=== PATIENT | male | born 1955 | race Caucasian/White ===

== ENCOUNTER 2020-09-15 19:41 | Emergency (ER) | payer MEDICARE, MEDICAID, SELFPAY ==
[2020-09-15 19:45] VITALS: BP 141/125; PULSE 114; RESP 26; TEMP 36.6; O2SAT 87; BMI 29.9
[2020-09-15 19:58] VITALS: O2SAT 96
--- NOTE | 2020-09-15 20:00 | EKG12_ITS ---
Test Reason : DYSRHYTHMIA Blood Pressure : / mmHG Vent. Rate : 092 BPM Atrial Rate : 092 BPM P-R Int : 154 ms QRS Dur : 084 ms QT Int : 390 ms P-R-T Axes : 085 -21 067 degrees QTc Int : 482 ms Normal sinus rhythm Prolonged QT Septal OH, age undetermined, cannot be excluded Abnormal ECG Confirmed by STEPHAN HAYES, PARISH ([id number]), index editor JOEL FUENTES ([id number]) on 09/17/2020 9:26:43 AM Referred By: AIYANA Confirmed By:PARISH ROTHMAN MD
--- NOTE | 2020-09-15 20:01 | EX.ED.DYSGE1 ---
HPI History of Present Illness Chief Complaint: Shortness of Breath Informant: patient Onset/Context/Timing Onset: Today Current Severity: Mild Maximum Severity: Moderate Narrative Narrative: Patient presents via EMS secondary to shortness of breath. Patient is a history of COPD and states when the weather gets very humid he has difficulty breathing. His O2 sat was reported 80% on room air with squad. He was given albuterol treatment in route. Patient does wear 2 to 3 L of oxygen at bedtime only. He denies chest pain. PFSH PFSH Medical History Congestive heart failure (CHF) COPD (chronic obstructive pulmonary disease) Diabetes Hypertension On home oxygen therapy Smoker Home Medications albuterol sulfate [Ventolin HFA] 2 puff INHALATION Q4H PRN PRN 09/15/20 [History Last Taken Unknown] budesonide-formoterol 2 puff INHALATION BID 09/15/20 [History Last Taken Unknown] doxycycline monohydrate 100 mg PO BID #20 cap 09/15/20 [Rx Last Taken Unknown] furosemide 20 mg PO DAILY 09/15/20 [History Last Taken Unknown] glimepiride 0.5 mg PO DAILY 09/15/20 [History Last Taken Unknown] ipratropium bromide 3 ml INHALATION TID PRN 09/15/20 [History Last Taken Unknown] losartan 25 mg PO DAILY 09/15/20 [History Last Taken Unknown] metoprolol succinate 150 mg PO DAILY 09/15/20 [History Last Taken Unknown] prednisone 40 mg PO DAILY #16 tab 09/15/20 [Rx Last Taken Unknown] Allergy/AdvReac Type Severity Reaction Status Date / Time No Known Allergies Allergy Verified 09/15/20 19:52 Social History Smoking Status: Former smoker ROS ROS ED Constitutional Constitutional ED: Denies chills or fever(s) Eyes Eyes: Denies change in vision ENT ENT ED: Denies sore throat Cardiovascular Cardiovascular: Denies chest pain Respiratory/Chest Respiratory/Chest: Reports dyspnea; Denies cough Gastrointestinal Gastrointestinal: Denies abdominal pain, diarrhea, nausea or vomiting Genitourinary Genitourinary ED: Denies dysuria Musculoskeletal Musculoskeletal: Denies back pain Integumentary Denies rash Neurologic Neurologic: Denies headache(s) or weakness Psychiatric Psychiatric: Denies anxiety or depression Endocrine Endocrinology: Denies polydipsia or polyuria Allergic/Immunologic Allergic/Immunologic ED: Denies urticaria EXAM Physical Exam Const Vital Signs: 09/15/20 19:45 09/15/20 19:58 09/15/20 20:49 Temperature 97.9 F Temperature Source Temporal Pulse Rate 114 H 108 H Respiratory Rate 26 H 20 H Respiratory Effort Short of Breath Respiratory Pattern Tachypnea Normal Blood Pressure 141/125 H Blood Pressure Mean 130 Pulse Ox 87 Oxygen Delivery Method Room Air Nasal Cannula Oxygen Flow Rate (L/min) 2 09/15/20 21:29 09/15/20 22:58 09/15/20 22:59 Temperature 97.9 F 97.9 F Temperature Source Temporal Temporal Pulse Rate 95 93 93 Respiratory Rate 24 H 23 H 23 H Respiratory Effort Respiratory Pattern Blood Pressure 158/75 H 137/74 H 137/74 H Blood Pressure Mean 102 95 Pulse Ox 96 92 92 Oxygen Delivery Method Nasal Cannula Nasal Cannula Oxygen Flow Rate (L/min) 2 2 Positive well nourished and well developed General Appearance ED: well developed HEENT Reports normocephalic and head/scalp atraumatic Eyes PERRL and EOMs intact bilaterally Neck supple Chest Wall inspection of chest normal and palpation of chest normal Resp normal respiratory effort Auscultation: diminished lung sounds Cardio regular rate and regular rhythm GI normal to inspection, nondistended, normoactive bowel sounds Palpation: soft Extremity normal to inspection Neuro oriented x3 and no sensory deficits noted Sensorium / Orientation: alert Motor Exam: strength 5/5 throughout Psych mental status grossly normal Skin no rashes or lesions noted MDM MDM MDM Narrative Medical decision making narrative: EKG, chest x-ray, labs were obtained. Patient is given a DuoNeb treatment. Lab Data Attestation: I reviewed the patient's lab results. Labs: Laboratory Results - last 24 hr 09/15/20 09/15/20 20:00 20:00 WBC 9.4 RBC 4.58 L Hgb 14.0 Hct 44.7 MCV 97.6 H MCH 30.6 MCHC 31.3 L RDW Std Deviation 50.8 H RDW Coeff of Patricia 14.2 Plt Count 308 MPV 10.1 Immature Gran % (Auto) 0.500 Neut % (Auto) 60.9 Lymph % (Auto) 27.9 [place] % (Auto) 8.5 Eos % (Auto) 1.7 Baso % (Auto) 0.5 Absolute Neuts (auto) 5.7 Absolute Lymphs (auto) 2.61 Nucleated RBC % 0 Sodium 144 Potassium 3.9 Chloride 105 Carbon Dioxide 33.0 H Anion Gap 6 BUN 16 Creatinine 1.24 Estim Creat Clear Calc 61.32 Est GFR (MDRD) Af Amer 75 Est GFR (MDRD) Non-Af 62 BUN/Creatinine Ratio 12.9 Glucose 163 H Calcium 9.1 Radiography Chest X-Ray - ED: 1 View, Read by ED Physician and - (Scarring bilateral bases) Diagnostic Testing: Radiology Impression Chest X-Ray 09/15/20 20:40 IMPRESSION: Streaky opacities in the bilateral lower lobes concerning for infection. Electronically Signed: Burton Kelly MD at 21:05 EDT Tel , Service support , EKG Initial EKG: Attestation: I personally reviewed and interpreted this EKG as follows: Interpretation: Sinus Rhythm (Sinus at 92 with no acute ischemia.) Treatment and Re-Evaluation Comments:: Patient had received 1 albuterol aerosol with squad. He was given a DuoNeb treatment here and IV Solu-Medrol. Chest x-ray per my interpretation reveals what appears to be scarring at the bases. Radiology feels that this may represent infection. Lab work is unremarkable. On repeat evaluation patient is sleeping soundly. His nasal cannula is not in correct location and his O2 sats are in the mid 90s. This taken completely off. He does have home oxygen that he wears at night and will have available. He will be treated with a course of doxycycline. Discharge Plan Triage Chief Complaint: Shortness of Breath ED Provider: Ainta Holguin Dx/Rx/DC Orders Clinical Impression: COPD exacerbation Instructions: ED COPD Flare Prescriptions: New doxycycline monohydrate 100 MG capsule 100 mg PO BID Qty: 20 RF: 0 prednisone 10 mg tablet 40 mg PO DAILY Qty: 16 RF: 0 No Action metoprolol succinate 50 mg tablet extended release 24 hr 150 mg PO DAILY RF: 0 glimepiride 1 mg tablet 0.5 mg PO DAILY RF: 0 losartan 25 mg tablet 25 mg PO DAILY RF: 0 furosemide 20 mg tablet 20 mg PO DAILY RF: 0 albuterol sulfate [Ventolin HFA] 90 mcg/actuation HFA aerosol inhaler 2 puff INHALATION Q4H PRN PRN (Reason: Shortness Of Breath) RF: 0 ipratropium bromide 0.02 % solution 3 ml inhalation TID PRN (Reason: Shortness Of Breath) RF: 0 budesonide-formoterol 160-4.5 mcg/actuation HFA aerosol inhaler 2 puff INHALATION BID RF: 0 Primary Care Provider: Care Physician,No Primary Referrals: Deon Manley MD [STAFF PHYSICIAN] - As Needed Care Physician,No Primary [Primary Care Provider] - Disposition Disposition: Home, self care Discharge Date/Time: 09/15/20 23:05
[2020-09-15 20:09] LABS: Absolute Lymphocyte Count 2.61 X10^3/uL (0.83-4.51); Absolute Neutrophil Count 5.7 X10^3/uL (2.0-7.7); Basophil# 0.05 X10^3/uL; Basophil% 0.5 % (0-1); Eosinophil# 0.16 X10^3/uL; Eosinophils% 1.7 % (0-5); Hematocrit 44.7 % (40-54); Lymphocyte # 2.61 X10^3/ul (0.83-4.51); Lymphocyte % 27.9 % (19-41); Mean Corp Hgb Conc 31.3 g/dL (32-36); Mean Corpuscular Hgb 30.6 pg (27.0-32.0); Mean Corpuscular Volume 97.6 fL (80-94); Mean Platelet Vol. 10.1 fl (6.2-12.0); Monocyte% 8.5 % (0-10); NRBC Flagged by Analyzer 0 % (0-5); Neutrophil % 60.9 % (47-70); Platelet Count 308 K/mm3 (150-450); RBC Distribution Width CV 14.2 % (11.6-14.6); RBC Distribution Width SD 50.8 fl (35.1-43.9); Red Blood Count 4.58 M/mm3 (4.6-6.2); White Blood Count 9.4 K/mm3 (4.4-11.0)
[2020-09-15 20:23] LABS: Anion Gap 6 (5-15); BUN 16 mg/dL (7-18); BUN/Creat Ratio 12.9 RATIO (10-20); Calcium,Total 9.1 mg/dL (8.5-10.1); Chloride 105 mmol/L (98-107); Creatinine, Serum 1.24 mg/dL (0.70-1.30); EST Glomerular Filtration Rate 62 mL/min (>60); Est Glom Filt Rate - Afr Amer 75 mL/min (>60); Estimated Creatinine Clearance 61.32 ml/min; Glucose 163 mg/dL (74-106); Potassium 3.9 mmol/L (3.5-5.1); Sodium Level 144 mmol/L (136-145)
[2020-09-15] MEDS: MethylPREDNISolone 125 MG/2 ML Vial IV (20:25)
--- NOTE | 2020-09-15 20:40 | RAD_ITS ---
INDICATION: sob EXAMINATION/TECHNIQUE: X-RAY - XR Chest 1 View COMPARISON: None. FINDINGS: Streaky opacities in the bilateral lower lobes, mostly on the right. Tortuous and calcified thoracic aorta. The heart is not enlarged. No pleural effusion or pneumothorax. No acute osseous abnormalities. RAD/Chest 1 View (Portable) IMPRESSION: Streaky opacities in the bilateral lower lobes concerning for infection. Electronically Signed: Burton Kelly MD at 21:05 EDT Tel , Service support ,
[2020-09-15 20:49] VITALS: PULSE 108; RESP 20
[2020-09-15] MEDS: Ipratropium/Albuterol Sulfate 3 ML AMPUL.NEB INHALATION (20:49)
[2020-09-15 21:29] VITALS: BP 158/75; PULSE 95; RESP 24; TEMP 36.6; O2SAT 96
[2020-09-15 22:58] VITALS: BP 137/74; PULSE 93; RESP 23; O2SAT 92
[2020-09-15 22:59] VITALS: BP 137/74; PULSE 93; RESP 23; TEMP 36.6; O2SAT 92
[2020-09-15] MEDS: Doxycycline 100 MG CAPSULE PO (23:05)
== END 2020-09-15 23:05 | disposition home or self-care (01) ==
PROVIDERS: Emergency Provider Emergency Medicine
DX: J44.1 Chronic obstructive pulmonary disease with (acute) exacerbation (principal); I11.0 Hypertensive heart disease with heart failure; I50.9 Heart failure, unspecified; Z79.52 Long term (current) use of systemic steroids; Z79.899 Other long term (current) drug therapy; Z87.891 Personal history of nicotine dependence
CPT/HCPCS: 71045; 80048; 85025; 93005; 94640; 96374; 99285; A4216

== ENCOUNTER 2020-09-30 20:56 | Inpatient (IN) | payer MEDICARE, MEDICAID, SELFPAY ==
[2020-09-30 20:58] VITALS: BP 141/100; PULSE 116; RESP 40; TEMP 35.8; O2SAT 85; BMI 32.6
[2020-09-30 21:01] VITALS: BP 141/100; PULSE 42; RESP 40; TEMP 36.1; O2SAT 93
--- NOTE | 2020-09-30 21:12 | EKG12_ITS ---
Test Reason : DYSRHYTHMIA Blood Pressure : / mmHG Vent. Rate : 110 BPM Atrial Rate : 110 BPM P-R Int : 146 ms QRS Dur : 082 ms QT Int : 354 ms P-R-T Axes : 069 -18 067 degrees QTc Int : 479 ms Sinus tachycardia Otherwise normal ECG Confirmed by PREMA HAYES, LAWRENCE ([id number]), deputy editor in chief ANNALISA BURT ([id number]) on 10/01/2020 2:25:16 PM Referred By: ROMA Confirmed By:LAWRENCE LLOYD MD
--- NOTE | 2020-09-30 21:13 | ED.VIS.DYS ---
HPI History of Present Illness Chief Complaint: Shortness of Breath Detail of Chief Complaint: Shortness of breath progressively worsening over the last several days Informant: patient Narrative Narrative: Patient presents to ER via EMS with complaint of increasing shortness of breath. Patient has history of COPD and normally uses 3 L of O2 mostly at night. Patient states that due to the humidity in the heat he feels like his COPD is flared up. He denies weight gain. He denies fever. He does have slight cough. Patient denies any chest pain. Patient denies recent travel or surgery. No history of PE or DVT. Prior similar symptoms: Yes PFSH PFSH Medical History Congestive heart failure (CHF) COPD (chronic obstructive pulmonary disease) Diabetes Hypertension On home oxygen therapy Smoker Home Medications albuterol sulfate [Ventolin HFA] 2 puff INHALATION Q4H PRN PRN 09/15/20 [History Last Taken Unknown] budesonide-formoterol 2 puff INHALATION BID 09/15/20 [History Last Taken Unknown] doxycycline monohydrate 100 mg PO BID #20 cap 09/15/20 [Rx Last Taken Unknown] furosemide 20 mg PO DAILY 09/15/20 [History Last Taken Unknown] glimepiride 0.5 mg PO DAILY 09/15/20 [History Last Taken Unknown] ipratropium bromide 3 ml INHALATION TID PRN 09/15/20 [History Last Taken Unknown] losartan 25 mg PO DAILY 09/15/20 [History Last Taken Unknown] metoprolol succinate 150 mg PO DAILY 09/15/20 [History Last Taken Unknown] prednisone 40 mg PO DAILY #16 tab 09/15/20 [Rx Last Taken Unknown] Allergy/AdvReac Type Severity Reaction Status Date / Time No Known Allergies Allergy Verified 09/15/20 19:52 Social History Smoking Status: Former smoker ROS ROS ED Constitutional Constitutional ED: Reports systems reviewed and no addt'l complaints, except as documented; Denies body ache(s), change in weight or chills Eyes Eyes: Denies acute decrease in peripheral vision, change in vision, double vision or loss of vision ENT ENT ED: Reports none; Denies ear pain, lip swelling, loss taste/smell, neck pain, otalgia or sore throat Cardiovascular Cardiovascular: Reports none; Denies abdominal pain, chest pain with activity, leg edema, lightheadedness, palpitations, rapid heart rate or syncope Respiratory/Chest Respiratory/Chest: Reports none, cough and dyspnea; Denies change in mental status, dry cough, hemoptysis, shortness of breath at rest or shortness of breath with exertion Gastrointestinal Gastrointestinal: Reports none; Denies abdominal pain, change in stool character, diarrhea, hematemesis, hematochezia, melena, rectal bleeding or vomiting Genitourinary Genitourinary ED: Reports none; Denies abdominal discomfort, anuria, dysuria, genital pain or polyuria Musculoskeletal Musculoskeletal: Reports none; Denies arthralgias, back pain, difficulty walking, extremity pain, muscle weakness or myalgias Integumentary Reports none; Denies abscess or rash Neurologic Neurologic: Reports none; Denies abnormal gait, confusion, focal weakness, frequent falls, headache(s), loss of vision, numbness, paresthesias, radicular pain, vertigo or weakness Psychiatric Psychiatric: Reports systems reviewed and no addt'l complaints, except as documented and none; Denies behavioral changes, confusion, difficulty concentrating, hallucinations, suicidal ideation, tactile hallucinations or visual hallucinations Endocrine Endocrinology: Denies none, cold intolerance, excessive sweating, fatigue or heat intolerance Hematologic/Lymphatic Hematologic/Lymphatic: Reports none; Denies anemia, easy bleeding or easy bruising Allergic/Immunologic Allergic/Immunologic ED: Denies as per HPI, none, lip swelling, mouth swelling, throat swelling, tongue swelling or hives EXAM Physical Exam Const Vital Signs: 09/30/20 20:58 09/30/20 21:01 09/30/20 21:16 Temperature 96.5 F L 96.9 F L Temperature Source Temporal Temporal Pulse Rate 116 H 42 L 117 H Respiratory Rate 40 H 40 H 34 H Respiratory Effort Short of Breath Labored Accessory Muscle Use Respiratory Depth Shallow Respiratory Pattern Tachypnea Blood Pressure 141/100 H 141/100 H Blood Pressure Mean 113 113 Pulse Ox 85 93 95 Oxygen Delivery Method Room Air Nasal Cannula Nasal Cannula Oxygen Flow Rate (L/min) 2 2 09/30/20 22:08 Temperature 98.4 F Temperature Source Temporal Pulse Rate 109 H Respiratory Rate 26 H Respiratory Effort Respiratory Depth Respiratory Pattern Blood Pressure 126/90 H Blood Pressure Mean 102 Pulse Ox 98 Oxygen Delivery Method Room Air Oxygen Flow Rate (L/min) Positive well nourished and well developed General Appearance ED: well developed and NAD HEENT Reports TM's clear and moist mucous membranes normocephalic and atraumatic; Negative for trauma or tenderness Tympanic Membrane ED: Yes TM's clear Eyes PERRL and EOMs intact bilaterally General Eye ED: Negative for pale conjunctiva or scleral icterus Neck no lymphadenopathy, supple and no JVD General: Negative for tenderness Chest Wall inspection of chest normal and palpation of chest normal Chest: Negative for tenderness Resp Resp Narrative: Patient tachypneic with some mild accessory muscle use noted. Patient has diminished breath sounds bilaterally with end expiratory wheezes noted bilaterally. Effort and Inspection: Negative for respiratory distress or pain with movement Auscultation: rhonchi and wheezes; Negative for diminished lung sounds Cardio regular rate, regular rhythm, S1 normal heart sound, S2 normal heart sound and no murmurs Peripheral Pulses: pulses 2+ throughout GI normal to inspection, nondistended, normoactive bowel sounds, soft to palpation, non-tender, non-distended and no masses Back/Spine no CVA tenderness and no thoracic nor lumbar tenderness Extremity normal to inspection General Extremety ED: Negative for edema General Extremity: Negative for edema Neuro oriented x3, CN's II-XII intact bilaterally, no sensory deficits noted and gait normal Sensorium / Orientation: awake, alert, oriented to person, oriented to place and oriented to time Motor Exam: strength 5/5 throughout and strength abnormal Psych mental status grossly normal Skin no rashes or lesions noted and no wounds MDM MDM MDM Narrative Medical decision making narrative: Patient received DuoNeb aerosol and albuterol aerosols as well as prednisone IV. CTA of the chest was negative for PE or dissection. No infiltrates noted. Patient was noted to have some nodules 1 in the right lower lobe measuring 1.1 x 0.9 cm and one in left upper lobe measuring [address] follow-up in 6 months. Case will be discussed with hospitalist evaluate patient for admission. Patient has COPD exacerbation. Lab Data Attestation: I reviewed the patient's lab results. Labs: Laboratory Results - last 24 hr 09/30/20 09/30/20 09/30/20 21:05 21:05 21:05 WBC 12.3 H RBC 4.93 Hgb 15.0 Hct 48.4 MCV 98.2 H MCH 30.4 MCHC 31.0 L RDW Std Deviation 49.4 H RDW Coeff of Patricia 13.7 Plt Count 295 MPV 10.5 Immature Gran % (Auto) 0.500 Neut % (Auto) 63.5 Lymph % (Auto) 23.9 [place] % (Auto) 9.7 Eos % (Auto) 1.9 Baso % (Auto) 0.5 Absolute Neuts (auto) 7.8 H Absolute Lymphs (auto) 2.94 Nucleated RBC % 0 D-Dimer Quant (PE/DVT) Sodium 140 Potassium 4.8 Chloride 102 Carbon Dioxide 36.0 H Anion Gap 2 L BUN 25 H Creatinine 1.75 H Estim Creat Clear Calc 43.45 Est GFR (MDRD) Af Amer 50 L Est GFR (MDRD) Non-Af 42 L BUN/Creatinine Ratio 14.3 Glucose 201 H Calcium 8.9 Troponin I High Sens 18.4 B-Natriuretic Peptide 760.5 H Ethyl Alcohol 09/30/20 09/30/20 21:26 21:26 WBC RBC Hgb Hct MCV MCH MCHC RDW Std Deviation RDW Coeff of Patricia Plt Count MPV Immature Gran % (Auto) Neut % (Auto) Lymph % (Auto) [place] % (Auto) Eos % (Auto) Baso % (Auto) Absolute Neuts (auto) Absolute Lymphs (auto) Nucleated RBC % D-Dimer Quant (PE/DVT) 0.97 H* Sodium Potassium Chloride Carbon Dioxide Anion Gap BUN Creatinine Estim Creat Clear Calc Est GFR (MDRD) Af Amer Est GFR (MDRD) Non-Af BUN/Creatinine Ratio Glucose Calcium Troponin I High Sens B-Natriuretic Peptide Ethyl Alcohol < 3.0 ABG Data ABG results: ABG 09/30/20 22:33 Specimen Type ART Sample Site R Radial pH 7.33 L Bicarbonate Actual 35.1 H Total CO2 37 Base Excess 9 H O2 Saturation 82 L ABG pCO2 67.1 H* ABG pO2 52 L Toney Test Positive O2 Delivery Device Cannula Liter Flow 2.0 Crit Call To/Read Back Yes Blood Gas Notified Whom [facility] Radiography Chest X-Ray - ED: 1 View Diagnostic Testing: Radiology Impression Chest X-Ray 09/30/20 21:50 IMPRESSION: No acute findings Electronically Signed: Marcello Aguilar DO at 22:20 EDT Tel , Service support , 1 chest x-ray obtained interpreted by myself as hyperinflation and COPD without evidence of infiltrate. Radiology in agreement. EKG Initial EKG: Attestation: I personally reviewed and interpreted this EKG as follows: Comments: Sinus rhythm with a ventricular rate of 110 bpm with no acute ST segment changes. Discharge Plan Triage Chief Complaint: Shortness of Breath ED Provider: Patel Gonzales Dx/Rx/DC Orders Clinical Impression: COPD exacerbation Prescriptions: No Action metoprolol succinate 50 mg tablet extended release 24 hr 150 mg PO DAILY RF: 0 glimepiride 1 mg tablet 0.5 mg PO DAILY RF: 0 losartan 25 mg tablet 25 mg PO DAILY RF: 0 furosemide 20 mg tablet 20 mg PO DAILY RF: 0 albuterol sulfate [Ventolin HFA] 90 mcg/actuation HFA aerosol inhaler 2 puff INHALATION Q4H PRN PRN (Reason: Shortness Of Breath) RF: 0 ipratropium bromide 0.02 % solution 3 ml inhalation TID PRN (Reason: Shortness Of Breath) RF: 0 budesonide-formoterol 160-4.5 mcg/actuation HFA aerosol inhaler 2 puff INHALATION BID RF: 0 doxycycline monohydrate 100 MG capsule 100 mg PO BID Qty: 20 RF: 0 prednisone 10 mg tablet 40 mg PO DAILY Qty: 16 RF: 0 Primary Care Provider: Care Physician,No Primary Referrals: Care Physician,No Primary [Primary Care Provider] - Disposition Disposition: [facility]
[2020-09-30 21:16] VITALS: PULSE 117; RESP 24; RESP 34; O2SAT 95
[2020-09-30] MEDS: Ipratropium/Albuterol Sulfate 3 ML AMPUL.NEB INHALATION (21:16)
[2020-09-30 21:20] LABS: Absolute Lymphocyte Count 2.94 X10^3/uL (0.83-4.51); Absolute Neutrophil Count 7.8 X10^3/uL (2.0-7.7); Basophil# 0.06 X10^3/uL; Basophil% 0.5 % (0-1); Eosinophil# 0.23 X10^3/uL; Eosinophils% 1.9 % (0-5); Hematocrit 48.4 % (40-54); Lymphocyte # 2.94 X10^3/ul (0.83-4.51); Lymphocyte % 23.9 % (19-41); Mean Corpuscular Hgb 30.4 pg (27.0-32.0); Mean Corpuscular Volume 98.2 fL (80-94); Mean Platelet Vol. 10.5 fl (6.2-12.0); Monocyte% 9.7 % (0-10); NRBC Flagged by Analyzer 0 % (0-5); Neutrophil # 7.82 X10^3/uL (2.7-7.7); Neutrophil % 63.5 % (47-70); Platelet Count 295 K/mm3 (150-450); RBC Distribution Width CV 13.7 % (11.6-14.6); RBC Distribution Width SD 49.4 fl (35.1-43.9); Red Blood Count 4.93 M/mm3 (4.6-6.2); White Blood Count 12.3 K/mm3 (4.4-11.0)
[2020-09-30] MEDS: Albuterol 2.5 MG/3 ML VIAL.NEB. INHALATION ×3 (21:23→21:34)
[2020-09-30 21:35] LABS: Anion Gap 2 (5-15); BUN 25 mg/dL (7-18); BUN/Creat Ratio 14.3 RATIO (10-20); Calcium,Total 8.9 mg/dL (8.5-10.1); Chloride 102 mmol/L (98-107); Creatinine, Serum 1.75 mg/dL (0.70-1.30); EST Glomerular Filtration Rate 42 mL/min (>60); Est Glom Filt Rate - Afr Amer 50 mL/min (>60); Estimated Creatinine Clearance 43.45 ml/min; Glucose 201 mg/dL (74-106); Potassium 4.8 mmol/L (3.5-5.1); Sodium Level 140 mmol/L (136-145); Troponin-I HS 18.4 pg/mL (3.0-78.5)
[2020-09-30 21:39] LABS: BNP,B-Type NATRIURETIC PEPTIDE 760.5 pg/mL (0-100)
--- NOTE | 2020-09-30 21:50 | RAD_ITS ---
STUDY: X-RAY CHEST REASON FOR EXAM: Male, 64 years old. dyspnea TECHNIQUE: Single AP portable view of the chest. COMPARISON: 09/15/2020 FINDINGS: There is hyperinflation of the lungs consistent with chronic obstructive lung disease (COPD). Moderate emphysema with large bullous formation in the right upper lobe. No evidence of pneumothorax or acute airspace disease. Normal size heart. Normal mediastinum and phyllis. Normal visualized pulmonary arteries. Normal visualized aortic arch and descending thoracic aorta. Normal visualized thoracic spine. Normal visualized ribs, clavicles, and shoulders. There is no demonstrated abnormality of the visualized soft tissue structures of the upper abdomen. RAD/Chest 1 View (Portable) IMPRESSION: No acute findings Electronically Signed: Marcello Aguilar DO at 22:20 EDT Tel , Service support ,
--- NOTE | 2020-09-30 21:54 | CPS ---
x3 Albuterol given to pt. in ED as well
[2020-09-30 22:03] LABS: Alcohol, Blood (Medical)-Serum < 3.0 mg/dL
[2020-09-30 22:07] LABS: D-Dimer Quantitative (DVT/PE) 0.97 FEU/ug/m (0.27-0.49)
[2020-09-30 22:08] VITALS: BP 126/90; PULSE 109; RESP 26; TEMP 36.9; O2SAT 98
[2020-09-30] MEDS: MethylPREDNISolone 125 MG/2 ML Vial IV (22:11)
--- NOTE | 2020-09-30 22:30 | CT_ITS ---
STUDY: CTA CHEST REASON FOR EXAM: Male, 64 years old. elevated d-dimer, sob RADIATION DOSAGE (If Supplied By Facility): CTDIvol = ( 10.16 ) mGy, DLP = ( 656.59 ) mGycm TECHNIQUE: The examination was performed with the intravenous administration of IV 100mL [id number]-370. Post-processing of the angiographic images was performed, with multiplanar reformation and 3D reconstruction. Individualized dose optimization techniques were used for this CT. COMPARISON: None. FINDINGS: Normal enhancement of the main pulmonary artery and right and left pulmonary arteries. Normal enhancement of the bilateral peripheral pulmonary arteries. There is no demonstrated pulmonary embolism. Normal thoracic aorta and visualized great vessels. There is no demonstrated aortic dissection. Normal heart and pericardium. Normal mediastinum. Normal hilar regions. Normal visualized trachea and bronchi. Severe COPD and emphysema No acute cardiopulmonary disease. Nodule in the right lower lobe measuring 1.1 x 0.9 cm a nodule in the left upper lobe measuring 8 mm. Normal pleura. Normal chest wall structures. Normal osseous structures. Normal visualized upper abdomen. CT/CTA Chest W/WO Contrast IMPRESSION: Negative for pulmonary embolism. Severe COPD and emphysema. Pulmonary nodules as above. Follow-up CT recommended in 6 months Electronically Signed: Marcello Aguilar DO at 23:24 EDT Tel , Service support ,
[2020-09-30 22:41] LABS: Allen Test Positive; Base Excess 9 mmol/L (-2 to +2); Bicarbonate 35.1 mmol/L (22-26); Blood Gas Specimen Type ART; O2 Delivery Device Cannula; PO2 52 mmHG (75-100); SITE R Radial; SO2 82 % (95-99); Total Carbon Dioxide 37 mmol/L; pCO2 67.1 mmHg (35-45); pH 7.33 (7.35-7.45)
[2020-09-30 23:42] VITALS: BP 123/71; PULSE 110; RESP 23; TEMP 37.1; O2SAT 96
--- NOTE | 2020-09-30 23:53 | HP.PCM_ITS ---
Documented by User: Kira Matos NP-Lauren 10/01/20 00:12 HPI - General HPI Narrative JORGE APONTE, is a 64 M who presents with complaints of shortness of breath. Patient states that he was in his car at a restaurant when he became increasingly short of breath. Patient states that this is only been ongoing today. Patient states that this happens frequently this time of year due to high heat and humidity. Patient reports that he uses oxygen only at night at 3 L via nasal cannula. Patient denies fever, cough, chest pain. PFSH Medical History Congestive heart failure (CHF) COPD (chronic obstructive pulmonary disease) Diabetes Hypertension On home oxygen therapy Smoker Home Medications albuterol sulfate [Ventolin HFA] 2 puff INHALATION Q4H PRN PRN 09/15/20 [History Last Taken Unknown] budesonide-formoterol 2 puff INHALATION BID 09/15/20 [History Last Taken Unknown] doxycycline monohydrate 100 mg PO BID #20 cap 09/15/20 [Rx Last Taken Unknown] furosemide 20 mg PO DAILY 09/15/20 [History Last Taken Unknown] glimepiride 0.5 mg PO DAILY 09/15/20 [History Last Taken Unknown] ipratropium bromide 3 ml INHALATION TID PRN 09/15/20 [History Last Taken Unknown] losartan 25 mg PO DAILY 09/15/20 [History Last Taken Unknown] metoprolol succinate 150 mg PO DAILY 09/15/20 [History Last Taken Unknown] prednisone 40 mg PO DAILY #16 tab 09/15/20 [Rx Last Taken Unknown] Allergy/AdvReac Type Severity Reaction Status Date / Time No Known Allergies Allergy Verified 09/15/20 19:52 Social History (Updated 09/30/20 @ 23:55 by Kira Matos NP-C) Smoking Status: Former smoker substance use type: marijuana ROS Constitutional Constitutional: Denies anorexia, chills, fatigue, fever(s), malaise, weakness or weight gain Cardiovascular Cardiovascular: Denies chest pain, edema or palpitations Respiratory/Chest Respiratory/Chest: Reports shortness of breath at rest, shortness of breath with exertion, tachypnea and wheezing; Denies cough Gastrointestinal Gastrointestinal: Denies abdominal pain, constipation, diarrhea, nausea or vomiting Genitourinary Genitourinary: Denies dysuria Musculoskeletal Musculoskeletal: Denies back pain, extremity pain, joint pain or joint stiffness Integumentary Integumentary: Denies dry skin Neurologic Neurologic: Denies abnormal gait, abnormal speech, confusion or dizziness Psychiatric Psychiatric: Denies anxiety or depression Endocrine Endocrinology: Denies change in body appearance Hematologic/Lymphatic Hematologic/Lymphatic: Denies easy bleeding or easy bruising Vital Signs Vital Signs Vital Signs: 09/30/20 20:58 09/30/20 21:01 09/30/20 21:16 Temperature 96.5 F L 96.9 F L Temperature Source Temporal Temporal Pulse Rate 116 H 42 L 117 H Respiratory Rate 40 H 40 H 34 H Respiratory Effort Short of Breath Labored Accessory Muscle Use Respiratory Depth Shallow Respiratory Pattern Tachypnea Blood Pressure 141/100 H 141/100 H Blood Pressure Mean 113 113 Pulse Ox 85 93 95 Oxygen Delivery Method Room Air Nasal Cannula Nasal Cannula Oxygen Flow Rate (L/min) 2 2 09/30/20 22:08 09/30/20 23:42 Temperature 98.4 F 98.7 F Temperature Source Temporal Oral Pulse Rate 109 H 110 H Respiratory Rate 26 H 23 H Respiratory Effort Respiratory Depth Respiratory Pattern Blood Pressure 126/90 H 123/71 H Blood Pressure Mean 102 88 Pulse Ox 98 96 Oxygen Delivery Method Room Air Nasal Cannula Oxygen Flow Rate (L/min) 3 Weight Weight: 227 lb 8.273 oz Body Mass Index (BMI) 32.6 Physical Exam Const alert, oriented x3 and no apparent distress General Appearance: cooperative HEENT normocephalic and head/scalp atraumatic Eyes conjunctivae normal and no scleral icterus Neck supple and no JVD General: trachea midline Resp Effort and Inspection: able to speak in complete sentences, symmetric chest movement and tachypneic Auscultation: wheezes expiratory wheezes and scattered wheezes Cardio regular rate, regular rhythm, S1 normal heart sound and S2 normal heart sound Rate: tachycardic GI normal to inspection, nondistended, normoactive bowel sounds, soft to palpation and non-tender Extremity normal capillary refill and no clubbing, cyanosis or edema General Extremity: no tenderness to palpation of joints or extremities Skin General Skin Exam: no breakdown and turgor normal Lesions: no lesions Rashes: no rashes Neuro no focal motor deficits and no sensory deficits noted Speech: speech normal Motor Exam: strength 5/5 throughout Psych thought process normal, cooperative and affect normal Appearance: appropriate Results Lab / Micro Data Result Diagrams: 09/30/20 21:05 09/30/20 21:05 Labs: Laboratory Results - last 24 hr 09/30/20 09/30/20 09/30/20 21:05 21:05 21:05 WBC 12.3 H RBC 4.93 Hgb 15.0 Hct 48.4 MCV 98.2 H MCH 30.4 MCHC 31.0 L RDW Std Deviation 49.4 H RDW Coeff of Patricia 13.7 Plt Count 295 MPV 10.5 Immature Gran % (Auto) 0.500 Neut % (Auto) 63.5 Lymph % (Auto) 23.9 [place] % (Auto) 9.7 Eos % (Auto) 1.9 Baso % (Auto) 0.5 Absolute Neuts (auto) 7.8 H Absolute Lymphs (auto) 2.94 Nucleated RBC % 0 D-Dimer Quant (PE/DVT) Sodium 140 Potassium 4.8 Chloride 102 Carbon Dioxide 36.0 H Anion Gap 2 L BUN 25 H Creatinine 1.75 H Estim Creat Clear Calc 43.45 Est GFR (MDRD) Af Amer 50 L Est GFR (MDRD) Non-Af 42 L BUN/Creatinine Ratio 14.3 Glucose 201 H Calcium 8.9 Troponin I High Sens 18.4 B-Natriuretic Peptide 760.5 H Ethyl Alcohol 09/30/20 09/30/20 21:26 21:26 WBC RBC Hgb Hct MCV MCH MCHC RDW Std Deviation RDW Coeff of Patricia Plt Count MPV Immature Gran % (Auto) Neut % (Auto) Lymph % (Auto) [place] % (Auto) Eos % (Auto) Baso % (Auto) Absolute Neuts (auto) Absolute Lymphs (auto) Nucleated RBC % D-Dimer Quant (PE/DVT) 0.97 H* Sodium Potassium Chloride Carbon Dioxide Anion Gap BUN Creatinine Estim Creat Clear Calc Est GFR (MDRD) Af Amer Est GFR (MDRD) Non-Af BUN/Creatinine Ratio Glucose Calcium Troponin I High Sens B-Natriuretic Peptide Ethyl Alcohol < 3.0 Micro: Microbiology 09/30/20 22:10 SARS-CoV-2 Antigen (Rapid) - Final Mucosa - Nose ABG Data ABG results: ABG 09/30/20 22:33 Specimen Type ART Sample Site R Radial pH 7.33 L Bicarbonate Actual 35.1 H Total CO2 37 Base Excess 9 H O2 Saturation 82 L ABG pCO2 67.1 H* ABG pO2 52 L Toney Test Positive O2 Delivery Device Cannula Liter Flow 2.0 Crit Call To/Read Back Yes Blood Gas Notified Whom [facility] Impression Chest X-Ray 09/30/20 21:50 IMPRESSION: No acute findings Electronically Signed: Marcello Aguilar DO at 22:20 EDT Tel , Service support , Assessment & Plan Assessment/Plan (1) COPD exacerbation: PLAN: 1. COPD exacerbation -Admit to medical surgical for observation -DuoNeb scheduled nebulizer treatments ordered along with as needed albuterol -IV Solu-Medrol ordered every 8 hour -Encourage incentive spirometry -Oxygen per protocol, patient currently on 3 L nasal cannula with no complaints of shortness of breath. -Azithromycin 500 mg p.o. every 24 hour due to tachycardia, tachypnea, and elevated white blood cell count 2. Diabetes mellitus type 2 -Continue glimepiride -AC at bedtime blood sugars with sliding scale insulin ordered 3. Hypertension -Vital signs per protocol, trend BP and heart rate -Continue home medication therapy including losartan and metoprolol 4. Congestive heart failure -Continue furosemide, BNP elevated 760.5 -Monitor intake and output DVT prophylaxis-SCDs This patient was seen by MORENITA Greene under the supervision of Dr. Robledo Documented by User: Dr. Dayday Robledo MD 10/01/20 00:36 HPI - General General Date of Admission: 10/01/20 PFSH Medical History Congestive heart failure (CHF) COPD (chronic obstructive pulmonary disease) Diabetes Hypertension On home oxygen therapy Smoker Home Medications albuterol sulfate [Ventolin HFA] 2 puff INHALATION Q4H PRN PRN 09/15/20 [History Last Taken Unknown] budesonide-formoterol 2 puff INHALATION BID 09/15/20 [History Last Taken Unknown] doxycycline monohydrate 100 mg PO BID #20 cap 09/15/20 [Rx Last Taken Unknown] furosemide 20 mg PO DAILY 09/15/20 [History Last Taken Unknown] glimepiride 0.5 mg PO DAILY 09/15/20 [History Last Taken Unknown] ipratropium bromide 3 ml INHALATION TID PRN 09/15/20 [History Last Taken Unknown] losartan 25 mg PO DAILY 09/15/20 [History Last Taken Unknown] metoprolol succinate 150 mg PO DAILY 09/15/20 [History Last Taken Unknown] prednisone 40 mg PO DAILY #16 tab 09/15/20 [Rx Last Taken Unknown] Allergy/AdvReac Type Severity Reaction Status Date / Time No Known Allergies Allergy Verified 09/15/20 19:52 Social History (Updated 09/30/20 @ 23:55 by Kira Matos NP-C) Smoking Status: Former smoker substance use type: marijuana Results Lab / Micro Data Result Diagrams: 09/30/20 21:05 09/30/20 21:05 Charges/Coding Addendum Addendum: Patient was seen and examined independently. I agree with assessment and plan by Kira Matos NP-C In summary patient reports intermittent shortness of breath going on for about a month. He reports home oxygen use when there is high humidity. He reported he has oxygen equipment in his car and is waiting for some to be delivered to his home. Physical exam: General: Well-nourished, well-developed, no acute distress Head: Normocephalic, atraumatic, no tenderness Eyes: PERRLA, EOMI ENT, no trauma, moist mucous membranes, no rhinorrhea Neck: Nontender, full range of motion, no spinal tenderness, deformities, step- off CVS: Tachycardia; S1-S2 present. Respiratory : Tachypnea; rhonchi. Abdomen: Soft, nontender, nondistended, normal bowel sounds, no masses : Deferred Back: Nontender, no CVA tenderness, no midline spinal tenderness, deformities, step-offs Extremities: Nontender full range of motion, no trauma Skin: Normal color, no trauma, abrasions Neuro: Alert, oriented, cranial nerves II through XII grossly intact. Psychiatry: Anxious; talkative. Assessment and plan Impression of chest CT by radiology: Negative for pulmonary medicine. Severe COPD and emphysema. Pulmonary nodules. Actual CT image was independently interpreted and I agree with radiologist interpretation. With the latest impression of chest x-ray: No acute findings. Actual chest x- ray image was independently interpreted and I agree radiologist interpretation. Chronic findings of emphysema and large bullous formation in the right upper lobe pointed out by radiologist and noted by my interpretation. Placed on [id number] breathing treatment; Solu-Medrol and p.o. azithromycin Supplemental oxygen ordered per protocol. Monitor BMP and CBC EDI Creatinine on presentation was 1.75. Review of old records shows that his creatinine 09/15/2020 was 1.24. Gentle IV hydration ordered. Avoid nephrotoxins. Hold JOYCELYN inhibitor/JOYCELYN receptor blockers. Trend BMP. Elevated BNP Likely secondary to right-sided heart failure. Treatment of COPD as above. Diabetes mellitus with hyperglycemia Hold home p.o. oral hypoglycemic. Accu-Chek with correction scale insulin ordered. DVT prophylaxis: Subcutaneous heparin products ordered. Visit Charges OBSV E&M: 65336 Initial observation care L3
[2020-10-01] VITALS (14 sets, daily range): BP systolic 114–152; BP diastolic 66–106; PULSE 74–112; RESP 16–24; TEMP 36.4–36.9; O2SAT 89–98; BMI 30.1
[2020-10-01] MEDS: 0.9% Saline Lock 10 ML Syringe IV ×3 (01:43→21:58)
[2020-10-01] MEDS: 0.9% Normal Saline 1,000 ML 100 ML IV (01:43)
[2020-10-01] MEDS: Ipratropium/Albuterol Sulfate 3 ML AMPUL.NEB INHALATION ×5 (04:15→22:13)
[2020-10-01 05:21] LABS: Absolute Lymphocyte Count 0.72 X10^3/uL (0.83-4.51); Absolute Neutrophil Count 7.4 X10^3/uL (2.0-7.7); Basophil# 0.01 X10^3/uL; Basophil% 0.1 % (0-1); Hematocrit 44.5 % (40-54); Hemoglobin 13.8 g/dL (13.0-16.5); Lymphocyte # 0.72 X10^3/ul (0.83-4.51); Lymphocyte % 8.8 % (19-41); Mean Corpuscular Hgb 30.7 pg (27.0-32.0); Mean Corpuscular Volume 98.9 fL (80-94); Mean Platelet Vol. 10.5 fl (6.2-12.0); Monocyte# 0.06 X10^3/uL; Monocyte% 0.7 % (0-10); NRBC Flagged by Analyzer 0 % (0-5); Neutrophil # 7.37 X10^3/uL (2.7-7.7); Platelet Count 224 K/mm3 (150-450); RBC Distribution Width CV 13.5 % (11.6-14.6); RBC Distribution Width SD 49.6 fl (35.1-43.9); White Blood Count 8.2 K/mm3 (4.4-11.0)
[2020-10-01 05:43] LABS: Anion Gap 6 (5-15); BUN 26 mg/dL (7-18); Calcium,Total 8.3 mg/dL (8.5-10.1); Chloride 101 mmol/L (98-107); Creatinine, Serum 1.24 mg/dL (0.70-1.30); EST Glomerular Filtration Rate 62 mL/min (>60); Est Glom Filt Rate - Afr Amer 75 mL/min (>60); Estimated Creatinine Clearance 63.26 ml/min; Glucose 260 mg/dL (74-106); Potassium 5.1 mmol/L (3.5-5.1); Sodium Level 136 mmol/L (136-145)
[2020-10-01] MEDS: Insulin Lispro 100 UNIT/ML INSULN.PEN SC ×4 (06:36→21:57)
[2020-10-01 06:55] LABS: Bedside Glucose 265 mg/dL (70-110)
[2020-10-01] MEDS: Azithromycin 250 MG Tablet 500 MG PO (08:39)
[2020-10-01] MEDS: Enoxaparin 40 MG/0.4 ML Syringe SC (08:40)
--- NOTE | 2020-10-01 09:46 | PCM.PN.HOSP ---
Subjective Subjective Doing well, no issues overnight. Maintaining his oxygen saturations on 3 L nasal cannula. Objective Data Objective Data Vital Signs: Vital Signs Temp Pulse Resp BP Pulse Ox 97.6 F L 91 24 H 114/71 94 10/01/20 03:09 10/01/20 07:19 10/01/20 07:19 10/01/20 03:09 10/01/20 04:10 Oxygen Flow Rate (L/min) 3 Oxygen Delivery Method Nasal Cannula Weight: 215 lb 13.321 oz Body Mass Index (BMI) 30.1 Intake & Output: Intake and Output for Last 24 Hours 09/30/20 10/01/20 10/02/20 03:59 03:59 03:59 Output Total 550 / 550 Balance -550 / -550 Lab / Micro Data Result Diagrams: 10/01/20 05:00 10/01/20 05:00 Labs: Laboratory Results - last 24 hr 09/30/20 09/30/20 09/30/20 21:05 21:05 21:05 WBC 12.3 H RBC 4.93 Hgb 15.0 Hct 48.4 MCV 98.2 H MCH 30.4 MCHC 31.0 L RDW Std Deviation 49.4 H RDW Coeff of Patricia 13.7 Plt Count 295 MPV 10.5 Immature Gran % (Auto) 0.500 Neut % (Auto) 63.5 Lymph % (Auto) 23.9 [place] % (Auto) 9.7 Eos % (Auto) 1.9 Baso % (Auto) 0.5 Absolute Neuts (auto) 7.8 H Absolute Lymphs (auto) 2.94 Nucleated RBC % 0 D-Dimer Quant (PE/DVT) Sodium 140 Potassium 4.8 Chloride 102 Carbon Dioxide 36.0 H Anion Gap 2 L BUN 25 H Creatinine 1.75 H Estim Creat Clear Calc 43.45 Est GFR (MDRD) Af Amer 50 L Est GFR (MDRD) Non-Af 42 L BUN/Creatinine Ratio 14.3 Glucose 201 H Calcium 8.9 Troponin I High Sens 18.4 B-Natriuretic Peptide 760.5 H Ethyl Alcohol POC Glucose 09/30/20 09/30/20 10/01/20 21:26 21:26 05:00 WBC 8.2 RBC 4.50 L Hgb 13.8 Hct 44.5 MCV 98.9 H MCH 30.7 MCHC 31.0 L RDW Std Deviation 49.6 H RDW Coeff of Patricia 13.5 Plt Count 224 MPV 10.5 Immature Gran % (Auto) 0.400 Neut % (Auto) 90.0 H Lymph % (Auto) 8.8 L [place] % (Auto) 0.7 Eos % (Auto) 0.0 Baso % (Auto) 0.1 Absolute Neuts (auto) 7.4 Absolute Lymphs (auto) 0.72 L Nucleated RBC % 0 D-Dimer Quant (PE/DVT) 0.97 H* Sodium Potassium Chloride Carbon Dioxide Anion Gap BUN Creatinine Estim Creat Clear Calc Est GFR (MDRD) Af Amer Est GFR (MDRD) Non-Af BUN/Creatinine Ratio Glucose Calcium Troponin I High Sens B-Natriuretic Peptide Ethyl Alcohol < 3.0 POC Glucose 10/01/20 10/01/20 05:00 06:36 WBC RBC Hgb Hct MCV MCH MCHC RDW Std Deviation RDW Coeff of Patricia Plt Count MPV Immature Gran % (Auto) Neut % (Auto) Lymph % (Auto) [place] % (Auto) Eos % (Auto) Baso % (Auto) Absolute Neuts (auto) Absolute Lymphs (auto) Nucleated RBC % D-Dimer Quant (PE/DVT) Sodium 136 Potassium 5.1 Chloride 101 Carbon Dioxide 29.0 Anion Gap 6 BUN 26 H Creatinine 1.24 Estim Creat Clear Calc 63.26 Est GFR (MDRD) Af Amer 75 Est GFR (MDRD) Non-Af 62 BUN/Creatinine Ratio 21.0 H Glucose 260 H Calcium 8.3 L Troponin I High Sens B-Natriuretic Peptide Ethyl Alcohol POC Glucose 265 H Micro: Microbiology 09/30/20 22:10 Mucosa - Nose SARS-CoV-2 Antigen (Rapid) - Final ABG Data ABG results: ABG 09/30/20 22:33 Specimen Type ART Sample Site R Radial pH 7.33 L Bicarbonate Actual 35.1 H Total CO2 37 Base Excess 9 H O2 Saturation 82 L ABG pCO2 67.1 H* ABG pO2 52 L Toney Test Positive O2 Delivery Device Cannula Liter Flow 2.0 Crit Call To/Read Back Yes Blood Gas Notified Whom [facility] Diagnostic Testing: Radiology Impression Chest X-Ray 09/30/20 21:50 IMPRESSION: No acute findings Electronically Signed: Marcello Aguilar DO at 22:20 EDT Tel , Service support , Chest CTA 09/30/20 22:30 IMPRESSION: Negative for pulmonary embolism. Severe COPD and emphysema. Pulmonary nodules as above. Follow-up CT recommended in 6 months Electronically Signed: Marcello Aguilar DO at 23:24 EDT Tel , Service support , Physical Exam Const alert, oriented x3 and no apparent distress HEENT moist oral mucous membranes Head and Scalp: normocephalic Eyes PERRL, EOMs intact bilaterally and conjunctivae normal Resp normal respiratory effort, no retractions and no use of accessory muscles Resp Narrative: Poor air movement Auscultation: diminished lung sounds; Negative for crackles, rales, rhonchi or wheezes Cardio regular rate, regular rhythm, S1 normal heart sound, S2 normal heart sound and no murmurs GI soft to palpation, non-tender and non-distended; Negative for hepatosplenomegaly Extremity no clubbing, cyanosis or edema Skin no rashes or lesions noted Neuro no focal motor deficits and no sensory deficits noted Psych affect normal Assessment & Plan Assessment/Plan (1) COPD exacerbation: PLAN: 1. COPD exacerbation with an EDI -Admit to medical surgical for observation -DuoNeb scheduled nebulizer treatments ordered along with as needed albuterol -IV Solu-Medrol ordered every 8 hour -Encourage incentive spirometry -Oxygen per protocol, patient currently on 3 L nasal cannula with no complaints of shortness of breath. -Azithromycin 500 mg p.o. every 24 hour due to tachycardia, tachypnea, and elevated white blood cell count -Continue to monitor creatinine 2. Diabetes mellitus type 2 -Hold his oral diabetes medications -AC at bedtime blood sugars with sliding scale insulin ordered as well as long-acting insulin, will make adjustments as necessary 3. Hypertension -Vital signs per protocol, trend BP and heart rate -Continue home medication therapy including losartan and metoprolol 4. Congestive heart failure -Hold Lasix secondary to EDI, BNP elevated 760.5 -If creatinine is stable in the morning can restart his home Lasix -Monitor intake and output DVT: SCDs Charges/Coding Visit Charges Inpatient E&M: 61502 Subs Hosp L2
[2020-10-01] MEDS: Metoprolol(XL)Succ 50 MG Tablet 150 MG PO (11:43)
[2020-10-01] MEDS: Losartan Potassium 25 MG Tablet PO (11:43)
[2020-10-01 11:50] LABS: Bedside Glucose 301 mg/dL (70-110)
[2020-10-01 17:40] LABS: Bedside Glucose 240 mg/dL (70-110)
[2020-10-01 22:05] LABS: Bedside Glucose 305 mg/dL (70-110)
[2020-10-02] VITALS (7 sets, daily range): BP systolic 127–132; BP diastolic 74–85; PULSE 82–96; RESP 16–22; TEMP 36.5–36.6; O2SAT 86–98
[2020-10-02] MEDS: 0.9% Saline Lock 10 ML Syringe IV (06:16)
[2020-10-02] MEDS: Insulin Lispro 100 UNIT/ML INSULN.PEN SC (06:19)
[2020-10-02 06:26] LABS: Bedside Glucose 247 mg/dL (70-110)
[2020-10-02 07:17] LABS: Anion Gap 4 (5-15); BUN 26 mg/dL (7-18); BUN/Creat Ratio 28.3 RATIO (10-20); Calcium,Total 8.7 mg/dL (8.5-10.1); Chloride 98 mmol/L (98-107); Creatinine, Serum 0.92 mg/dL (0.70-1.30); EST Glomerular Filtration Rate 88 mL/min (>60); Est Glom Filt Rate - Afr Amer 106 mL/min (>60); Estimated Creatinine Clearance 85.26 ml/min; Glucose 253 mg/dL (74-106); Potassium 5.3 mmol/L (3.5-5.1); Sodium Level 134 mmol/L (136-145)
[2020-10-02] MEDS: Ipratropium/Albuterol Sulfate 3 ML AMPUL.NEB INHALATION ×2 (07:27→11:11)
[2020-10-02] MEDS: Metoprolol(XL)Succ 50 MG Tablet 150 MG PO (07:52)
[2020-10-02] MEDS: Azithromycin 250 MG Tablet 500 MG PO (07:52)
[2020-10-02] MEDS: Losartan Potassium 25 MG Tablet PO (07:53)
[2020-10-02] MEDS: Enoxaparin 40 MG/0.4 ML Syringe SC (07:53)
--- NOTE | 2020-10-02 10:07 | PCM.DC ---
Discharge Instructions Diet Discharge Diet: Carb Control Diet Activity Discharge Activity: Return to Normal Activity Dressing / Incision Call your doctor if you observe: Fever of 101 or Higher, Shortness of breath, Dizziness, Swelling in the ankles, Chest pain and Increased palpitations (irregular heartbeat) Follow Up Care Test Results: Test results from this visit will be discussed in further detail at your follow-up appointment, if applicable. Discharge Plan Admission Admit Date/Time: 10/01/20 11:00 Attending Provider: Tk Roe Primary Care Provider: Care Physician,No Primary Instructions Patient Instructions: COPD Diabetes, COPD: Using Inhalers, COPD Meds, If Oxygen Is Prescribed Discharge Orders/Prescriptions Prescriptions: New prednisone 10 mg tablet 10 mg PO DAILY Qty: 40 RF: 0 Continued metoprolol succinate 50 mg tablet extended release 24 hr 150 mg PO DAILY RF: 0 glimepiride 1 mg tablet 0.5 mg PO DAILY RF: 0 losartan 25 mg tablet 25 mg PO DAILY RF: 0 furosemide 20 mg tablet 20 mg PO DAILY RF: 0 albuterol sulfate [Ventolin HFA] 90 mcg/actuation HFA aerosol inhaler 2 puff INHALATION Q4H PRN PRN (Reason: Shortness Of Breath) RF: 0 ipratropium bromide 0.02 % solution 3 ml inhalation TID PRN (Reason: Shortness Of Breath) RF: 0 budesonide-formoterol 160-4.5 mcg/actuation HFA aerosol inhaler 2 puff INHALATION BID RF: 0 doxycycline monohydrate 100 MG capsule 100 mg PO BID RF: 0 Referrals / Follow Up: Care Physician,No Primary [Primary Care Provider] - Disposition Disposition (needs filled in before D/C Order can be placed): Home, Self Care
--- NOTE | 2020-10-02 10:21 | DS.PCM_ITS ---
Providers Date of Admission: 10/01/20 Primary Care Physician: No Primary Care Phys Reason For Visit: COPD EXACERBATION Diagnosis Discharge Diagnosis (1) COPD exacerbation: Status: Chronic Code(s): J44.1 - Chronic obstructive pulmonary disease with (acute) exacerbation Medications at Discharge Home Medications albuterol sulfate [Ventolin HFA] 2 puff INHALATION Q4H PRN PRN 09/15/20 budesonide-formoterol 2 puff INHALATION BID 09/15/20 furosemide 20 mg PO DAILY 09/15/20 glimepiride 0.5 mg PO DAILY 09/15/20 ipratropium bromide 3 ml INHALATION TID PRN 09/15/20 losartan 25 mg PO DAILY 09/15/20 metoprolol succinate 150 mg PO DAILY 09/15/20 doxycycline monohydrate 100 mg PO BID 10/01/20 prednisone 10 mg PO DAILY #40 tablet 10/02/20 Hospital Course Operations None Procedures None Summary of Care Provided Minutes Spent on Discharge: 35 Hospital Course: Per HPI:JORGE APONTE, is a 64 M who presents with complaints of shortness of breath. Patient states that he was in his car at a restaurant when he became increasingly short of breath. Patient states that this is only been ongoing today. Patient states that this happens frequently this time of year due to high heat and humidity. Patient reports that he uses oxygen only at night at 3 L via nasal cannula. Patient denies fever, cough, chest pain. Hospital Course: 1. COPD exacerbation with an EDI?64-year-old male presented from home with shor tness of breath. He states that he was driving around town and ran out of oxygen and actually stopped at a PCPs office and was given some oxygen and told to come in to the hospital. He had a CTA of his chest which was negative for PE but did demonstrate some lung nodules that would need a repeat CT scan in about 6 months. It did show significant emphysematous changes as well. He states that he wears 3 L at night for sleeping and here at rest he was maintaining his oxygen saturations around 93-94% on room air however with ambulation he needed around 4 L. He is difficult to communicate with to get him to understand the process of using his oxygen. I did discuss with him that he still has some poor airflow though I do hear more breath sounds today however he states that he feels ready to go home and he would like to go home today. I discussed with him the risk and benefits of discharge and he expressed understanding of those risks. We will plan for a slow steroid taper as well as to continue his home breathing treatments and to wear oxygen with ambulation and sleep. I do recomm end that he follow-up with his PCP in 3 to 5 days. 2. Type 2 diabetes, hypertension, congestive heart failure of unknown type are all chronic medical conditions which complicate his care. His home medications were continued where appropriate. Physical Exam Const alert, oriented x3 and no apparent distress General Appearance: cooperative HEENT normocephalic and moist oral mucous membranes Eyes PERRL, EOMs intact bilaterally, conjunctivae normal and no scleral icterus Neck supple and no JVD General: trachea midline Resp normal respiratory effort, no retractions and no use of accessory muscles Resp Narrative: Poor air movement Effort and Inspection: able to speak in complete sentences Auscultation: wheezes scattered wheezes and diminished lung sounds; Negative for crackles, rales or rhonchi Cardio regular rate, regular rhythm, S1 normal heart sound, S2 normal heart sound and no murmurs GI soft to palpation, non-tender and non-distended; Negative for hepatosplenomegaly Extremity no clubbing, cyanosis or edema Skin no rashes or lesions noted Neuro no focal motor deficits and no sensory deficits noted Psych affect normal Appearance: appropriate Weight / BMI Weight Weight: 215 lb 13.321 oz Body Mass Index (BMI) 30.1 ABG / Lab / Microbiology Data Result Diagrams: 10/01/20 05:00 10/02/20 06:10 Laboratory: Laboratory Results - last 24 hr 10/01/20 10/01/20 10/01/20 11:41 16:48 21:55 Sodium Potassium Chloride Carbon Dioxide Anion Gap BUN Creatinine Estim Creat Clear Calc Est GFR (MDRD) Af Amer Est GFR (MDRD) Non-Af BUN/Creatinine Ratio Glucose Calcium POC Glucose 301 H 240 H 305 H 10/02/20 10/02/20 06:10 06:19 Sodium 134 L Potassium 5.3 H Chloride 98 Carbon Dioxide 32.0 Anion Gap 4 L BUN 26 H Creatinine 0.92 Estim Creat Clear Calc 85.26 Est GFR (MDRD) Af Amer 106 Est GFR (MDRD) Non-Af 88 BUN/Creatinine Ratio 28.3 H Glucose 253 H Calcium 8.7 POC Glucose 247 H Microbiology: Microbiology 09/30/20 22:10 Mucosa - Nose SARS-CoV-2 Antigen (Rapid) - Final D/C Instructions Discharge Diet: Carb Control Diet Call your doctor if you observe: Fever of 101 or Higher, Shortness of breath, Dizziness, Swelling in the ankles, Chest pain and Increased palpitations (irregular heartbeat) Meaningful Use Info Meaningful Use Diagnoses (Choose all that apply): None applicable Discharge Plan Admission Admit Date/Time: 10/01/20 11:00 Attending Provider: Tk Roe Primary Care Provider: Care Physician,No Primary Instructions Patient Instructions: COPD Diabetes, COPD: Using Inhalers, COPD Meds, If Oxygen Is Prescribed Discharge Orders/Prescriptions Prescriptions: New prednisone 10 mg tablet 10 mg PO DAILY Qty: 40 RF: 0 Continued metoprolol succinate 50 mg tablet extended release 24 hr 150 mg PO DAILY RF: 0 glimepiride 1 mg tablet 0.5 mg PO DAILY RF: 0 losartan 25 mg tablet 25 mg PO DAILY RF: 0 furosemide 20 mg tablet 20 mg PO DAILY RF: 0 albuterol sulfate [Ventolin HFA] 90 mcg/actuation HFA aerosol inhaler 2 puff INHALATION Q4H PRN PRN (Reason: Shortness Of Breath) RF: 0 ipratropium bromide 0.02 % solution 3 ml inhalation TID PRN (Reason: Shortness Of Breath) RF: 0 budesonide-formoterol 160-4.5 mcg/actuation HFA aerosol inhaler 2 puff INHALATION BID RF: 0 doxycycline monohydrate 100 MG capsule 100 mg PO BID RF: 0 Referrals / Follow Up: Care Physician,No Primary [Primary Care Provider] - Disposition Disposition (needs filled in before D/C Order can be placed): Home, Self Care Charges/Coding Visit Charges Inpatient E&M: 24299 Disch Hosp
--- NOTE | 2020-10-02 10:30 | CASEMGMT ---
MONICA SCHNEIDER Assessment: Face to Face with pt for initial transition planning/care coordination assessment. RN WYATT introduced self and role at [facility], pt voices understanding and consents to assessment. Pt is A/O x4 and answers all questions appropriately at this time. Pt lying in bed the opposite way listening to music on his phone with O2 on in no distress. Care providers, pharmacy, and demographics verified/updated. Admitting Dx: COPD exac PCP:Antionette Specialists:huey Lennon; pt could not think of his cardiologists name Preferred Pharmacy: [facility] Insurance: [employer] [employer] Prescription Benefit: yes LW/HPOA: Pt states he has a LW/DPOA. States his ex Tomer Lu is his DPOA. LNOK: Forest Lu, brother; Tho Lu, son Living Arrangements: Pt lives with his son in a two story house with 2 steps to enter with a rail. Pt states he does not use the upstairs. Pt reports being I in ADL's and denies concerns at home. Transportation: Pt drives self and denies concerns with transportation. DME/HHC/SNF: Pt has a walker that he doesn't use and O2 concentrator. Pt states he gets his O2 through [facility]. Pt has had [facility] in the past and no SNF stays. Pt states no concerns with going home at time of dc. Pt states no further concerns/needs. CM to follow. Advised pt to ask CM if any further question/concerns/needs arise, voices understanding. Pt Goal: Home Plan: Home
[2020-10-02] MEDS: Furosemide 20 MG Tablet PO (10:46)
--- NOTE | 2020-10-02 11:12 | CASEMGMT ---
Pt screened with Palliative Care Screening Tool due to strata 3, pt met criteria. Received ok from Dr. Roe and request to discuss with patient first. Pt is agreeable to consult. Pt is being dc'd. TC to [facility] and spoke with Fozia. They will follow up when pt is home and no order needed.
--- NOTE | 2020-10-03 16:15 | CASEMGMT ---
MONICA SCHNEIDER Discharge Follow Up Phone Call: ANIKET: Kavitha Strata:3 Call Date: 10/03/20 Discharge Date: 10/02/20 Time of Call:1615 Duration:<1 min Admitting Dx:COPD exac MONICA SCHNEIDER attempted to complete follow up phone call after recent hospitalization, no answer on pt phone. No message left.
== END 2020-10-02 12:05 | disposition home or self-care (01) | DRG 190 ==
LOC: ED 23:31 → MS3 10-01 00:56
PROVIDERS: Nurse Practitioner Family; Admitting Provider Hospitalist; Emergency Provider Emergency Medicine; Visit Provider Family Medicine
DX: J44.1 Chronic obstructive pulmonary disease with (acute) exacerbation (principal); J96.01 Acute respiratory failure with hypoxia; N17.9 Acute kidney failure, unspecified; I11.0 Hypertensive heart disease with heart failure; E11.65 Type 2 diabetes mellitus with hyperglycemia; Z99.81 Dependence on supplemental oxygen; Z79.899 Other long term (current) drug therapy; Z79.84 Long term (current) use of oral hypoglycemic drugs; Z79.51 Long term (current) use of inhaled steroids; Z87.891 Personal history of nicotine dependence; I50.812 Chronic right heart failure
CPT/HCPCS: 36415; 36600; 71045; 71275; 80048; 82077; 82803; 82962; 83880; 84484; 85025; 85379; 87040; 87426; 93005; 94640; 94667; 94668; 99251; 99284; 99406; J7030; Q9967; A4216; G0463

== ENCOUNTER 2020-10-21 13:49 | Emergency (ER) | payer MEDICARE, MEDICAID, SELFPAY ==
[2020-10-01 01:06] VITALS: BMI 30.1
[2020-10-21] VITALS (9 sets, daily range): BP systolic 103–155; BP diastolic 78–103; PULSE 109–147; RESP 17–39; TEMP 35.9; O2SAT 87–99; BMI 30.5
--- NOTE | 2020-10-21 14:14 | EKG12_ITS ---
Test Reason : SOB Blood Pressure : / mmHG Vent. Rate : 116 BPM Atrial Rate : 116 BPM P-R Int : 150 ms QRS Dur : 086 ms QT Int : 336 ms P-R-T Axes : 077 -16 056 degrees QTc Int : 467 ms Sinus tachycardia Septal [place], age undetermined, cannot be excluded Confirmed by STEPHAN HAYES, PARISH ([id number]), website/blog editor JOEL FUENTES ([id number]) on 10/23/2020 9:46:32 AM Referred By: MEGHANN Confirmed By:PARISH ROTHMAN MD
[2020-10-21] MEDS: Ipratropium/Albuterol Sulfate 3 ML AMPUL.NEB INHALATION (14:28)
[2020-10-21] MEDS: Albuterol 2.5 MG/3 ML VIAL.NEB. INHALATION ×2 (14:28)
[2020-10-21 14:29] LABS: Absolute Lymphocyte Count 1.86 X10^3/uL (0.83-4.51); Absolute Neutrophil Count 6.7 X10^3/uL (2.0-7.7); Basophil# 0.03 X10^3/uL; Basophil% 0.3 % (0-1); Eosinophils% 1.1 % (0-5); Hematocrit 45.4 % (40-54); Lymphocyte # 1.86 X10^3/ul (0.83-4.51); Lymphocyte % 19.7 % (19-41); Mean Corp Hgb Conc 30.8 g/dL (32-36); Mean Corpuscular Hgb 30.5 pg (27.0-32.0); Mean Corpuscular Volume 98.9 fL (80-94); Mean Platelet Vol. 10.3 fl (6.2-12.0); Monocyte# 0.73 X10^3/uL; Monocyte% 7.7 % (0-10); NRBC Flagged by Analyzer 0 % (0-5); Neutrophil # 6.71 X10^3/uL (2.7-7.7); Neutrophil % 70.9 % (47-70); Platelet Count 255 K/mm3 (150-450); RBC Distribution Width CV 13.6 % (11.6-14.6); RBC Distribution Width SD 49.1 fl (35.1-43.9); Red Blood Count 4.59 M/mm3 (4.6-6.2); White Blood Count 9.5 K/mm3 (4.4-11.0)
[2020-10-21 14:43] LABS: D-Dimer Quantitative (DVT/PE) 0.57 FEU/ug/m (0.27-0.49)
[2020-10-21 14:45] LABS: Anion Gap 3 (5-15); BUN 17 mg/dL (7-18); BUN/Creat Ratio 14.4 RATIO (10-20); Calcium,Total 8.8 mg/dL (8.5-10.1); Chloride 103 mmol/L (98-107); Creatinine, Serum 1.18 mg/dL (0.70-1.30); EST Glomerular Filtration Rate 66 mL/min (>60); Est Glom Filt Rate - Afr Amer 79 mL/min (>60); Estimated Creatinine Clearance 66.47 ml/min; Glucose 159 mg/dL (74-106); Potassium 3.9 mmol/L (3.5-5.1); Sodium Level 141 mmol/L (136-145); Troponin-I HS 25.5 pg/mL (3.0-78.5)
[2020-10-21 14:49] LABS: BNP,B-Type NATRIURETIC PEPTIDE 920.9 pg/mL (0-100)
--- NOTE | 2020-10-21 14:56 | EDS_ITS ---
HPI History of Present Illness Chief Complaint: Shortness of Breath Informant: patient Narrative Narrative: Patient is a 64-year-old male with history of COPD and respiratory failure requiring intubation due to double pneumonia 2 years ago as well as chronic hypoxic respiratory failure on up to 3 L of oxygen at home presenting with worsening shortness of breath. Patient states that heat and humidity have really been affecting his breathing. He states that he had a COPD exacerbation about 2 weeks ago that was treated with steroids. Today he went to traffic court and when he was walking into the court house he started to get very short of breath. EMS was called and there is found to be significantly tachycardic with a heart rate up to 160. Patient was hypoxic and placed on supplementary oxygen. Because of his elevated heart rate he decided come to the emergency room. He did not receive any breathing treatments in route. States he is otherwise feeling well today. He denies associated chest pain. He states he is on Symbicort, Spiriva, albuterol inhaler as well as nebulizer. His doctors are all through [place]. Patient denies any fever or chills. Denies any other complaints at this time. Denies any history of DVT or PE. He denies any swelling of his legs. Patient initially tells me he only wears oxygen at night and does have a home concentrator at home. He states he has been told he needs oxygen during the day and normally has oxygen canisters but is currently out. He states more so to be delivered tomorrow through [facility]. Chart review shows the patient was discharged home and began this month with 3 to 4 L of oxygen with ambulation as well as at night. PFSH PFSH Medical History Congestive heart failure (CHF) Congestive heart failure (CHF) COPD (chronic obstructive pulmonary disease) COPD (chronic obstructive pulmonary disease) Diabetes Diabetes Former smoker Hypertension On home oxygen therapy Smoker Smoker Home Medications albuterol sulfate [Ventolin HFA] 2 puff INHALATION Q4H PRN PRN 09/15/20 [History Last Taken 09/30/20] budesonide-formoterol 2 puff INHALATION BID 09/15/20 [History Last Taken 09/30/20] furosemide 20 mg PO DAILY 09/15/20 [History Last Taken 09/30/20] glimepiride 0.5 mg PO DAILY 09/15/20 [History Last Taken 09/30/20] ipratropium bromide 3 ml INHALATION TID PRN 09/15/20 [History Last Taken 10/01/20] losartan 25 mg PO DAILY 09/15/20 [History Last Taken 09/30/20] metoprolol succinate 150 mg PO DAILY 09/15/20 [History Last Taken 09/30/20] doxycycline monohydrate 100 mg PO BID 10/01/20 [History Last Taken 09/30/20] prednisone 10 mg PO DAILY #40 tablet 10/02/20 [Rx Last Taken Unknown] glimepiride 0.5 mg PO DAILY #10 tab 10/21/20 [Rx Last Taken Unknown] losartan 25 mg PO DAILY #10 tab 10/21/20 [Rx Last Taken Unknown] metoprolol succinate 150 mg PO DAILY #20 tab 10/21/20 [Rx Last Taken Unknown] prednisone 40 mg PO DAILY #8 tab 10/21/20 [Rx Last Taken Unknown] Allergy/AdvReac Type Severity Reaction Status Date / Time No Known Allergies Allergy Verified 10/21/20 13:50 Social History Smoking Status: Former smoker substance use type: marijuana ROS ROS ED Constitutional Constitutional ED: Denies chills or fever(s) Eyes Eyes: Denies change in vision ENT ENT ED: Denies rhinorrhea or sore throat Cardiovascular Cardiovascular: Denies chest pain or palpitations Respiratory/Chest Respiratory/Chest: Reports dyspnea and dyspnea on exertion; Denies cough or sputum Gastrointestinal Gastrointestinal: Denies abdominal pain, nausea or vomiting Genitourinary Genitourinary ED: Denies dysuria Musculoskeletal Musculoskeletal: Denies arthralgias or myalgias Integumentary Denies rash Neurologic Neurologic: Denies headache(s) or weakness Psychiatric Psychiatric: Denies anxiety or depression EXAM Physical Exam Const Vital Signs: 10/21/20 13:50 10/21/20 13:53 10/21/20 14:09 Temperature 96.7 F L 96.7 F L Temperature Source Axillary Oral Pulse Rate 122 H 122 H 123 H Respiratory Rate 27 H 28 H 28 H Respiratory Pattern Blood Pressure 142/98 H 142/98 H 121/96 H Blood Pressure Mean 112 112 104 Pulse Ox 87 97 98 Oxygen Delivery Method Room Air Nasal Cannula Nasal Cannula Oxygen Flow Rate (L/min) 4 4 10/21/20 14:48 10/21/20 15:07 10/21/20 17:56 Temperature Temperature Source Pulse Rate 128 H 123 H 117 H Respiratory Rate 28 H 39 H 20 H Respiratory Pattern Tachypnea Blood Pressure 155/103 H 128/89 H Blood Pressure Mean 120 102 Pulse Ox 92 95 Oxygen Delivery Method Nasal Cannula Nasal Cannula Oxygen Flow Rate (L/min) 4 4 10/21/20 18:21 10/21/20 18:57 10/21/20 19:34 Temperature Temperature Source Pulse Rate 147 H 109 H Respiratory Rate 39 H 25 H 17 Respiratory Pattern Blood Pressure 103/78 105/81 H Blood Pressure Mean 86 Pulse Ox 98 99 Oxygen Delivery Method Nasal Cannula Room Air Oxygen Flow Rate (L/min) 4 Positive well nourished and well developed General Appearance ED: well developed HEENT atraumatic Eyes PERRL and EOMs intact bilaterally Neck no lymphadenopathy, supple and no JVD Resp Resp Narrative: Exceedingly diminished lung sounds with poor air movement. No wheezing appreciated. Patient has pursed lip breathing. He is tachypneic. Cardio regular rhythm Rate: tachycardic GI non-tender and non-distended Palpation: soft Back/Spine normal to inspection Extremity normal to inspection General Extremety ED: Negative for edema or tenderness General Extremity: Negative for edema Neuro oriented x3 and CN's II-XII intact bilaterally Sensorium / Orientation: alert Motor Exam: Negative for general weakness Psych mental status grossly normal Thought Process: normal thought process Skin Lesions: no lesions Rashes: no rashes MDM MDM MDM Narrative Medical decision making narrative: Patient is evaluated for sudden onset shortness of breath. Patient states he was walking to the court house in the heat and humidity bothered his lungs. He states this feels like his prior exacerbations. He states he has oxygen to wear at home but did not have any with him today as he is getting a refill for his oxygen tanks delivered either today or tomorrow. Patient only came into the emergency room because EMS that his heart rate was in the 160s. Patient denies any history of arrhythmia but notes his heart rate normally does run fast. While in the ER patient's heart rate fluctuates tween 110-120s however sometimes will jump up to the 150s to 160s. Patient is given stacked breathing treatments with significant improvement of his symptoms. He states he feels better would like to go home. His D-dimer is 0.57 which is normal for his age. He is not have any findings consistent with pneumothorax or pneumonia on his chest x-ray. In addition patient had CTA earlier this month which was negative for PE as well as other acute intrathoracic process. After further discussion patient admits that he actually lost all of his medications 3 days ago and has been off of his pills. He notes he has his breathing treatments at home. Patient is given shorts course of his metoprolol, losartan and glimepiride. He is also giving an albuterol inhaler as he states he ran out of his as well. He is given an oral dose of metoprolol and counseled the importance of taking his metoprolol as prescribed. I believe he is having rebound tachycardia. He is not started any new medications since has not been compliant with his initial ones. Patient is given strict return precautions. As he clinically has improved and is on his home O2, 3 L, I think he stable for follow-up. Patient is counseled to wear his oxygen especially when he is moving or sleeping at home. He is instructed to keep an eye on his home pulse oximeter and return if he develops worsening symptoms or hypoxia. He started on a burst of prednisone. Lab Data Attestation: I reviewed the patient's lab results. Labs: Laboratory Results - last 24 hr 10/21/20 10/21/20 10/21/20 14:03 14:03 14:03 WBC 9.5 RBC 4.59 L Hgb 14.0 Hct 45.4 MCV 98.9 H MCH 30.5 MCHC 30.8 L RDW Std Deviation 49.1 H RDW Coeff of Patricia 13.6 Plt Count 255 MPV 10.3 Immature Gran % (Auto) 0.300 Neut % (Auto) 70.9 H Lymph % (Auto) 19.7 Phillips % (Auto) 7.7 Eos % (Auto) 1.1 Baso % (Auto) 0.3 Absolute Neuts (auto) 6.7 Absolute Lymphs (auto) 1.86 Nucleated RBC % 0 D-Dimer Quant (PE/DVT) Sodium 141 Potassium 3.9 Chloride 103 Carbon Dioxide 35.0 H Anion Gap 3 L BUN 17 Creatinine 1.18 Estim Creat Clear Calc 66.47 Est GFR (MDRD) Af Amer 79 Est GFR (MDRD) Non-Af 66 BUN/Creatinine Ratio 14.4 Glucose 159 H Calcium 8.8 Troponin I High Sens 25.5 B-Natriuretic Peptide 920.9 H 10/21/20 14:20 WBC RBC Hgb Hct MCV MCH MCHC RDW Std Deviation RDW Coeff of Patricia Plt Count MPV Immature Gran % (Auto) Neut % (Auto) Lymph % (Auto) Phillips % (Auto) Eos % (Auto) Baso % (Auto) Absolute Neuts (auto) Absolute Lymphs (auto) Nucleated RBC % D-Dimer Quant (PE/DVT) 0.57 H* Sodium Potassium Chloride Carbon Dioxide Anion Gap BUN Creatinine Estim Creat Clear Calc Est GFR (MDRD) Af Amer Est GFR (MDRD) Non-Af BUN/Creatinine Ratio Glucose Calcium Troponin I High Sens B-Natriuretic Peptide Radiography Chest X-Ray - ED: 1 View, Read by ED Physician, Read by Radiologist, No Acute Disease and - (Hyperinflated) Diagnostic Testing: Radiology Impression Chest X-Ray 10/21/20 15:15 IMPRESSION: Hyperinflation. Findings suggestive of large bullous formation in the right upper lobe. Electronically Signed: Dayne Garcia MD at 15:47 EDT , Service support , Rhythm Strip Rhythm Strip: Sinus Tach Rate: 118 Ectopy: None EKG Initial EKG: Attestation: I personally reviewed and interpreted this EKG as follows: Interpretation: Sinus Tachycardia Comments: Sinus tachycardia at a rate of 116 Left axis deviation SD interval 150 QRS [address] segments Compared to prior EKG on 09/30/20 no acute changes Follow-up EKG: Interpretation: Sinus Tachycardia Comments: Sinus tachycardia with fusion complexes a rate of 157 Normal axis Normal intervals Normal ST segments Increased rate compared to prior EKG Discharge Plan Triage Chief Complaint: Shortness of Breath ED Provider: Carlita Lamb Dx/Rx/DC Orders Clinical Impression: COPD exacerbation, Atrial tachycardia, Nonadherence to medication Instructions: ED COPD Flare Prescriptions: New prednisone 20 mg tablet 40 mg PO DAILY Qty: 8 RF: 0 metoprolol succinate 50 mg tablet extended release 24 hr 150 mg PO DAILY Qty: 20 RF: 0 glimepiride 1 mg tablet 0.5 mg PO DAILY Qty: 10 RF: 0 losartan 25 mg tablet 25 mg PO DAILY Qty: 10 RF: 0 No Action metoprolol succinate 50 mg tablet extended release 24 hr 150 mg PO DAILY RF: 0 glimepiride 1 mg tablet 0.5 mg PO DAILY RF: 0 losartan 25 mg tablet 25 mg PO DAILY RF: 0 furosemide 20 mg tablet 20 mg PO DAILY RF: 0 albuterol sulfate [Ventolin HFA] 90 mcg/actuation HFA aerosol inhaler 2 puff INHALATION Q4H PRN PRN (Reason: Shortness Of Breath) RF: 0 ipratropium bromide 0.02 % solution 3 ml inhalation TID PRN (Reason: Shortness Of Breath) RF: 0 budesonide-formoterol 160-4.5 mcg/actuation HFA aerosol inhaler 2 puff INHALATION BID RF: 0 doxycycline monohydrate 100 MG capsule 100 mg PO BID RF: 0 prednisone 10 mg tablet 10 mg PO DAILY Qty: 40 RF: 0 Primary Care Provider: Regan Adan Referrals: Regan Adan DO [Primary Care Provider] - Activity Restrictions/Additional Instructions: Please return the emergency room if you have any worsening breathing. Use your albuterol nebulizer or inhaler every 4-6 hours as needed for shortness of breath. Is important that you take all of your daily medications. Wear home oxygen while sleeping and while active. Monitor your home O2 levels with your pulse oximeter. Disposition Disposition: Home, Self Care Discharge Date/Time: 10/21/20 19:37
--- NOTE | 2020-10-21 15:08 | ED.RN ---
pt sitting on the side of the bed leaning forward. States he breathes better this way. Pt made aware of potential safety issues. Monitor was replaced. Pt continues with rapid resps and offering reasons why he's ok.
--- NOTE | 2020-10-21 15:15 | RAD_ITS ---
STUDY: X-RAY CHEST REASON FOR EXAM: Male, 64 years old. Sob TECHNIQUE: Single AP portable view of the chest. COMPARISON: Comparison is made with prior study dated 09/30/2020. FINDINGS: There is hyperinflation of the lungs consistent with chronic obstructive lung disease (COPD). Stable decreased bronchovascular markings in the right upper lobe suggestive of large bullous formation. There is a 1.1 cm nodular density in the right lower lobe laterally. On recent CT scan, this corresponds to a nodule. Follow-up is recommended. There is no demonstrated pleural abnormality. Normal size heart. Normal mediastinum and phyllis. There is prominence of the pulmonary hilar arteries without peripheral pulmonary vascular congestion, suggesting pulmonary hypertension. There is atherosclerotic calcification of the aortic arch with tortuosity. There are diffuse degenerative changes of the visualized thoracic spine. Normal visualized ribs, clavicles, and shoulders. There is no demonstrated abnormality of the visualized soft tissue structures of the upper abdomen. RAD/Chest 1 View (Portable) IMPRESSION: Hyperinflation. Findings suggestive of large bullous formation in the right upper lobe. Electronically Signed: Dayne Garcia MD at 15:47 EDT , Service support ,
--- NOTE | 2020-10-21 16:17 | EKG12_ITS ---
Test Reason : TACHYCARDIA Blood Pressure : / mmHG Vent. Rate : 157 BPM Atrial Rate : 157 BPM P-R Int : 144 ms QRS Dur : 076 ms QT Int : 288 ms P-R-T Axes : 095 -16 052 degrees QTc Int : 465 ms Sinus tachycardia with Premature ventricular complexes or Fusion complexes Septal infarct , age undetermined , cannot be excluded Abnormal ECG Confirmed by STEPHAN HAYES, PARISH ([id number]), acquisition editor JOEL FUENTES ([id number]) on 10/23/2020 9:48:37 AM Referred By: MEGHANN Confirmed By:PARISH ROTHMAN MD
--- NOTE | 2020-10-21 18:03 | ED.RN ---
Pt has runs of increased heart rate possibly SVT at rate of 160s - 170s. Physician aware.
[2020-10-21] MEDS: predniSONE 20 MG Tablet 60 MG PO (18:46)
[2020-10-21] MEDS: Metoprolol Tartrate 25 MG Tablet 50 MG PO (18:47)
== END 2020-10-21 19:37 | disposition home or self-care (01) ==
PROVIDERS: Emergency Provider Emergency Medicine; PCP Family Medicine
DX: J44.1 Chronic obstructive pulmonary disease with (acute) exacerbation (principal); I47.1 Supraventricular tachycardia; Z91.14 Patient's other noncompliance with medication regimen; I11.0 Hypertensive heart disease with heart failure; I50.9 Heart failure, unspecified; E11.9 Type 2 diabetes mellitus without complications; Z87.891 Personal history of nicotine dependence; Z79.899 Other long term (current) drug therapy; Z79.52 Long term (current) use of systemic steroids; Z79.84 Long term (current) use of oral hypoglycemic drugs
CPT/HCPCS: 71045; 80048; 83880; 84484; 85025; 85379; 93005; 94640; 99284; J7040; A4216

== ENCOUNTER 2020-10-28 03:26 | Inpatient (IN) | payer MEDICARE, MEDICAID, SELFPAY ==
[2020-10-21 13:50] VITALS: BMI 30.5
[2020-10-28] VITALS (24 sets, daily range): BP systolic 123–142; BP diastolic 65–98; PULSE 94–116; RESP 12–32; TEMP 35.7–36.9; O2SAT 94–100; BMI 31.7; BMI 31.4
--- NOTE | 2020-10-28 03:31 | RAD_ITS ---
HISTORY: Shortness of breath EXAMINATION/TECHNIQUE: XR Chest 1 View AP view COMPARISON: AP chest x-ray from 10/21/20 FINDINGS: LINES/DEVICES: monitoring coordinator leads. LUNGS: Stable severe pulmonary emphysema with chronic, coarsened basilar lung markings. No pulmonary edema. No focal airspace consolidation. No sizable pleural effusion. No pneumothorax detected. MEDIASTINUM AND CARDIOVASCULAR STRUCTURES: Stable upper limits normal heart size. Atherosclerotic calcifications along the aorta. BONES AND SOFT TISSUES: Skeletal degenerative changes. RAD/Chest 1 View (Portable) IMPRESSION: Pulmonary emphysema and atherosclerotic disease. at 0431 Reported and signed by: Rich Aquino MD Electronically Signed: Rich Aquino MD at 4:29 EDT Tel , Service support ,
--- NOTE | 2020-10-28 03:31 | EKG12_ITS ---
Test Reason : SOB Blood Pressure : / mmHG Vent. Rate : 106 BPM Atrial Rate : 106 BPM P-R Int : 156 ms QRS Dur : 088 ms QT Int : 348 ms P-R-T Axes : 073 -15 049 degrees QTc Int : 462 ms Sinus tachycardia Otherwise normal ECG Confirmed by STEPHAN HAYES, PARISH ([id number]), scientific editor JOEL FUENTES ([id number]) on 11/03/2020 9:19:12 AM Referred By: NATHAN Confirmed By:PARISH ROTHMAN MD
[2020-10-28] MEDS: Ipratropium/Albuterol Sulfate 3 ML AMPUL.NEB INHALATION ×2 (03:50→19:24)
[2020-10-28 03:51] LABS: Absolute Lymphocyte Count 1.45 X10^3/uL (0.83-4.51); Absolute Neutrophil Count 7.1 X10^3/uL (2.0-7.7); Basophil# 0.02 X10^3/uL; Basophil% 0.2 % (0-1); Eosinophil# 0.03 X10^3/uL; Eosinophils% 0.3 % (0-5); Hematocrit 47.1 % (40-54); Hemoglobin 14.4 g/dL (13.0-16.5); Lymphocyte # 1.45 X10^3/ul (0.83-4.51); Lymphocyte % 15.6 % (19-41); Mean Corp Hgb Conc 30.6 g/dL (32-36); Mean Corpuscular Hgb 30.9 pg (27.0-32.0); Mean Corpuscular Volume 101.1 fL (80-94); Mean Platelet Vol. 10.4 fl (6.2-12.0); Monocyte# 0.71 X10^3/uL; Monocyte% 7.6 % (0-10); NRBC Flagged by Analyzer 0 % (0-5); Neutrophil # 7.06 X10^3/uL (2.7-7.7); Neutrophil % 75.8 % (47-70); Platelet Count 246 K/mm3 (150-450); RBC Distribution Width CV 13.8 % (11.6-14.6); RBC Distribution Width SD 50.8 fl (35.1-43.9); Red Blood Count 4.66 M/mm3 (4.6-6.2); White Blood Count 9.3 K/mm3 (4.4-11.0)
[2020-10-28 04:05] LABS: Anion Gap 1 (5-15); BUN 18 mg/dL (7-18); BUN/Creat Ratio 20.5 RATIO (10-20); Chloride 96 mmol/L (98-107); Creatinine, Serum 0.88 mg/dL (0.70-1.30); EST Glomerular Filtration Rate 92 mL/min (>60); Est Glom Filt Rate - Afr Amer 112 mL/min (>60); Estimated Creatinine Clearance 89.13 ml/min; Glucose 249 mg/dL (74-106); Potassium 4.6 mmol/L (3.5-5.1); Sodium Level 138 mmol/L (136-145); Troponin-I HS 35.9 pg/mL (3.0-78.5)
--- NOTE | 2020-10-28 04:43 | ED.VIS.DYS ---
HPI History of Present Illness Chief Complaint: Shortness of Breath Informant: patient Narrative Narrative: Patient is a 64-year-old male with a past medical history of COPD on supplemental oxygen at times who presents to the emergency department for shortness of breath. Apparently patient was driving whenever he ran out of oxygen and was severely short of breath. He flagged down a bystander who called EMS. Patient started on high flow nasal cannula and given a DuoNeb breathing treatment. On arrival patient feels better but still has significant increased work of breathing. He states he has had a mild cough with some sputum production lately. He denies any fevers or chills. Denies any chest pain. No leg swelling or calf pain. Patient states he has a former smoking history. He has a history of CHF as well. PFSH PFSH Medical History Congestive heart failure (CHF) Congestive heart failure (CHF) COPD (chronic obstructive pulmonary disease) COPD (chronic obstructive pulmonary disease) Diabetes Diabetes Former smoker Hypertension On home oxygen therapy Smoker Smoker Home Medications albuterol sulfate [Ventolin HFA] 2 puff INHALATION Q4H PRN PRN 09/15/20 [History Last Taken 09/30/20] budesonide-formoterol 2 puff INHALATION BID 09/15/20 [History Last Taken 09/30/20] furosemide 20 mg PO DAILY 09/15/20 [History Last Taken 09/30/20] glimepiride 0.5 mg PO DAILY 09/15/20 [History Last Taken 09/30/20] ipratropium bromide 3 ml INHALATION TID PRN 09/15/20 [History Last Taken 10/01/20] losartan 25 mg PO DAILY 09/15/20 [History Last Taken 09/30/20] metoprolol succinate 150 mg PO DAILY 09/15/20 [History Last Taken 09/30/20] doxycycline monohydrate 100 mg PO BID 10/01/20 [History Last Taken 09/30/20] prednisone 40 mg PO DAILY #8 tab 10/21/20 [Rx Last Taken Unknown] tiotropium bromide [Spiriva Respimat] 2 puff INHALATION DAILY 10/28/20 [History Last Taken Unknown] Allergy/AdvReac Type Severity Reaction Status Date / Time No Known Allergies Allergy Verified 10/28/20 03:31 Social History (Reviewed 10/28/20 @ 04:[address] SABRINA Li Smoking Status: Former smoker substance use type: marijuana ROS ROS ED Constitutional Constitutional ED: Denies chills or fever(s) Eyes Eyes: Denies change in vision ENT ENT ED: Denies epistaxis or rhinorrhea Cardiovascular Cardiovascular: Denies chest pain or palpitations Respiratory/Chest Respiratory/Chest: Reports cough, dyspnea and sputum Gastrointestinal Gastrointestinal: Denies abdominal pain, nausea or vomiting Musculoskeletal Musculoskeletal: Denies back pain or neck pain Integumentary Denies rash Neurologic Neurologic: Denies dizziness, headache(s) or weakness EXAM Physical Exam Const Vital Signs: 10/28/20 03:26 10/28/20 03:31 10/28/20 03:50 Temperature 96.2 F L Temperature Source Temporal Pulse Rate 112 H 108 H Respiratory Rate 24 H 32 H Respiratory Effort Short of Breath Labored Accessory Muscle Use Respiratory Pattern Tachypnea Tachypnea Blood Pressure 137/98 H Blood Pressure Mean 111 Pulse Ox 99 100 Oxygen Delivery Method Non-Rebreather Bi-pap Oxygen Flow Rate (L/min) 15 Fraction of Inspired Oxygen (FIO2) 50 50 10/28/20 03:53 10/28/20 03:59 10/28/20 04:11 Temperature Temperature Source Pulse Rate 107 H Respiratory Rate 19 H Respiratory Effort Respiratory Pattern Blood Pressure 142/97 H Blood Pressure Mean 112 Pulse Ox 97 Oxygen Delivery Method Bi-pap Oxygen Flow Rate (L/min) 40 Fraction of Inspired Oxygen (FIO2) 45 40 10/28/20 05:03 10/28/20 05:38 10/28/20 05:40 Temperature 97.6 F L 97.6 F L Temperature Source Temporal Temporal Pulse Rate 106 H 101 H 101 H Respiratory Rate 24 H 22 H 22 H Respiratory Effort Respiratory Pattern Blood Pressure 141/95 H 123/82 H 123/82 H Blood Pressure Mean 110 95 95 Pulse Ox 95 95 Oxygen Delivery Method Nasal Cannula Nasal Cannula Nasal Cannula Oxygen Flow Rate (L/min) 4 4 Fraction of Inspired Oxygen (FIO2) 40 Positive well nourished and well developed Constitutional Narrative: Moderate distress with increased work of breathing. General Appearance ED: well developed HEENT Reports normocephalic and head/scalp atraumatic Eyes PERRL and EOMs intact bilaterally Neck supple Resp Resp Narrative: Tachypneic with accessory muscle use. Poor air movement in lungs bilaterally. Auscultation: Negative for rales, rhonchi or wheezes Cardio regular rhythm and no murmurs Rate: tachycardic GI normal to inspection, nondistended, normoactive bowel sounds and non-tender Palpation: soft; Negative for guarding or rebound tenderness present Back/Spine no CVA tenderness Extremity normal to inspection General Extremety ED: Negative for edema or tenderness General Extremity: Negative for edema Neuro Sensorium / Orientation: alert Motor Exam: strength 5/5 throughout Psych mental status grossly normal Skin no rashes or lesions noted MDM MDM MDM Narrative Medical decision making narrative: Patient presents to the emergency department in respiratory distress. He is tachypneic, tachycardic and hypoxic. Apparently patient ran out of his home oxygen. States he has had a mild cough with some sputum production lately. Patient is moving very little air on arrival. He is given a breathing treatment and started on BiPAP. After a while patient is appearing a lot more calm and comfortable. EKG, chest x-ray and basic lab work obtained. His lab work did not reveal him to have a high white blood cell count. He is not anemic. His troponin is within normal limits. His BNP is elevated. His chest x-ray did not reveal any evidence of pneumonia or edema. Patient given a dose of Solu-Medrol. Patient was able to be weaned off of the BiPAP and not a supplemental oxygen by nasal cannula. Whenever he takes his off he does desat quickly to the high 80s. Will bring into the hospital for further evaluation and management this time. He otherwise has improved significantly since arrival. Patient is agreeable with this plan. Lab Data Labs: Laboratory Results - last 24 hr 10/28/20 10/28/20 10/28/20 03:40 03:40 03:40 WBC 9.3 RBC 4.66 Hgb 14.4 Hct 47.1 MCV 101.1 H MCH 30.9 MCHC 30.6 L RDW Std Deviation 50.8 H RDW Coeff of Patricia 13.8 Plt Count 246 MPV 10.4 Immature Gran % (Auto) 0.500 Neut % (Auto) 75.8 H Lymph % (Auto) 15.6 L [place] % (Auto) 7.6 Eos % (Auto) 0.3 Baso % (Auto) 0.2 Absolute Neuts (auto) 7.1 Absolute Lymphs (auto) 1.45 Nucleated RBC % 0 Sodium 138 Potassium 4.6 Chloride 96 L Carbon Dioxide 41.0 H Anion Gap 1 L BUN 18 Creatinine 0.88 Estim Creat Clear Calc 89.13 Est GFR (MDRD) Af Amer 112 Est GFR (MDRD) Non-Af 92 BUN/Creatinine Ratio 20.5 H Glucose 249 H Calcium 9.0 Troponin I High Sens 35.9 B-Natriuretic Peptide 1924.8 H Radiography Diagnostic Testing: Radiology Impression Chest X-Ray 10/28/20 03:31 IMPRESSION: Pulmonary emphysema and atherosclerotic disease. at 0431 Reported and signed by: Rich Aquino MD Electronically Signed: Rich Aquino MD at 4:29 EDT Tel , Service support , EKG Initial EKG: Attestation: I personally reviewed and interpreted this EKG as follows: (Rate of 106 bpm in sinus tachycardia. Normal intervals. Normal axis. No significant ST elevations or depressions. No T wave abnormalities.) Discharge Plan Dx/Rx/DC Orders Clinical Impression: COPD exacerbation, Hypoxia Disposition Disposition: Acute Care [facility]
[2020-10-28] MEDS: MethylPREDNISolone 125 MG/2 ML Vial IV (04:52)
--- NOTE | 2020-10-28 06:27 | HP.PCM_ITS ---
HPI - General HPI Narrative JORGE APONTE, is a 64 M who presents to the emergency room with shortness of breath. The patient was driving overnight when he ran out of his oxygen supply, which he routinely uses at night, and became hypoxic with a pulse ox of 82%. He had initially planned to drive longer but found he was unable to do so and came to the emergency room. He denies chest pain, fever or chills at present time. His Covid test was negative. He required BiPAP treatment in the emergency room to which he responded however he continues to have a pulse ox of 89% therefore he will be admitted for continued treatment of hypoxia and COPD. PFSH Medical History Congestive heart failure (CHF) Congestive heart failure (CHF) COPD (chronic obstructive pulmonary disease) COPD (chronic obstructive pulmonary disease) Diabetes Diabetes Former smoker Hypertension On home oxygen therapy Smoker Smoker Home Medications albuterol sulfate [Ventolin HFA] 2 puff INHALATION Q4H PRN PRN 09/15/20 [History Last Taken 09/30/20] budesonide-formoterol 2 puff INHALATION BID 09/15/20 [History Last Taken 09/30/20] furosemide 20 mg PO DAILY 09/15/20 [History Last Taken 09/30/20] glimepiride 0.5 mg PO DAILY 09/15/20 [History Last Taken 09/30/20] ipratropium bromide 3 ml INHALATION TID PRN 09/15/20 [History Last Taken 10/01/20] losartan 25 mg PO DAILY 09/15/20 [History Last Taken 09/30/20] metoprolol succinate 150 mg PO DAILY 09/15/20 [History Last Taken 09/30/20] doxycycline monohydrate 100 mg PO BID 10/01/20 [History Last Taken 09/30/20] prednisone 40 mg PO DAILY #8 tab 10/21/20 [Rx Last Taken Unknown] tiotropium bromide [Spiriva Respimat] 2 puff INHALATION DAILY 10/28/20 [History Last Taken Unknown] Allergy/AdvReac Type Severity Reaction Status Date / Time No Known Allergies Allergy Verified 10/28/20 03:31 Social History Smoking Status: Former smoker substance use type: marijuana ROS Constitutional Constitutional: Denies chills or fever(s) ENT HEENT: Denies dysphagia Cardiovascular Cardiovascular: Denies chest pain Respiratory/Chest Respiratory/Chest: Reports cough and shortness of breath at rest Gastrointestinal Gastrointestinal: Denies abdominal pain Genitourinary Genitourinary: Denies dysuria Musculoskeletal Musculoskeletal: Denies back pain Integumentary Integumentary: Denies dry skin Neurologic Neurologic: Denies abnormal speech Psychiatric Psychiatric: Denies anxiety Vital Signs Vital Signs Vital Signs: 10/28/20 03:26 10/28/20 03:31 10/28/20 03:50 Temperature 96.2 F L Temperature Source Temporal Pulse Rate 112 H 108 H Respiratory Rate 24 H 32 H Respiratory Effort Short of Breath Labored Accessory Muscle Use Respiratory Pattern Tachypnea Tachypnea Blood Pressure 137/98 H Blood Pressure Mean 111 Pulse Ox 99 100 Oxygen Delivery Method Non-Rebreather Bi-pap Oxygen Flow Rate (L/min) 15 Fraction of Inspired Oxygen (FIO2) 50 50 10/28/20 03:53 10/28/20 03:59 10/28/20 04:11 Temperature Temperature Source Pulse Rate 107 H Respiratory Rate 19 H Respiratory Effort Respiratory Pattern Blood Pressure 142/97 H Blood Pressure Mean 112 Pulse Ox 97 Oxygen Delivery Method Bi-pap Oxygen Flow Rate (L/min) 40 Fraction of Inspired Oxygen (FIO2) 45 40 10/28/20 05:03 10/28/20 05:38 10/28/20 05:40 Temperature 97.6 F L 97.6 F L Temperature Source Temporal Temporal Pulse Rate 106 H 101 H 101 H Respiratory Rate 24 H 22 H 22 H Respiratory Effort Respiratory Pattern Blood Pressure 141/95 H 123/82 H 123/82 H Blood Pressure Mean 110 95 95 Pulse Ox 95 95 Oxygen Delivery Method Nasal Cannula Nasal Cannula Nasal Cannula Oxygen Flow Rate (L/min) 4 4 Fraction of Inspired Oxygen (FIO2) 40 Weight Weight: 227 lb 11.8 oz Body Mass Index (BMI) 31.7 Physical Exam Const oriented x3 HEENT normocephalic and head/scalp atraumatic Eyes PERRL Neck supple Lymph Lymphatic: no lymphadenopathy noted Resp Auscultation: diminished lung sounds bilateral Cardio regular rate, regular rhythm, S1 normal heart sound and S2 normal heart sound GI normal to inspection, nondistended, normoactive bowel sounds Extremity normal capillary refill Skin General Skin Exam: turgor normal Neuro CN's II-XII intact bilaterally Psych affect normal Results Lab / Micro Data Result Diagrams: 10/28/20 03:40 10/28/20 03:40 Labs: Laboratory Results - last 24 hr 10/28/20 03:40: WBC 9.3, RBC 4.66, Hgb 14.4, Hct 47.1, MCV 101.1 H, MCH 30.9, MCHC 30.6 L, RDW Std Deviation 50.8 H, RDW Coeff of Patricia 13.8, Plt Count 246, MPV 10.4, Immature Gran % (Auto) 0.500, Neut % (Auto) 75.8 H, Lymph % (Auto) 15.6 L, [place] % (Auto) 7.6, Eos % (Auto) 0.3, Baso % (Auto) 0.2, Absolute Neuts (auto) 7.1, Absolute Lymphs (auto) 1.45, Nucleated RBC % 0 10/28/20 03:40: Sodium 138, Potassium 4.6, Chloride 96 L, Carbon Dioxide 41.0 H, Anion Gap 1 L, BUN 18, Creatinine 0.88, Estim Creat Clear Calc 89.13, Est GFR (MDRD) Af Amer 112, Est GFR (MDRD) Non-Af 92, BUN/Creatinine Ratio 20.5 H, Glucose 249 H, Calcium 9.0, Troponin I High Sens 35.9 10/28/20 03:40: B-Natriuretic Peptide 1924.8 H Micro: Microbiology 10/28/20 03:45 Mucosa - Nose SARS-CoV-2 Antigen (Rapid) - Final Radiology Impression Chest X-Ray 10/28/20 03:31 IMPRESSION: Pulmonary emphysema and atherosclerotic disease. at 0431 Reported and signed by: Rich Aquino MD Electronically Signed: Rich Aquino MD at 4:29 EDT Tel , Service support , Assessment & Plan Assessment/Plan (1) COPD exacerbation: (2) Atrial tachycardia: (3) Nonadherence to medication: (4) Hypoxia: PLAN: 1. COPD exacerbation?admit patient to progressive care unit due to complication with cardiac findings. We will continue albuterol inhalers every 4 hours, Solu-Medrol every 8 hours and oxygen per protocol 2. Elevated basal natriuretic peptide?order echocardiogram to measure ejection fraction?consider diuresis if increased dyspnea 3. DVT prophylaxis?low molecular weight heparin Charges/Coding Visit Charges Inpatient E&M: 94195 Init Hosp L2
--- NOTE | 2020-10-28 06:40 | ECHOD_ITS ---
Reason For Study: DYSPNEA/SOB Procedure This was a 2D Doppler, Color Flow transthoracic echocardiogram. The study was technically difficult. Poor parasternal windows. Exam performed portable in patient room. Left Ventricle Normal LV size. Left ventricular systolic function is normal. The estimated ejection fraction is 65 %. Unable to assess diastolic dysfunction. No regional wall motion abnormalities noted. Right Ventricle Normal RV size. Normal systolic function. Atria Normal left atrium. The right atrium is mildly enlarged. No doppler evidence for ASD. Mitral Valve There is no mitral annular calcification. Normal mitral valve. Trivial mitral valve insufficiency. Tricuspid Valve Normal tricuspid valve. Mild tricuspid valve insufficiency. Unable to estimate RV systolic pressure/pulmonary artery pressure due to technically difficult study. Aortic Valve The aortic valve is not well visualized. Mild focal aortic valve thickening. Pulmonic Valve The pulmonic valve is not well visualized. Great Vessels Normal sized aortic root. Pericardium/Pleural No pericardial effusion. MMode/2D Measurements & Calculations LVIDd: 5.2 cm IVSd: 1.2 cm Ao root diam: 3.7 cm LVIDs: 4.0 cm LVPWd: 1.2 cm RVDd: 4.0 cm FS: 23.4 % LAV(MOD-sp4): 59.1 ml LVAd ap4: 30.9 cm2 LVAd ap2: 33.2 cm2 LVLd ap4: 8.8 cm LVLd ap2: 9.2 cm EDV(MOD-sp4): 94.4 ml EDV(MOD-sp2): 103.3 ml EDV(sp4-el): 91.7 ml EDV(sp2-el): 101.4 ml LVAs ap4: 16.3 cm2 LVAs ap2: 18.9 cm2 LVLs ap4: 7.4 cm LVLs ap2: 7.7 cm ESV(MOD-sp4): 31.4 ml ESV(MOD-sp2): 39.4 ml ESV(sp4-el): 30.6 ml ESV(sp2-el): 39.4 ml EF(MOD-sp4): 66.7 % EF(MOD-sp2): 61.9 % EF(sp4-el): 66.7 % SV(MOD-sp4): 62.9 ml SV(MOD-sp2): 63.9 ml SV(sp4-el): 61.1 ml LA dimension(2D): 3.5 cm LA A4 area: 20.7 cm2 RA A4 area: 23.9 cm2 Doppler Measurements & Calculations Ao V2 max: 156.0 cm/sec LV V1 max: 116.2 cm/sec PA V2 max: 99.1 cm/sec Ao max P.7 mmHg LV V1 max P.4 mmHg ECHO/Echo Complete Interpretation Summary The study was technically difficult. Left ventricular systolic function is normal. The estimated ejection fraction is 65 %. The right atrium is mildly enlarged. Trivial mitral valve insufficiency. Mild tricuspid valve insufficiency. Mild focal aortic valve thickening. Unable to estimate RV systolic pressure/pulmonary artery pressure due to techni jose difficult study. Unable to assess diastolic dysfunction. Ordering Physician: Giacomo Jenkins Referring Physician: Regan Adan Performed By: Dominga Bernard, JACKI, RVT
--- NOTE | 2020-10-28 06:46 | NURSING ---
106 SULMA COPD,HYPOXIA
[2020-10-28] MEDS: Albuterol 2.5 MG/3 ML VIAL.NEB. INHALATION ×5 (08:05→15:16)
[2020-10-28] MEDS: Metoprolol(XL)Succ 50 MG Tablet 150 MG PO (08:12)
[2020-10-28] MEDS: Enoxaparin 40 MG/0.4 ML Syringe SC (08:13)
[2020-10-28] MEDS: Furosemide 20 MG Tablet PO (08:13)
[2020-10-28] MEDS: Losartan Potassium 25 MG Tablet PO (08:13)
[2020-10-28] MEDS: 0.9% Saline Lock 10 ML Syringe IV ×3 (08:16→21:42)
[2020-10-28 08:30] LABS: Bedside Glucose 194 mg/dL (70-110)
[2020-10-28] MEDS: Glimepiride 1 MG Tablet PO (09:58)
--- NOTE | 2020-10-28 11:05 | PCM.PN.HOSP ---
Documented by User: Rosalva Conte REPAIR ORDER CLERK, REPAIR ORDER CLERK-C 10/28/20 11:26 Subjective Subjective Patient seen and examined. Continues to report shortness of breath however improved. Denies cough, fever, chills. States he wears oxygen at home at nighttime and when he goes out. Objective Data Objective Data Vital Signs: Vital Signs Temp Pulse Resp BP Pulse Ox 98.5 F 96 20 H 140/85 H 97 10/28/20 10:00 10/28/20 10:00 10/28/20 10:00 10/28/20 10:00 10/28/20 10:00 Oxygen Flow Rate (L/min) 4 Oxygen Delivery Method Nasal Cannula Weight: 225 lb 4.999 oz Body Mass Index (BMI) 31.4 Lab / Micro Data Result Diagrams: 10/28/20 03:40 10/28/20 03:40 Labs: Laboratory Results - last 24 hr 10/28/20 03:40: WBC 9.3, RBC 4.66, Hgb 14.4, Hct 47.1, MCV 101.1 H, MCH 30.9, MCHC 30.6 L, RDW Std Deviation 50.8 H, RDW Coeff of Patricia 13.8, Plt Count 246, MPV 10.4, Immature Gran % (Auto) 0.500, Neut % (Auto) 75.8 H, Lymph % (Auto) 15.6 L, [place] % (Auto) 7.6, Eos % (Auto) 0.3, Baso % (Auto) 0.2, Absolute Neuts (auto) 7.1, Absolute Lymphs (auto) 1.45, Nucleated RBC % 0 10/28/20 03:40: Sodium 138, Potassium 4.6, Chloride 96 L, Carbon Dioxide 41.0 H, Anion Gap 1 L, BUN 18, Creatinine 0.88, Estim Creat Clear Calc 89.13, Est GFR (MDRD) Af Amer 112, Est GFR (MDRD) Non-Af 92, BUN/Creatinine Ratio 20.5 H, Glucose 249 H, Calcium 9.0, Troponin I High Sens 35.9 10/28/20 03:40: B-Natriuretic Peptide 1924.8 H 10/28/20 08:27: POC Glucose 194 H Micro: Microbiology 10/28/20 03:45 Mucosa - Nose SARS-CoV-2 Antigen (Rapid) - Final Radiography Diagnostic Testing: Radiology Impression Chest X-Ray 10/28/20 03:31 IMPRESSION: Pulmonary emphysema and atherosclerotic disease. at 0431 Reported and signed by: Rich Aquino MD Electronically Signed: Rich Aquino MD at 4:29 EDT Tel , Service support , Physical Exam Const alert, oriented x3 and no apparent distress Orientation / Consciousness: awake, oriented to person, oriented to place and oriented to time HEENT normocephalic and moist oral mucous membranes Eyes PERRL, EOMs intact bilaterally and conjunctivae normal Neck no lymphadenopathy Resp clear to auscultation bilaterally Auscultation: wheezes Cardio regular rate, regular rhythm and no murmurs Peripheral Pulses: pulses 2+ throughout GI normal to inspection, nondistended, normoactive bowel sounds, non-tender and non-distended Extremity normal to inspection Skin no rashes or lesions noted Lesions: no lesions Rashes: no rashes Trauma: no lacerations or abrasions Neuro CN's II-XII intact bilaterally, no focal motor deficits, no sensory deficits noted and deep tendon reflexes 2+ bilaterally Psych mental status grossly normal and affect normal Assessment & Plan Assessment/Plan (1) COPD exacerbation: (2) Hypoxia: (3) Congestive heart failure (CHF): PLAN: 1. Acute on chronic hypoxic respiratory failure secondary to secondary to COPD exacerbation and heart failure, unknown subtype-initially on BiPAP on admission. States he wears oxygen at bedtime and when he goes out. He is not typically on continuous supplemental oxygen. Continue supplement oxygen to maintain O2 above 90%. Will need home oxygen testing prior to discharge. 2. COPD with exacerbation-IV Solu-Medrol. Albuterol and DuoNeb aerosols. Covid negative. Obtain respiratory panel. 3. Acute heart failure, unknown subtype-BNP 1900. Chest x-ray without congestion however clinically appears consistent with mild CHF. No prior echo. Obtain echocardiogram. IV Lasix. Strict I&O. Daily weight. 4. Type 2 diabetes [id number] with sliding scale insulin. Scheduled Lantus and lispro. 5. Hypertension-stable, continue losartan, metoprolol. 6. Former tobacco use-encouraged continued cessation. DVT prophylaxis- Lovenox sc This patient was seen by CARYN DesaiC under the supervision of Dr. Dunaway. Documented by User: Dr. Mac Dunaway MD 10/28/20 14:30 Subjective Subjective Patient has conversational dyspnea. Quit smoking about a year ago. Increased shortness of breath, cough for several days. Hypoxic 81% on room air by EMS. On home oxygen uses only at night. BNP elevated, glucose 249. The patient was discharged on 10/02 for COPD exacerbation Objective Data Lab / Micro Data Result Diagrams: 10/28/20 03:40 10/28/20 03:40 Physical Exam Narrative General: Alert, Oriented x3, Cooperative HEENT: Atraumatic, PERRLA, EOMI, Normocephalic Oral: No Gingival or Mucosal Lesions/ Ulcerations Neck: Supple, No JVD, Negative Carotid Bruits Lungs: Air entry severely diminished. Expiratory phase prolonged. Bilateral wheezing and rhonchi. Dyspnea at rest. Cardiovascular: Regular rate, Regular Rhythm, Normal S1, Normal S2, holosystolic murmur, cardiac apex Abdomen: Bowel Sounds Present, Soft, Non Tender, Non-Distended : No renal angle tenderness. No suprapubic tenderness. Extremities: 2+ leg edema, Capillary Refill Less than 3 Seconds Skin: No rashes, No breakdown Musculoskeletal: No Tenderness to Palpation of Joints or Extremities Neurological: Cranial nerves II-XII grossly intact, DTR 2+/4 and Symmetrical, Neuro grossly intact Psych/Mental Status: Normal Affect, Appropriate. Assessment & Plan Assessment/Plan (1) COPD exacerbation: PLAN: This patient was seen in conjunction with REPAIR ORDER CLERKRosalva. I have independently interviewed and examined the patient and reviewed pertinent history, examination findings, laboratory and plan of management. I have reviewed the note and agree with the documented findings with the few additional points. In brief, patient is admitted for acute on chronic hypoxic respiratory failure secondary to COPD exacerbation and possible heart failure Exacerbation. Admitted in ICU. On bronchodilator steroid, IV Lasix. Heart failure core measures including intake and output, fluid restriction less than 1500 mL, daily weight monitoring, kidney and electrolytes monitoring. Other comorbidities administer I have discussed my assessment with REPAIR ORDER CLERK, Rosalva and orders have been reviewed. Charges/Coding Visit Charges Inpatient E&M: 32432 Subs Hosp L2
[2020-10-28] MEDS: Insulin Lispro 100 UNIT/ML INSULN.PEN SC ×3 (11:27→21:40)
[2020-10-28 11:45] LABS: Bedside Glucose 452 mg/dL (70-110)
[2020-10-28 11:45] LABS: Bedside Glucose 386 mg/dL (70-110)
[2020-10-28] MEDS: Insulin Lispro 100 UNIT/ML INSULN.PEN 15 UNIT SC ×2 (12:47→16:39)
[2020-10-28] MEDS: Furosemide 40 MG/4 ML Vial IV (12:53)
[2020-10-28 12:56] LABS: Bedside Glucose 430 mg/dL (70-110)
[2020-10-28] MEDS: Ipratropium 0.5 MG/2.5 ML SOLUTION INHALATION (13:14)
--- NOTE | 2020-10-28 13:29 | CASEMGMT ---
Per [facility], pt's order is for 2L continuous home oxygen. SStannamarie ANDERSON CM
--- NOTE | 2020-10-28 15:05 | CASEMGMT ---
Readmission chart review: Pt initially admitted 10/01-10/02/20 for COPD exacerbation. See note by Rhys ANDERSON CM from 10/02/20. Pt discharged home with his home oxygen. Per note, pt states only wears O2 at bedtime and when out. Per [facility], pt's order is for 2L nc continuous home oxygen. Pt was referred for palliative referral during last visit but per palliative, pt never answered phone and chart was closed. Pt returned to [facility] ED on 10/28/20 for SOB, hypoxia as he ran out of oxygen while driving to [employer]. Pt admitted for COPD exacerbation to PCU. Pt is currently on 4L nc. CM to follow for increased home oxygen need and any further discharge planning/needs. Brown ANDERSON CM
[2020-10-28 16:51] LABS: Bedside Glucose 396 mg/dL (70-110)
[2020-10-28 21:50] LABS: Bedside Glucose 310 mg/dL (70-110)
[2020-10-29] VITALS (9 sets, daily range): BP systolic 126–140; BP diastolic 74–82; PULSE 88–104; RESP 18–22; TEMP 36.5–36.7; O2SAT 90–98
[2020-10-29 05:21] LABS: Bedside Glucose 248 mg/dL (70-110)
[2020-10-29] MEDS: 0.9% Saline Lock 10 ML Syringe IV ×2 (05:24→09:39)
[2020-10-29 05:38] LABS: Absolute Lymphocyte Count 0.95 X10^3/uL (0.83-4.51); Absolute Neutrophil Count 9.9 X10^3/uL (2.0-7.7); Basophil# 0.01 X10^3/uL; Basophil% 0.1 % (0-1); Hematocrit 44.7 % (40-54); Hemoglobin 14.1 g/dL (13.0-16.5); Lymphocyte # 0.95 X10^3/ul (0.83-4.51); Lymphocyte % 8.5 % (19-41); Mean Corp Hgb Conc 31.5 g/dL (32-36); Mean Corpuscular Hgb 30.6 pg (27.0-32.0); Mean Platelet Vol. 10.5 fl (6.2-12.0); Monocyte% 2.7 % (0-10); NRBC Flagged by Analyzer 0 % (0-5); Neutrophil # 9.86 X10^3/uL (2.7-7.7); Neutrophil % 88.2 % (47-70); Platelet Count 235 K/mm3 (150-450); RBC Distribution Width CV 13.5 % (11.6-14.6); RBC Distribution Width SD 47.8 fl (35.1-43.9); Red Blood Count 4.61 M/mm3 (4.6-6.2); White Blood Count 11.2 K/mm3 (4.4-11.0)
[2020-10-29 06:00] LABS: Anion Gap 4 (5-15); BUN 23 mg/dL (7-18); BUN/Creat Ratio 22.1 RATIO (10-20); Calcium,Total 8.3 mg/dL (8.5-10.1); Chloride 92 mmol/L (98-107); Creatinine, Serum 1.04 mg/dL (0.70-1.30); EST Glomerular Filtration Rate 76 mL/min (>60); Est Glom Filt Rate - Afr Amer 92 mL/min (>60); Estimated Creatinine Clearance 75.42 ml/min; Glucose 234 mg/dL (74-106); Potassium 4.5 mmol/L (3.5-5.1); Sodium Level 135 mmol/L (136-145)
[2020-10-29] MEDS: Insulin Lispro 100 UNIT/ML INSULN.PEN 25 UNIT SC ×2 (08:19→12:47)
[2020-10-29] MEDS: Glimepiride 1 MG Tablet PO (08:21)
[2020-10-29 08:46] LABS: Bedside Glucose 492 mg/dL (70-110)
[2020-10-29] MEDS: Losartan Potassium 25 MG Tablet PO (09:34)
[2020-10-29] MEDS: Metoprolol(XL)Succ 50 MG Tablet 150 MG PO (09:34)
[2020-10-29] MEDS: Enoxaparin 40 MG/0.4 ML Syringe SC (09:35)
[2020-10-29] MEDS: Furosemide 40 MG/4 ML Vial IV (09:39)
--- NOTE | 2020-10-29 09:43 | PCM.DC ---
Discharge Instructions Diet Discharge Diet: Carb Control Diet Activity Discharge Activity: Return to Normal Activity Dressing / Incision Call your doctor if you observe: Shortness of breath, Dizziness and Chest pain Follow Up Care Test Results: Test results from this visit will be discussed in further detail at your follow-up appointment, if applicable. Discharge Plan Admission Admit Date/Time: 10/28/20 06:40 Primary Reason for Your Visit: COPD Attending Provider: Mac Dunaway Primary Care Provider: Regan Adan Discharge Orders/Prescriptions Prescriptions: New glimepiride 1 mg Tablet 1 mg PO BREAKFAST Qty: 30 RF: 0 prednisone 10 mg tablet See Taper mg PO DAILY Qty: 30 RF: 0 Continued metoprolol succinate 50 mg tablet extended release 24 hr 50 mg PO TID RF: 0 losartan 25 mg tablet 25 mg PO DAILY RF: 0 furosemide 20 mg tablet 20 mg PO DAILY RF: 0 albuterol sulfate [Ventolin HFA] 90 mcg/actuation HFA aerosol inhaler 2 puff INHALATION Q4H PRN PRN (Reason: Shortness Of Breath) RF: 0 ipratropium bromide 0.02 % solution 3 ml inhalation TID PRN (Reason: Shortness Of Breath) RF: 0 Spiriva Respimat 2.5 mcg/actuation Mist 2 puff INHALATION DAILY RF: 0 Discontinued glimepiride 1 mg tablet 0.5 mg PO DAILY RF: 0 Referrals / Follow Up: Pulmonary, Primary [Other] - In 1 Week Regan Adan DO [Primary Care Provider] - 11/03/20 9:00 am (Please arrive 10 minutes early. Bring your hospital discharge papers and any medications you are currently taking. ) Disposition Disposition (needs filled in before D/C Order can be placed): Home, Self Care
[2020-10-29 09:55] LABS: Bedside Glucose 459 mg/dL (70-110)
[2020-10-29] MEDS: Insulin Lispro 100 UNIT/ML INSULN.PEN 10 UNIT SC (10:03)
[2020-10-29 10:20] LABS: Hemoglobin A1c 7.6 % (3.8-5.6)
--- NOTE | 2020-10-29 10:33 | PHA.DC.MR ---
Pharmacy Service has performed discharge medication reconciliation for this patient. The patient's discharge medication list was reviewed for discrepancies and discrepancies were resolved. Home Medications albuterol sulfate [Ventolin HFA] 2 puff INHALATION Q4H PRN PRN 09/15/20 furosemide 20 mg PO DAILY 09/15/20 ipratropium bromide 3 ml INHALATION TID PRN 09/15/20 losartan 25 mg PO DAILY 09/15/20 metoprolol succinate 50 mg PO TID 09/15/20 Spiriva Respimat 2 puff INHALATION DAILY 10/28/20 glimepiride 1 mg PO BREAKFAST #30 tab 10/29/20
[2020-10-29 11:31] LABS: Bedside Glucose 298 mg/dL (70-110)
--- NOTE | 2020-10-29 11:33 | PCM.DC.SUM ---
Documented by User: Rosalva Conte NP, .NET PROGRAMMER-C 10/29/20 11:40 Providers Date of Admission: 10/28/20 Date of Discharge: 10/29/20 Primary Care Physician: Dr. Regan Adan DO Reason For Visit: COPD EXACERBATION Diagnosis Discharge Diagnosis (1) COPD exacerbation: Status: Chronic Code(s): J44.1 - Chronic obstructive pulmonary disease with (acute) exacerbation Medications at Discharge Home Medications albuterol sulfate [Ventolin HFA] 2 puff INHALATION Q4H PRN PRN 09/15/20 furosemide 20 mg PO DAILY 09/15/20 ipratropium bromide 3 ml INHALATION TID PRN 09/15/20 losartan 25 mg PO DAILY 09/15/20 metoprolol succinate 50 mg PO TID 09/15/20 Spiriva Respimat 2 puff INHALATION DAILY 10/28/20 glimepiride 1 mg PO BREAKFAST #30 tab 10/29/20 prednisone See Taper PO DAILY #30 tab 10/29/20 Hospital Course Operations None Procedures 2-D Echocardiogram Summary of Care Provided Minutes Spent on Discharge: 35 Hospital Course: Patient is a 64-year-old male admitted 10/28/2020 due to shortness of breath. 1. Acute on chronic hypoxic respiratory failure secondary to secondary to COPD exacerbation and heart failure with preserved ejection fraction-initially on BiPAP on admission. Patient wears chronic supplemental oxygen with order for 2 L nasal cannula continuously. Oxygen testing prior to discharge. Continue supplement oxygen to maintain O2 at above 90%. 2. COPD with exacerbation-Covid negative. Respiratory panel negative. IV Solu-Medrol during admission. Prednisone taper at discharge. Continue home inhaler/albuterol regimen. 3. Acute heart failure with preserved ejection fraction-BNP 1900. Chest x-ray without congestion however clinically appears consistent with mild CHF. Echocardiogram demonstrates an EF of 65%. IV Lasix during admission. Continue home Lasix regimen at discharge. 4. Type 2 diabetes mellitus-glucose elevated during admission due to steroid regimen. Hemoglobin A1c 7.6%. Home glimepiride increased to 1 mg daily. 5. Hypertension-stable, continue losartan, metoprolol. 6. Former tobacco use-encouraged continued cessation. Physical Exam Const alert, oriented x3 and no apparent distress Orientation / Consciousness: awake, oriented to person, oriented to place and oriented to time HEENT normocephalic and moist oral mucous membranes Eyes PERRL, EOMs intact bilaterally and conjunctivae normal Neck no lymphadenopathy Resp clear to auscultation bilaterally Auscultation: wheezes Cardio regular rate, regular rhythm and no murmurs Peripheral Pulses: pulses 2+ throughout GI normal to inspection, nondistended, normoactive bowel sounds, non-tender and non-distended Extremity normal to inspection Skin no rashes or lesions noted Lesions: no lesions Rashes: no rashes Trauma: no lacerations or abrasions Neuro CN's II-XII intact bilaterally, no focal motor deficits, no sensory deficits noted and deep tendon reflexes 2+ bilaterally Psych mental status grossly normal and affect normal Patient seen and examined prior to discharge. Physical assessment as noted above. Patient is stable for discharge with follow up recommendations as noted above. This patient was seen by MORENITA Desai under the supervision of Dr. Dunaway. Medical Records Data Medical Nutrition Assessment Dietitian: Nutrition Therapy Diagnosis Start: 10/28/20 13:21 Freq: Status: Active Protocol: Document 10/28/20 13:21 (Rec: 10/28/20 13:21 AG [id number]) Nutrition Malnutrition Evidence of Malnutrition Exists No Recommendation Dietitian Recommendations/Changes Change diet to cardiac consistent carbohydrate diet. Fluid restriction as indicated . Weight / BMI Weight Weight: 221 lb 9.033 oz Body Mass Index (BMI) 31.4 ABG / Lab / Microbiology Data Result Diagrams: 10/29/20 05:14 10/29/20 05:14 Laboratory: Laboratory Results - last 24 hr 10/28/20 11:23: POC Glucose 452 H* 10/28/20 11:27: POC Glucose 386 H 10/28/20 12:45: POC Glucose 430 H 10/28/20 16:39: POC Glucose 396 H 10/28/20 21:39: POC Glucose 310 H 10/29/20 05:14: WBC 11.2 H, RBC 4.61, Hgb 14.1, Hct 44.7, MCV 97.0 H, MCH 30.6, MCHC 31.5 L, RDW Std Deviation 47.8 H, RDW Coeff of Patricia 13.5, Plt Count 235, MPV 10.5, Immature Gran % (Auto) 0.500, Neut % (Auto) 88.2 H, Lymph % (Auto) 8.5 L, [place] % (Auto) 2.7, Eos % (Auto) 0.0, Baso % (Auto) 0.1, Absolute Neuts (auto) 9.9 H, Absolute Lymphs (auto) 0.95, Nucleated RBC % 0 10/29/20 05:14: Sodium 135 L, Potassium 4.5, Chloride 92 L, Carbon Dioxide 39.0 H, Anion Gap 4 L, BUN 23 H, Creatinine 1.04, Estim Creat Clear Calc 75.42, Est GFR (MDRD) Af Amer 92, Est GFR (MDRD) Non-Af 76, BUN/Creatinine Ratio 22.1 H, Glucose 234 H, Calcium 8.3 L 10/29/20 05:14: Hemoglobin A1c 7.6 H 10/29/20 05:15: POC Glucose 248 H 10/29/20 08:08: POC Glucose 492 H* 10/29/20 09:51: POC Glucose 459 H* 10/29/20 11:24: POC Glucose 298 H Microbiology: Microbiology 10/28/20 12:20 Mucosa - Nasopharyngeal Respiratory Panel (PCR) - Final 10/28/20 03:45 Mucosa - Nose SARS-CoV-2 Antigen (Rapid) - Final Radiography Diagnostic Testing: Radiology Impression Echocardiogram 10/28/20 06:40 Interpretation Summary The study was technically difficult. Left ventricular systolic function is normal. The estimated ejection fraction is 65 %. The right atrium is mildly enlarged. Trivial mitral valve insufficiency. Mild tricuspid valve insufficiency. Mild focal aortic valve thickening. Unable to estimate RV systolic pressure/pulmonary artery pressure due to technically difficult study. Unable to assess diastolic dysfunction. Ordering Physician: Giacomo Jenkins Referring Physician: Regan Adan Performed By: Dominga Bernard, JACKI, RVT D/C Instructions Discharge Diet: Carb Control Diet Call your doctor if you observe: Shortness of breath, Dizziness and Chest pain Meaningful Use Info Meaningful Use Diagnoses (Choose all that apply): CHF CHF JOYCELYN/ARB ordered at discharge?: Yes Documented LVEF (%): 65 Discharge Plan Admission Admit Date/Time: 10/28/20 06:40 Primary Reason for Your Visit: COPD Attending Provider: Mac Dunaway Primary Care Provider: Regan Adan Discharge Orders/Prescriptions Prescriptions: New glimepiride 1 mg Tablet 1 mg PO BREAKFAST Qty: 30 RF: 0 prednisone 10 mg tablet See Taper mg PO DAILY Qty: 30 RF: 0 Continued metoprolol succinate 50 mg tablet extended release 24 hr 50 mg PO TID RF: 0 losartan 25 mg tablet 25 mg PO DAILY RF: 0 furosemide 20 mg tablet 20 mg PO DAILY RF: 0 albuterol sulfate [Ventolin HFA] 90 mcg/actuation HFA aerosol inhaler 2 puff INHALATION Q4H PRN PRN (Reason: Shortness Of Breath) RF: 0 ipratropium bromide 0.02 % solution 3 ml inhalation TID PRN (Reason: Shortness Of Breath) RF: 0 Spiriva Respimat 2.5 mcg/actuation Mist 2 puff INHALATION DAILY RF: 0 Discontinued glimepiride 1 mg tablet 0.5 mg PO DAILY RF: 0 Referrals / Follow Up: Pulmonary, Primary [Other] - In 1 Week Regan Adan DO [Primary Care Provider] - 11/03/20 9:00 am (Please arrive 10 minutes early. Bring your hospital discharge papers and any medications you are currently taking. ) Disposition Disposition (needs filled in before D/C Order can be placed): Home, Self Care Documented by User: Dr. Mac Dunaway MD 10/29/20 12:15 Providers Date of Admission: 10/28/20 Reason For Visit: COPD EXACERBATION Medications at Discharge Home Medications albuterol sulfate [Ventolin HFA] 2 puff INHALATION Q4H PRN PRN 09/15/20 furosemide 20 mg PO DAILY 09/15/20 ipratropium bromide 3 ml INHALATION TID PRN 09/15/20 losartan 25 mg PO DAILY 09/15/20 metoprolol succinate 50 mg PO TID 09/15/20 Spiriva Respimat 2 puff INHALATION DAILY 10/28/20 glimepiride 1 mg PO BREAKFAST #30 tab 10/29/20 prednisone See Taper PO DAILY #30 tab 10/29/20 Hospital Course Summary of Care Provided Hospital Course: This patient was seen in conjunction with Rosalva JOHNSON. I have independently interviewed and examined the patient and reviewed pertinent history, examination findings, laboratory and plan of management. I have reviewed the note and agree with the documented findings with the few additional points. In brief, patient is admitted for acute on chronic hypoxic respiratory failure secondary to COPD exacerbation and possible heart failure exacerbation. Admitted in ICU. On bronchodilator steroid, IV Lasix. Heart failure core measures including intake and output, fluid restriction less than 1500 mL, daily weight monitoring, kidney and electrolytes monitoring. COPD exacerbation improved with bronchodilator and Solu-Medrol. 2D echo shows EF 65% with mild right atrial enlargement probably due to COPD. Advised to follow-up in pulmonary clinic in 2 weeks Other comorbidities as mentioned above including diabetes mellitus type 2 on scheduled short and long-acting insulin. Discharge medication reconciliation done. Discharge follow-up instructions completed. Discharge process discussed with the patient and all questions were answered to patient's satisfaction. Total time spent, exact 35 minutes on discharge meds reconciliation, examination, coordination of care with nurses and ancillary staff, review of imaging and blood test and discussion with the patient on follow-up instructions I have discussed my assessment with Rosalva JOHNSON and orders have been reviewed. Physical Exam Narrative Seen and examined. Patient blood sugar is high secondary to Solu-Medrol with history of baseline diabetes mellitus. Shortness of breath has improved. General: Alert, Oriented x3, Cooperative HEENT: Atraumatic, PERRLA, EOMI, Normocephalic Oral: No Gingival or Mucosal Lesions/ Ulcerations Neck: Supple, No JVD, Negative Carotid Bruits Lungs: Air entry severely diminished. Expiratory phase prolonged. Mild expiratory rhonchi. Cardiovascular: Regular rate, Regular Rhythm, Normal S1, Normal S2, holosystolic murmur, cardiac apex Abdomen: Bowel Sounds Present, Soft, Non Tender, Non-Distended : No renal angle tenderness. No suprapubic tenderness. Extremities: 2+ leg edema, Capillary Refill Less than 3 Seconds Skin: No rashes, No breakdown Musculoskeletal: No Tenderness to Palpation of Joints or Extremities Neurological: Cranial nerves II-XII grossly intact, DTR 2+/4 and Symmetrical, Neuro grossly intact Psych/Mental Status: Normal Affect, Appropriate. ABG / Lab / Microbiology Data Result Diagrams: 10/29/20 05:14 10/29/20 05:14 Discharge Plan Admission Admit Date/Time: 10/28/20 06:40 Primary Reason for Your Visit: COPD Attending Provider: Mac Dunaway Primary Care Provider: Regan Adan Discharge Orders/Prescriptions Prescriptions: New glimepiride 1 mg Tablet 1 mg PO BREAKFAST Qty: 30 RF: 0 prednisone 10 mg tablet See Taper mg PO DAILY Qty: 30 RF: 0 Continued metoprolol succinate 50 mg tablet extended release 24 hr 50 mg PO TID RF: 0 losartan 25 mg tablet 25 mg PO DAILY RF: 0 furosemide 20 mg tablet 20 mg PO DAILY RF: 0 albuterol sulfate [Ventolin HFA] 90 mcg/actuation HFA aerosol inhaler 2 puff INHALATION Q4H PRN PRN (Reason: Shortness Of Breath) RF: 0 ipratropium bromide 0.02 % solution 3 ml inhalation TID PRN (Reason: Shortness Of Breath) RF: 0 Spiriva Respimat 2.5 mcg/actuation Mist 2 puff INHALATION DAILY RF: 0 Discontinued glimepiride 1 mg tablet 0.5 mg PO DAILY RF: 0 Referrals / Follow Up: Pulmonary, Primary [Other] - In 1 Week Regan Adan DO [Primary Care Provider] - 11/03/20 9:00 am (Please arrive 10 minutes early. Bring your hospital discharge papers and any medications you are currently taking. ) Disposition Disposition (needs filled in before D/C Order can be placed): Home, Self Care Charges/Coding Visit Charges Inpatient E&M: 17057 Disch Hosp
--- NOTE | 2020-10-29 11:35 | CASEMGMT ---
Per [facility] palliative screening, pt qualifies for palliative referral and Dr. Dunaway is agreeable. Palliative notified and referral faxed. Brown ANDERSON CM
--- NOTE | 2020-10-29 12:45 | CASEMGMT ---
Per Karly RN, pt does not qualify for increased home oxygen need. Pt ready for discharge. SStannamarie RN CM
[2020-10-29] MEDS: Insulin Lispro 100 UNIT/ML INSULN.PEN SC (12:48)
--- NOTE | 2020-10-30 14:10 | CASEMGMT ---
MONICA SCHNEIDER Discharge Follow-up Phone Call: ANIKET: 12 Strata: 3 Call Date: 10/30/20 Discharge Date: 10/29/20 Time of Call: 1410 Duration: 1 min Admitting Diagnosis: COPD Exacerbation MONICA SCHNEIDER attempted to complete follow-up phone call after recent hospitalization. No answer, voice message left with return contact information.
== END 2020-10-29 13:09 | disposition home or self-care (01) | DRG 189 ==
LOC: ED 06:30 → PCU 06:44
PROVIDERS: Nurse Practitioner Family; Admitting Provider Family Medicine; Emergency Provider Emergency Medicine; PCP Family Medicine; Visit Provider Internal Medicine
DX: J96.21 Acute and chronic respiratory failure with hypoxia (principal); I50.31 Acute diastolic (congestive) heart failure; I11.0 Hypertensive heart disease with heart failure; J43.9 Emphysema, unspecified; Z20.822 Contact with and (suspected) exposure to COVID-19; E11.65 Type 2 diabetes mellitus with hyperglycemia; T38.0X5A Adverse effect of glucocorticoids and synthetic analogues, initial encounter; Y92.9 Unspecified place or not applicable; Z91.14 Patient's other noncompliance with medication regimen; Z79.84 Long term (current) use of oral hypoglycemic drugs; Z99.81 Dependence on supplemental oxygen; Z79.899 Other long term (current) drug therapy; Z87.891 Personal history of nicotine dependence
CPT/HCPCS: 36415; 71045; 80048; 82962; 83036; 83880; 84484; 85025; 87426; 87633; 93005; 93306; 94002; 94640; 97802; 99285; 99406; Q9957; A4216; J1940; J3490

== ENCOUNTER 2020-11-04 14:00 | Inpatient (IN) | payer MEDICARE, MEDICAID, SELFPAY ==
[2020-10-28 07:42] VITALS: BMI 31.4
[2020-11-04] VITALS (13 sets, daily range): BP systolic 122–146; BP diastolic 63–111; PULSE 102–125; RESP 20–34; TEMP 36.2–37.2; O2SAT 79–100; BMI 32.9; BMI 32.1
--- NOTE | 2020-11-04 14:17 | EKG12_ITS ---
Test Reason : SOB Blood Pressure : / mmHG Vent. Rate : 104 BPM Atrial Rate : 104 BPM P-R Int : 150 ms QRS Dur : 094 ms QT Int : 344 ms P-R-T Axes : 081 008 089 degrees QTc Int : 452 ms Sinus tachycardia Nonspecific T wave abnormality Abnormal ECG Confirmed by ZEKE HAYES, ARPAN ([id number]), film editor supervisor JOEL FUENTES ([id number]) on 11/07/2020 9:22:07 AM Referred By: DEMOND Confirmed By:ZE ALANIS MD
--- NOTE | 2020-11-04 14:18 | EDS_ITS ---
HPI History of Present Illness Chief Complaint: Shortness of Breath Informant: patient Onset/Context/Timing Onset: Days Context: gradual Timing: Continuous Quality: Positive for Dyspnea on exertion and Wheezing Current Severity: Moderate Maximum Severity: Moderate Associated Symptoms cough and green sputum Chest Pain: Positive for None Narrative Narrative: 64-year-old male history of COPD for which he uses oxygen at night and history of CHF and diabetes. He has had multiple admissions this year for COPD. Thinks he is more short of breath with cough of yellow phlegm. Currently is on prednisone. He has not had a Covid vaccine. His most recent Covid test was within the last 2 weeks and was negative. PE Risk Factors: Positive for Recent immobilization; Negative for Cancer, OCP + Smoking + > 35, Prior DVT or PE, Recent surgery and Recent travel Prior similar symptoms: Yes Recent Illness/Hospitalization: Yes PFSH PFSH Medical History Congestive heart failure (CHF) Congestive heart failure (CHF) COPD (chronic obstructive pulmonary disease) COPD (chronic obstructive pulmonary disease) Diabetes Former smoker Hypertension On home oxygen therapy Smoker Home Medications albuterol sulfate [Ventolin HFA] 2 puff INHALATION Q4H PRN PRN 09/15/20 [History Last Taken 09/30/20] furosemide 20 mg PO DAILY 09/15/20 [History Last Taken 09/30/20] ipratropium bromide 3 ml INHALATION TID PRN 09/15/20 [History Last Taken 10/01/20] losartan 25 mg PO DAILY 09/15/20 [History Last Taken 09/30/20] metoprolol succinate 50 mg PO TID 09/15/20 [History Last Taken 09/30/20] Spiriva Respimat 2 puff INHALATION DAILY 10/28/20 [History Last Taken Unknown] glimepiride 1 mg PO BREAKFAST #30 tab 10/29/20 [Rx Last Taken Unknown] prednisone See Taper PO DAILY #30 tab 10/29/20 [Rx Last Taken Unknown] Allergy/AdvReac Type Severity Reaction Status Date / Time No Known Allergies Allergy Verified 10/28/20 03:31 Social History Smoking Status: Current some day smoker tobacco type: cigarettes substance use type: marijuana ROS ROS ED ROS Narrative Cough and shortness of breath. Review of Systems ROS Unobtainable: Denies due to encephalopathy Constitutional Constitutional ED: Denies chills or fever(s) Eyes Eyes: Denies change in vision ENT ENT ED: Denies ear pain or sore throat Cardiovascular Cardiovascular: Reports racing heartbeat; Denies chest pain or palpitations Respiratory/Chest Respiratory/Chest: Reports cough, dyspnea, dyspnea on exertion and sputum Gastrointestinal Gastrointestinal: Denies abdominal pain, diarrhea, nausea or vomiting Genitourinary Genitourinary ED: Denies dysuria Musculoskeletal Musculoskeletal: Denies myalgias Integumentary Denies rash Neurologic Neurologic: Denies headache(s) Psychiatric Psychiatric: Denies depression Endocrine Endocrinology: Denies polyuria Hematologic/Lymphatic Hematologic/Lymphatic: Denies easy bruising Allergic/Immunologic Allergic/Immunologic ED: Denies urticaria EXAM Physical Exam Narrative Exam Narrative: 64-year-old male sitting upright in bed. Labored breathing. Vital signs tachycardia 125 his pulse ox is 79% on room air. He does not look septic or toxic. Is diaphoretic. HEENT exam eyes mucous membranes. Neck nontender no lymphadenopathy. No JVD. Heart tachycardic 125 no murmur. Abdomen soft nontender normal bowel sounds no peritoneal signs. Moving all 4 extremities. Normal motor strength. 1+ edema both lower extremities equal symmetrical. Calves are nontender. Neurologically is awake alert. He is answering questions following commands. Moving all his extremities. Const Vital Signs: 11/04/20 14:01 11/04/20 14:07 11/04/20 14:31 Temperature 97.5 F L 97.5 F L Temperature Source Oral Oral Pulse Rate 125 H 125 H 125 H Respiratory Rate 32 H 32 H 34 H Respiratory Effort Short of Breath Labored Pursed Lip Respiratory Depth Shallow Respiratory Pattern Irregular Blood Pressure 138/111 H 138/111 H Blood Pressure Mean 120 120 Pulse Ox 79 79 97 Oxygen Delivery Method Room Air Room Air Nasal Cannula Oxygen Flow Rate (L/min) 2 3 11/04/20 15:03 11/04/20 16:16 Temperature 97.6 F L Temperature Source Axillary Pulse Rate 121 H 102 H Respiratory Rate 23 H 24 H Respiratory Effort Respiratory Depth Respiratory Pattern Blood Pressure 131/90 H Blood Pressure Mean 103 Pulse Ox 96 96 Oxygen Delivery Method Nasal Cannula Nasal Cannula Oxygen Flow Rate (L/min) 3 6 HEENT Reports moist mucous membranes atraumatic; Negative for trauma or tenderness Eyes PERRL and EOMs intact bilaterally Neck no lymphadenopathy, supple, no meningeal signs and no JVD General: Negative for tenderness Resp No normal respiratory effort Auscultation: wheezes Cardio regular rhythm, S1 normal heart sound, S2 normal heart sound and no murmurs; Negative for regular rate Rate: tachycardic GI non-tender, non-distended and no masses Auscultation: normoactive bowel sounds Palpation: soft; Negative for tender, guarding or rebound tenderness present Back/Spine normal to inspection; Negative for no CVA tenderness Extremity Negative for normal to inspection General Extremety ED: Yes edema; Negative for tenderness General Extremity: edema Neuro oriented x3 Sensorium / Orientation: alert, oriented to person, oriented to place and o riented to time; Negative for orientation impaired, confused, lethargic or stuporous Motor Exam: Negative for strength 5/5 throughout Psych mental status grossly normal Skin Lesions: no lesions Rashes: no rashes MDM MDM MDM Narrative Medical decision making narrative: 64-year-old male short of breath and hypoxic most likely a COPD flare and a similar episode within the last several weeks and was admitted. Most likely COPD flare rule out pneumonia, CHF and Covid. Repeat exam at 4:30 patient is resting more comfortably on oxygen. He is going to receive 40 mg IV Lasix I think is a combination of his COPD and CHF flare. I have the hospitalist on page for admission. Lab Data Attestation: I reviewed the patient's lab results. Lab results narrative: CBC shows white count 8.5 hemoglobin 13. History is unremarkable gap of 3. Creatinine 1.3. Glucose elevated 354. High-sensitivity troponin 24 and BNP 1495. Labs: Laboratory Results - last 24 hr 11/04/20 11/04/20 11/04/20 14:48 14:48 14:48 WBC 8.5 RBC 4.35 L Hgb 13.4 Hct 44.6 MCV 102.5 H MCH 30.8 MCHC 30.0 L RDW Std Deviation 53.1 H RDW Coeff of Patricia 14.1 Plt Count 199 MPV 10.7 Immature Gran % (Auto) 2.000 H Neut % (Auto) 82.5 H Lymph % (Auto) 10.7 L [place] % (Auto) 4.3 Eos % (Auto) 0.1 Baso % (Auto) 0.4 Absolute Neuts (auto) 7.0 Absolute Lymphs (auto) 0.91 Nucleated RBC % 0 Sodium 136 Potassium 5.1 Chloride 97 L Carbon Dioxide 36.0 H Anion Gap 3 L BUN 28 H Creatinine 1.32 H Estim Creat Clear Calc 59.42 Est GFR (MDRD) Af Amer 70 Est GFR (MDRD) Non-Af 58 L BUN/Creatinine Ratio 21.2 H Glucose 354 H Calcium 8.3 L Troponin I High Sens 24.2 B-Natriuretic Peptide 1495.0 H Radiography Chest X-Ray - ED: 1 View, Read by ED Physician, Heart, Lungs, Mediastinum, Bony Structures and Chronic Changes Diagnostic Testing: Radiology Impression Chest X-Ray 11/04/20 15:00 IMPRESSION: Hyperinflation. Decreased bronchovascular markings in the upper lobes more prominent on the right side suggestive of emphysematous change. Electronically Signed: Dayne Garcia MD at 15:20 EDT , Service support , Rhythm Strip Rhythm Strip: Sinus Tach Rate: 104 Ectopy: None EKG Initial EKG: Attestation: I personally reviewed and interpreted this EKG as follows: Interpretation: No Acute Injury Pattern and Sinus Tachycardia Comments: Sinus tachycardia rate of 104 no acute signs of AL or ischemia. Prior EKG tracings: not available for review Discharge Plan Triage Chief Complaint: Shortness of Breath ED Provider: Campbell Hicks Dx/Rx/DC Orders Clinical Impression: COPD exacerbation, Congestive heart failure (CHF), Hypoxia Prescriptions: No Action metoprolol succinate 50 mg tablet extended release 24 hr 50 mg PO TID RF: 0 losartan 25 mg tablet 25 mg PO DAILY RF: 0 furosemide 20 mg tablet 20 mg PO DAILY RF: 0 albuterol sulfate [Ventolin HFA] 90 mcg/actuation HFA aerosol inhaler 2 puff INHALATION Q4H PRN PRN (Reason: Shortness Of Breath) RF: 0 ipratropium bromide 0.02 % solution 3 ml inhalation TID PRN (Reason: Shortness Of Breath) RF: 0 Spiriva Respimat 2.5 mcg/actuation Mist 2 puff INHALATION DAILY RF: 0 glimepiride 1 mg Tablet 1 mg PO BREAKFAST Qty: 30 RF: 0 prednisone 10 mg tablet See Taper mg PO DAILY Qty: 30 RF: 0 Primary Care Provider: Regan Adan Referrals: Regan Adan DO [Primary Care Provider] - Disposition Disposition: Acute Care Hospital [facility]
[2020-11-04] MEDS: Ipratropium/Albuterol Sulfate 3 ML AMPUL.NEB INHALATION ×2 (14:29→19:34)
[2020-11-04] MEDS: Albuterol 2.5 MG/3 ML VIAL.NEB. INHALATION ×3 (14:55→16:36)
[2020-11-04 14:56] LABS: Absolute Lymphocyte Count 0.91 X10^3/uL (0.83-4.51); Basophil# 0.03 X10^3/uL; Basophil% 0.4 % (0-1); Eosinophil# 0.01 X10^3/uL; Eosinophils% 0.1 % (0-5); Hematocrit 44.6 % (40-54); Hemoglobin 13.4 g/dL (13.0-16.5); Lymphocyte # 0.91 X10^3/ul (0.83-4.51); Lymphocyte % 10.7 % (19-41); Mean Corpuscular Hgb 30.8 pg (27.0-32.0); Mean Corpuscular Volume 102.5 fL (80-94); Mean Platelet Vol. 10.7 fl (6.2-12.0); Monocyte# 0.37 X10^3/uL; Monocyte% 4.3 % (0-10); NRBC Flagged by Analyzer 0 % (0-5); Neutrophil # 7.02 X10^3/uL (2.7-7.7); Neutrophil % 82.5 % (47-70); Platelet Count 199 K/mm3 (150-450); RBC Distribution Width CV 14.1 % (11.6-14.6); RBC Distribution Width SD 53.1 fl (35.1-43.9); Red Blood Count 4.35 M/mm3 (4.6-6.2); White Blood Count 8.5 K/mm3 (4.4-11.0)
--- NOTE | 2020-11-04 15:00 | RAD_ITS ---
STUDY: X-RAY CHEST REASON FOR EXAM: Male, 64 years old. Dyspnea TECHNIQUE: Single AP portable view of the chest. COMPARISON: Comparison is made with prior study dated 10/28/2020. FINDINGS: There is hyperinflation of the lungs consistent with chronic obstructive lung disease (COPD). Decreased bronchovascular markings in the right upper lobe suggestive of possible large right apical bulla versus emphysematous changes.. There is no demonstrated pleural abnormality. There is mild cardiac enlargement. Normal mediastinum and phyllis. Normal visualized pulmonary arteries. There is atherosclerotic calcification of the aortic arch with tortuosity. Normal visualized thoracic spine. Normal visualized ribs, clavicles, and shoulders. There is no demonstrated abnormality of the visualized soft tissue structures of the upper abdomen. RAD/Chest 1 View (Portable) IMPRESSION: Hyperinflation. Decreased bronchovascular markings in the upper lobes more prominent on the right side suggestive of emphysematous change. Electronically Signed: Dayne Garcia MD at 15:20 EDT , Service support ,
[2020-11-04] MEDS: MethylPREDNISolone 125 MG/2 ML Vial IV (15:09)
[2020-11-04 15:25] LABS: Anion Gap 3 (5-15); BUN 28 mg/dL (7-18); BUN/Creat Ratio 21.2 RATIO (10-20); Calcium,Total 8.3 mg/dL (8.5-10.1); Chloride 97 mmol/L (98-107); Creatinine, Serum 1.32 mg/dL (0.70-1.30); EST Glomerular Filtration Rate 58 mL/min (>60); Est Glom Filt Rate - Afr Amer 70 mL/min (>60); Estimated Creatinine Clearance 59.42 ml/min; Glucose 354 mg/dL (74-106); Potassium 5.1 mmol/L (3.5-5.1); Sodium Level 136 mmol/L (136-145); Troponin-I HS 24.2 pg/mL (3.0-78.5)
--- NOTE | 2020-11-04 16:08 | ED.RN ---
pt found unhooked from all monitoring devices and oxygen sitting in chair. pt stated I showered in the sink. pt was escorted back to bed and placed on potline monitor. he is instructed to no exit the bed and to leave required oxygen on. both bed rails where up and call fowler was in reach. pt informed of wait for admitting dr. imelda sinclair, rn [id number]
[2020-11-04] MEDS: Furosemide 40 MG/4 ML Vial IV ×2 (16:35→20:10)
--- NOTE | 2020-11-04 17:33 | HP.PCM.HOS_ITS ---
Documented by User: Juan Carlos HOLBROOK 11/04/20 18:19 HPI - General General Date of Admission: 11/04/20 Date of Service: 11/04/20 Chief Complaint: Shortness of breath w/ cough. HPI Narrative JORGE APONTE is a 64-year-old male who presents to the ED at [facility] on 11/04/2020 with a chief complaint of shortness of breath and cough secondary to what patient believes is a COPD exacerbation. Patient reports that this current exacerbation is due to the high humidity, which he claims always it brings about his COPD exacerbations. Patient reports that usually his COPD is controlled on his current medication regimen and by using supportive oxygen at night, however not during the day. Patient reports that due to the current high heat and humidity he is requiring constant oxygen throughout the day and night, which is bringing no relief to his shortness of breath or cough. Patient reports that his home oxygen prescription is 3 L via nasal cannula. Patient also endorses yellow sputum production with his cough. Patient denies chest pain, palpitations, hemoptysis, orthopnea, paroxysmal nocturnal dyspnea, fever, chills, N/V/D. Of note, patient was discharged on 10/29 after being admitted for a different COPD exacerbation, patient was discharged on prednisone taper, as well as continued use of his inhalers. 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 Patient denies any current tobacco use and reports his last cigarette was 2 months ago. Vital signs in the ED are significant for ta chycardia at a rate of 102 bpm, tachypnea at a rate of 20 to 25 breaths/min as well as satting at 96% on 6 L via nasal cannula. Patient is afebrile. CBC does not demonstrate a leukocytosis. BMP is significant for elevated creatinine at 1.3. High-sensitivity troponin is within normal limits. BNP is elevated at 1495. Chest x-ray significant for hyperinflation of the lungs, decreased bronchovascular markings in the upper lobes more prominent on the right and cardiomegaly. EKG in the ED demonstrated sinus tachycardia with no evidence of ST or T wave changes. Rapid Covid is negative. Patient was given breathing treatments, Solu-Medrol and Lasix while in the ED. [facility] Medical History Atrial tachycardia Congestive heart failure (CHF) COPD (chronic obstructive pulmonary disease) Diabetes Former smoker Hypertension Nonadherence to medication On home oxygen therapy Smoker Home Medications albuterol sulfate [Ventolin HFA] 2 puff INHALATION Q4H PRN PRN 09/15/20 [History Last Taken 11/04/20] furosemide 20 mg PO DAILY 09/15/20 [History Last Taken 11/04/20] ipratropium bromide 3 ml INHALATION TID PRN 09/15/20 [History Last Taken 10/01/20] losartan 25 mg PO DAILY 09/15/20 [History Last Taken 11/03/20] metoprolol succinate 50 mg PO TID 09/15/20 [History Last Taken 11/03/20] Spiriva Respimat 2 puff INHALATION DAILY 10/28/20 [History Last Taken 1 Week Ago ~10/28/20] glimepiride 1 mg PO BREAKFAST #30 tab 10/29/20 [Rx Last Taken 11/04/20] prednisone See Taper PO DAILY #30 tab 10/29/20 [Rx Last Taken 11/04/20] Allergy/AdvReac Type Severity Reaction Status Date / Time No Known Allergies Allergy Verified 10/28/20 03:31 Family History (Updated 11/04/20 @ 17:51 by Juan Carlos HOLBROOK) Mother Rheumatoid arthritis Chronic back pain Father Unknown family medical history Patient is unaware of any paternal family medical history to include diabetes, hypertension, CAD, ACS or CVA due to patient not knowing his father. Surgical History (Updated 11/04/20 @ 17:49 by Juan Carlos HOLBROOK) Hx of inguinal hernia surgery Social History (Updated 11/04/20 @ 17:53 by Juan Carlos HOLBROOK) household members: family and children Smoking Status: Former smoker quit date: 09/04/20 pack-years: 30 how long ago did patient quit smokin months ago alcohol intake: former substance use type: marijuana ROS Constitutional Constitutional: Denies anorexia, change in weight, chills, fatigue, fever(s), malaise, night sweats, weakness or other Eyes Eyes: Denies blurry vision, change in eye color, change in vision, discharge from eye(s), double vision, erythema, eye pain, loss of vision or other ENT HEENT: Denies abnormal hearing, dysphagia, ear pain, epistaxis, headache(s), hearing loss, nasal congestion, nasal discharge, post nasal drip, sinus pressure, sore throat or other Cardiovascular Cardiovascular: Reports dyspnea on exertion; Denies chest pain, claudication, edema, lightheadedness, orthopnea, palpitations, paroxysmal nocturnal dyspnea, rapid heart rate, syncope or other Respiratory/Chest Respiratory/Chest: Reports cough, dyspnea, excessive phlegm production, hemoptysis, productive cough, shortness of breath at rest and shortness of breath with exertion; Denies wheezing or other Gastrointestinal Gastrointestinal: Denies abdominal pain, coffee ground emesis, constipation, diarrhea, dyspepsia, hematemesis, hematochezia, loose stools, melena, nausea, vomiting or other Genitourinary Genitourinary: Denies burning urination, difficulty urinating, dysuria, hematuria, nocturia, urinary frequency, urinary hesitancy, urinary incontinence, urinary urgency or other Musculoskeletal Musculoskeletal: Denies arthralgias, back pain, joint pain, joint stiffness, joint swelling, myalgias, neck pain or other Neurologic Neurologic: Denies abnormal gait, abnormal speech, confusion, disequilibrium, dizziness, focal weakness, headache(s), numbness, paresthesias, seizure-like activity, seizures, syncope, tingling, tremor(s) or other Psychiatric Psychiatric: Denies anxiety, depression, homicidal ideation, suicidal ideation or other Endocrine Endocrinology: Denies change in body appearance, cold intolerance, excessive sweating, heat intolerance, polydipsia, polyuria or other Hematologic/Lymphatic Hematologic/Lymphatic: Denies anemia, easy bleeding, easy bruising, lymphadenopathy or other Allergic/Immunologic Allergic/Immunologic: Denies rhinitis, hives, eczemia, asthma or other Vital Signs Vital Signs Vital Signs: 11/04/20 14:01 11/04/20 14:07 11/04/20 14:31 Temperature 97.5 F L 97.5 F L Temperature Source Oral Oral Pulse Rate 125 H 125 H 125 H Respiratory Rate 32 H 32 H 34 H Respiratory Effort Short of Breath Labored Pursed Lip Respiratory Depth Shallow Respiratory Pattern Irregular Blood Pressure 138/111 H 138/111 H Blood Pressure Mean 120 120 Pulse Ox 79 79 97 Oxygen Delivery Method Room Air Room Air Nasal Cannula Oxygen Flow Rate (L/min) 2 3 11/04/20 15:03 11/04/20 16:16 11/04/20 16:50 Temperature 97.6 F L Temperature Source Axillary Pulse Rate 121 H 102 H 102 H Respiratory Rate 23 H 24 H 21 H Respiratory Effort Respiratory Depth Respiratory Pattern Tachypnea Blood Pressure 131/90 H Blood Pressure Mean 103 Pulse Ox 96 96 Oxygen Delivery Method Nasal Cannula Nasal Cannula Oxygen Flow Rate (L/min) 3 6 Weight Weight: 236 lb 5.369 oz Body Mass Index (BMI) 32.9 Physical Exam Const alert and oriented x3 General Appearance: cooperative HEENT normocephalic, head/scalp atraumatic and hearing grossly normal bilaterally Eyes EOMs intact bilaterally and conjunctivae normal Neck no lymphadenopathy, supple and no JVD Resp Effort and Inspection: abnormal respiratory pattern, tachypneic, respiratory distress and labored Auscultation: rhonchi and diminished lung sounds Cardio regular rhythm, no murmurs and no JVD Rate: tachycardic GI normal to inspection, nondistended, normoactive bowel sounds, soft to palpation and non-tender Extremity Extremity Narrative: See skin. Skin Skin Narrative: Multiple dried scabs throughout upper extremities bilaterally, none appear to be acutely infected and did not have any warmth, tenderness, erythema or drainage. Neuro CN's II-XII intact bilaterally Psych Mood & Affect: anxious Results Lab / Micro Data Result Diagrams: 11/04/20 14:48 11/04/20 14:48 Labs: Laboratory Results - last 24 hr 11/04/20 14:48: WBC 8.5, RBC 4.35 L, Hgb 13.4, Hct 44.6, MCV 102.5 H, MCH 30.8, MCHC 30.0 L, RDW Std Deviation 53.1 H, RDW Coeff of Patricia 14.1, Plt Count 199, MPV 10.7, Immature Gran % (Auto) 2.000 H, Neut % (Auto) 82.5 H, Lymph % (Auto) 10.7 L, [place] % (Auto) 4.3, Eos % (Auto) 0.1, Baso % (Auto) 0.4, Absolute Neuts (auto) 7.0, Absolute Lymphs (auto) 0.91, Nucleated RBC % 0 11/04/20 14:48: Sodium 136, Potassium 5.1, Chloride 97 L, Carbon Dioxide 36.0 H, Anion Gap 3 L, BUN 28 H, Creatinine 1.32 H, Estim Creat Clear Calc 59.42, Est GFR (MDRD) Af Amer 70, Est GFR (MDRD) Non-Af 58 L, BUN/Creatinine Ratio 21.2 H, Glucose 354 H, Calcium 8.3 L, Troponin I High Sens 24.2 11/04/20 14:48: B-Natriuretic Peptide 1495.0 H Micro: Microbiology 11/04/20 14:48 Mucosa - Nose SARS-CoV-2 Antigen (Rapid) - Final Rhythm Strip Rhythm Strip: Sinus Tach Rate: 104 Ectopy: None Radiology Impression Chest X-Ray 11/04/20 15:00 IMPRESSION: Hyperinflation. Decreased bronchovascular markings in the upper lobes more prominent on the right side suggestive of emphysematous change. Electronically Signed: Dayne Garcia MD at 15:20 EDT , Service support , Assessment & Plan Assessment/Plan (1) Acute on chronic respiratory failure with hypoxemia: (2) COPD exacerbation: (3) Hypoxia: (4) Congestive heart failure (CHF): PLAN: Patient is a 64-year-old male who presents to the ED at [facility] on 11/04/2020 with a chief complaint of shortness of breath with cough. Patient will be admitted for acute on chronic hypoxic respiratory failure secondary to COPD exacerbation and possible CHF exacerbation. 1) acute on chronic hypoxic respiratory failure secondary to COPD exacerbation and possible diastolic CHF exacerbation Patient reports a 2-day history of shortness of breath with cough as well as his oxygen saturations being in the low 80s while at home. Patient reports increased oxygen use while at home throughout the day. Home oxygen prescription is usually 3 L via nasal cannula, only at night. Patient is currently satting 96% on 6 L via nasal cannula and is tachypneic and tachycardic. Chest x-ray demonstrates emphysematous changes to include decreased bronchovascular markings and hyperinflation of the lungs bilaterally, as well as cardiomegaly. Patient is afebrile and does not have a leukocytosis. BNP is elevated at 1495. Rapid Covid is negative. Plan: Patient will be admitted to PCU for cardiac telemetry monitoring, initiate Solu-Medrol 40 mg IV every 8, scheduled duo nebs every 4 hours, albuterol as needed, viral respiratory panel ordered, procalcitonin ordered, CBC and CMP in a.m., ABG ordered, O2 per protocol, incentive spirometry encouraged, guaifenesin as needed, azithromycin not ordered due to patient being afebrile and without leukocytosis. 2) Diastolic CHF w/ preserved ejection fraction Possibly contributing to #1. On my examination patient denies orthopnea or paroxysmal nocturnal dyspnea. Patient is urinating well and does not demonstrate any swelling in the lower extremities. Recent echocardiogram from 10/28/2020 demo nstrated normal LV systolic function, an estimated EF of 65% and an indeterminate diastolic dysfunction. Chest x-ray demonstrates cardiomegaly. BNP elevated at 1495. Plan; as above, continue metoprolol succinate, hold home Lasix and initiate IV Lasix 40 mg twice daily, continue losartan, nitroglycerin as needed. 3) HTN Stable, continue losartan, IV Lasix as above, hydralazine as needed. 4) diabetes mellitus type 2 Hold home glimepiride. Accu-Cheks with sliding scale insulin ordered. DVT prophylaxis - Lovenox CODE STATUS: Full code Advance care planning: Patient denies having a living will or healthcare power of prosecuting attorney, however would defer to Tomer rosales (patient's ex-) to make all medical decisions for himself in the event that he cannot himself. Vaccination status: Patient has not been vaccinated for COVID-19, although is open to vaccination despite hesitation over risk/benefits. Patient encouraged to get vaccinated for COVID-19, as the benefits outweigh the risk. Patient seen by Juan Carlos Ferrell PA-C, under the supervision of Dr. Marvin. Documented by User: Dr. Kaylyn Marvin MD 11/04/20 19:33 HPI - General General Date of Admission: 11/04/20 PFSH Medical History Atrial tachycardia Congestive heart failure (CHF) COPD (chronic obstructive pulmonary disease) Diabetes Former smoker Hypertension Nonadherence to medication On home oxygen therapy Smoker Home Medications albuterol sulfate [Ventolin HFA] 2 puff INHALATION Q4H PRN PRN 09/15/20 [History Last Taken 11/04/20] furosemide 20 mg PO DAILY 09/15/20 [History Last Taken 11/04/20] ipratropium bromide 3 ml INHALATION TID PRN 09/15/20 [History Last Taken 10/01/20] losartan 25 mg PO DAILY 09/15/20 [History Last Taken 11/03/20] metoprolol succinate 50 mg PO TID 09/15/20 [History Last Taken 11/03/20] Spiriva Respimat 2 puff INHALATION DAILY 10/28/20 [History Last Taken 1 Week Ago ~10/28/20] glimepiride 1 mg PO BREAKFAST #30 tab 10/29/20 [Rx Last Taken 11/04/20] prednisone See Taper PO DAILY #30 tab 10/29/20 [Rx Last Taken 11/04/20] Allergy/AdvReac Type Severity Reaction Status Date / Time No Known Allergies Allergy Verified 10/28/20 03:31 Family History (Updated 11/04/20 @ 17:51 by Juan Carlos HOLBROOK) Mother Rheumatoid arthritis Chronic back pain Father Unknown family medical history Patient is unaware of any paternal family medical history to include diabetes, hypertension, CAD, ACS or CVA due to patient not knowing his father. Surgical History (Updated 11/04/20 @ 17:49 by Juan Carlos HOLBROOK) Hx of inguinal hernia surgery Social History (Updated 11/04/20 @ 17:53 by Juan Carlos HOLBROOK) household members: family and children Smoking Status: Former smoker quit date: 09/04/20 pack-years: 30 how long ago did patient quit smokin months ago alcohol intake: former substance use type: marijuana Results Lab / Micro Data Result Diagrams: 11/04/20 14:48 11/04/20 14:48
[2020-11-04 18:06] LABS: Magnesium 2.2 mg/dL (1.6-2.6)
[2020-11-04 19:03] LABS: Procalcitonin 0.08 ng/mL (0.00-0.09)
[2020-11-04 20:38] LABS: Troponin-I HS 39.9 pg/mL (3.0-78.5)
--- NOTE | 2020-11-04 20:41 | ED.RN ---
unable to complete admission documentation related to [place] monitor malfunction. imelda sinclair rn [id number]
[2020-11-04] MEDS: 0.9% Saline Lock 10 ML Syringe IV (21:00)
[2020-11-04] MEDS: Metoprolol(XL)Succ 50 MG Tablet PO (22:02)
[2020-11-04] MEDS: Insulin Lispro 100 UNIT/ML INSULN.PEN SC (22:03)
--- NOTE | 2020-11-04 22:09 | NURSING ---
rn to given pt hs medication and had gotten up oob and had urinated on the floor and threw his gown on the floor as well. pt had removed his O2 and telemonitor. rn had made several attempt to asked pt nicely to cooperate and put the telemonitor and O2 back on and pt demanded a drink of water. staff encouraged pt to put his O2 back on and his telemonitor and pt kept repeating given a glass of water. when staff asked again pt yelled give me a glass of water! pt then proceeded to yell i dont have to stay here and got oob took the telemonitor and threw it across the room went the sink and drank from the faucet. pt returned to bed naked and ignored staff again, security called and came to the room as well as special police. pt then cooperated with staff and complied with putting on a gown, his telemonitor, taking medication for the rn as well as reapplying his O2. staff assured pt that we were here to help him feel better and pt acknowledged
[2020-11-04 22:10] LABS: Bedside Glucose > 500 mg/dL (70-110)
[2020-11-04] MEDS: Insulin Lispro 100 UNIT/ML INSULN.PEN 10 UNIT SC (22:20)
--- NOTE | 2020-11-04 22:22 | NURSING ---
pt was non compliant and being verbally abusive to staff and calling staff names. he ripped his tele off, removed O2 and refused to put them back on and threatening staff to leave AMA. called security. security and police inspector came. pt cooperative when he saw officers in his room. pt just went back to sleep after taking meds.
--- NOTE | 2020-11-04 22:50 | CPS ---
Pt. refuses to wear BiPAP tonight. Nasal cannula increased to 4L during night-time to help improve oxygenation status.
[2020-11-04 23:54] LABS: Troponin-I HS 39.1 pg/mL (3.0-78.5)
[2020-11-05] VITALS (22 sets, daily range): BP systolic 130–143; BP diastolic 74–97; PULSE 62–109; RESP 12–24; TEMP 36.4–36.9; O2SAT 91–98
[2020-11-05] MEDS: Insulin Lispro 100 UNIT/ML INSULN.PEN SC ×3 (01:09→21:31)
[2020-11-05 01:16] LABS: Bedside Glucose 326 mg/dL (70-110)
[2020-11-05 02:15] LABS: Absolute Neutrophil Count 6.5 X10^3/uL (2.0-7.7); Basophil# 0.01 X10^3/uL; Basophil% 0.1 % (0-1); Hematocrit 43.9 % (40-54); Hemoglobin 13.5 g/dL (13.0-16.5); Lymphocyte % 8.1 % (19-41); Mean Corp Hgb Conc 30.8 g/dL (32-36); Mean Corpuscular Hgb 30.5 pg (27.0-32.0); Mean Corpuscular Volume 99.1 fL (80-94); Mean Platelet Vol. 10.4 fl (6.2-12.0); Monocyte# 0.19 X10^3/uL; Monocyte% 2.6 % (0-10); NRBC Flagged by Analyzer 0 % (0-5); Neutrophil # 6.45 X10^3/uL (2.7-7.7); Neutrophil % 87.3 % (47-70); POSITIVE DIFFERENTIAL YES; Platelet Count 185 K/mm3 (150-450); RBC Distribution Width CV 13.7 % (11.6-14.6); RBC Distribution Width SD 50.4 fl (35.1-43.9); Red Blood Count 4.43 M/mm3 (4.6-6.2); White Blood Count 7.4 K/mm3 (4.4-11.0)
[2020-11-05 02:32] LABS: Troponin-I HS 33.9 pg/mL (3.0-78.5)
[2020-11-05 02:33] LABS: Differential Indicated SCAN CRITERIA MET
[2020-11-05 02:59] LABS: AST(SGOT) 50 U/L (15-37); Alanine Aminotransfer ALT/SGPT 130 U/L (16-61); Albumin, Serum 3.1 g/dL (3.2-5.0); Alkaline Phosphatase 146 U/L (45-117); Anion Gap 5 (5-15); BUN 31 mg/dL (7-18); BUN/Creat Ratio 22.1 RATIO (10-20); Calcium,Total 8.5 mg/dL (8.5-10.1); Chloride 93 mmol/L (98-107); Cholesterol 212 mg/dL (200); EST Glomerular Filtration Rate 54 mL/min (>60); Est Glom Filt Rate - Afr Amer 65 mL/min (>60); Estimated Creatinine Clearance 56.03 ml/min; Globulin 3.2 g/dL (2.2-4.2); Glucose 277 mg/dL (74-106); High Density Lipoprotein 64 mg/dL; Potassium 4.2 mmol/L (3.5-5.1); Protein, Total 6.3 g/dL (6.4-8.2); Sodium Level 138 mmol/L (136-145); Thyroid Stim Hormone (TSH) 0.43 uIU/mL (0.358-3.74); Triglycerides 125 mg/dL; Very Low Density Lipoprotein 25 mg/dL (5-40)
[2020-11-05] MEDS: Metoprolol(XL)Succ 50 MG Tablet PO ×3 (03:06→10:23)
[2020-11-05] MEDS: Ipratropium/Albuterol Sulfate 3 ML AMPUL.NEB INHALATION ×3 (03:07→10:55)
[2020-11-05 03:41] LABS: Allen Test Positive; Base Excess 15 mmol/L (-2 to +2); Bicarbonate 40.2 mmol/L (22-26); Blood Gas Specimen Type ART; O2 Delivery Device Cannula; PO2 67 mmHG (75-100); SITE R Radial; SO2 91 % (95-99); Total Carbon Dioxide 42 mmol/L; pCO2 70.4 mmHg (35-45); pH 7.36 (7.35-7.45)
--- NOTE | 2020-11-05 05:41 | CPS ---
FiO2 increased to 35%; per pt.'s comfort
[2020-11-05] MEDS: 0.9% Saline Lock 10 ML Syringe IV ×3 (06:37→14:37)
[2020-11-05 06:46] LABS: Bedside Glucose 132 mg/dL (70-110)
--- NOTE | 2020-11-05 08:25 | NURSING ---
RN in room around 0820 this AM d/t patient BiPap beeping. Pt pleasant, sitting up in bed eating breakfast without oxygen. Checked pulse ox and patient was 86% on RA and placed his 3L NC on. RN then told patient she would let him eat breakfast and would come back to do a full set of vitals and his AM medications. As soon as medications were mentioned, patient's demeanor changed. This RN explained patient's medication's that were ordered here and how they were ordered, explain the difference between oral and IV and verified what patient's home med list stated as well. Patient very argumentative, talking over RN and would not let RN speak. Patient demeaning and asking RN if she was educated and calling names. RN asked the patient if she could speak and patient still talking over RN and yelling about his medications. RN tried explaining that we needed to discuss with patient's doctor because RN can not change medications without MD permission. Patient continued to argue and call names so RN left patient's room, notified weigh and charge worker, feeder worker power unit operator and community affairs director of incident.
--- NOTE | 2020-11-05 10:05 | EX.PCM.CONCC ---
Assessment & Plan Assessment/Plan (1) COPD exacerbation: PLAN: RECOMMENDATIONS: 1. Wean supplemental oxygen as tolerated. 2. Continue scheduled bronchodilator therapy and steroids. 3. At discharge, transition to prednisone 40 mg daily x5 days. 4. Please discharge patient with a prescription for Symbicort 2 puffs twice daily to be used in conjunction with his Spiriva. 5. Antibiotics can be discontinued from my perspective. 6. Perform walking oximetry study prior to consideration for discharge home. 7. Please schedule a follow-up office visit with the patient's primary service writer within 2 weeks of discharge. 8. The patient would likely benefit from outpatient Pap therapy, given his chronic CO2 retention and frequent exacerbations. 9. Will sign off. Please call with any additional questions. IMPRESSIONS: 1. Acute on chronic combined respiratory failure The patient reported to me that he was diagnosed with COPD previously and is being managed by Dr. Lennon of pulmonary medicine in [place]. He conveyed to me that he was told that he his lungs were 45%, which I assume to be his FEV1, which would indicate that he has severe disease. The patient has experienced multiple recent exacerbations requiring hospitalization. I do suspect that this is likely multifactorial in nature and due to the fact that his COPD is likely being undertreated and I also have to question the patient's compliance with his outpatient regimen. Additionally, I do suspect that he likely has some baseline hypoxemia, but is only utilizing oxygen when he feels that he needs it. At the current time, I do not see any evidence to suggest that there is an infectious etiology at play. Therefore, antimicrobials can be discontinued from my perspective. I would plan to continue the patient on scheduled bronchodilator therapy and steroids. At discharge, I would send him home with a prednisone burst of 40 mg daily x5 days. I would also recommend that the patient be on a triple therapy inhaler regimen at discharge. Therefore, it would be reasonable to send him home with a prescription for Symbicort to be utilized in conjunction with his Spiriva. A walking oximetry study should be considered prior to discharge to ensure adequacy of oxygenation with exertion. The patient was instructed to contact his primary pulmonary provider to schedule a follow-up office visit within 2 weeks of discharge. The patient is also a chronic CO2 retainer and would also benefit from outpatient Pap therapy. 2. Pulmonary nodule The patient did have a pulmonary nodule noted on CTA chest from September 2020. Recommend outpatient follow-up with his primary service writer and serial chest imaging per Fleischner Society recommendations. 3. Prior tobacco dependency/heart failure with preserved ejection fraction/obesity/diabetes mellitus/hypertension/hyperlipidemia Complicates care, management, recovery and prognosis. Continue home medications as indicated. This note was generated with [employer] dictation software. It may contain incorrect words, spelling, and punctuation that were not noted in checking the note before signing. HPI Consult Data Date of Consult: 11/05/20 HPI Narrative Reason for Consultation: COPD exacerbation HPI Narrative: The patient is a 64-year-old male, with a history as outlined below, who presented to the emergency department on November 04 with complaints of shortness of breath. The patient has a known history of severe obstructive lung disease and is apparently followed by Dr. Lennon of pulmonary medicine at [place]. The patient has been admitted to the hospital multiple times over the last several months for COPD exacerbations. I do suspect that the patient is likely hypoxemic at his baseline, despite the fact that he states that he is only prescribed nocturnal supplemental oxygen. Despite this, the patient reported that he carries around portable oxygen tanks with him in case he needs the oxygen. The patient is insistent that he knows how to treat his COPD. He also reported that he utilizes Spiriva and as needed albuterol at his baseline. On presentation to the emergency department, the patient was noted to be afebrile and hemodynamically stable. He was, however, noted to be tachycardic and tachypneic. Initial laboratory evaluation revealed no evidence of a leukocytosis. Arterial blood gas obtained on 6 L/min revealed a pH of 7.36 with a corresponding PCO2 of 70 and PO2 of 67. Chemistry profile was notable for a bicarbonate of 40. Creatinine was elevated at 1.32. Chest x-ray demonstrated findings concerning for upper lobe predominant emphysema. It should be noted that a prior CTA chest from September 2020 demonstrated the presence of a 1 x 0.9 cm nodule in the right lower lobe. The patient was subsequently placed on scheduled diuretic therapy, scheduled bronchodilators and IV steroids. He was admitted to the progressive care unit for further management. Surface echocardiogram from October 2020 demonstrated normal LV size and function with an ejection fraction of 65%. [facility] Medical History Atrial tachycardia Congestive heart failure (CHF) COPD (chronic obstructive pulmonary disease) Diabetes Former smoker Hypertension Nonadherence to medication On home oxygen therapy Smoker Home Medications albuterol sulfate [Ventolin HFA] 2 puff INHALATION Q4H PRN PRN 09/15/20 [History Last Taken 11/04/20] furosemide 20 mg PO DAILY 09/15/20 [History Last Taken 11/04/20] ipratropium bromide 3 ml INHALATION TID PRN 09/15/20 [History Last Taken 10/01/20] losartan 25 mg PO DAILY 09/15/20 [History Last Taken 11/03/20] metoprolol succinate 50 mg PO TID 09/15/20 [History Last Taken 11/03/20] Spiriva Respimat 2 puff INHALATION DAILY 10/28/20 [History Last Taken 1 Week Ago ~10/28/20] glimepiride 1 mg PO BREAKFAST #30 tab 10/29/20 [Rx Last Taken 11/04/20] prednisone See Taper PO DAILY #30 tab 10/29/20 [Rx Last Taken 11/04/20] Allergy/AdvReac Type Severity Reaction Status Date / Time No Known Allergies Allergy Verified 10/28/20 03:31 Family History (Updated 11/04/20 @ 17:51 by Juan Carlos HOLBROOK) Mother Rheumatoid arthritis Chronic back pain Father Unknown family medical history Patient is unaware of any paternal family medical history to include diabetes, hypertension, CAD, ACS or CVA due to patient not knowing his father. Surgical History (Updated 11/04/20 @ 17:49 by Juan Carlos HOLBROOK) Hx of inguinal hernia surgery Social History (Updated 11/04/20 @ 17:53 by Juan Carlos HOLBROOK) household members: family and children Smoking Status: Former smoker quit date: 09/04/20 pack-years: 30 how long ago did patient quit smokin months ago alcohol intake: former substance use type: marijuana ROS Constitutional Constitutional: Denies chills, fatigue or fever(s) Eyes Eyes: Denies blurry vision or change in vision ENT HEENT: Denies hoarseness, loss taste/smell or nasal congestion Cardiovascular Cardiovascular: Reports dyspnea; Denies chest pain Respiratory/Chest Respiratory/Chest: Reports cough and dyspnea Gastrointestinal Gastrointestinal: Denies abdominal pain, diarrhea, nausea or vomiting Genitourinary Genitourinary: Denies difficulty urinating Musculoskeletal Musculoskeletal: Denies arthralgias Integumentary Integumentary: Denies lesions, rash or skin ulcer Neurologic Neurologic: Denies abnormal gait or abnormal speech Psychiatric Psychiatric: Denies anxiety or depression Endocrine Endocrinology: Denies fatigue or polydipsia Hematologic/Lymphatic Hematologic/Lymphatic: Denies easy bleeding or easy bruising Physical Exam Const alert and oriented x3 Constitutional Narrative: Appears somewhat anxious at baseline with pressured speech. General Appearance: cooperative HEENT normocephalic and head/scalp atraumatic Eyes PERRL, EOMs intact bilaterally and conjunctivae normal Neck supple General: trachea midline Resp Resp Narrative: Globally diminished air movement throughout all lung rosas. Cardio regular rate and regular rhythm GI normal to inspection, nondistended, normoactive bowel sounds Extremity no clubbing, cyanosis or edema Skin no rashes or lesions noted Neuro no focal motor deficits Psych Mood & Affect: anxious Lab / Micro Data Result Diagrams: 11/05/20 02:00 11/05/20 02:00 Labs: Laboratory Results - last 24 hr 11/04/20 14:48: WBC 8.5, RBC 4.35 L, Hgb 13.4, Hct 44.6, MCV 102.5 H, MCH 30.8, MCHC 30.0 L, RDW Std Deviation 53.1 H, RDW Coeff of Patricia 14.1, Plt Count 199, MPV 10.7, Immature Gran % (Auto) 2.000 H, Neut % (Auto) 82.5 H, Lymph % (Auto) 10.7 L, Mccracken % (Auto) 4.3, Eos % (Auto) 0.1, Baso % (Auto) 0.4, Absolute Neuts (auto) 7.0, Absolute Lymphs (auto) 0.91, Nucleated RBC % 0 11/04/20 14:48: Sodium 136, Potassium 5.1, Chloride 97 L, Carbon Dioxide 36.0 H, Anion Gap 3 L, BUN 28 H, Creatinine 1.32 H, Estim Creat Clear Calc 59.42, Est GFR (MDRD) Af Amer 70, Est GFR (MDRD) Non-Af 58 L, BUN/Creatinine Ratio 21.2 H, Glucose 354 H, Calcium 8.3 L, Troponin I High Sens 24.2 11/04/20 14:48: B-Natriuretic Peptide 1495.0 H 11/04/20 14:48: Magnesium 2.2 11/04/20 17:45: Procalcitonin 0.08 11/04/20 19:47: Troponin I High Sens 39.9 11/04/20 21:59: POC Glucose > 500 H* 11/04/20 23:00: Troponin I High Sens 39.1 11/05/20 00:53: POC Glucose 326 H 11/05/20 02:00: WBC 7.4, RBC 4.43 L, Hgb 13.5, Hct 43.9, MCV 99.1 H, MCH 30.5, MCHC 30.8 L, RDW Std Deviation 50.4 H, RDW Coeff of Patricia 13.7, Plt Count 185, MPV 10.4, Immature Gran % (Auto) 1.900 H, Neut % (Auto) 87.3 H, Lymph % (Auto) 8.1 L, Mccracken % (Auto) 2.6, Eos % (Auto) 0.0, Baso % (Auto) 0.1, Absolute Neuts (auto) 6.5, Absolute Lymphs (auto) 0.60 L, Nucleated RBC % 0 11/05/20 02:00: Sodium 138, Potassium 4.2, Chloride 93 L, Carbon Dioxide 40.0 H, Anion Gap 5, BUN 31 H, Creatinine 1.40 H, Estim Creat Clear Calc 56.03, Est GFR (MDRD) Af Amer 65, Est GFR (MDRD) Non-Af 54 L, BUN/Creatinine Ratio 22.1 H, Glucose 277 H, Calcium 8.5, Total Bilirubin 0.40, AST 50 H, ALT 130 H, Alkaline Phosphatase 146 H, Total Protein 6.3 L, Albumin 3.1 L, Globulin 3.2, Albumin/Globulin Ratio 1.0, Triglycerides 125, Cholesterol 212 H, LDL Cholesterol 123, VLDL Cholesterol 25, HDL Cholesterol 64, TSH 0.43 11/05/20 02:00: Troponin I High Sens 33.9 11/05/20 06:35: POC Glucose 132 H Micro: Microbiology 11/04/20 19:30 Mucosa - Nasopharyngeal Respiratory Panel (PCR) - Final 11/04/20 14:48 Mucosa - Nose SARS-CoV-2 Antigen (Rapid) - Final ABG Data ABG results: ABG 11/05/20 03:35 Specimen Type ART Sample Site R Radial pH 7.36 Bicarbonate Actual 40.2 H Total CO2 42 Base Excess 15 H O2 Saturation 91 L ABG pCO2 70.4 H* ABG pO2 67 L Toney Test Positive O2 Delivery Device Cannula Liter Flow 6.0 Crit Call To/Read Back Yes Blood Gas Notified Whom Gume Rhythm Strip Rhythm Strip: Sinus Tach Rate: 104 Ectopy: None Radiology Impression Chest X-Ray 11/04/20 15:00 IMPRESSION: Hyperinflation. Decreased bronchovascular markings in the upper lobes more prominent on the right side suggestive of emphysematous change. Electronically Signed: Dayne Garcia MD at 15:20 EDT , Service support , Charges/Coding Visit Charges Inpatient E&M: 79015 Init Hosp L3
[2020-11-05] MEDS: Enoxaparin 40 MG/0.4 ML Syringe SC (10:16)
[2020-11-05] MEDS: Furosemide 40 MG/4 ML Vial IV ×2 (10:16→17:10)
[2020-11-05] MEDS: Losartan Potassium 25 MG Tablet PO (10:16)
[2020-11-05] MEDS: Azithromycin 250 MG Tablet 500 MG PO (10:16)
[2020-11-05] MEDS: Aspirin E.C. 81 MG Tablet PO (10:16)
[2020-11-05 11:25] LABS: Bedside Glucose 281 mg/dL (70-110)
--- NOTE | 2020-11-05 12:43 | CASEMGMT ---
Pt was referred for palliative c/s last 2 visits. He didn't answer the first times they tried to get ahold of him and he came back again before they could get ahold of him after last visit. Palliative aware that pt is readmitted and they will try to see him while inpatient. Brown ANDERSON CM
--- NOTE | 2020-11-05 13:04 | CASEMGMT ---
Readmission chart review: Pt was seen in ED 09/15/20 for SOB and discharged home. Pt then came back to [facility] and was admitted 10/01-10/02/20 for COPD exac on MS3. See CM assessment by Rhys on 10/02/20. Pt then to [facility] ED on 10/21/20 for SOB and discharged. Pt states on multiple occasions that he wears home oxygen, when he thinks he needs it, although order is for 2L continuous at home thru [facility]. Pt then admitted to [facility] PCU on 10/28-10/29/20 for COPD exacerbation. Pt discharged home with same home oxygen order. Pt returned to [facility] ED on 11/04/20 for SOB and admitted for Resp failure, COPD/CHF exacerbation. Pt currently on 3L nc but has taken off several times while here and become hypoxic. Pt does have Dr. Lennon, bale opener in [place], and per Dr. Romo, appt to be made with Dr. Lennon for discharge. Pt has been belligerent with staff at times during this visit. CM to follow for any further discharge planning/needs. Brown ANDERSON CM
--- NOTE | 2020-11-05 13:56 | PCM.PN.HOSP ---
Documented by User: Juan Carlos HOLBROOK 11/05/20 14:11 Subjective Subjective Patient is a 64-year-old male comfortably resting in bed, alert and oriented x3. Patient reports significant improvement in his shortness of breath from admission. Denies chest pain, shortness of breath, palpitations, hemoptysis, sputum production, fever, chills, N/V/D. Objective Data Objective Data Vital Signs: Vital Signs Temp Pulse Resp BP Pulse Ox 98.5 F 108 H 16 141/90 H 94 11/05/20 10:10 11/05/20 10:55 11/05/20 10:55 11/05/20 10:23 11/05/20 10:10 Oxygen Flow Rate (L/min) 3 Oxygen Delivery Method Nasal Cannula Weight: 225 lb 3 oz Body Mass Index (BMI) 32.1 Intake & Output: Intake and Output for Last 24 Hours 11/03/20 11/04/20 11/05/20 23:59 23:59 23:59 Intake Total 240 / 240 580 / 580 Output Total 2450 / 2450 Balance 240 / -2210 -1870 / -1870 Lab / Micro Data Result Diagrams: 11/05/20 02:00 11/05/20 02:00 Labs: Laboratory Results - last 24 hr 11/04/20 14:48: WBC 8.5, RBC 4.35 L, Hgb 13.4, Hct 44.6, MCV 102.5 H, MCH 30.8, MCHC 30.0 L, RDW Std Deviation 53.1 H, RDW Coeff of Patricia 14.1, Plt Count 199, MPV 10.7, Immature Gran % (Auto) 2.000 H, Neut % (Auto) 82.5 H, Lymph % (Auto) 10.7 L, Amelia % (Auto) 4.3, Eos % (Auto) 0.1, Baso % (Auto) 0.4, Absolute Neuts (auto) 7.0, Absolute Lymphs (auto) 0.91, Nucleated RBC % 0 11/04/20 14:48: Sodium 136, Potassium 5.1, Chloride 97 L, Carbon Dioxide 36.0 H, Anion Gap 3 L, BUN 28 H, Creatinine 1.32 H, Estim Creat Clear Calc 59.42, Est GFR (MDRD) Af Amer 70, Est GFR (MDRD) Non-Af 58 L, BUN/Creatinine Ratio 21.2 H, Glucose 354 H, Calcium 8.3 L, Troponin I High Sens 24.2 11/04/20 14:48: B-Natriuretic Peptide 1495.0 H 11/04/20 14:48: Magnesium 2.2 11/04/20 17:45: Procalcitonin 0.08 11/04/20 19:47: Troponin I High Sens 39.9 11/04/20 21:59: POC Glucose > 500 H* 11/04/20 23:00: Troponin I High Sens 39.1 11/05/20 00:53: POC Glucose 326 H 11/05/20 02:00: WBC 7.4, RBC 4.43 L, Hgb 13.5, Hct 43.9, MCV 99.1 H, MCH 30.5, MCHC 30.8 L, RDW Std Deviation 50.4 H, RDW Coeff of Patricia 13.7, Plt Count 185, MPV 10.4, Immature Gran % (Auto) 1.900 H, Neut % (Auto) 87.3 H, Lymph % (Auto) 8.1 L, Amelia % (Auto) 2.6, Eos % (Auto) 0.0, Baso % (Auto) 0.1, Absolute Neuts (auto) 6.5, Absolute Lymphs (auto) 0.60 L, Nucleated RBC % 0 11/05/20 02:00: Sodium 138, Potassium 4.2, Chloride 93 L, Carbon Dioxide 40.0 H, Anion Gap 5, BUN 31 H, Creatinine 1.40 H, Estim Creat Clear Calc 56.03, Est GFR (MDRD) Af Amer 65, Est GFR (MDRD) Non-Af 54 L, BUN/Creatinine Ratio 22.1 H, Glucose 277 H, Calcium 8.5, Total Bilirubin 0.40, AST 50 H, ALT 130 H, Alkaline Phosphatase 146 H, Total Protein 6.3 L, Albumin 3.1 L, Globulin 3.2, Albumin/Globulin Ratio 1.0, Triglycerides 125, Cholesterol 212 H, LDL Cholesterol 123, VLDL Cholesterol 25, HDL Cholesterol 64, TSH 0.43 11/05/20 02:00: Troponin I High Sens 33.9 11/05/20 06:35: POC Glucose 132 H 11/05/20 11:10: POC Glucose 281 H Micro: Microbiology 11/04/20 19:30 Mucosa - Nasopharyngeal Respiratory Panel (PCR) - Final 11/04/20 14:48 Mucosa - Nose SARS-CoV-2 Antigen (Rapid) - Final ABG Data ABG results: ABG 11/05/20 03:35 Specimen Type ART Sample Site R Radial pH 7.36 Bicarbonate Actual 40.2 H Total CO2 42 Base Excess 15 H O2 Saturation 91 L ABG pCO2 70.4 H* ABG pO2 67 L Toney Test Positive O2 Delivery Device Cannula Liter Flow 6.0 Crit Call To/Read Back Yes Blood Gas Notified Whom Gume Radiography Diagnostic Testing: Radiology Impression Chest X-Ray 11/04/20 15:00 IMPRESSION: Hyperinflation. Decreased bronchovascular markings in the upper lobes more prominent on the right side suggestive of emphysematous change. Electronically Signed: Dayne Garcia MD at 15:20 EDT , Service support , Rhythm Strip Rhythm Strip: Sinus Tach Rate: 104 Ectopy: None Physical Exam Const alert, oriented x3 and no apparent distress HEENT head/scalp atraumatic and moist oral mucous membranes Head and Scalp: normocephalic Eyes EOMs intact bilaterally and conjunctivae normal Neck no lymphadenopathy, supple and no JVD Resp Effort and Inspection: labored Auscultation: rhonchi and diminished lung sounds Cardio no murmurs and no JVD Rate: tachycardic GI normal to inspection, nondistended, normoactive bowel sounds, soft to palpation and non-tender Extremity normal to inspection, full ROM and no clubbing, cyanosis or edema Skin no rashes or lesions noted, no wounds, skin turgor normal and no jaundice Neuro CN's II-XII intact bilaterally Psych affect normal Assessment & Plan Assessment/Plan (1) Acute on chronic respiratory failure with hypoxemia: (2) COPD exacerbation: (3) Hypoxia: (4) Congestive heart failure (CHF): PLAN: Day 2: See subjective. Discharge planning: Patient to be discharged home when medically ready, no home health care needs or additional therapies identified. 1) acute on chronic hypoxic respiratory failure secondary to COPD exacerbation and possible diastolic CHF exacerbation Patient reports improvement in her shortness of breath and cough relative to admission. Currently satting 94% on 3 L via nasal cannula. Patient is also on BiPAP with an FiO2 of 35. Procalcitonin within normal limits. Pulmonology following recommendations as follows: Continue steroids and bronchodilators, initiate prednisone 40 mg x 5 days at discharge, discharge patient with prescription for Symbicort twice daily in conjunction with Spiriva, discontinue ABX, follow-up with configuration management advisor within 2 weeks. Plan: Remain admitted to PCU, continue Solu-Medrol, continue DuoNebs and albuterol, continue BiPAP, incentive spirometry encouraged, guaifenesin as needed, azithromycin not indicated. 2) Diastolic CHF w/ preserved ejection fraction Possibly contributing to #1. On my examination patient denies orthopnea or paroxysmal nocturnal dyspnea. Patient is urinating well and does not demonstrate any swelling in the lower extremities. Recent echocardiogram from 10/28/2020 demonstrated normal LV systolic function, an estimated EF of 65% and an indeterminate diastolic dysfunction. Chest x-ray demonstrates cardiomegaly. BNP elevated at 1495. Plan; as above, continue metoprolol succinate, hold home Lasix and initiate IV Lasix 40 mg twice daily, continue losartan, nitroglycerin as needed. 3) HTN Stable, continue losartan, IV Lasix as above, hydralazine as needed. 4) diabetes mellitus type 2 Hold home glimepiride. Accu-Cheks with sliding scale insulin ordered DVT prophylaxis - Lovenox Patient seen by Juan Carlos Ferrell PA-C, under the supervision of Dr. Galeano. Documented by User: Dr. eLw Galeano MD 11/05/20 15:15 Objective Data Lab / Micro Data Result Diagrams: 11/05/20 02:00 11/05/20 02:00 Assessment & Plan Addt'l Comments This patient was seen in conjunction with Juan Carlos Ferrell PA-C. I have independently interviewed and examined the patient and reviewed pertinent historical, laboratory, and other data. Please refer to Juan Carlos Ferrell PA-C's note for details of this patient's presentation, findings, and recommendations. I have reviewed Juan Carlos Ferrell PA-C's note and concur with documented findings. In brief, patient is a 64-year-old gentleman with history of advanced COPD admitted with progressive shortness of breath Physical Examination: GENERAL: cooperative HEENT: Atraumatic; EYES; Anicteric, Normal Conjunctiva NECK; supple, normal thyroid, RESPIRATORY: Diminished to auscultation CARDIOVASCULAR: Regular S1 S2, GI: soft, normoactive bowel sounds, : No Renal angle tenderness; EXTREMITIES: No edema, no clubbing, MUSCULOSKELETAL: no muscle waisting NEURO: Awake; no lateralizing signs. SKIN: No Rash PSYCH; Flat affect Assessment: Acute on chronic hypoxic and hypercapnic respiratory failure 2. COPD with acute exacerbation 3. Obesity with BMI of 31.4 4. Essential hypertension 5. Mitral atrial tachycardia 6. Diabetes mellitus type 2 7. CHF with preserved ejection fraction Recommendations: 1. I have discussed the results of my overview and impressions with the patient 2. Options for management were reviewed Charges/Coding Visit Charges Inpatient E&M: 46178 Subs Hosp L3
--- NOTE | 2020-11-05 16:33 | PCM.CONS.P ---
Assessment & Plan Assessment/Plan (1) Shortness of breath: (2) Acute on chronic respiratory failure with hypoxemia: (3) COPD exacerbation: (4) Hypoxia: (5) Congestive heart failure (CHF): QUALIFIERS: Heart failure type: unspecified Heart failure chronicity: acute on chronic Qualified Code(s): I50.9 - Heart failure, unspecified (6) Behavior disturbance: PLAN: 64-year-old male admitted with COPD and CHF exacerbations, seen today for initial palliative care consultation for symptom management of shortness of breath and multiple hospitalizations. 1. Shortness of breath: Multifactorial, patient has been so far noncompliant with nursing requests, including oxygen supplementation. Insists he only wears at night. Will not allow for education regarding his disease processes. He is constantly interrupting. He would not be a candidate for oxycodone or Roxanol. I suspect he is noncompliant at home, which likely contributes to his rehospitalizations. Patient advised to follow-up with his cartography technician. 2. Behavior disturbance: Patient was not aggressive or belligerent with this provider, however noted to be often exhibiting those behaviors with staff. Again, it is hard to get a word in [place] with Mr. Aponte. I suspect he has an underlying psychiatric disorder, would advise evaluation but highly unlikely patient will follow through. 3. COPD/CHF exacerbations: He seems to be compensated at this point as far as CHF goes, continue with current plan of care with bronchodilators and steroids, defer management to hospitalist. 4. Acute on chronic hypoxemic respiratory failure: Advised patient if he does not comply with recommendations from his cartography technician and from hospital staff, he will likely soon return to the hospital with ongoing issues with his breathing. He was argumentative at that point in states that the weather as his main antagonist. Thank you for the opportunity to participate in this patient's care, please do not hesitate to contact [facility] with any further questions or concerns. Palliative direct line is [phone]. We will follow up after discharge and will discuss palliative services further at that time. It is not clear at this point if we would accept him as a patient into the palliative program as he has demonstrated aggressive behavior and significant noncompliance. We made multiple attempts as an outpatient contact him with no return call. We will have a liaison talk with him and go from there. Greater than 50% of F visit dedicated to education and counseling of palliative care services, medications, comorbid conditions and potential assistance with management, and plan of care moving forward. Start time: 1630 End time: 4 HPI Consult Data Date of Consult: 11/05/20 HPI Narrative HPI Narrative: JORGE APONTE, is a 64 M who presents to [facility] 11/04/2020 with increased shortness of breath and cough. Patient has had multiple admissions for COPD exacerbations. He does use home O2 at night. Indicated the current weather with high humidity has caused him to have a COPD exacerbation. He was also admitted to [facility] 09/15, 09/30, (ED visit) 10/21, 10/28, and now current admission. These were all for shortness of breath related to his COPD and hypoxemia, as well as atrial tachycardia. He does have a significant history of smoking and occupational exposure as he worked in [employer] for over 20 years. He apparently quit smoking about 2 months ago. Chest x-ray showed hyperinflation and cardiomegaly. BNP elevated. He was admitted for further evaluation and management. He is now on supplemental O2, bronchodilators, and IV steroids. Prior echo 10/28/2020 showed normal LV systolic function, estimated EF of 65%, and indeterminate diastolic dysfunction. He is receiving IV Lasix. According to nursing, patient is not compliant with wearing supplemental O2. He is supposed to wear 2 L continuous at home, however takes it off and only uses when he thinks he needs it. He is on 3 L here in the hospital but has been taking it off multiple times, becoming hypoxic. He follows with Dr. Lennon, pulmonology in [place]. Patient apparently is becoming belligerent with staff at times. Yesterday, he ripped off his awake overnight monitor, removed his oxygen refusing to put it back on, and threatened staff to leave AMA. Security was called and police chief deputy came up. He was then cooperative at that time. Patient was referred to palliative the last 2 hospital stays, however he was discharged prior to being seen. Palliative attempted on multiple occasions to contact patient with no return phone calls. Patient very talkative upon evaluation. Tried on multiple attempts to explain palliative services, patient often interrupted and would not allow for explanation. He mainly wanted to talk about the movie It's a wonderful life. He is not wearing his oxygen, is actually laying on the floor. He does have some observed conversational dyspnea. No nausea, vomiting or diarrhea. ROS was limited secondary to uncooperative. Denied any lower extremity edema. Said that is cured. He does have a cough. Not sure if there is sputum production or not, patient did not answer the question. Lung sounds are quite diminished with some rhonchi. There was a faint expiratory wheeze. Denies any pain but is obviously very restless. PFSH Medical History Atrial tachycardia Congestive heart failure (CHF) COPD (chronic obstructive pulmonary disease) Diabetes Former smoker Hypertension Nonadherence to medication On home oxygen therapy Smoker Home Medications albuterol sulfate [Ventolin HFA] 2 puff INHALATION Q4H PRN PRN 09/15/20 [History Last Taken 11/04/20] furosemide 20 mg PO DAILY 09/15/20 [History Last Taken 11/04/20] ipratropium bromide 3 ml INHALATION TID PRN 09/15/20 [History Last Taken 10/01/20] losartan 25 mg PO DAILY 09/15/20 [History Last Taken 11/03/20] metoprolol succinate 50 mg PO TID 09/15/20 [History Last Taken 11/03/20] Spiriva Respimat 2 puff INHALATION DAILY 10/28/20 [History Last Taken 1 Week Ago ~10/28/20] glimepiride 1 mg PO BREAKFAST #30 tab 10/29/20 [Rx Last Taken 11/04/20] prednisone See Taper PO DAILY #30 tab 10/29/20 [Rx Last Taken 11/04/20] Allergy/AdvReac Type Severity Reaction Status Date / Time No Known Allergies Allergy Verified 10/28/20 03:31 Family History Mother Rheumatoid arthritis Chronic back pain Father Unknown family medical history Patient is unaware of any paternal family medical history to include diabetes, hypertension, CAD, ACS or CVA due to patient not knowing his father. Surgical History Hx of inguinal hernia surgery Social History household members: family and children Smoking Status: Former smoker quit date: 09/04/20 pack-years: 30 how long ago did patient quit smokin months ago alcohol intake: former substance use type: marijuana Physical Exam Const alert, oriented x3 and no apparent distress General Appearance: uncooperative Exam Limitations: behavioral limitations Nutritional Appearance: obese HEENT normocephalic and head/scalp atraumatic Neck supple Neck Narrative: large neck circumference General: trachea midline Resp Effort and Inspection: symmetric chest movement and tachypneic; Negative for audible wheezes Auscultation: rhonchi, wheezes expiratory wheezes (faint end exp wheeze) and diminished lung sounds; Negative for rales Cardio regular rhythm, S1 normal heart sound and S2 normal heart sound Rate: tachycardic GI normal to inspection, nondistended, normoactive bowel sounds Extremity General Extremity: edema bilateral (trace bilat LE); Negative for cyanosis Skin no rashes or lesions noted Neuro CN's II-XII intact bilaterally and no focal motor deficits Neuro Narrative: limited exam 2/2 uncooperative Psych Appearance: disheveled Attitude: bizarre Activity / Motor Behavior: appropriate eye contact and hyperactive Speech: excessive Thought Process: disorganized Thought Content: No hallucination(s) Attention / Concentration: attention grossly impaired Insight: other unable to fully assess, but suspect is fair.
[2020-11-05] MEDS: Hydrocortisone 2.5% Crm 1 APPLIC TOPICAL (17:09)
[2020-11-05 17:21] LABS: Bedside Glucose 142 mg/dL (70-110)
[2020-11-05] MEDS: Albuterol 2.5 MG/3 ML VIAL.NEB. INHALATION (17:33)
[2020-11-05 22:41] LABS: Bedside Glucose 331 mg/dL (70-110)
[2020-11-06] VITALS (16 sets, daily range): BP systolic 113–150; BP diastolic 70–94; PULSE 89–136; RESP 12–21; TEMP 36.3–37; O2SAT 93–97
[2020-11-06] MEDS: Ipratropium/Albuterol Sulfate 3 ML AMPUL.NEB INHALATION ×5 (03:25→19:04)
[2020-11-06] MEDS: 0.9% Saline Lock 10 ML Syringe IV ×3 (05:20→14:23)
[2020-11-06 05:34] LABS: Absolute Lymphocyte Count 0.86 X10^3/uL (0.83-4.51); Absolute Neutrophil Count 10.8 X10^3/uL (2.0-7.7); Basophil# 0.02 X10^3/uL; Basophil% 0.2 % (0-1); Hematocrit 41.9 % (40-54); Hemoglobin 13.2 g/dL (13.0-16.5); Lymphocyte # 0.86 X10^3/ul (0.83-4.51); Lymphocyte % 6.9 % (19-41); Mean Corp Hgb Conc 31.5 g/dL (32-36); Mean Corpuscular Hgb 31.1 pg (27.0-32.0); Mean Corpuscular Volume 98.8 fL (80-94); Mean Platelet Vol. 10.4 fl (6.2-12.0); Monocyte# 0.61 X10^3/uL; Monocyte% 4.9 % (0-10); NRBC Flagged by Analyzer 0 % (0-5); Neutrophil # 10.78 X10^3/uL (2.7-7.7); Neutrophil % 87.1 % (47-70); Platelet Count 203 K/mm3 (150-450); RBC Distribution Width CV 13.8 % (11.6-14.6); RBC Distribution Width SD 50.2 fl (35.1-43.9); Red Blood Count 4.24 M/mm3 (4.6-6.2); White Blood Count 12.4 K/mm3 (4.4-11.0)
[2020-11-06] MEDS: Insulin Lispro 100 UNIT/ML INSULN.PEN SC ×4 (06:00→20:59)
[2020-11-06 06:11] LABS: Bedside Glucose 280 mg/dL (70-110)
[2020-11-06 06:12] LABS: Anion Gap 4 (5-15); BUN 43 mg/dL (7-18); BUN/Creat Ratio 34.1 RATIO (10-20); Calcium,Total 8.5 mg/dL (8.5-10.1); Chloride 90 mmol/L (98-107); Creatinine, Serum 1.26 mg/dL (0.70-1.30); EST Glomerular Filtration Rate 61 mL/min (>60); Est Glom Filt Rate - Afr Amer 74 mL/min (>60); Estimated Creatinine Clearance 62.25 ml/min; Glucose 280 mg/dL (74-106); Potassium 4.4 mmol/L (3.5-5.1); Sodium Level 133 mmol/L (136-145)
[2020-11-06] MEDS: Aspirin E.C. 81 MG Tablet PO (09:08)
[2020-11-06] MEDS: Azithromycin 250 MG Tablet 500 MG PO (09:08)
[2020-11-06] MEDS: Losartan Potassium 25 MG Tablet PO (09:08)
[2020-11-06] MEDS: Enoxaparin 40 MG/0.4 ML Syringe SC (09:08)
[2020-11-06] MEDS: Furosemide 40 MG/4 ML Vial IV (09:08)
[2020-11-06] MEDS: Metoprolol(XL)Succ 50 MG Tablet 150 MG PO (09:08)
--- NOTE | 2020-11-06 10:26 | PN.HOSP_ITS ---
Documented by User: Rosalva Conte [employer], [employer]-C 11/06/20 10:53 Subjective Subjective Patient seen and examined. Very irritable and talkative. Reports improvement in breathing. Patient reports chronic nonproductive cough. Denies fever, chills. Objective Data Objective Data Vital Signs: Vital Signs Temp Pulse Resp BP Pulse Ox 97.4 F L 89 20 H 115/71 95 11/06/20 09:07 11/06/20 09:08 11/06/20 09:07 11/06/20 09:07 11/06/20 09:07 Oxygen Flow Rate (L/min) 6 Oxygen Delivery Method Nasal Cannula Weight: 224 lb 6.889 oz Body Mass Index (BMI) 32.1 Intake & Output: Intake and Output for Last 24 Hours 11/04/20 11/05/20 11/06/20 23:59 23:59 23:59 Intake Total 240 / 240 940 / 1340 640 / 640 Output Total 2450 / 2925 475 / 475 Balance 240 / -2210 -1510 / -1585 165 / 165 Medical Nutrition Assessment Dietitian: Nutrition Therapy Diagnosis Start: 11/05/20 10:26 Freq: Status: Active Protocol: Document 11/05/20 15:40 RMA (Rec: 11/05/20 15:40 RMA [id number]) Nutrition Malnutrition Evidence of Malnutrition Exists No Intake Problem Decreased Nutrient Needs (specify) Etiology for sodium and carbohydrates related to CHF/edema and endocrine dysfunction/DM Signs/Symptoms as evidenced by BLLE edema; HgbA1C 7.6%; fluctuating blood glucose 277, 281, 132, 326 Status Active Problem Recommendation Dietitian Recommendations/Changes Will change diet to 2000 calorie/consistent- carbohydrate; Cardiac/sodium- restricted w/ 1500ml FR. ONS if PO fails at meals--- will defer for now. Diet education as patient willing. Lab / Micro Data Result Diagrams: 11/06/20 05:22 11/06/20 05:22 Labs: Laboratory Results - last 24 hr 11/05/20 11:10: POC Glucose 281 H 11/05/20 17:08: POC Glucose 142 H 11/05/20 21:28: POC Glucose 331 H 11/06/20 05:22: WBC 12.4 H, RBC 4.24 L, Hgb 13.2, Hct 41.9, MCV 98.8 H, MCH 31.1, MCHC 31.5 L, RDW Std Deviation 50.2 H, RDW Coeff of Patricia 13.8, Plt Count 203, MPV 10.4, Immature Gran % (Auto) 0.900, Neut % (Auto) 87.1 H, Lymph % (Auto) 6.9 L, [place] % (Auto) 4.9, Eos % (Auto) 0.0, Baso % (Auto) 0.2, Absolute Neuts (auto) 10.8 H, Absolute Lymphs (auto) 0.86, Nucleated RBC % 0 11/06/20 05:22: Sodium 133 L, Potassium 4.4, Chloride 90 L, Carbon Dioxide 39.0 H, Anion Gap 4 L, BUN 43 H, Creatinine 1.26, Estim Creat Clear Calc 62.25, Est GFR (MDRD) Af Amer 74, Est GFR (MDRD) Non-Af 61, BUN/Creatinine Ratio 34.1 H, Glucose 280 H, Calcium 8.5 11/06/20 05:58: POC Glucose 280 H Micro: Microbiology 11/04/20 19:30 Mucosa - Nasopharyngeal Respiratory Panel (PCR) - Final 11/04/20 14:48 Mucosa - Nose SARS-CoV-2 Antigen (Rapid) - Final Rhythm Strip Rhythm Strip: Sinus Tach Rate: 104 Ectopy: None Physical Exam Const alert, oriented x3 and no apparent distress Orientation / Consciousness: awake, oriented to person, oriented to place and oriented to time HEENT normocephalic and moist oral mucous membranes Eyes PERRL, EOMs intact bilaterally and conjunctivae normal Neck no lymphadenopathy Resp clear to auscultation bilaterally Auscultation: diminished lung sounds Cardio regular rate, regular rhythm and no murmurs Peripheral Pulses: pulses 2+ throughout GI normal to inspection, nondistended, normoactive bowel sounds, non-tender and non-distended Extremity normal to inspection Skin no rashes or lesions noted Lesions: no lesions Rashes: no rashes Trauma: no lacerations or abrasions Neuro CN's II-XII intact bilaterally, no focal motor deficits, no sensory deficits noted and deep tendon reflexes 2+ bilaterally Psych mental status grossly normal and affect normal Assessment & Plan Assessment/Plan (1) Acute on chronic respiratory failure with hypoxemia: PLAN: 1. Acute on chronic hypoxic respiratory failure secondary to secondary to COPD exacerbation and heart failure with preserved ejection fraction-initially on BiPAP on admission. Patient wears chronic supplemental oxygen with order for 2 L nasal cannula continuously. Patient is noncompliant with home oxygen use. Will need repeat testing prior to discharge. Continue supplemental oxygen to maintain O2 at above 90%. 2. COPD with exacerbation-Covid negative. Respiratory panel negative. IV Solu-Medrol. Albuterol and DuoNeb aerosols. Azithromycin empirically. 3. Acute on chronic heart failure with preserved ejection fraction-BNP 1495. Chest x-ray without failure. Echocardiogram 10/28/2020 demonstrated an EF of 65%. Discontinue further IV Lasix given mild failure, increase home Lasix regimen to 40 mg daily. 4. Type 2 diabetes mellitus-Recent Hemoglobin A1c 7.6%. Accu-Cheks with sliding scale insulin. Continue Lantus. Home glimepiride recently increased. 5. Hypertension-stable, continue losartan, metoprolol. 6. Former tobacco use-encouraged continued cessation. DVT prophylaxis- Lovenox sc This patient was seen by MORENITA Desai under the supervision of Dr. Galeano. Documented by User: Dr. Lew Galeano MD 11/06/20 11:59 Objective Data Lab / Micro Data Result Diagrams: 11/06/20 05:22 11/06/20 05:22 Assessment & Plan Addt'l Comments This patient was seen in conjunction with MORENITA Desai . I have independently interviewed and examined the patient and reviewed pertinent historical, laboratory, and other data. Please refer to MORENITA Desai note for details of this patient's presentation, findings, and recommendations. I have reviewed MORENITA Desai note and concur with documented findings. In brief, patient is a 64-year-old gentleman with history of advanced COPD admitted with progressive shortness of breath 11/06/2020; patient seen breathing still remains labored. Patient was seen in consultation by Dr. Romo with pulmonary medicine he is noted recommendations reviewed case was also discussed with him. Had an extensive discussion with the patient regarding his care. He is quite argumentative regarding the treatment he needs to be on. He stated he does not need to be on oxygen unless the weat her is humid. He has a drop forge hand at [place] he was instructed to follow- up with his primary drop forge hand for subsequent care in view of his frequent hospitalization for COPD exacerbation Physical Examination: GENERAL: cooperative HEENT: Atraumatic; EYES; Anicteric, Normal Conjunctiva NECK; supple, normal thyroid, RESPIRATORY: Diminished to auscultation CARDIOVASCULAR: Regular S1 S2, GI: soft, normoactive bowel sounds, : No Renal angle tenderness; EXTREMITIES: No edema, no clubbing, MUSCULOSKELETAL: no muscle waisting NEURO: Awake; no lateralizing signs. SKIN: No Rash PSYCH; Flat affect Assessment: Acute on chronic hypoxic and hypercapnic respiratory failure 2. COPD with acute exacerbation 3. Obesity with BMI of 31.4 4. Essential hypertension 5. Mitral atrial tachycardia 6. Diabetes mellitus type 2 7. CHF with preserved ejection fraction Recommendations: 1. I have discussed the results of my overview and impressions with the patient 2. Options for management were reviewed Charges/Coding Visit Charges Inpatient E&M: 36795 Subs Hosp L2
[2020-11-06 11:21] LABS: Bedside Glucose 489 mg/dL (70-110)
[2020-11-06] MEDS: Insulin Lispro 100 UNIT/ML INSULN.PEN 10 UNIT SC (11:49)
[2020-11-06 17:11] LABS: Bedside Glucose 379 mg/dL (70-110)
[2020-11-06 22:25] LABS: Bedside Glucose 404 mg/dL (70-110)
[2020-11-07] VITALS (11 sets, daily range): BP systolic 150–153; BP diastolic 92–102; PULSE 82–100; RESP 12–22; TEMP 36.1–36.9; O2SAT 88–99
[2020-11-07] MEDS: Hydrocortisone 2.5% Crm 1 APPLIC TOPICAL (00:07)
[2020-11-07] MEDS: Insulin Lispro 100 UNIT/ML INSULN.PEN SC ×2 (06:42→10:44)
[2020-11-07 06:51] LABS: Bedside Glucose 413 mg/dL (70-110)
[2020-11-07] MEDS: Ipratropium/Albuterol Sulfate 3 ML AMPUL.NEB INHALATION ×2 (07:08→10:32)
[2020-11-07 07:34] LABS: Anion Gap 6 (5-15); BUN 35 mg/dL (7-18); Calcium,Total 8.8 mg/dL (8.5-10.1); Chloride 91 mmol/L (98-107); Creatinine, Serum 1.06 mg/dL (0.70-1.30); EST Glomerular Filtration Rate 74 mL/min (>60); Est Glom Filt Rate - Afr Amer 90 mL/min (>60); Glucose 229 mg/dL (74-106); Potassium 4.6 mmol/L (3.5-5.1); Sodium Level 135 mmol/L (136-145)
--- NOTE | 2020-11-07 09:40 | PCM.DC ---
Discharge Instructions Diet Discharge Diet: Low fat / Low cholesterol and Carb Control Diet Activity Discharge Activity: Return to Normal Activity Dressing / Incision Call your doctor if you observe: Shortness of breath, Dizziness and Chest pain Follow Up Care Test Results: Test results from this visit will be discussed in further detail at your follow-up appointment, if applicable. Discharge Plan Admission Admit Date/Time: 11/04/20 17:15 Primary Reason for Your Visit: COPD Attending Provider: Lew Galeano Primary Care Provider: Regan Adan Consulting Providers: Zbigniew Romo Discharge Orders/Prescriptions Prescriptions: New furosemide 40 mg Tablet 40 mg PO DAILY Qty: 30 RF: 0 azithromycin 250 mg Tablet 500 mg PO Q24 Qty: 2 RF: 0 budesonide-formoterol [Symbicort] 160-4.5 mcg/actuation HFA aerosol inhaler 2 puff inhalation BID Qty: 10.2 RF: 0 Continued metoprolol succinate 50 mg tablet extended release 24 hr 50 mg PO TID RF: 0 losartan 25 mg tablet 25 mg PO DAILY RF: 0 albuterol sulfate [Ventolin HFA] 90 mcg/actuation HFA aerosol inhaler 2 puff INHALATION Q4H PRN PRN (Reason: Shortness Of Breath) RF: 0 ipratropium bromide 0.02 % solution 3 ml inhalation TID PRN (Reason: Shortness Of Breath) RF: 0 glimepiride 1 mg Tablet 1 mg PO BREAKFAST Qty: 30 RF: 0 prednisone 10 mg tablet See Taper mg PO DAILY Qty: 30 RF: 0 Spiriva Respimat 2.5 mcg/actuation Mist 2 puff INHALATION DAILY Qty: 4 RF: 0 Discontinued furosemide 20 mg tablet 20 mg PO DAILY RF: 0 Referrals / Follow Up: [Other] - 12/17/20 11:30 am (If you can't make this appointment please call to reschedule. ) Regan Adan DO [Primary Care Provider] - In 1 Week Disposition Disposition (needs filled in before D/C Order can be placed): Home, Self Care
--- NOTE | 2020-11-07 09:54 | DS.PCM_ITS ---
Documented by User: Rosalva Conte NP, INSTALLATION ENGINEER-C 11/07/20 09:59 Providers Date of Admission: 11/04/20 Date of Discharge: 11/07/20 Primary Care Physician: Dr. Regan Adan DO Consultations 11/04/20 19:01 Consult: Refinery Operator Assistant / Pulmonary Medicine Routine Consulting Provider: Zbigniew Romo Reason for Consult: COPD exacerbation, several episodes over the last several weeks. EMERGENT Consult: No MD Notified: Yes Date Notified: 11/04/20 Time Notified: 17:16 Method of Notification: Text Reason For Visit: RESP FAILURE COPD EXACERBATION CHF EXACERBATION Diagnosis Discharge Diagnosis (1) Acute on chronic respiratory failure with hypoxemia: Status: Chronic Code(s): J96.21 - Acute and chronic respiratory failure with hypoxia Medications at Discharge Home Medications albuterol sulfate [Ventolin HFA] 2 puff INHALATION Q4H PRN PRN 09/15/20 ipratropium bromide 3 ml INHALATION TID PRN 09/15/20 losartan 25 mg PO DAILY 09/15/20 metoprolol succinate 50 mg PO TID 09/15/20 glimepiride 1 mg PO BREAKFAST #30 tab 10/29/20 Spiriva Respimat 2 puff INHALATION DAILY #4 g 11/07/20 azithromycin 500 mg PO Q24 #2 tab 11/07/20 budesonide-formoterol [Symbicort] 2 puff INHALATION BID #10.2 g 11/07/20 furosemide 40 mg PO DAILY #30 tab 11/07/20 prednisone See Taper PO DAILY #30 tab 11/07/20 Hospital Course Operations None Procedures None Summary of Care Provided Minutes Spent on Discharge: 35 Hospital Course: Patient is a 64-year-old male admitted 11/04/2020 due to shortness of breath. 1. Acute on chronic hypoxic respiratory failure secondary to secondary to COPD exacerbation and heart failure with preserved ejection fraction-initially on BiPAP on admission. Patient wears chronic supplemental oxygen with order for 2 L nasal cannula continuously. Patient is noncompliant with home oxygen use. Continue supplement oxygen to maintain O2 at or above 90%. Repeat home oxygen testing needs to be completed prior to discharge. Follow-up with PCP in 1 week. Follow-up with pulmonary medicine as scheduled. 2. COPD with exacerbation-Covid negative. Respiratory panel negative. IV Solu-Medrol during admission, transition to prednisone taper at discharge. Azithromycin to complete course empirically. Discharge on Symbicort, Spiriva and albuterol. Follow-up with primary mat worker as scheduled. 3. Acute on chronic heart failure with preserved ejection fraction-BNP 1495. Chest x-ray without failure. Echocardiogram 10/28/2020 demonstrated an EF of 65%. Discontinue further IV Lasix given mild failure, increase home Lasix regimen to 40 mg daily. 4. Type 2 diabetes mellitus-Recent Hemoglobin A1c 7.6%. Home glimepiride recently increased. 5. Hypertension-stable, continue losartan, metoprolol. 6. Former tobacco use-encouraged continued cessation. Physical Exam Const alert, oriented x3 and no apparent distress Orientation / Consciousness: awake, oriented to person, oriented to place and oriented to time HEENT normocephalic and moist oral mucous membranes Eyes PERRL, EOMs intact bilaterally and conjunctivae normal Neck no lymphadenopathy Resp clear to auscultation bilaterally Auscultation: diminished lung sounds, scattered expiratory wheezing Cardio regular rate, regular rhythm and no murmurs Peripheral Pulses: pulses 2+ throughout GI normal to inspection, nondistended, normoactive bowel sounds, non-tender and non-distended Extremity normal to inspection Skin no rashes or lesions noted Lesions: no lesions Rashes: no rashes Trauma: no lacerations or abrasions Neuro CN's II-XII intact bilaterally, no focal motor deficits, no sensory deficits noted and deep tendon reflexes 2+ bilaterally Psych mental status grossly normal and affect normal Patient seen and examined prior to discharge. Physical assessment as noted above. Patient is stable for discharge with follow up recommendations as noted above. This patient was seen by MORENITA Desai under the supervision of Dr. Galeano. Medical Records Data Medical Nutrition Assessment Dietitian: Nutrition Therapy Diagnosis Start: 11/05/20 10:26 Freq: Status: Active Protocol: Document 11/05/20 15:40 RMA (Rec: 11/05/20 15:40 RMA [id number]) Nutrition Malnutrition Evidence of Malnutrition Exists No Intake Problem Decreased Nutrient Needs (specify) Etiology for sodium and carbohydrates related to CHF/edema and endocrine dysfunction/DM Signs/Symptoms as evidenced by BLLE edema; HgbA1C 7.6%; fluctuating blood glucose 277, 281, 132, 326 Status Active Problem Recommendation Dietitian Recommendations/Changes Will change diet to 2000 calorie/consistent- carbohydrate; Cardiac/sodium- restricted w/ 1500ml FR. ONS if PO fails at meals--- will defer for now. Diet education as patient willing. Weight / BMI Weight Weight: 225 lb 1.471 oz Body Mass Index (BMI) 32.1 ABG / Lab / Microbiology Data Result Diagrams: 11/06/20 05:22 11/07/20 05:20 Laboratory: Laboratory Results - last 24 hr 11/06/20 11:15: POC Glucose 489 H* 11/06/20 17:02: POC Glucose 379 H 11/06/20 20:56: POC Glucose 404 H 11/07/20 05:20: Sodium 135 L, Potassium 4.6, Chloride 91 L, Carbon Dioxide 38.0 H, Anion Gap 6, BUN 35 H, Creatinine 1.06, Estim Creat Clear Calc 74.00, Est GFR (MDRD) Af Amer 90, Est GFR (MDRD) Non-Af 74, BUN/Creatinine Ratio 33.0 H, Glucose 229 H, Calcium 8.8 11/07/20 06:39: POC Glucose 413 H Microbiology: Microbiology 11/04/20 19:30 Mucosa - Nasopharyngeal Respiratory Panel (PCR) - Final 11/04/20 14:48 Mucosa - Nose SARS-CoV-2 Antigen (Rapid) - Final D/C Instructions Discharge Diet: Low fat / Low cholesterol and Carb Control Diet Call your doctor if you observe: Shortness of breath, Dizziness and Chest pain Meaningful Use Info Meaningful Use Diagnoses (Choose all that apply): None applicable Discharge Plan Admission Admit Date/Time: 11/04/20 17:15 Primary Reason for Your Visit: COPD Attending Provider: Lew Galeano Primary Care Provider: Regan Adan Consulting Providers: Zbigniew Romo Instructions Additional Instructions / Restrictions: Patient Problems: Altered Health Status related to Hospitalization Patient Goals: *Optimal Level of Health *Keep Appointments *Medication Compliance *Remain Safe Discharge Orders/Prescriptions Prescriptions: New furosemide 40 mg Tablet 40 mg PO DAILY Qty: 30 RF: 0 azithromycin 250 mg Tablet 500 mg PO Q24 Qty: 2 RF: 0 budesonide-formoterol [Symbicort] 160-4.5 mcg/actuation HFA aerosol inhaler 2 puff inhalation BID Qty: 10.2 RF: 0 Continued metoprolol succinate 50 mg tablet extended release 24 hr 50 mg PO TID RF: 0 losartan 25 mg tablet 25 mg PO DAILY RF: 0 albuterol sulfate [Ventolin HFA] 90 mcg/actuation HFA aerosol inhaler 2 puff INHALATION Q4H PRN PRN (Reason: Shortness Of Breath) RF: 0 ipratropium bromide 0.02 % solution 3 ml inhalation TID PRN (Reason: Shortness Of Breath) RF: 0 glimepiride 1 mg Tablet 1 mg PO BREAKFAST Qty: 30 RF: 0 prednisone 10 mg tablet See Taper mg PO DAILY Qty: 30 RF: 0 Spiriva Respimat 2.5 mcg/actuation Mist 2 puff INHALATION DAILY Qty: 4 RF: 0 Discontinued furosemide 20 mg tablet 20 mg PO DAILY RF: 0 Referrals / Follow Up: [Other] - 12/17/20 11:30 am (If you can't make this appointment please call to reschedule. ) Regan Adan DO [Primary Care Provider] - 11/13/20 8:40 am Disposition Disposition (needs filled in before D/C Order can be placed): Home, Self Care Documented by User: Dr. Lew Galeano MD 11/07/20 11:29 Providers Date of Admission: 11/04/20 Reason For Visit: RESP FAILURE COPD EXACERBATION CHF EXACERBATION Medications at Discharge Home Medications albuterol sulfate [Ventolin HFA] 2 puff INHALATION Q4H PRN PRN 09/15/20 ipratropium bromide 3 ml INHALATION TID PRN 09/15/20 losartan 25 mg PO DAILY 09/15/20 metoprolol succinate 50 mg PO TID 09/15/20 glimepiride 1 mg PO BREAKFAST #30 tab 10/29/20 Spiriva Respimat 2 puff INHALATION DAILY #4 g 11/07/20 azithromycin 500 mg PO Q24 #2 tab 11/07/20 budesonide-formoterol [Symbicort] 2 puff INHALATION BID #10.2 g 11/07/20 furosemide 40 mg PO DAILY #30 tab 11/07/20 prednisone See Taper PO DAILY #30 tab 11/07/20 Hospital Course Operations None Summary of Care Provided Hospital Course: This patient was seen in conjunction with CARYN Desai . I have independently interviewed and examined the patient and reviewed pertinent historical, laboratory, and other data. Please refer to MORENITA Desai note for details of this patient's presentation, findings, and recommendations. I have reviewed MORENITA Desai note and concur with documented findings. In brief, patient is a 64-year-old gentleman with history of advanced COPD admitted with progressive shortness of breath 11/06/2020; patient seen breathing still remains labored. Patient was seen in consultation by Dr. Romo with pulmonary medicine he is noted recommendations reviewed case was also discussed with him. Had an extensive discussion with the patient regarding his care. He is quite argumentative regarding the treatment he needs to be on. He stated he does not need to be on oxygen unless the weat her is humid. 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 COPD with acute exacerbation 3. Obesity with BMI of 31.4 4. Essential hypertension 5. Mitral atrial tachycardia 6. Diabetes mellitus type 2 7. CHF with preserved ejection fraction Hospital course: ?As documented above ABG / Lab / Microbiology Data Result Diagrams: 11/06/20 05:22 11/07/20 05:20 Discharge Plan Admission Admit Date/Time: 11/04/20 17:15 Primary Reason for Your Visit: COPD Attending Provider: Lew Galeano Primary Care Provider: Regan Adan Consulting Providers: Zbigniew Romo Instructions Additional Instructions / Restrictions: Patient Problems: Altered Health Status related to Hospitalization Patient Goals: *Optimal Level of Health *Keep Appointments *Medication Compliance *Remain Safe Discharge Orders/Prescriptions Prescriptions: New furosemide 40 mg Tablet 40 mg PO DAILY Qty: 30 RF: 0 azithromycin 250 mg Tablet 500 mg PO Q24 Qty: 2 RF: 0 budesonide-formoterol [Symbicort] 160-4.5 mcg/actuation HFA aerosol inhaler 2 puff inhalation BID Qty: 10.2 RF: 0 Continued metoprolol succinate 50 mg tablet extended release 24 hr 50 mg PO TID RF: 0 losartan 25 mg tablet 25 mg PO DAILY RF: 0 albuterol sulfate [Ventolin HFA] 90 mcg/actuation HFA aerosol inhaler 2 puff INHALATION Q4H PRN PRN (Reason: Shortness Of Breath) RF: 0 ipratropium bromide 0.02 % solution 3 ml inhalation TID PRN (Reason: Shortness Of Breath) RF: 0 glimepiride 1 mg Tablet 1 mg PO BREAKFAST Qty: 30 RF: 0 prednisone 10 mg tablet See Taper mg PO DAILY Qty: 30 RF: 0 Spiriva Respimat 2.5 mcg/actuation Mist 2 puff INHALATION DAILY Qty: 4 RF: 0 Discontinued furosemide 20 mg tablet 20 mg PO DAILY RF: 0 Referrals / Follow Up: [Other] - 12/17/20 11:30 am (If you can't make this appointment please call to reschedule. ) Regan Adan DO [Primary Care Provider] - 11/13/20 8:40 am Disposition Disposition (needs filled in before D/C Order can be placed): Home, Self Care Charges/Coding Visit Charges Inpatient E&M: 72108 Disch Hosp Hospital Course Consultations Consultations: Consultations 11/04/20 19:01 Consult: Refinery Operator Assistant / Pulmonary Medicine Routine Consulting Provider: Zbigniew Romo Reason for Consult: COPD exacerbation, several episodes over the last several weeks. EMERGENT Consult: No MD Notified: Yes Date Notified: 11/04/20 Time Notified: 17:16 Method of Notification: Text Operations None
[2020-11-07] MEDS: Aspirin E.C. 81 MG Tablet PO (10:32)
[2020-11-07] MEDS: Insulin Lispro 100 UNIT/ML INSULN.PEN 12 UNIT SC (10:36)
[2020-11-07] MEDS: Losartan Potassium 25 MG Tablet PO (10:38)
[2020-11-07] MEDS: Enoxaparin 40 MG/0.4 ML Syringe SC (10:39)
[2020-11-07] MEDS: Furosemide 40 MG Tablet PO (10:39)
[2020-11-07] MEDS: Metoprolol(XL)Succ 50 MG Tablet 150 MG PO (10:39)
[2020-11-07] MEDS: Azithromycin 250 MG Tablet 500 MG PO (10:40)
[2020-11-07] MEDS: Insulin Lispro 100 UNIT/ML INSULN.PEN 10 UNIT SC (10:40)
--- NOTE | 2020-11-07 10:53 | CASEMGMT ---
Per Tatiana ANDERSON, pt does not qualify for increased home oxygen, he is fine on his 2Lnc at this time. Pt is not homebound and declines need for any further resources. Per palliative, they will f/u with pt but unlikely follow pt d/t severe non-compliance and aggressive behavior. Brown ANDERSON CM
[2020-11-07 11:00] LABS: Bedside Glucose 423 mg/dL (70-110)
--- NOTE | 2020-11-07 11:55 | PHA.DC.MR ---
Pharmacy Service has performed discharge medication reconciliation for this patient. The patient's discharge medication list was reviewed for discrepancies and discrepancies were resolved. Home Medications albuterol sulfate [Ventolin HFA] 2 puff INHALATION Q4H PRN PRN 09/15/20 ipratropium bromide 3 ml INHALATION TID PRN 09/15/20 losartan 25 mg PO DAILY 09/15/20 metoprolol succinate 50 mg PO TID 09/15/20 glimepiride 1 mg PO BREAKFAST #30 tab 10/29/20 Spiriva Respimat 2 puff INHALATION DAILY #4 g 11/07/20 azithromycin 500 mg PO Q24 #2 tab 11/07/20 budesonide-formoterol [Symbicort] 2 puff INHALATION BID #10.2 g 11/07/20 furosemide 40 mg PO DAILY #30 tab 11/07/20 prednisone See Taper PO DAILY #30 tab 11/07/20
--- NOTE | 2020-11-07 16:00 | NURSING ---
Patient refused VS collection at discharge. Patient chewing on end of Oxygen tubing. This RN attempted to direct the patient to place nasal cannula in nares. Patient refused. Patient discharged home needing 2L of Oxygen to maintain O2 saturation at 90 or greater. Patient states I only need oxygen at night, I have done this for 10 years. I do not need oxygen during the day. Patient given discharge instructions. Portable oxygen to be delivered to patient home per rn case mgr. This RN inquired if someone was bringing the patient's portable oxygen to him for the trip home. Patient repeated I only need oxygen at night, I have done this for 10 years. I do not need oxygen during the day. I will be fine for the drive home. I can use my oxygen there. Patient demanded the [employer] OFFICER escort him to the main lobby to wait for his ride without oxygen intact. [employer] OFFICER assisted patient to main lobby via wheelchair.
--- NOTE | 2020-11-07 17:45 | NURSING ---
Charge nurse placed call to [facility] to inquire about portable oxygen tank. Messaged left. Waiting return call.
--- NOTE | 2020-11-07 17:53 | NURSING ---
Patient in lobby waiting for ride. LINE DRIVER called unit to inform this RN that the patient was short of breath and she inquired about his oxygen tank. The patient was encouraged to come back to the unit with the LINE DRIVER to wait for his ride home, and apply NC. Patient refused to return to unit; Patient refused this RN and artificial flowers starcher's attempt to contact someone to bring him portable oxygen. Patient uncooperative. Patient refused to return to the unit and states I am going home.
--- NOTE | 2020-11-10 14:14 | CASEMGMT ---
MONICA SCHNEIDER Discharge Follow-up Phone Call: ANIKET: 15 Strata: 4 Call Date: 11/10/20 Discharge Date: 11/07/20 Time of Call: 1415 Duration: 1 min Admitting Diagnosis: COPD/CHF exacerbation MONICA SCHNEIDER attempted to complete follow-up phone call after recent hospitalization. No answer, voice message placed with return contact information.
== END 2020-11-07 16:02 | disposition home or self-care (01) | DRG 190 ==
LOC: ED 16:33 → PCU 17:36
PROVIDERS: Nurse Practitioner Family; Physician Assistant; Admitting Provider Family Medicine; Emergency Provider Emergency Medicine; PCP Family Medicine; Visit Provider Internal Medicine
DX: J44.1 Chronic obstructive pulmonary disease with (acute) exacerbation (principal); J96.21 Acute and chronic respiratory failure with hypoxia; I50.33 Acute on chronic diastolic (congestive) heart failure; J96.22 Acute and chronic respiratory failure with hypercapnia; I47.1 Supraventricular tachycardia; I11.0 Hypertensive heart disease with heart failure; R91.1 Solitary pulmonary nodule; E11.9 Type 2 diabetes mellitus without complications; E66.9 Obesity, unspecified; Z68.31 Body mass index [BMI] 31.0-31.9, adult; E78.5 Hyperlipidemia, unspecified; Z99.81 Dependence on supplemental oxygen; Z79.84 Long term (current) use of oral hypoglycemic drugs; Z79.899 Other long term (current) drug therapy; Z91.14 Patient's other noncompliance with medication regimen; F17.210 Nicotine dependence, cigarettes, uncomplicated
CPT/HCPCS: 36415; 36600; 71045; 80048; 80053; 80061; 82803; 82962; 83735; 83880; 84145; 84443; 84484; 85025; 87426; 87633; 93005; 94002; 94003; 94640; 99251; 99283; A4216; G0463; J1940

== ENCOUNTER 2020-12-04 19:27 | Inpatient (IN) | payer MEDICARE, MEDICAID, SELFPAY ==
[2020-12-04] VITALS (9 sets, daily range): BP systolic 109–133; BP diastolic 71–85; PULSE 91–113; RESP 20–39; TEMP 36.6–36.9; O2SAT 96–98; BMI 24.3; BMI 29.8
--- NOTE | 2020-12-04 20:00 | EKG12_ITS ---
Test Reason : SOB Blood Pressure : / mmHG Vent. Rate : 108 BPM Atrial Rate : 108 BPM P-R Int : 162 ms QRS Dur : 090 ms QT Int : 354 ms P-R-T Axes : 074 -10 059 degrees QTc Int : 474 ms Sinus tachycardia Low voltage QRS (Limb Leads) Confirmed by STEPHAN HAYES, PARISH ([id number]), deputy editor in chief JOEL FUENTES ([id number]) on 12/08/2020 11:44:12 AM Referred By: JOSE L Confirmed By:PARISH ROTHMAN MD
[2020-12-04 20:14] LABS: Absolute Lymphocyte Count 1.96 X10^3/uL (0.83-4.51); Absolute Neutrophil Count 6.4 X10^3/uL (2.0-7.7); Basophil# 0.03 X10^3/uL; Basophil% 0.3 % (0-1); Eosinophil# 0.06 X10^3/uL; Eosinophils% 0.6 % (0-5); Hematocrit 44.5 % (40-54); Hemoglobin 13.6 g/dL (13.0-16.5); Lymphocyte # 1.96 X10^3/ul (0.83-4.51); Lymphocyte % 21.1 % (19-41); Mean Corp Hgb Conc 30.6 g/dL (32-36); Mean Corpuscular Hgb 30.2 pg (27.0-32.0); Mean Corpuscular Volume 98.7 fL (80-94); Mean Platelet Vol. 11.3 fl (6.2-12.0); Monocyte# 0.73 X10^3/uL; Monocyte% 7.9 % (0-10); NRBC Flagged by Analyzer 0 % (0-5); Neutrophil # 6.39 X10^3/uL (2.7-7.7); Platelet Count 204 K/mm3 (150-450); RBC Distribution Width CV 13.6 % (11.6-14.6); RBC Distribution Width SD 48.7 fl (35.1-43.9); Red Blood Count 4.51 M/mm3 (4.6-6.2); White Blood Count 9.3 K/mm3 (4.4-11.0)
[2020-12-04] MEDS: Ipratropium/Albuterol Sulfate 3 ML AMPUL.NEB INHALATION (20:16)
[2020-12-04 20:34] LABS: Anion Gap 4 (5-15); BUN 9 mg/dL (7-18); BUN/Creat Ratio 8.4 RATIO (10-20); Calcium,Total 8.7 mg/dL (8.5-10.1); Chloride 93 mmol/L (98-107); Creatinine, Serum 1.07 mg/dL (0.70-1.30); EST Glomerular Filtration Rate 74 mL/min (>60); Est Glom Filt Rate - Afr Amer 89 mL/min (>60); Estimated Creatinine Clearance 72.33 ml/min; Glucose 363 mg/dL (74-106); Potassium 3.7 mmol/L (3.5-5.1); Sodium Level 137 mmol/L (136-145); Troponin-I HS 15 pg/mL (3.0-78.0)
--- NOTE | 2020-12-04 20:38 | RAD_ITS ---
INDICATION: SOB EXAMINATION/TECHNIQUE: X-RAY - XR Chest 1 View COMPARISON: CT chest dated 09/30/2020 and chest x-ray 11/04/2020 FINDINGS: LINES/DEVICES: None. LUNGS: Significant upper lobe emphysema exemplified. Left upper lobe slightly nodular scarlike opacity is again demonstrated. No pneumothorax. No consolidation. No pleural effusion. MEDIASTINUM AND CARDIOVASCULAR STRUCTURES: Cardiac silhouette not enlarged. Central airways and mediastinal contour are unremarkable. Aortic arch intimal calcifications. BONES AND SOFT TISSUES: Unremarkable. RAD/Chest 1 View (Portable) IMPRESSION: Advanced emphysematous changes upper lobes without appreciable change compared to prior imaging. Electronically Signed: Angus Poon DO at 21:11 EDT Tel , Service support ,
[2020-12-04 21:05] LABS: Lactic Acid 1.1 mmol/L (0.4-1.9)
[2020-12-04] MEDS: Albuterol 2.5 MG/3 ML VIAL.NEB. INHALATION ×3 (21:09)
--- NOTE | 2020-12-04 22:54 | ED.VIS.DYS ---
HPI History of Present Illness Chief Complaint: Shortness of Breath Narrative Narrative: Patient presenting secondary to shortness of breath. Patient has an underlying history of COPD. Patient states that he chronically is short of breath, he typically is supposed to be on 3 L at night. Patient states that his shortness of breath got worse, and he required to be on his oxygen continuously. He denies chest pain. He does report that he has new productive cough productive of yellowish sputum. Denies any fevers associated with this. Patient states that his home inhalers were not helping. Review of systems otherwise negative. PFSH PFSH Medical History Atrial tachycardia Congestive heart failure (CHF) COPD (chronic obstructive pulmonary disease) Diabetes Former smoker Hearing loss, left Hearing loss, right Hypertension Hypoxia Hypoxia Nonadherence to medication On home oxygen therapy Smoker Home Medications albuterol sulfate [Ventolin HFA] 2 puff INHALATION Q4H PRN PRN 09/15/20 [History Last Taken 12/04/20] ipratropium bromide 3 ml INHALATION TID PRN 09/15/20 [History Last Taken 12/04/20] losartan 25 mg PO DAILY 09/15/20 [History Last Taken 12/04/20] Spiriva Respimat 2 puff INHALATION DAILY #4 g 11/07/20 [Rx Last Taken 12/04/20] furosemide 40 mg PO DAILY #30 tab 11/07/20 [Rx Last Taken 12/02/20] metoprolol succinate 150 mg PO DAILY #90 tab 11/07/20 [Rx Last Taken 12/04/20] fluticasone furoate-vilanterol [Breo Ellipta] 1 ea INHALATION DAILY 12/04/20 [History Last Taken 12/05/20] glimepiride 1 mg PO BREAKFAST 12/05/20 [History Last Taken 12/04/20] Allergy/AdvReac Type Severity Reaction Status Date / Time No Known Allergies Allergy Verified 12/04/20 23:56 Family History Mother Rheumatoid arthritis Chronic back pain Father Unknown family medical history Patient is unaware of any paternal family medical history to include diabetes, hypertension, CAD, ACS or CVA due to patient not knowing his father. Surgical History Hx of inguinal hernia surgery Social History household members: family and children Smoking Status: Former smoker quit date: 09/04/20 pack-years: 30 how long ago did patient quit smokin months ago alcohol intake: former substance use type: marijuana ROS ROS ED Constitutional Constitutional ED: Denies chills or fever(s) ENT ENT ED: Denies rhinorrhea Cardiovascular Cardiovascular: Denies chest pain Respiratory/Chest Respiratory/Chest: Reports cough, dyspnea and sputum Gastrointestinal Gastrointestinal: Denies abdominal pain, diarrhea, nausea or vomiting Genitourinary Genitourinary ED: Denies dysuria or hematuria Musculoskeletal Musculoskeletal: Denies back pain Integumentary Denies rash Neurologic Neurologic: Denies paresthesias or weakness Psychiatric Psychiatric: Denies depression Endocrine Endocrinology: Denies fatigue Allergic/Immunologic Allergic/Immunologic ED: Denies urticaria EXAM Physical Exam Const Vital Signs: 12/04/20 19:29 12/04/20 20:33 12/04/20 20:35 Temperature 98.5 F 98 F Temperature Source Temporal Temporal Pulse Rate 113 H 104 H 103 H Respiratory Rate 39 H 24 H 23 H Respiratory Effort Respiratory Depth Respiratory Pattern Blood Pressure 133/85 H 109/71 112/73 Blood Pressure Mean 101 83 86 Pulse Ox 98 97 97 Oxygen Delivery Method Nasal Cannula Nasal Cannula Nasal Cannula Oxygen Flow Rate (L/min) 4 4 12/04/20 20:59 12/04/20 21:00 12/04/20 21:08 Temperature 98.2 F Temperature Source Temporal Pulse Rate 113 H 107 H Respiratory Rate 24 H 21 H Respiratory Effort Short of Breath Labored Accessory Muscle Use Respiratory Depth Shallow Respiratory Pattern Tachypnea Tachypnea Blood Pressure 109/71 Blood Pressure Mean 83 Pulse Ox 97 Oxygen Delivery Method Nasal Cannula Nasal Cannula Oxygen Flow Rate (L/min) 4 4 12/04/20 22:50 Temperature Temperature Source Pulse Rate 94 Respiratory Rate 24 H Respiratory Effort Respiratory Depth Respiratory Pattern Blood Pressure 122/74 H Blood Pressure Mean 90 Pulse Ox 96 Oxygen Delivery Method Nasal Cannula Oxygen Flow Rate (L/min) 4 Positive well nourished and well developed Constitutional Narrative: Mild respiratory distress General Appearance ED: well developed HEENT Reports moist mucous membranes Negative for trauma or tenderness Eyes EOMs intact bilaterally Neck no lymphadenopathy, supple and no JVD Chest Wall inspection of chest normal Resp Resp Narrative: Tachypnea with very decreased air movement with wheezes noted throughout the lung rosas. Prolonged expiratory phase noted. Patient is speaking in around 5 word sentences Cardio regular rhythm, no murmurs and peripheral pulses 2+ throughout Rate: tachycardic GI normal to inspection, nondistended, normoactive bowel sounds, non-tender and no masses Palpation: soft Back/Spine normal to inspection Extremity normal to inspection General Extremety ED: Negative for tenderness Neuro oriented x3 and no sensory deficits noted Sensorium / Orientation: alert Motor Exam: strength 5/5 throughout Psych mental status grossly normal Skin no rashes or lesions noted MDM MDM MDM Narrative Medical decision making narrative: Patient presented secondary to a COPD exacerbation. He was saturating reasonably well on nasal cannula, but did have evidence of very poor air movement. He was given breathing treatments in the emergency department. Chest x-ray by my personal review as well as radiology shows very severe emphysematous changes but no lateralizing infiltrates. CBC shows no leukocytosis, chemistry was remarkable for carbon dioxide of 40. Lactic acid was normal troponin was found to be negative. Patient EKG was also unremarkable. Patient continues to have tachypnea and poor air movement and he desaturates with ambulation. I believe the patient requires admission. Patient was given steroids, given his new onset of productive sputum I did give the patient a dose of azithromycin as well. Patient will be admitted to the hospitalist. Lab Data Labs: Laboratory Results - last 24 hr 12/04/20 12/04/20 12/04/20 19:35 19:35 20:30 WBC 9.3 RBC 4.51 L Hgb 13.6 Hct 44.5 MCV 98.7 H MCH 30.2 MCHC 30.6 L RDW Std Deviation 48.7 H RDW Coeff of Patricia 13.6 Plt Count 204 MPV 11.3 Immature Gran % (Auto) 1.100 H Neut % (Auto) 69.0 Lymph % (Auto) 21.1 Bowie % (Auto) 7.9 Eos % (Auto) 0.6 Baso % (Auto) 0.3 Absolute Neuts (auto) 6.4 Absolute Lymphs (auto) 1.96 Nucleated RBC % 0 Sodium 137 Potassium 3.7 Chloride 93 L Carbon Dioxide 40.0 H Anion Gap 4 L BUN 9 Creatinine 1.07 Estim Creat Clear Calc 72.33 Est GFR (MDRD) Af Amer 89 Est GFR (MDRD) Non-Af 74 BUN/Creatinine Ratio 8.4 L Glucose 363 H Lactic Acid 1.1 Calcium 8.7 Troponin I High Sens 15 Radiography Diagnostic Testing: Radiology Impression Chest X-Ray 12/04/20 20:38 IMPRESSION: Advanced emphysematous changes upper lobes without appreciable change compared to prior imaging. Electronically Signed: Angus Poon, DO at 21:11 EDT Tel , Service support , EKG Initial EKG: Attestation: I personally reviewed and interpreted this EKG as follows: (Sinus tachycardia with a rate of 108, isoelectric ST segments normal T waves no evidence of acute ischemia or arrhythmia) Critical Care Time Critical care time (excluding procedures): 30-74 minutes (42), Including time spent:, Discussing w/Patient &/or Family/Plumber Pipe Fitting, Discussing w/Consultants, Arranging Admission or Transfer and Performing Direct Patient Care at Bedside Discharge Plan Dx/Rx/DC Orders Clinical Impression: Acute exacerbation of chronic obstructive pulmonary disease (COPD), Respiratory failure Disposition Disposition: Acute Care [facility]
[2020-12-04] MEDS: predniSONE 20 MG Tablet 60 MG PO (23:04)
--- NOTE | 2020-12-04 23:04 | PCM.HP.STD ---
Documented by User: MORENITA Greene 12/04/20 23:21 HPI - General General Date of Admission: 12/04/20 Date of Service: 12/04/20 Chief Complaint: Shortness of breath HPI Narrative ANGUS APONTE, is a 65 M who presents with c/o increased shortness of breathover the past three days. Patient has a history of COPD, HTN, DMII. Patient reports his oxygen tanks ran out. patient also reports increased sputum production that is yellow and thick. pt denies fever, chills, chest pain, nausea, vomiting. PFSH Medical History Atrial tachycardia Congestive heart failure (CHF) COPD (chronic obstructive pulmonary disease) Diabetes Former smoker Hearing loss, left Hearing loss, right Hypertension Hypoxia Hypoxia Nonadherence to medication On home oxygen therapy Smoker Home Medications albuterol sulfate [Ventolin HFA] 2 puff INHALATION Q4H PRN PRN 09/15/20 [History Last Taken 12/04/20] ipratropium bromide 3 ml INHALATION TID PRN 09/15/20 [History Last Taken 12/04/20] losartan 25 mg PO DAILY 09/15/20 [History Last Taken 12/04/20] Spiriva Respimat 2 puff INHALATION DAILY #4 g 11/07/20 [Rx Last Taken 12/04/20] furosemide 40 mg PO DAILY #30 tab 11/07/20 [Rx Last Taken 12/02/20] metoprolol succinate 150 mg PO DAILY #90 tab 11/07/20 [Rx Last Taken 12/04/20] fluticasone furoate-vilanterol [Breo Ellipta] 1 ea INHALATION DAILY 12/04/20 [History Last Taken 12/05/20] glimepiride 1 mg PO BREAKFAST 12/05/20 [History Last Taken 12/04/20] nystatin-triamcinolone 1 applic TOPICAL DAILY 12/05/20 [History Last Taken 12/04/20] Allergy/AdvReac Type Severity Reaction Status Date / Time No Known Allergies Allergy Verified 12/04/20 23:56 Family History Mother Rheumatoid arthritis Chronic back pain Father Unknown family medical history Patient is unaware of any paternal family medical history to include diabetes, hypertension, CAD, ACS or CVA due to patient not knowing his father. Surgical History Hx of inguinal hernia surgery Social History household members: family and children Smoking Status: Former smoker quit date: 09/04/20 pack-years: 30 how long ago did patient quit smokin months ago alcohol intake: former substance use type: marijuana ROS Constitutional Constitutional: Denies anorexia, chills, fatigue, fever(s), malaise or weakness Cardiovascular Cardiovascular: Denies chest pain, edema or palpitations Respiratory/Chest Respiratory/Chest: Reports cough, portable oxygen @ home, productive cough, shortness of breath at rest, shortness of breath with exertion, tachypnea and wheezing Gastrointestinal Gastrointestinal: Denies abdominal pain, constipation, diarrhea, nausea or vomiting Genitourinary Genitourinary: Denies dysuria Musculoskeletal Musculoskeletal: Denies back pain, extremity pain, joint pain or joint stiffness Integumentary Integumentary: Denies dry skin Neurologic Neurologic: Denies abnormal gait, abnormal speech, confusion or dizziness Psychiatric Psychiatric: Denies anxiety or depression Endocrine Endocrinology: Denies change in body appearance Hematologic/Lymphatic Hematologic/Lymphatic: Denies anemia, easy bleeding or easy bruising Vital Signs Vital Signs Vital Signs: 12/04/20 19:29 12/04/20 20:33 12/04/20 20:35 Temperature 98.5 F 98 F Temperature Source Temporal Temporal Pulse Rate 113 H 104 H 103 H Respiratory Rate 39 H 24 H 23 H Respiratory Effort Respiratory Depth Respiratory Pattern Blood Pressure 133/85 H 109/71 112/73 Blood Pressure Mean 101 83 86 Pulse Ox 98 97 97 Oxygen Delivery Method Nasal Cannula Nasal Cannula Nasal Cannula Oxygen Flow Rate (L/min) 4 4 12/04/20 20:59 12/04/20 21:00 12/04/20 21:08 Temperature 98.2 F Temperature Source Temporal Pulse Rate 113 H 107 H Respiratory Rate 24 H 21 H Respiratory Effort Short of Breath Labored Accessory Muscle Use Respiratory Depth Shallow Respiratory Pattern Tachypnea Tachypnea Blood Pressure 109/71 Blood Pressure Mean 83 Pulse Ox 97 Oxygen Delivery Method Nasal Cannula Nasal Cannula Oxygen Flow Rate (L/min) 4 4 12/04/20 22:50 Temperature Temperature Source Pulse Rate 94 Respiratory Rate 24 H Respiratory Effort Respiratory Depth Respiratory Pattern Blood Pressure 122/74 H Blood Pressure Mean 90 Pulse Ox 96 Oxygen Delivery Method Nasal Cannula Oxygen Flow Rate (L/min) 4 Weight Weight: 174 lb 2.643 oz Body Mass Index (BMI) 24.3 Physical Exam Const alert, oriented x3 and no apparent distress General Appearance: cooperative HEENT normocephalic and head/scalp atraumatic Eyes conjunctivae normal and no scleral icterus Neck supple and no JVD General: trachea midline Resp normal respiratory effort Effort and Inspection: tachypneic Auscultation: wheezes expiratory wheezes Cardio regular rate, regular rhythm, S1 normal heart sound, S2 normal heart sound and peripheral pulses 2+ throughout GI normal to inspection, nondistended, normoactive bowel sounds, soft to palpation and non-tender Extremity normal capillary refill and no clubbing, cyanosis or edema General Extremity: no tenderness to palpation of joints or extremities Skin General Skin Exam: no breakdown and turgor normal Lesions: no lesions Rashes: no rashes Neuro no focal motor deficits and no sensory deficits noted Speech: speech normal Motor Exam: Negative for general weakness Psych thought process normal, cooperative and affect normal Appearance: appropriate Results Lab / Micro Data Result Diagrams: 12/04/20 19:35 12/04/20 19:35 Labs: Laboratory Results - last 24 hr 12/04/20 19:35: WBC 9.3, RBC 4.51 L, Hgb 13.6, Hct 44.5, MCV 98.7 H, MCH 30.2, MCHC 30.6 L, RDW Std Deviation 48.7 H, RDW Coeff of Patricia 13.6, Plt Count 204, MPV 11.3, Immature Gran % (Auto) 1.100 H, Neut % (Auto) 69.0, Lymph % (Auto) 21.1, [place] % (Auto) 7.9, Eos % (Auto) 0.6, Baso % (Auto) 0.3, Absolute Neuts (auto) 6.4, Absolute Lymphs (auto) 1.96, Nucleated RBC % 0 12/04/20 19:35: Sodium 137, Potassium 3.7, Chloride 93 L, Carbon Dioxide 40.0 H, Anion Gap 4 L, BUN 9, Creatinine 1.07, Estim Creat Clear Calc 72.33, Est GFR (MDRD) Af Amer 89, Est GFR (MDRD) Non-Af 74, BUN/Creatinine Ratio 8.4 L, Glucose 363 H, Calcium 8.7, Troponin I High Sens 15 12/04/20 20:30: Lactic Acid 1.1 Micro: Microbiology 12/04/20 20:25 Nasal Secretion SARS-CoV-2 Antigen (Rapid) - Final Radiology Impression Chest X-Ray 12/04/20 20:38 IMPRESSION: Advanced emphysematous changes upper lobes without appreciable change compared to prior imaging. Electronically Signed: Angus DO Cleve at 21:11 EDT Tel , Service support , Assessment & Plan Assessment/Plan (1) Acute exacerbation of chronic obstructive pulmonary disease (COPD): PLAN: 1. Acute exacerbation of chronic obstructive pulmonary disease -Admit to Med Surg -Encourage incentive spirometry -PRN albuterol aerosols and scheduled duoneb treatments ordered -PO prednisone 40mg daily -Azithromycin initiated in ER, will continue -Hold symbicort, spiriva -CBC, BMP daily 2. Hypertension -Continued home medication regimen -Vital signs per protocol, stable at this time 3. Diabetes mellitus type 2 -Hold glimepiride -ACHS blood sugars with sliding scale insulin ordered. DVT prophylaxis-SQ lovenox This patient was seen by CARYN GreeneC under the supervision of Dr. Roe. Documented by User: Dr. Tk Roe MD 12/05/20 02:47 HPI - General General Date of Admission: 12/04/20 PFSH Medical History Atrial tachycardia Congestive heart failure (CHF) COPD (chronic obstructive pulmonary disease) Diabetes Former smoker Hearing loss, left Hearing loss, right Hypertension Hypoxia Hypoxia Nonadherence to medication On home oxygen therapy Smoker Home Medications albuterol sulfate [Ventolin HFA] 2 puff INHALATION Q4H PRN PRN 09/15/20 [History Last Taken 12/04/20] ipratropium bromide 3 ml INHALATION TID PRN 09/15/20 [History Last Taken 12/04/20] losartan 25 mg PO DAILY 09/15/20 [History Last Taken 12/04/20] Spiriva Respimat 2 puff INHALATION DAILY #4 g 11/07/20 [Rx Last Taken 12/04/20] furosemide 40 mg PO DAILY #30 tab 11/07/20 [Rx Last Taken 12/02/20] metoprolol succinate 150 mg PO DAILY #90 tab 11/07/20 [Rx Last Taken 12/04/20] fluticasone furoate-vilanterol [Breo Ellipta] 1 ea INHALATION DAILY 12/04/20 [History Last Taken 12/05/20] glimepiride 1 mg PO BREAKFAST 12/05/20 [History Last Taken 12/04/20] nystatin-triamcinolone 1 applic TOPICAL DAILY 12/05/20 [History Last Taken 12/04/20] Allergy/AdvReac Type Severity Reaction Status Date / Time No Known Allergies Allergy Verified 12/04/20 23:56 Family History Mother Rheumatoid arthritis Chronic back pain Father Unknown family medical history Patient is unaware of any paternal family medical history to include diabetes, hypertension, CAD, ACS or CVA due to patient not knowing his father. Surgical History Hx of inguinal hernia surgery Social History household members: family and children Smoking Status: Former smoker quit date: 09/04/20 pack-years: 30 how long ago did patient quit smokin months ago alcohol intake: former substance use type: marijuana Results Lab / Micro Data Result Diagrams: 12/04/20 19:35 12/04/20 19:35 Charges/Coding Addendum Addendum: Dr. Roe: I personally reviewed the chart and examined the patient, and agree with the above findings. 65-year-old male with history of COPD presents to the hospital with shortness of breath for the last 3 days. He was found to have worsening emphysema on chest x-ray and and physical exam findings consistent with COPD exacerbation. Of note he has had similar recent episodes, says it is secondary to the humidity. He normally only wears oxygen at night. We will plan for oral steroids and will obtain a sputum culture and start him on Levaquin for coverage given his sputum production. Will likely need continuous home O2 on discharge. Visit Charges Inpatient E&M: 58000 Init Hosp L3
[2020-12-05] VITALS (10 sets, daily range): BP systolic 111–124; BP diastolic 58–82; PULSE 104–115; RESP 18–20; TEMP 36.4–37; O2SAT 95–99
[2020-12-05] MEDS: Insulin Lispro 100 UNIT/ML INSULN.PEN SC ×4 (00:23→21:14)
[2020-12-05 00:30] LABS: Bedside Glucose 320 mg/dL (70-110)
[2020-12-05] MEDS: levoFLOXacin 500 MG Tablet PO (06:38)
[2020-12-05 06:42] LABS: Absolute Lymphocyte Count 0.86 X10^3/uL (0.83-4.51); Absolute Neutrophil Count 5.4 X10^3/uL (2.0-7.7); Basophil# 0.03 X10^3/uL; Basophil% 0.5 % (0-1); Hematocrit 41.8 % (40-54); Hemoglobin 13.1 g/dL (13.0-16.5); Lymphocyte # 0.86 X10^3/ul (0.83-4.51); Mean Corp Hgb Conc 31.3 g/dL (32-36); Mean Corpuscular Hgb 30.3 pg (27.0-32.0); Mean Corpuscular Volume 96.5 fL (80-94); Mean Platelet Vol. 10.6 fl (6.2-12.0); Monocyte# 0.17 X10^3/uL; Monocyte% 2.6 % (0-10); NRBC Flagged by Analyzer 0 % (0-5); Neutrophil # 5.43 X10^3/uL (2.7-7.7); Neutrophil % 81.9 % (47-70); Platelet Count 175 K/mm3 (150-450); RBC Distribution Width CV 13.4 % (11.6-14.6); RBC Distribution Width SD 47.6 fl (35.1-43.9); Red Blood Count 4.33 M/mm3 (4.6-6.2); White Blood Count 6.6 K/mm3 (4.4-11.0)
[2020-12-05 06:51] LABS: Bedside Glucose 282 mg/dL (70-110)
[2020-12-05 07:07] LABS: Anion Gap 4 (5-15); BUN 7 mg/dL (7-18); BUN/Creat Ratio 7.5 RATIO (10-20); Calcium,Total 8.7 mg/dL (8.5-10.1); Chloride 95 mmol/L (98-107); Creatinine, Serum 0.94 mg/dL (0.70-1.30); EST Glomerular Filtration Rate 86 mL/min (>60); Est Glom Filt Rate - Afr Amer 104 mL/min (>60); Estimated Creatinine Clearance 82.33 ml/min; Glucose 267 mg/dL (74-106); Potassium 4.4 mmol/L (3.5-5.1); Sodium Level 135 mmol/L (136-145)
[2020-12-05] MEDS: Ipratropium/Albuterol Sulfate 3 ML AMPUL.NEB INHALATION ×4 (07:16→19:10)
[2020-12-05] MEDS: predniSONE 20 MG Tablet 40 MG PO (07:54)
[2020-12-05] MEDS: Losartan Potassium 25 MG Tablet PO (07:54)
[2020-12-05] MEDS: Furosemide 40 MG Tablet PO (07:54)
[2020-12-05] MEDS: Enoxaparin 40 MG/0.4 ML Syringe SC (07:54)
[2020-12-05] MEDS: Metoprolol(XL)Succ 50 MG Tablet 150 MG PO (07:55)
[2020-12-05] MEDS: Glucerna Shake 120 ML LIQUID PO (07:58)
--- NOTE | 2020-12-05 13:00 | CASEMGMT ---
RN CM in to pt room to discuss dc planning. Pt states he only wears his O2 at hs at 3-4 L. Asked pt if he is aware that he qualified for 2L continuous during last admission. At first pt states he did not, but then stated he knew he should be and will from now on because he wants to live. Pt states he gets out and about often and he was out and his portable ran out. He states he has since gotten more tanks. Pt does have a pulse ox at home. Pt reports he did follow up with his PCP Dr. Adan after his last hospitalization. Pt states he does check his blood sugar and he is all set but just needs more strips. He is unaware of the type of machine he has. Pt has not had his appt yet with this pulm yet but is scheduled. When discussing pt admissions with him, one in September, two in October and the current one he states that on hot humid days is when he cannot breathe. Pt does not feel he needs a nurse to check on him. He states he is not homebound and wants to be out to enjoy the fall weather. Pt states Palliative has not seen him. He would be agreeable to it. No order received from . Pt did meet criteria with the [facility] Palliative Screening Tool. Pt denies any further needs. TC to Dr. Adan's office, spoke with Venessa. They will call in strips for pt BGM to the pharmacy.
[2020-12-05 16:25] LABS: Bedside Glucose 419 mg/dL (70-110)
[2020-12-05 16:30] LABS: Bedside Glucose 472 mg/dL (70-110)
[2020-12-05] MEDS: Insulin Lispro 100 UNIT/ML INSULN.PEN 15 UNIT SC (18:29)
[2020-12-05 19:40] LABS: Hemoglobin A1c 9.7 % (3.8-5.6)
--- NOTE | 2020-12-05 20:07 | PN.HOSP_ITS ---
Subjective Subjective Patient was seen and examined today, he is currently on 4 L nasal cannula O2 at rest. Case management talked with me about the patient's care today and states that the patient is supposed to be on 3 L nasal cannula oxygen at home continuously but he is not compliant with this. I have noted today that the patient's blood sugars have been high, I obtained an hemoglobin A1c which was highly elevated. Patient denies any fevers or chills today. Objective Data Objective Data Vital Signs: Vital Signs Temp Pulse Resp BP Pulse Ox 98.6 F 109 H 20 H 111/73 95 12/05/20 14:25 12/05/20 19:10 12/05/20 19:10 12/05/20 14:25 12/05/20 14:25 Oxygen Flow Rate (L/min) 4 Oxygen Delivery Method Nasal Cannula Weight: 97 kg Body Mass Index (BMI) 29.8 Intake & Output: Intake and Output for Last 24 Hours 12/03/20 12/04/20 12/05/20 23:59 23:59 23:59 Intake Total 1755 / 1755 Balance 1755 / 1755 Lab / Micro Data Result Diagrams: 12/05/20 06:12 12/05/20 06:12 Labs: Laboratory Results - last 24 hr 12/04/20 19:35: WBC 9.3, RBC 4.51 L, Hgb 13.6, Hct 44.5, MCV 98.7 H, MCH 30.2, MCHC 30.6 L, RDW Std Deviation 48.7 H, RDW Coeff of Patricia 13.6, Plt Count 204, MPV 11.3, Immature Gran % (Auto) 1.100 H, Neut % (Auto) 69.0, Lymph % (Auto) 21.1, [place] % (Auto) 7.9, Eos % (Auto) 0.6, Baso % (Auto) 0.3, Absolute Neuts (auto) 6.4, Absolute Lymphs (auto) 1.96, Nucleated RBC % 0 12/04/20 19:35: Sodium 137, Potassium 3.7, Chloride 93 L, Carbon Dioxide 40.0 H, Anion Gap 4 L, BUN 9, Creatinine 1.07, Estim Creat Clear Calc 72.33, Est GFR (MDRD) Af Amer 89, Est GFR (MDRD) Non-Af 74, BUN/Creatinine Ratio 8.4 L, Glucose 363 H, Calcium 8.7, Troponin I High Sens 15 12/04/20 20:30: Lactic Acid 1.1 12/05/20 00:22: POC Glucose 320 H 12/05/20 06:12: WBC 6.6, RBC 4.33 L, Hgb 13.1, Hct 41.8, MCV 96.5 H, MCH 30.3, MCHC 31.3 L, RDW Std Deviation 47.6 H, RDW Coeff of Patricia 13.4, Plt Count 175, MPV 10.6, Immature Gran % (Auto) 2.000 H, Neut % (Auto) 81.9 H, Lymph % (Auto) 13.0 L, [place] % (Auto) 2.6, Eos % (Auto) 0.0, Baso % (Auto) 0.5, Absolute Neuts (auto) 5.4, Absolute Lymphs (auto) 0.86, Nucleated RBC % 0 12/05/20 06:12: Sodium 135 L, Potassium 4.4, Chloride 95 L, Carbon Dioxide 36.0 H, Anion Gap 4 L, BUN 7, Creatinine 0.94, Estim Creat Clear Calc 82.33, Est GFR (MDRD) Af Amer 104, Est GFR (MDRD) Non-Af 86, BUN/Creatinine Ratio 7.5 L, Glucose 267 H, Calcium 8.7 12/05/20 06:40: POC Glucose 282 H 12/05/20 11:46: POC Glucose 419 H 12/05/20 16:26: POC Glucose 472 H* 12/05/20 18:45: Hemoglobin A1c 9.7 H Micro: Microbiology 12/04/20 20:25 Nasal Secretion SARS-CoV-2 Antigen (Rapid) - Final Radiography Diagnostic Testing: Radiology Impression Chest X-Ray 12/04/20 20:38 IMPRESSION: Advanced emphysematous changes upper lobes without appreciable change compared to prior imaging. Electronically Signed: Angus Poon DO at 21:11 EDT Tel , Service support , Physical Exam Const alert, oriented x3, no apparent distress and well nourished General Appearance: cooperative, well kempt and well developed Orientation / Consciousness: awake, oriented to person, oriented to place and oriented to time HEENT normocephalic, head/scalp atraumatic and moist oral mucous membranes Head and Scalp: normocephalic Eyes PERRL, EOMs intact bilaterally and conjunctivae normal Neck nuchal rigidity, supple, no JVD, thyroid normal and no carotid bruits General: trachea midline Resp normal respiratory effort, no retractions, no use of accessory muscles and clear to auscultation bilaterally Resp Narrative: Breath sounds are distant bilaterally Auscultation: Negative for rales, rhonchi or wheezes Cardio regular rate, regular rhythm, S1 normal heart sound, S2 normal heart sound, no murmurs, no rub and no gallops GI normal to inspection, nondistended, normoactive bowel sounds, soft to palpation, non-tender and non-distended Extremity no clubbing, cyanosis or edema Skin no rashes or lesions noted General Skin Exam: no breakdown Neuro oriented x3, CN's II-XII intact bilaterally, no focal motor deficits and no sensory deficits noted Sensorium / Orientation: awake and alert Speech: speech normal Psych thought process normal and affect normal Assessment & Plan Assessment/Plan (1) Acute exacerbation of chronic obstructive pulmonary disease (COPD): PLAN: 1. Acute exacerbation of COPD-continue present treatment at this time #2 acute on chronic hypoxic respiratory failure-oxygen will be weaned if possible, patient has oxygen at home currently but is noncompliant with its use. #3 uncontrolled type 2 diabetes-probably secondary to noncompliance, I have added basal insulin today, it is probable that the patient will need an adjustment of his home medications he is on for his type 2 diabetes. #4 essential hypertension #5 noncompliance with medical regimen Charges/Coding Visit Charges Inpatient E&M: 31714 Subs Hosp L2
[2020-12-05] MEDS: 0.9% Saline Lock 10 ML Syringe IV (21:14)
[2020-12-05 21:21] LABS: Bedside Glucose 244 mg/dL (70-110)
--- NOTE | 2020-12-05 23:27 | PCS.PANDOC ---
PANDEMIC DOCUMENTATION INITIATED: Date: 11/10/2020 Time: 190
[2020-12-06] VITALS (8 sets, daily range): BP systolic 107–124; BP diastolic 65–95; PULSE 80–104; RESP 18–20; TEMP 36.4–36.8; O2SAT 92–99
[2020-12-06] MEDS: levoFLOXacin 500 MG Tablet PO (06:58)
[2020-12-06] MEDS: Insulin Lispro 100 UNIT/ML INSULN.PEN SC ×4 (07:00→22:58)
[2020-12-06 07:06] LABS: Bedside Glucose 166 mg/dL (70-110)
[2020-12-06] MEDS: Metoprolol(XL)Succ 50 MG Tablet 150 MG PO (08:19)
[2020-12-06] MEDS: Furosemide 40 MG Tablet PO (08:19)
[2020-12-06] MEDS: predniSONE 20 MG Tablet 40 MG PO (08:20)
[2020-12-06] MEDS: Losartan Potassium 25 MG Tablet PO (08:20)
[2020-12-06] MEDS: Enoxaparin 40 MG/0.4 ML Syringe SC (08:21)
[2020-12-06 11:51] LABS: Bedside Glucose 244 mg/dL (70-110)
[2020-12-06] MEDS: Glimepiride 4 MG Tablet PO (15:57)
[2020-12-06] MEDS: metFORMIN HCl 500 MG Tablet PO (15:59)
[2020-12-06 17:55] LABS: Bedside Glucose 278 mg/dL (70-110)
--- NOTE | 2020-12-06 18:48 | PN.HOSP_ITS ---
Subjective Subjective Patient was seen and examined today, I had a 10 to 15-minute discussion with him today concerning his repeated admissions to the hospital, he denied he was told that he was supposed to use oxygen continuously although it is documented on his last 2 admissions that he was told to be on continuous oxygen on discharge from the hospital. Patient also did not seem to understand that his blood sugars were not under control, his A1c was elevated, he thought his last A1c was 7.7- I do not have any record of any old A1c's here in his chart. I have decided that since there is a continued documentation of the patient being noncompliant with medical treatment, I have decided to stop his insulin and place him on oral medication and stop his prednisone. Patient's supplemental oxygen setting at home will need to be reevaluated before he is discharged, I do not feel he is able be discharged at this time and I will reevaluate him for discharge on Tuesday and have case management make sure that he has the proper equipment for oxygen at home. Objective Data Objective Data Vital Signs: Vital Signs Temp Pulse Resp BP Pulse Ox 97.8 F 92 18 119/79 94 12/06/20 14:00 12/06/20 14:00 12/06/20 14:00 12/06/20 14:00 12/06/20 15:00 Oxygen Flow Rate (L/min) 6 Oxygen Delivery Method Nasal Cannula Weight: 97 kg Body Mass Index (BMI) 29.8 Intake & Output: Intake and Output for Last 24 Hours 12/04/20 12/05/20 12/06/20 23:59 23:59 23:59 Intake Total 1755 / 1755 Balance 1755 / 1755 Lab / Micro Data Result Diagrams: 12/05/20 06:12 12/05/20 06:12 Labs: Laboratory Results - last 24 hr 12/05/20 18:45: Hemoglobin A1c 9.7 H 12/05/20 21:13: POC Glucose 244 H 12/06/20 06:59: POC Glucose 166 H 12/06/20 11:37: POC Glucose 244 H 12/06/20 15:56: POC Glucose 278 H Micro: Microbiology 12/04/20 20:25 Nasal Secretion SARS-CoV-2 Antigen (Rapid) - Final Physical Exam Const alert, oriented x3, no apparent distress and healthy appearing General Appearance: cooperative, well kempt and well developed Orientation / Consciousness: awake, oriented to person, oriented to place and oriented to time HEENT normocephalic, head/scalp atraumatic and moist oral mucous membranes Head and Scalp: normocephalic Eyes PERRL, EOMs intact bilaterally and conjunctivae normal Neck nuchal rigidity, no lymphadenopathy, supple, no JVD, thyroid normal and no carotid bruits General: trachea midline Resp normal respiratory effort, no retractions, no use of accessory muscles and clear to auscultation bilaterally Resp Narrative: Breath sounds are distant bilaterally, there are no expiratory wheezes noted anywhere over his lung field Auscultation: Negative for rales, rhonchi or wheezes Cardio regular rate, regular rhythm, S1 normal heart sound, S2 normal heart sound, no murmurs, no rub and no gallops GI normal to inspection, nondistended, normoactive bowel sounds, soft to palpation, non-tender and non-distended Extremity normal to inspection and no clubbing, cyanosis or edema Skin no rashes or lesions noted General Skin Exam: no breakdown Neuro oriented x3, CN's II-XII intact bilaterally, no focal motor deficits and no sensory deficits noted Sensorium / Orientation: awake and alert Speech: speech normal Psych thought process normal and affect normal Assessment & Plan Assessment/Plan (1) Acute exacerbation of chronic obstructive pulmonary disease (COPD): PLAN: 1. Acute exacerbation of COPD-at this time patient is not wheezing and I do not feel he needs continued steroid administration in light of his increased blood sugars. He is to continue on aerosol treatments. #2 acute on chronic hypoxic respiratory failure-patient's supplemental oxygen setting will need to be determined at the time of his discharge which I believe will be Tuesday. #3 noncompliance with medical regimen-patient does not admit to this but it is documented over and over again in his medical record and I believe he has not telling me the truth when he states that he was not told to wear continuous O2. #4 essential hypertension #5 type 2 diabetes-at this time I decided to place the patient on Metformin and Amaryl, I have decided to continue sliding scale insulin coverage and stop his basal insulin. Charges/Coding Visit Charges Inpatient E&M: 68719 Subs Hosp L2
[2020-12-06] MEDS: Ipratropium/Albuterol Sulfate 3 ML AMPUL.NEB INHALATION (19:27)
[2020-12-06] MEDS: Sodium Chloride 0.65% 1 SPRAY SPRAY.BTL 2 SPRAY NASAL (23:01)
[2020-12-06 23:11] LABS: Bedside Glucose 157 mg/dL (70-110)
[2020-12-07] VITALS (7 sets, daily range): BP systolic 114–136; BP diastolic 82–96; PULSE 96–106; RESP 18–20; TEMP 36.4–36.8; O2SAT 96–100
[2020-12-07 06:26] LABS: Bedside Glucose 108 mg/dL (70-110)
[2020-12-07] MEDS: Metoprolol(XL)Succ 50 MG Tablet 150 MG PO (08:19)
[2020-12-07] MEDS: Enoxaparin 40 MG/0.4 ML Syringe SC (08:19)
[2020-12-07] MEDS: metFORMIN HCl 500 MG Tablet PO ×2 (08:20→16:43)
[2020-12-07] MEDS: Glimepiride 4 MG Tablet PO (08:20)
[2020-12-07] MEDS: Furosemide 40 MG Tablet PO (08:20)
[2020-12-07] MEDS: Losartan Potassium 25 MG Tablet PO (08:20)
--- NOTE | 2020-12-07 08:28 | PCS.PANDOC ---
PANDEMIC DOCUMENTATION INITIATED: Date: 12/04/20 Time: 8753
--- NOTE | 2020-12-07 08:28 | PCS.PANDOC ---
PANDEMIC DOCUMENTATION INITIATED: Date: 11/10/2020 Time: 190
[2020-12-07] MEDS: Insulin Lispro 100 UNIT/ML INSULN.PEN SC ×2 (12:43→22:05)
[2020-12-07 13:31] LABS: Bedside Glucose 299 mg/dL (70-110)
[2020-12-07 16:56] LABS: Bedside Glucose 132 mg/dL (70-110)
--- NOTE | 2020-12-07 18:06 | PCM.PN.HOSP ---
Subjective Subjective Patient was seen and examined today, he is required 5 L of O2 today to maintain his pulse ox. Patient appears comfortable at rest, his blood sugars are improved today on oral medication for diabetes. I talked briefly to nursing today, they state that the patient turns his oxygen setting up in his room if he feels he needs more oxygen. I think the patient has a very poor understanding of what to do with his oxygen at home also. Objective Data Objective Data Vital Signs: Vital Signs Temp Pulse Resp BP Pulse Ox 97.8 F 96 20 H 133/91 H 96 12/07/20 16:47 12/07/20 16:47 12/07/20 16:47 12/07/20 16:47 12/07/20 16:47 Oxygen Flow Rate (L/min) 5 Oxygen Delivery Method Nasal Cannula Weight: 97 kg Body Mass Index (BMI) 29.8 Intake & Output: Intake and Output for Last 24 Hours 12/05/20 12/06/20 12/07/20 23:59 23:59 23:59 Intake Total 1755 / 1755 Balance 1755 / 1755 Lab / Micro Data Result Diagrams: 12/05/20 06:12 12/05/20 06:12 Labs: Laboratory Results - last 24 hr 12/06/20 22:54: POC Glucose 157 H 12/07/20 06:15: POC Glucose 108 12/07/20 12:42: POC Glucose 299 H 12/07/20 16:41: POC Glucose 132 H Micro: Microbiology 12/04/20 20:55 Blood Culture (Wb) #2 - Left Hand Blood Culture - Preliminary No growth in 48 hours. 12/04/20 20:30 Blood Culture (Wb) - Anticubital Right Blood Culture - Preliminary No growth in 48 hours. 12/04/20 20:25 Nasal Secretion SARS-CoV-2 Antigen (Rapid) - Final Physical Exam Const alert, oriented x3, no apparent distress and average body habitus General Appearance: cooperative, well kempt and well developed Orientation / Consciousness: awake, oriented to person, oriented to place and oriented to time HEENT normocephalic, head/scalp atraumatic and moist oral mucous membranes Head and Scalp: normocephalic Eyes PERRL, EOMs intact bilaterally and conjunctivae normal Neck nuchal rigidity, supple, no JVD, thyroid normal and no carotid bruits General: trachea midline Resp normal respiratory effort, no retractions, no use of accessory muscles and clear to auscultation bilaterally Resp Narrative: Diminished breath sounds are noted bilaterally Auscultation: Negative for rales, rhonchi or wheezes Cardio regular rate, regular rhythm, S1 normal heart sound, S2 normal heart sound, no murmurs, no rub, no gallops and no clicks GI normal to inspection, nondistended, normoactive bowel sounds, soft to palpation, non-tender and non-distended Extremity normal to inspection, full ROM and no clubbing, cyanosis or edema Skin no rashes or lesions noted General Skin Exam: no breakdown Neuro oriented x3, CN's II-XII intact bilaterally, no focal motor deficits and no sensory deficits noted Sensorium / Orientation: awake and alert Speech: speech normal Psych thought process normal and affect normal Assessment & Plan Assessment/Plan (1) Acute exacerbation of chronic obstructive pulmonary disease (COPD): PLAN: 1. Acute exacerbation of COPD-patient appears stable off prednisone at this time, he has no wheezing, breath sounds are distant bilaterally which I think is indicative of the severity of his COPD. #2 acute on chronic hypoxic respiratory failure-patient's supplemental oxygen setting will need to be determined at the time of his discharge which I believe will be Tuesday. I have asked nursing to tell the patient not to turn his oxygen up. #3 noncompliance with medical regimen-I will continue to try to educate the patient about his disease process #4 essential hypertension #5 type 2 diabetes-at this time patient's blood sugars are under adequate control on oral medication and sliding scale insulin. Charges/Coding Visit Charges Inpatient E&M: 98573 Subs Hosp L2
[2020-12-07] MEDS: Ipratropium/Albuterol Sulfate 3 ML AMPUL.NEB INHALATION (19:13)
--- NOTE | 2020-12-07 19:14 | CPS ---
Patient said he increased his own oxygen via the flowmeter to 6-7LNC because he was SOB. Instructed patient to not make changes unless staff is aware and makes changes.
[2020-12-07 22:25] LABS: Bedside Glucose 203 mg/dL (70-110)
[2020-12-08] VITALS (9 sets, daily range): BP systolic 116–128; BP diastolic 73–89; PULSE 89–109; RESP 18–22; TEMP 36.3–36.7; O2SAT 87–100
[2020-12-08 06:11] LABS: Bedside Glucose 145 mg/dL (70-110)
[2020-12-08] MEDS: Ipratropium/Albuterol Sulfate 3 ML AMPUL.NEB INHALATION ×3 (06:50→15:06)
[2020-12-08] MEDS: Enoxaparin 40 MG/0.4 ML Syringe SC (08:55)
[2020-12-08] MEDS: Glimepiride 4 MG Tablet PO (08:55)
[2020-12-08] MEDS: Furosemide 40 MG Tablet PO (08:55)
[2020-12-08] MEDS: metFORMIN HCl 500 MG Tablet PO (08:55)
[2020-12-08] MEDS: Losartan Potassium 25 MG Tablet PO (08:55)
[2020-12-08] MEDS: Metoprolol(XL)Succ 50 MG Tablet 150 MG PO (08:56)
[2020-12-08] MEDS: Insulin Lispro 100 UNIT/ML INSULN.PEN SC (11:49)
[2020-12-08 12:00] LABS: Bedside Glucose 211 mg/dL (70-110)
--- NOTE | 2020-12-08 15:55 | PCM.DC ---
Discharge Instructions Diet Discharge Diet: 1800 Calorie Control Diet Activity Discharge Activity: Return to Normal Activity Weight Bearing Status: Full weight bearing Follow Up Care Test Results: Test results from this visit will be discussed in further detail at your follow-up appointment, if applicable. Discharge Plan Admission Admit Date/Time: 12/04/20 22:57 Primary Reason for Your Visit: exacerbation of COPD Attending Provider: Rich Mantilla Primary Care Provider: Regan Adan Instructions Additional Instructions / Restrictions: Wear her oxygen with activity at 3 L/min, follow-up with your lung doctor within 3 weeks Discharge Orders/Prescriptions Prescriptions: New metformin 500 mg Tablet 500 mg PO BIDCM Qty: 60 RF: 0 albuterol sulfate 2.5 mg /3 mL (0.083 %) Solution For Nebulization 2.5 mg inhalation Q4H PRN (Reason: Shortness Of Breath) Qty: 3 RF: 0 glimepiride 4 mg Tablet 4 mg PO BREAKFAST Qty: 30 RF: 0 Continued losartan 25 mg tablet 25 mg PO DAILY RF: 0 albuterol sulfate [Ventolin HFA] 90 mcg/actuation HFA aerosol inhaler 2 puff INHALATION Q4H PRN PRN (Reason: Shortness Of Breath) RF: 0 ipratropium bromide 0.02 % solution 3 ml inhalation TID PRN (Reason: Shortness Of Breath) RF: 0 Spiriva Respimat 2.5 mcg/actuation Mist 2 puff INHALATION DAILY Qty: 4 RF: 0 metoprolol succinate 50 mg Tablet Extended Release 24 Hr 150 mg PO DAILY Qty: 90 RF: 0 Breo Ellipta 200-25 mcg/dose blister with device 1 ea INHALATION DAILY RF: 0 furosemide 40 mg Tablet 40 mg PO DAILY Qty: 1 RF: 0 Discontinued glimepiride 1 mg tablet 1 mg PO BREAKFAST RF: 0 nystatin-triamcinolone 100,000-0.1 unit/g-% cream 1 applic TOPICAL DAILY RF: 0 Referrals / Follow Up: Regan Adan DO [Primary Care Provider] - Within 2 Weeks Disposition Disposition (needs filled in before D/C Order can be placed): Home, Self Care
--- NOTE | 2020-12-08 16:02 | CASEMGMT ---
Addendum entered by Jennifer Andrade 12/08/20 16:22: MONICA SCHNEIDER in to pt room, pt very angry. Nurse Joselyn in room as well. Pt reports he does have a nebulizer at home with the medications. Pt states his ride is here and his O2 is in the care and he does not need it to go down to the car. Notified that he does have nebulizer. Original Note: Spoke with nurse Coffman, pt has portable O2 at home that he will need brought in to go home on.
--- NOTE | 2020-12-08 21:14 | PCM.DC.SUM ---
Providers Date of Admission: 12/04/20 Date of Discharge: 12/08/20 Primary Care Physician: Dr. Regan Adan DO Reason For Visit: COPD EXACERBATION Diagnosis Discharge Diagnosis (1) Acute exacerbation of chronic obstructive pulmonary disease (COPD): Status: Chronic Code(s): J44.1 - Chronic obstructive pulmonary disease with (acute) exacerbation Plan: 1. Acute exacerbation of COPD #2 acute on chronic hypoxic respiratory failure #3 uncontrolled type 2 diabetes-secondary to patient noncompliance with medical treatment #4 noncompliance with medical treatment as outpatient Medications at Discharge Home Medications albuterol sulfate [Ventolin HFA] 2 puff INHALATION Q4H PRN PRN 09/15/20 ipratropium bromide 3 ml INHALATION TID PRN 09/15/20 losartan 25 mg PO DAILY 09/15/20 Spiriva Respimat 2 puff INHALATION DAILY #4 g 11/07/20 metoprolol succinate 150 mg PO DAILY #90 tab 11/07/20 Breo Ellipta 1 ea INHALATION DAILY 12/04/20 albuterol sulfate 2.5 mg INHALATION Q4H PRN #3 ml 12/08/20 furosemide 40 mg PO DAILY #1 tab 12/08/20 glimepiride 4 mg PO BREAKFAST #30 tab 12/08/20 metformin 500 mg PO BIDCM #60 tab 12/08/20 Hospital Course Operations None Procedures None Summary of Care Provided Minutes Spent on Discharge: 32 Hospital Course: This 65-year-old white male was seen in the emergency room at [facility] with complaints of shortness of breath. He had been admitted at [facility] over the past 2 months multiple times for medical reasons related to his COPD. Patient had been instructed to use oxygen continuously at home but he denied being told to do this although it had been documented on previous admissions that he was told to use oxygen on a continuous basis. Work-up in the emergency room included a chest x-ray which showed no evidence of pneumonia, patient required supplemental oxygen to maintain his pulse ox above 90%. Patient's blood sugar was elevated at 363. Patient was admitted to [place] [id number] for acute exacerbation of COPD, hemoglobin A1c was elevated indicating poor control of his blood sugars as an outpatient. Patient was treated with aerosol treatments and IV [id number] blood sugars elevated during his hospitalization, I had a long talks with the patient concerning his medical disease process and it became evident that the patient was not compliant with outpatient medical treatment. Patient initially was placed on insulin during his hospitalization due to elevated blood sugars but I reason that the patient would be noncompliant with insulin when he was discharged and it would be hazardous to discharge him on insulin and so I stopped the patient's corticosteroids and placed him on oral medications for his type 2 diabetes. Patient improved during his hospital stay, it was noted at the time of discharge that he required oxygen only when ambulating at 3 L/min, his pulse ox at rest on room air was 89%. As a further note, patient was noted to self adjust his oxygen while he was in the hospital without permission. On 12/08/2020, patient was seen and examined: On examination he appeared in good health and spirits. Vital signs as documented. Skin warm and dry and without overt rashes. Neck without JVD, neck was supple, trachea midline, thyroid was normal. Lungs clear, there were diminished breath sounds over both lung. Heart exam notable for regular rhythm, normal sounds and absence of murmurs, rubs or gallops. Abdomen unremarkable and without evidence of organomegaly, masses, or abdominal aortic enlargement. Bowel sounds are present, abdomen is not distended. Extremities nonedematous, no cyanosis was noted, no clubbing was noted. Neuro: Cranial nerves II through XII are grossly intact, no focal motor deficits were noted, sensation to light touch and pinprick intact, motor exam 5/5 throughout. Psych: Patient is alert and oriented x3, he does not appear anxious or depressed, he does not appear agitated. On 12/08/2020, patient was discharged home in stable condition. Weight / BMI Weight Weight: 97 kg Body Mass Index (BMI) 29.8 ABG / Lab / Microbiology Data Result Diagrams: 12/05/20 06:12 12/05/20 06:12 Laboratory: Laboratory Results - last 24 hr 12/07/20 22:04: POC Glucose 203 H 12/08/20 06:04: POC Glucose 145 H 12/08/20 11:47: POC Glucose 211 H Microbiology: Microbiology 12/04/20 20:55 Blood Culture (Wb) #2 - Left Hand Blood Culture - Preliminary No growth in 48 hours. 12/04/20 20:30 Blood Culture (Wb) - Anticubital Right Blood Culture - Preliminary No growth in 48 hours. 12/04/20 20:25 Nasal Secretion SARS-CoV-2 Antigen (Rapid) - Final D/C Instructions Discharge Diet: 1800 Calorie Control Diet Weight Bearing Status: Full weight bearing Meaningful Use Info Meaningful Use Diagnoses (Choose all that apply): None applicable Discharge Plan Admission Admit Date/Time: 12/04/20 22:57 Primary Reason for Your Visit: exacerbation of COPD Attending Provider: Rich Mantilla Primary Care Provider: Regan Adan Instructions Additional Instructions / Restrictions: Wear her oxygen with activity at 3 L/min, follow-up with your lung doctor within 3 weeks Discharge Orders/Prescriptions Prescriptions: New metformin 500 mg Tablet 500 mg PO BIDCM Qty: 60 RF: 0 albuterol sulfate 2.5 mg /3 mL (0.083 %) Solution For Nebulization 2.5 mg inhalation Q4H PRN (Reason: Shortness Of Breath) Qty: 3 RF: 0 glimepiride 4 mg Tablet 4 mg PO BREAKFAST Qty: 30 RF: 0 Continued losartan 25 mg tablet 25 mg PO DAILY RF: 0 albuterol sulfate [Ventolin HFA] 90 mcg/actuation HFA aerosol inhaler 2 puff INHALATION Q4H PRN PRN (Reason: Shortness Of Breath) RF: 0 ipratropium bromide 0.02 % solution 3 ml inhalation TID PRN (Reason: Shortness Of Breath) RF: 0 Spiriva Respimat 2.5 mcg/actuation Mist 2 puff INHALATION DAILY Qty: 4 RF: 0 metoprolol succinate 50 mg Tablet Extended Release 24 Hr 150 mg PO DAILY Qty: 90 RF: 0 Breo Ellipta 200-25 mcg/dose blister with device 1 ea INHALATION DAILY RF: 0 furosemide 40 mg Tablet 40 mg PO DAILY Qty: 1 RF: 0 Discontinued glimepiride 1 mg tablet 1 mg PO BREAKFAST RF: 0 nystatin-triamcinolone 100,000-0.1 unit/g-% cream 1 applic TOPICAL DAILY RF: 0 Referrals / Follow Up: Regan Adan DO [Primary Care Provider] - Within 2 Weeks Disposition Disposition (needs filled in before D/C Order can be placed): Home, Self Care Charges/Coding Visit Charges Inpatient E&M: 01744 Disch Hosp
--- NOTE | 2020-12-09 11:33 | CASEMGMT ---
Addendum entered by Jennifer Andrade 12/09/20 14:26: Faxed updated O2 script to [facility] at this time. Original Note: RN CM Discharge Follow Up Phone Call: JERIRosales: 16 Strata: 4 Call Date: 12/09/20 Discharge Date: 12/08/20 Time of Call:1130 Duration: <1 min Admitting Dx:COPD exac RN CM attempted to complete follow up phone call after recent hospitalization. Pt phone went straight to a message that stated pt has a vm that is not set up yet. Unable to leave a message.
== END 2020-12-08 16:29 | disposition home or self-care (01) | DRG 190 ==
LOC: ED 23:02 → MS3 23:07
PROVIDERS: Admitting Provider Family Medicine; Emergency Provider Emergency Medicine; PCP Family Medicine; Visit Provider Internal Medicine
DX: J44.1 Chronic obstructive pulmonary disease with (acute) exacerbation (principal); J96.21 Acute and chronic respiratory failure with hypoxia; I50.9 Heart failure, unspecified; I11.0 Hypertensive heart disease with heart failure; H91.93 Unspecified hearing loss, bilateral; E11.65 Type 2 diabetes mellitus with hyperglycemia; Z99.81 Dependence on supplemental oxygen; Z79.899 Other long term (current) drug therapy; Z79.84 Long term (current) use of oral hypoglycemic drugs; Z87.891 Personal history of nicotine dependence; Z91.19 Patient's noncompliance with other medical treatment and regimen; Z91.14 Patient's other noncompliance with medication regimen
CPT/HCPCS: 36415; 71045; 80048; 82962; 83036; 83605; 84484; 85025; 87040; 87426; 93005; 94640; 97802; 99251; 99285; 99406; J7050; A4216; G0463

== ENCOUNTER 2022-05-03 19:07 | Emergency (ER) | payer MEDICARE, MEDICAID, SELFPAY ==
[2022-05-03 19:08] VITALS: BP 136/69; PULSE 124; RESP 22; TEMP 35.6; O2SAT 84; O2SAT 98; BMI 30.7
[2022-05-03 19:45] VITALS: BP 106/80; RESP 18; O2SAT 95; O2SAT 96
--- NOTE | 2022-05-03 19:45 | EKG12_ITS ---
Test Reason : SOB Blood Pressure : / mmHG Vent. Rate : 113 BPM Atrial Rate : 113 BPM P-R Int : 160 ms QRS Dur : 082 ms QT Int : 346 ms P-R-T Axes : 000 -18 058 degrees QTc Int : 474 ms Sinus tachycardia Low voltage QRS Borderline ECG Confirmed by PREMA HAYES, LAWRENCE ([id number]), subeditor JOEL FUENTES ([id number]) on 05/04/2022 8:39:44 AM Referred By: Confirmed By:LAWRENCE LLOYD MD
--- NOTE | 2022-05-03 20:05 | RAD_ITS ---
INDICATION: SOB EXAMINATION/TECHNIQUE: X-RAY - XR Chest 1 View COMPARISON: 12/04/2020 FINDINGS: LINES/DEVICES: None. LUNGS: Emphysematous lungs with mild increase in bilateral lower lung scarring/chronic disease. Small right pleural effusion. MEDIASTINUM AND CARDIOVASCULAR STRUCTURES: Cardiac silhouette not enlarged. Central airways and mediastinal contour are unremarkable. RAD/Chest 1 View (Portable) IMPRESSION: Small right pleural effusion. Progression of chronic lung disease. Electronically Signed: Giacomo Dorsey MD at 20:18 EST ,
[2022-05-03 20:08] VITALS: O2SAT 94
[2022-05-03 20:10] LABS: Absolute Neutrophil Count 7.9 X10^3/uL (2.0-7.7); Basophil# 0.06 X10^3/uL; Basophil% 0.5 % (0-1); Eosinophil# 0.28 X10^3/uL; Eosinophils% 2.2 % (0-5); Hematocrit 43.7 % (40-54); Hemoglobin 14.2 g/dL (13.0-16.5); Lymphocyte % 26.1 % (19-41); Mean Corp Hgb Conc 32.5 g/dL (32-36); Mean Corpuscular Hgb 29.8 pg (27.0-32.0); Mean Corpuscular Volume 91.6 fL (80-94); Monocyte# 1.07 X10^3/uL; Monocyte% 8.5 % (0-10); NRBC Flagged by Analyzer 0 % (0-5); Neutrophil # 7.87 X10^3/uL (2.7-7.7); Neutrophil % 62.4 % (47-70); Platelet Count 335 K/mm3 (150-450); RBC Distribution Width CV 13.4 % (11.6-14.6); RBC Distribution Width SD 45.3 fl (35.1-43.9); Red Blood Count 4.77 M/mm3 (4.6-6.2); White Blood Count 12.6 K/mm3 (4.4-11.0)
[2022-05-03 20:31] LABS: Anion Gap 8 (5-15); BUN 22 mg/dL (7-18); BUN/Creat Ratio 15.4 RATIO (10-20); Calcium,Total 9.1 mg/dL (8.5-10.1); Chloride 101 mmol/L (98-107); Creatinine, Serum 1.43 mg/dL (0.70-1.30); EST Glomerular Filtration Rate 52 mL/min (>60); Est Glom Filt Rate - Afr Amer 63 mL/min (>60); Estimated Creatinine Clearance 53.39 ml/min; Glucose 284 mg/dL (74-106); Potassium 4.1 mmol/L (3.5-5.1); Sodium Level 140 mmol/L (136-145); Troponin-I HS 12 pg/mL (3.0-78.0)
--- NOTE | 2022-05-03 21:00 | CPS ---
Addendum entered by Kaye Gomez 05/03/22 21:26: coherntly , not incoherently Original Note: Found pt in hallway by the pulmonary function lab. ER is full. Pt was to remain in hallway to wait for an open bed.Pt is very short of breath and appears to be in moderate respiratory distress. RN notified at triage desk. Pt is sweating profusely, diaphoretic and he cannot speak incoherently. Took pt back to ER triage to possibly be prioritized faster. PT is on 3LPM on a hospital tank.
--- NOTE | 2022-05-03 21:59 | EDS_ITS ---
HPI History of Present Illness Chief Complaint: Shortness of Breath Narrative Narrative: 66-year-old male presenting with shortness of breath. Patient admits to history of CHF, COPD and wears 3 L of oxygen at baseline. He reports that [place] today and his oxygen tank ran out of oxygen for about 5 hours. He was feeling very short of breath and confused. Patient was brought in by his sister. Patient denies any chest pain. He states he is always short of breath. He states he has a oxygen concentrator at home which he uses most of the time. He uses the oxygen tank when he is out of the house. Patient states he was in his normal state of health before leaving today. He feels like he is at his baseline currently. PFSH PFSH Medical History Atrial tachycardia Congestive heart failure (CHF) COPD (chronic obstructive pulmonary disease) Diabetes Former smoker Hearing loss, left Hearing loss, right Hypertension Hypoxia Hypoxia Nonadherence to medication On home oxygen therapy Smoker Home Medications albuterol sulfate 90 mcg/actuation aerosol inhaler (Ventolin HFA) 2 puff inhalation Q4H PRN PRN Shortness Of Breath 09/15/20 [History Last Taken 12/04/20] ipratropium bromide 0.02 % solution for inhalation 3 ml inhalation TID PRN Shortness Of Breath 09/15/20 [History Last Taken 12/04/20] losartan 25 mg tablet 25 mg PO DAILY bp 09/15/20 [History Last Taken 12/04/20] metoprolol succinate 50 mg tablet,extended release 24 hr 150 mg PO DAILY #90 tabs 11/07/20 [Rx Last Taken 12/04/20] tiotropium bromide 2.5 mcg/actuation mist for inhalation (Spiriva Respimat) 2 puff inhalation DAILY breathing #4 grams 11/07/20 [Rx Last Taken 12/04/20] fluticasone furoate 200 mcg-vilanterol 25 mcg/dose inhalation powder (Breo Ellipta) 1 ea inhalation DAILY COPD 12/04/20 [History Last Taken 12/05/20] albuterol sulfate 2.5 mg/3 mL (0.083 %) solution for nebulization 2.5 mg (3 mL) inhalation Q4H PRN Shortness Of Breath #3 mL 12/08/20 [Rx Last Taken Unknown] furosemide 40 mg tablet 40 mg PO DAILY #1 TAB 12/08/20 [Rx Last Taken 12/02/20] glimepiride 4 mg tablet 4 mg PO BREAKFAST #30 tabs 12/08/20 [Rx Last Taken Unknown] metformin 500 mg tablet 500 mg PO BIDCM #60 tabs 12/08/20 [Rx Last Taken Unknown] Allergy/AdvReac Type Severity Reaction Status Date / Time No Known Allergies Allergy Verified 12/04/20 23:56 Family History Mother Rheumatoid arthritis Chronic back pain Father Unknown family medical history Patient is unaware of any paternal family medical history to include diabetes, hypertension, CAD, ACS or CVA due to patient not knowing his fat her. Surgical History Hx of inguinal hernia surgery Social History household members: family and children Smoking Status: Former smoker quit date: 09/04/20 pack-years: 30 how long ago did patient quit smokin months ago alcohol intake: former substance use type: marijuana ROS ROS ED Constitutional Constitutional ED: Denies chills or fever(s) Eyes Eyes: Denies change in vision ENT ENT ED: Denies rhinorrhea or sore throat Cardiovascular Cardiovascular: Denies chest pain or palpitations Respiratory/Chest Respiratory/Chest: Reports dyspnea and dyspnea on exertion Gastrointestinal Gastrointestinal: Denies abdominal pain, nausea or vomiting Genitourinary Genitourinary ED: Denies dysuria or hematuria Musculoskeletal Musculoskeletal: Denies arthralgias Integumentary Denies abscess or Abrasions Neurologic Neurologic: Denies headache(s) or paresthesias Psychiatric Psychiatric: Denies anxiety or depression EXAM Physical Exam Const Vital Signs: 05/03/22 19:08 05/03/22 19:08 05/03/22 19:45 Temperature 96.0 F L 96.0 F L Temperature Source Temporal Temporal Pulse Rate 124 H 124 H Respiratory Rate 22 H 22 H Respiratory Effort Blood Pressure 136/69 H 136/69 H Blood Pressure Mean 91 91 Pulse Ox 84 98 96 Oxygen Delivery Method Room Air Nasal Cannula Nasal Cannula Oxygen Flow Rate (L/min) 3 9 05/03/22 19:45 05/03/22 19:45 05/04/22 00:20 Temperature Temperature Source Pulse Rate 90 Respiratory Rate 18 15 Respiratory Effort Blood Pressure 106/80 99/78 Blood Pressure Mean 88 85 Pulse Ox 95 96 Oxygen Delivery Method Nasal Cannula Nasal Cannula Oxygen Flow Rate (L/min) 05/03/22 20:08 Temperature Temperature Source Pulse Rate Respiratory Rate Respiratory Effort Short of Breath Labored Blood Pressure Blood Pressure Mean Pulse Ox Oxygen Delivery Method Nasal Cannula Oxygen Flow Rate (L/min) 3 Positive obese and unkempt General Appearance ED: unkempt and NAD Nutritional Appearance: obese HEENT Reports dry mucous membranes atraumatic Mouth ED: Yes dry mucous membranes Mouth: dry mucous membranes Eyes PERRL and EOMs intact bilaterally General Eye ED: Yes pale conjunctiva Resp normal respiratory effort and clear to auscultation bilaterally Auscultation: Negative for rales, rhonchi or wheezes Cardio regular rhythm Rate: tachycardic GI non-tender Neuro oriented x3 and CN's II-XII intact bilaterally Sensorium / Orientation: alert Motor Exam: strength 5/5 throughout Psych mental status grossly normal Appearance: unkempt Skin no wounds and skin turgor normal MDM MDM MDM Narrative Medical decision making narrative: Patient seen and evaluated for shortness of breath. Does appear that he did not have his oxygen tank with him and this was the cause of his shortness of breath.*Who had not seen him in years and did not know his baseline. He feels currently is at his baseline. His lungs are clear to auscultation bilaterally. I do not appreciate any wheezing. Patient was placed on his 3 L nasal cannula and has been stable on this at 98%. Nursing staff stated that he became very agitated and yelling at them. He they state that he was throwing ice. They do note that the patient grabbed a cup out of the trash can in the waiting room and drink from this. When I went to reevaluate the patient he was sleeping. I do not see any history of psychiatric issues in his history. Differential includes but is not limited to hypoxia medical compliance. Pneumonia,, drugs of abuse, EtOH intoxication, ACS, CHF, COPD exacerbation. EKG was obtained due to symptoms of dyspnea to check for ischemia or dysrhythmia and in my interpretation this shows a normal sinus rhythm with a ventricular rate of 65 beats per minutes. Nonspecific ST-T wave changes. No ST elevations or depression. CBC was obtained to assess white blood cell count, hemoglobin, platelets, differential. There is a slight leukocytosis of 12.6. Hemoglobin hematocrit are stable. No left shift. Patient most recent creatinine in our system shows that it was 0.94 on 12/05/2020. Today it is 1.43. Glucose is elevated at 284 without anion gap. Electrolytes appear normal. Patient given a liter normal saline. Patient became agitated again and was crawling around on his bed on his hands and knees. I He is awake and alert and talking but is very agitated at times. He does not appear to be confused. BNP was assessed today due to history of heart failure this is slightly elevated at 233. Chest x-ray on my interpretation shows a small right pleural effusion without any other acute process. Patient is no longer hypoxic however and on his 3 L of nasal cannula has been 98%. Because of his agitation I did add a drug abuse screen, urinalysis, EtOH level. Urinalysis negative for infection. EtOH level normal. Urine drug screen positive for amphetamines, MDMA, cannabinoids. I think this explains the patient's agitation. It was for look for reversible causes of agitation. High-sensitivity troponin came back at 12. Patient not reporting chest pain. Patient reporting several hours of shortness of breath and is back on his baseline oxygen. I do not believe needs a delta troponin. Patient states his sister who brought him is now in [place] and he cannot get a ride from her. His brother is unreachable. He has no car and he lives in [place]. We will attempt to get him a ride via squad. Impression: 1. Hypoxia resolved 2. Amphetamine abuse 3. MDMA abuse 4. Agitation 5. Dyspnea Lab Data Attestation: I reviewed the patient's lab results. Labs: Laboratory Results - last 24 hr 05/03/22 05/03/22 05/03/22 20:00 20:00 20:00 WBC 12.6 H RBC 4.77 Hgb 14.2 Hct 43.7 MCV 91.6 MCH 29.8 MCHC 32.5 RDW Std Deviation 45.3 H RDW Coeff of Patricia 13.4 Plt Count 335 MPV 10.0 Immature Gran % (Auto) 0.300 Neut % (Auto) 62.4 Lymph % (Auto) 26.1 [place] % (Auto) 8.5 Eos % (Auto) 2.2 Baso % (Auto) 0.5 Absolute Neuts (auto) 7.9 H Absolute Lymphs (auto) 3.30 Nucleated RBC % 0 Sodium 140 Potassium 4.1 Chloride 101 Carbon Dioxide 31.0 Anion Gap 8 BUN 22 H Creatinine 1.43 H Estim Creat Clear Calc 53.39 Est GFR (MDRD) Af Amer 63 Est GFR (MDRD) Non-Af 52 L BUN/Creatinine Ratio 15.4 Glucose 284 H Calcium 9.1 Ammonia Troponin I High Sens 12 B-Natriuretic Peptide 233.0 H Urine Color Urine Clarity Urine pH Ur Specific [place] Urine Protein Urine Glucose (UA) Urine Ketones Urine Occult Blood Urine Nitrite Urine Bilirubin Urine Urobilinogen Ur Leukocyte Esterase Urine RBC Urine WBC Ur Squamous Epith Cells Urine Bacteria Urine Mucus Urine Opiates Screen Urine Methadone Screen Ur Barbiturates Screen Ur Phencyclidine Scrn Ur Amphetamines Screen MDMA (Ecstasy) Screen U Benzodiazepines Scrn Urine Cocaine Screen U Cannabinoids Screen Ur Drug Screen Comment Ethyl Alcohol 05/03/22 05/04/22 05/04/22 23:20 00:01 00:01 WBC RBC Hgb Hct MCV MCH MCHC RDW Std Deviation RDW Coeff of Patricia Plt Count MPV Immature Gran % (Auto) Neut % (Auto) Lymph % (Auto) [place] % (Auto) Eos % (Auto) Baso % (Auto) Absolute Neuts (auto) Absolute Lymphs (auto) Nucleated RBC % Sodium Potassium Chloride Carbon Dioxide Anion Gap BUN Creatinine Estim Creat Clear Calc Est GFR (MDRD) Af Amer Est GFR (MDRD) Non-Af BUN/Creatinine Ratio Glucose Calcium Ammonia 27.0 Troponin I High Sens B-Natriuretic Peptide Urine Color Yellow Urine Clarity Clear Urine pH 6.0 Ur Specific [place] 1.020 Urine Protein 15 H Urine Glucose (UA) 250 H Urine Ketones 5 H Urine Occult Blood Negative Urine Nitrite Negative Urine Bilirubin Negative Urine Urobilinogen Normal Ur Leukocyte Esterase 25 H Urine RBC 0 SEEN Urine WBC 0-5 SEEN Ur Squamous Epith Cells 0 SEEN Urine Bacteria 1+ Urine Mucus 0 SEEN Urine Opiates Screen Urine Methadone Screen Ur Barbiturates Screen Ur Phencyclidine Scrn Ur Amphetamines Screen MDMA (Ecstasy) Screen U Benzodiazepines Scrn Urine Cocaine Screen U Cannabinoids Screen Ur Drug Screen Comment Ethyl Alcohol < 3.0 05/04/22 00:01 WBC RBC Hgb Hct MCV MCH MCHC RDW Std Deviation RDW Coeff of Patricia Plt Count MPV Immature Gran % (Auto) Neut % (Auto) Lymph % (Auto) [place] % (Auto) Eos % (Auto) Baso % (Auto) Absolute Neuts (auto) Absolute Lymphs (auto) Nucleated RBC % Sodium Potassium Chloride Carbon Dioxide Anion Gap BUN Creatinine Estim Creat Clear Calc Est GFR (MDRD) Af Amer Est GFR (MDRD) Non-Af BUN/Creatinine Ratio Glucose Calcium Ammonia Troponin I High Sens B-Natriuretic Peptide Urine Color Urine Clarity Urine pH Ur Specific [place] Urine Protein Urine Glucose (UA) Urine Ketones Urine Occult Blood Urine Nitrite Urine Bilirubin Urine Urobilinogen Ur Leukocyte Esterase Urine RBC Urine WBC Ur Squamous Epith Cells Urine Bacteria Urine Mucus Urine Opiates Screen NEGATIVE Urine Methadone Screen NEGATIVE Ur Barbiturates Screen NEGATIVE Ur Phencyclidine Scrn NEGATIVE Ur Amphetamines Screen POSITIVE H MDMA (Ecstasy) Screen POSITIVE H U Benzodiazepines Scrn NEGATIVE Urine Cocaine Screen NEGATIVE U Cannabinoids Screen POSITIVE H Ur Drug Screen Comment Ethyl Alcohol Radiography Diagnostic Testing: Clinical Impression(s) from Imaging Studies Chest X-Ray 05/03/22 20:05 IMPRESSION: Small right pleural effusion. Progression of chronic lung disease. Electronically Signed: Giacomo Dorsey MD at 20:18 EST Reading Location ID and State: [facility] / MD Tel , Service support , Discharge Plan Triage Chief Complaint: Shortness of Breath ED Provider: Chemo Green Dx/Rx/DC Orders Prescriptions: No Action losartan 25 mg tablet 25 mg PO DAILY albuterol sulfate [Ventolin HFA] 90 mcg/actuation HFA aerosol inhaler 2 puff INHALATION Q4H PRN PRN (Reason: Shortness Of Breath) ipratropium bromide 0.02 % solution 3 ml inhalation TID PRN (Reason: Shortness Of Breath) Label Comments: inhale contents of 1 vial in nebulizer every 4 hours if needed Spiriva Respimat 2.5 mcg/actuation Mist 2 puff INHALATION DAILY Qty: 4 0RF metoprolol succinate 50 mg Tablet Extended Release 24 Hr 150 mg PO DAILY Qty: 90 0RF Breo Ellipta 200-25 mcg/dose blister with device 1 ea INHALATION DAILY metformin 500 mg Tablet 500 mg PO BIDCM Qty: 60 0RF albuterol sulfate 2.5 mg /3 mL (0.083 %) Solution For Nebulization 2.5 mg inhalation Q4H PRN (Reason: Shortness Of Breath) Qty: 3 0RF glimepiride 4 mg Tablet 4 mg PO BREAKFAST Qty: 30 0RF furosemide 40 mg Tablet 40 mg PO DAILY Qty: 1 0RF Primary Care Provider: Regan Adan Referrals: Regan Adan DO [Primary Care Provider] -
[2022-05-04 00:07] LABS: Mucous, Urine 0 SEEN /hpf (<or=2+); Red Blood Cells-Urine 0 SEEN /hpf (0-5); Squamous Epithelial Cells - UA 0 SEEN /hpf (0-5)
[2022-05-04 00:20] VITALS: BP 99/78; PULSE 90; RESP 15; O2SAT 96
[2022-05-04 00:22] LABS: Color, Urine Yellow (Yellow); Glucose, Dipstick 250 mg/dl (Normal); Ketone-Dipstick 5 mg/dl (Negative); Leukocyte Esterase-Dipstick 25 /ul (Negative); Nitrite-Dipstick Negative (Negative); Occult Blood-Urine Negative /ul (Negative); Protein-Dipstick 15 mg/dl (Negative); Urine Bilirubin Dipstick Negative (Negative); Urine Clarity Clear (Clear); Urine Urobilinogen Normal (Normal)
[2022-05-04 00:32] LABS: Alcohol, Blood (Medical)-Serum < 3.0 mg/dL
[2022-05-04 00:35] LABS: Amphetamine Urine VISTA POSITIVE (<1000 ng/mL); Barbiturate Urine VISTA NEGATIVE (< 200 ng/mL); Benzodiazepine Urine VISTA NEGATIVE (< 200 ng/mL); Cocaine Urine VISTA NEGATIVE (< 300 ng/mL); Ecstacy Urine VISTA POSITIVE (< 500 ng/mL); Methadone Urine VISTA NEGATIVE (< 300 ng/mL); PCP Urine VISTA NEGATIVE (< 25 ng/mL); THC Urine VISTA POSITIVE (< 50 ng/mL); Vista UDS pH Range 4
[2022-05-04 00:38] LABS: Bacteria 1+ /hpf (None Seen); White Blood Cells 0-5 SEEN /hpf (0-5)
[2022-05-04 01:28] VITALS: O2SAT 99
== END 2022-05-04 01:44 | disposition home or self-care (01) ==
PROVIDERS: Emergency Provider Student in an Organized Health Care Education/Training Program; PCP Family Medicine; Visit Provider Student in an Organized Health Care Education/Training Program
DX: F15.10 Other stimulant abuse, uncomplicated (principal); I50.9 Heart failure, unspecified; F12.90 Cannabis use, unspecified, uncomplicated; R06.00 Dyspnea, unspecified; E66.9 Obesity, unspecified; Z99.81 Dependence on supplemental oxygen; Z87.891 Personal history of nicotine dependence
CPT/HCPCS: 71045; 80048; 80307; 81001; 82077; 82140; 83880; 84484; 85025; 87811; 93005; 99283; J7040; A4216

== ENCOUNTER 2022-05-30 17:21 | Observation (INO) | payer MEDICARE, MEDICAID, SELFPAY ==
[2022-05-30] VITALS (7 sets, daily range): BP systolic 107–137; BP diastolic 61–95; PULSE 82–108; RESP 14–29; TEMP 36.3–37.1; O2SAT 93–98; BMI 34.5; BMI 32.5
--- NOTE | 2022-05-30 17:41 | EKG12_ITS ---
Test Reason : SOB Blood Pressure : / mmHG Vent. Rate : 147 BPM Atrial Rate : 147 BPM P-R Int : 100 ms QRS Dur : 076 ms QT Int : 336 ms P-R-T Axes : 000 -30 107 degrees QTc Int : 525 ms Supraventricular tachycardia Left axis deviation Low voltage QRS Nonspecific T wave abnormality Abnormal ECG Confirmed by STEPHAN HAYES, PARISH ([id number]), editor at large JOEL FUENTES ([id number]) on 05/31/2022 2:44:03 PM Referred By: Confirmed By:PARISH ROTHMAN MD
--- NOTE | 2022-05-30 17:44 | ED.VIS.DYS ---
HPI <SHERON James - Last Filed: 05/30/22 20:25> History of Present Illness Chief Complaint: Shortness of Breath Narrative Narrative: 66-year-old male with PMH of HTN, CHF, COPD on 3-4 L of oxygen at baseline presents with shortness of breath. He has O2 tanks but his regulator broke on night (05/06) so he has been out of oxygen for 3 days. He started to feel much more short of breath today and also has a productive cough. No fever or chills. No chest pain. He smokes 4 cigarettes a day. PFSH <SHERON James - Last Filed: 05/30/22 20:25> PFSH Medical History Atrial tachycardia Congestive heart failure (CHF) COPD (chronic obstructive pulmonary disease) Diabetes Former smoker Hearing loss, left Hearing loss, right Hypertension Hypoxia Hypoxia Nonadherence to medication On home oxygen therapy Smoker Home Medications albuterol sulfate 90 mcg/actuation aerosol inhaler (Ventolin HFA) 2 puff inhalation Q4H PRN PRN Shortness Of Breath 09/15/20 [History Last Taken 12/04/20] ipratropium bromide 0.02 % solution for inhalation 3 ml inhalation TID PRN Shortness Of Breath 09/15/20 [History Last Taken 12/04/20] losartan 25 mg tablet 25 mg PO DAILY bp 09/15/20 [History Last Taken 12/04/20] metoprolol succinate 50 mg tablet,extended release 24 hr 150 mg PO DAILY #90 tabs 11/07/20 [Rx Last Taken 12/04/20] tiotropium bromide 2.5 mcg/actuation mist for inhalation (Spiriva Respimat) 2 puff inhalation DAILY breathing #4 grams 11/07/20 [Rx Last Taken 12/04/20] fluticasone furoate 200 mcg-vilanterol 25 mcg/dose inhalation powder (Breo Ellipta) 1 ea inhalation DAILY COPD 12/04/20 [History Last Taken 12/05/20] albuterol sulfate 2.5 mg/3 mL (0.083 %) solution for nebulization 2.5 mg (3 mL) inhalation Q4H PRN Shortness Of Breath #3 mL 12/08/20 [Rx Last Taken Unknown] furosemide 40 mg tablet 40 mg PO DAILY #1 TAB 12/08/20 [Rx Last Taken 12/02/20] glimepiride 4 mg tablet 4 mg PO BREAKFAST #30 tabs 12/08/20 [Rx Last Taken Unknown] metformin 500 mg tablet 500 mg PO BIDCM #60 tabs 12/08/20 [Rx Last Taken Unknown] Allergy/AdvReac Type Severity Reaction Status Date / Time No Known Allergies Allergy Verified 05/30/22 17:27 Family History Mother Rheumatoid arthritis Chronic back pain Father Unknown family medical history Patient is unaware of any paternal family medical history to include diabetes, hypertension, CAD, ACS or CVA due to patient not knowing his father. Surgical History Hx of inguinal hernia surgery Social History household members: family and children Smoking Status: Former smoker quit date: 09/04/20 pack-years: 30 how long ago did patient quit smokin months ago alcohol intake: former substance use type: marijuana ROS <SHERON James - Last Filed: 05/30/22 20:25> ROS ED ROS Narrative Constitutional: Negative for fever, chills, malaise. CVS: Negative for palpitations, chest pain, syncope. Respiratory: Positive for shortness of breath, cough. GI: Negative for abdominal pain, nausea, vomiting. Neuro: Negative for headache. Skin: Negative for rash, abscess, or wound. Musc: Negative for joint pain, swelling, trauma. EXAM <SHERON James - Last Filed: 05/30/22 20:25> Physical Exam Narrative Exam Narrative: CONST: Patient sitting in no acute distress. EYES: Normal inspection. ENT: Normal inspection, moist mucous membranes. NECK: Normal inspection. RESP: Conversational dyspnea with 2-3 word sentences, severely diminished lung sounds, no wheezing noted. CVS: Regular rate and rhythm, no murmur, no gallop. SKIN: Color normal, no rash, warm, dry, intact. EXTREMITIES: Normal appearance, no pedal edema. NEURO: Oriented x4. PSYCH: Normal affect. Const Vital Signs: 05/30/22 17:22 05/30/22 17:39 05/30/22 17:47 Temperature 97.4 F L Temperature Source Temporal Pulse Rate 82 Respiratory Rate 29 H Respiratory Effort Short of Breath Respiratory Depth Normal Respiratory Pattern Tachypnea Blood Pressure 137/85 H Blood Pressure Mean 102 Pulse Ox 93 Oxygen Delivery Method Nasal Cannula Nasal Cannula Nasal Cannula Oxygen Flow Rate (L/min) 3 3 3 05/30/22 17:47 05/30/22 20:05 Temperature Temperature Source Pulse Rate 96 92 Respiratory Rate 24 H 20 H Respiratory Effort Respiratory Depth Respiratory Pattern Blood Pressure 115/61 Blood Pressure Mean 79 Pulse Ox 97 Oxygen Delivery Method Nasal Cannula Oxygen Flow Rate (L/min) 2 <Dr. Campbell Hicks MD - Last Filed: 05/30/22 18:15> Physical Exam Const Vital Signs: 05/30/22 17:22 05/30/22 17:39 05/30/22 17:47 Temperature 97.4 F L Temperature Source Temporal Pulse Rate 82 Respiratory Rate 29 H Respiratory Effort Short of Breath Respiratory Depth Normal Respiratory Pattern Tachypnea Blood Pressure 137/85 H Blood Pressure Mean 102 Pulse Ox 93 Oxygen Delivery Method Nasal Cannula Nasal Cannula Nasal Cannula Oxygen Flow Rate (L/min) 3 3 3 05/30/22 17:47 05/30/22 20:05 Temperature Temperature Source Pulse Rate 96 92 Respiratory Rate 24 H 20 H Respiratory Effort Respiratory Depth Respiratory Pattern Blood Pressure 115/61 Blood Pressure Mean 79 Pulse Ox 97 Oxygen Delivery Method Nasal Cannula Oxygen Flow Rate (L/min) 2 MDM <SHERON James - Last Filed: 05/30/22 20:25> [facility] Narrative Medical decision making narrative: Patient has been out of his 3 to 4 L baseline O2 for 3 days because his oxygen regulator broke. He is here with shortness of breath. He appears in mild respiratory distress with initial respiratory rate of 29, satting at 93% on 3 L, and the rest of his vital signs are normal. He has conversational dyspnea and severely diminished lung sounds. He was treated with DuoNebs x2 and Solu-Medrol and is now resting more comfortably and breathing easier but still with a respiratory rate of 24. Blood work was obtained and CBC, BMP are unremarkable. EKG is nonischemic and troponin is 12. Labs show normal white count, mild anemia at 12.7. Normal electrolytes with creatinine 1.36. Glucose 197 consistent with his diabetes. Normal anion gap at 7. CXR shows no acute process. Since it is Tuesday night there is no social work supervisor available and no way to arrange for him to get an oxygen regulator. Patient will be admitted for COPD exacerbation. Case was discussed with the hospitalist. Differential: Hypoxia, COPD exacerbation, ACS, pneumonia I have personally performed a face to face assessment of the patient and have reviewed the RUPERT Note. I performed a substantive portion of the visit including all aspects of the following. My mercado findings include: History is [66-year-old male history of COPD on 3 to 4 L of oxygen at home. He has been out of his oxygen last several days due to his concentrator is broken. He also states he had a cough of yellowish sputum. Denies chest pain or hemoptysis.] Exam is [H EENT exam unremarkable. Neck nontender. Lungs coarse breath sounds bilaterally. Few scattered wheezes. No rales or rhonchi. Heart regular rhythm rate about 90 no murmur. Chest wall nontender. Abdomen soft nontender. Moving all 4 extremities. He is awake and alert.] Medical Decision Making [66-year-old COPD here out of his oxygen at home because of the concentrator. He will be treated as a COPD flare rule out pneumonia or cardiac etiology.] Other additions or changes: [None] Lab Data Attestation: I reviewed the patient's lab results. Labs: Laboratory Results - last 24 hr 05/30/22 05/30/22 18:20 18:20 WBC 8.5 RBC 4.24 L Hgb 12.7 L Hct 39.9 L MCV 94.1 H MCH 30.0 MCHC 31.8 L RDW Std Deviation 47.5 H RDW Coeff of Patricia 13.9 Plt Count 288 MPV 10.1 Immature Gran % (Auto) 0.400 Neut % (Auto) 56.4 Lymph % (Auto) 29.5 Gillespie % (Auto) 9.8 Eos % (Auto) 3.5 Baso % (Auto) 0.4 Absolute Neuts (auto) 4.8 Absolute Lymphs (auto) 2.51 Nucleated RBC % 0 Sodium 138 Potassium 3.5 Chloride 99 Carbon Dioxide 32.0 Anion Gap 7 BUN 28 H Creatinine 1.36 H Estim Creat Clear Calc 54.42 Est GFR (MDRD) Af Amer 67 Est GFR (MDRD) Non-Af 56 L BUN/Creatinine Ratio 20.6 H Glucose 197 H Calcium 8.9 Troponin I High Sens 12 Radiography Diagnostic Testing: Clinical Impression(s) from Imaging Studies Chest X-Ray 05/30/22 18:25 IMPRESSION: There are no acute findings. Electronically Signed: Evens Cintron MD at 19:05 EST Reading Location ID and State: [facility] / [place] , Service support , ED attending interpretation of chest x-ray shows normal heart size, no acute infiltrate. <Dr. Campbell Hicks MD - Last Filed: 05/30/22 18:15> [facility] MDM Narrative Medical decision making narrative: I have personally performed a face to face assessment of the patient and have reviewed the RUPERT Note. I performed a substantive portion of the visit including all aspects of the following. My mercado findings include: History is [66-year-old male history of COPD on 3 to 4 L of oxygen at home. He has been out of his oxygen last several days due to his concentrator is broken. He also states he had a cough of yellowish sputum. Denies chest pain or hemoptysis.] Exam is [H EENT exam unremarkable. Neck nontender. Lungs coarse breath sounds bilaterally. Few scattered wheezes. No rales or rhonchi. Heart regular rhythm rate about 90 no murmur. Chest wall nontender. Abdomen soft nontender. Moving all 4 extremities. He is awake and alert.] Medical Decision Making [66-year-old COPD here out of his oxygen at home because of the concentrator. He will be treated as a COPD flare rule out pneumonia or cardiac etiology.] Other additions or changes: [None] Lab Data Labs: Laboratory Results - last 24 hr 05/30/22 05/30/22 18:20 18:20 WBC 8.5 RBC 4.24 L Hgb 12.7 L Hct 39.9 L MCV 94.1 H MCH 30.0 MCHC 31.8 L RDW Std Deviation 47.5 H RDW Coeff of Patricia 13.9 Plt Count 288 MPV 10.1 Immature Gran % (Auto) 0.400 Neut % (Auto) 56.4 Lymph % (Auto) 29.5 Gillespie % (Auto) 9.8 Eos % (Auto) 3.5 Baso % (Auto) 0.4 Absolute Neuts (auto) 4.8 Absolute Lymphs (auto) 2.51 Nucleated RBC % 0 Sodium 138 Potassium 3.5 Chloride 99 Carbon Dioxide 32.0 Anion Gap 7 BUN 28 H Creatinine 1.36 H Estim Creat Clear Calc 54.42 Est GFR (MDRD) Af Amer 67 Est GFR (MDRD) Non-Af 56 L BUN/Creatinine Ratio 20.6 H Glucose 197 H Calcium 8.9 Troponin I High Sens 12 Radiography Diagnostic Testing: Clinical Impression(s) from Imaging Studies Chest X-Ray 05/30/22 18:25 IMPRESSION: There are no acute findings. Electronically Signed: Evens Cintron MD at 19:05 EST , Discharge Plan Triage Chief Complaint: Shortness of Breath ED Midlevel Provider: Liz Christianson ED Provider: Campbell Hicks Dx/Rx/DC Orders Clinical Impression: Acute exacerbation of chronic obstructive pulmonary disease Prescriptions: No Action losartan 25 mg tablet 25 mg PO DAILY albuterol sulfate [Ventolin HFA] 90 mcg/actuation HFA aerosol inhaler 2 puff INHALATION Q4H PRN PRN (Reason: Shortness Of Breath) ipratropium bromide 0.02 % solution 3 ml inhalation TID PRN (Reason: Shortness Of Breath) Label Comments: inhale contents of 1 vial in nebulizer every 4 hours if needed Spiriva Respimat 2.5 mcg/actuation Mist 2 puff INHALATION DAILY Qty: 4 0RF metoprolol succinate 50 mg Tablet Extended Release 24 Hr 150 mg PO DAILY Qty: 90 0RF Breo Ellipta 200-25 mcg/dose blister with device 1 ea INHALATION DAILY metformin 500 mg Tablet 500 mg PO BIDCM Qty: 60 0RF albuterol sulfate 2.5 mg /3 mL (0.083 %) Solution For Nebulization 2.5 mg inhalation Q4H PRN (Reason: Shortness Of Breath) Qty: 3 0RF glimepiride 4 mg Tablet 4 mg PO BREAKFAST Qty: 30 0RF furosemide 40 mg Tablet 40 mg PO DAILY Qty: 1 0RF Primary Care Provider: Regan Adan Referrals: Regan Adan DO [Primary Care Provider] -
[2022-05-30] MEDS: Ipratropium/Albuterol Sulfate 3 ML AMPUL.NEB INHALATION (17:46)
[2022-05-30] MEDS: Albuterol 2.5 MG/3 ML VIAL.NEB. INHALATION (18:12)
--- NOTE | 2022-05-30 18:25 | RAD_ITS ---
STUDY: XR Chest 1 View 05/30/2022 6:22 PM REASON FOR EXAM: Male, 66 years old. CHEST PAIN dyspnea COMPARISON: 2.6. TECHNIQUE: XR Chest 1 View FINDINGS: There is no demonstrated pleural abnormality. Bullous emphysematous changes. Normal heart size. Normal mediastinum. Normal phyllis. Prominent appearing increased interstitial lung markings. Normal visualized pulmonary arteries. There is atherosclerotic calcification of the aortic arch with tortuosity. There are diffuse degenerative changes of the visualized thoracic spine. There is degenerative osteoarthritis of the bilateral shoulders. There is no demonstrated abnormality of the visualized soft tissue structures of the upper abdomen. RAD/Chest 1 View (Portable) IMPRESSION: There are no acute findings. Electronically Signed: Evens Cintron MD at 19:05 EST ,
[2022-05-30 18:26] LABS: Absolute Lymphocyte Count 2.51 X10^3/uL (0.83-4.51); Absolute Neutrophil Count 4.8 X10^3/uL (2.0-7.7); Basophil# 0.03 X10^3/uL; Basophil% 0.4 % (0-1); Eosinophils% 3.5 % (0-5); Hematocrit 39.9 % (40-54); Hemoglobin 12.7 g/dL (13.0-16.5); Lymphocyte # 2.51 X10^3/ul (0.83-4.51); Lymphocyte % 29.5 % (19-41); Mean Corp Hgb Conc 31.8 g/dL (32-36); Mean Corpuscular Volume 94.1 fL (80-94); Mean Platelet Vol. 10.1 fl (6.2-12.0); Monocyte# 0.83 X10^3/uL; Monocyte% 9.8 % (0-10); NRBC Flagged by Analyzer 0 % (0-5); Neutrophil # 4.81 X10^3/uL (2.7-7.7); Neutrophil % 56.4 % (47-70); Platelet Count 288 K/mm3 (150-450); RBC Distribution Width CV 13.9 % (11.6-14.6); RBC Distribution Width SD 47.5 fl (35.1-43.9); Red Blood Count 4.24 M/mm3 (4.6-6.2); White Blood Count 8.5 K/mm3 (4.4-11.0)
[2022-05-30] MEDS: MethylPREDNISolone 125 MG/2 ML Vial IV (18:35)
[2022-05-30 18:43] LABS: Anion Gap 7 (5-15); BUN 28 mg/dL (7-18); BUN/Creat Ratio 20.6 RATIO (10-20); Calcium,Total 8.9 mg/dL (8.5-10.1); Chloride 99 mmol/L (98-107); Creatinine, Serum 1.36 mg/dL (0.70-1.30); EST Glomerular Filtration Rate 56 mL/min (>60); Est Glom Filt Rate - Afr Amer 67 mL/min (>60); Estimated Creatinine Clearance 54.42 ml/min; Glucose 197 mg/dL (74-106); Potassium 3.5 mmol/L (3.5-5.1); Sodium Level 138 mmol/L (136-145); Troponin-I HS 12 pg/mL (3.0-78.0)
--- NOTE | 2022-05-30 20:40 | PCM.HP.STD ---
[facility] - General General Date of Admission: 05/30/22 HPI Elizabet APONTE, is a 66 M who [facility] Medical History Atrial tachycardia Congestive heart failure (CHF) COPD (chronic obstructive pulmonary disease) Diabetes Former smoker Hearing loss, left Hearing loss, right Hypertension Hypoxia Hypoxia Nonadherence to medication On home oxygen therapy Smoker Home Medications albuterol sulfate 90 mcg/actuation aerosol inhaler (Ventolin HFA) 2 puff inhalation Q4H PRN PRN Shortness Of Breath 09/15/20 [History Last Taken 12/04/20] ipratropium bromide 0.02 % solution for inhalation 3 ml inhalation TID PRN Shortness Of Breath 09/15/20 [History Last Taken 12/04/20] losartan 25 mg tablet 25 mg PO DAILY bp 09/15/20 [History Last Taken 12/04/20] metoprolol succinate 50 mg tablet,extended release 24 hr 150 mg PO DAILY #90 tabs 11/07/20 [Rx Last Taken 12/04/20] tiotropium bromide 2.5 mcg/actuation mist for inhalation (Spiriva Respimat) 2 puff inhalation DAILY breathing #4 grams 11/07/20 [Rx Last Taken 12/04/20] fluticasone furoate 200 mcg-vilanterol 25 mcg/dose inhalation powder (Breo Ellipta) 1 ea inhalation DAILY COPD 12/04/20 [History Last Taken 12/05/20] albuterol sulfate 2.5 mg/3 mL (0.083 %) solution for nebulization 2.5 mg (3 mL) inhalation Q4H PRN Shortness Of Breath #3 mL 12/08/20 [Rx Last Taken Unknown] furosemide 40 mg tablet 40 mg PO DAILY #1 TAB 12/08/20 [Rx Last Taken 12/02/20] glimepiride 4 mg tablet 4 mg PO BREAKFAST #30 tabs 12/08/20 [Rx Last Taken Unknown] metformin 500 mg tablet 500 mg PO BIDCM #60 tabs 12/08/20 [Rx Last Taken Unknown] Allergy/AdvReac Type Severity Reaction Status Date / Time No Known Allergies Allergy Verified 05/30/22 17:27 Family History Mother Rheumatoid arthritis Chronic back pain Father Unknown family medical history Patient is unaware of any paternal family medical history to include diabetes, hypertension, CAD, ACS or CVA due to patient not knowing his father. Surgical History Hx of inguinal hernia surgery Social History household members: family and children Smoking Status: Former smoker quit date: 09/04/20 pack-years: 30 how long ago did patient quit smokin months ago alcohol intake: former substance use type: marijuana Vital Signs Vital Signs Vital Signs: 05/30/22 17:22 05/30/22 17:39 05/30/22 17:47 Temperature 97.4 F L Temperature Source Temporal Pulse Rate 82 Respiratory Rate 29 H Respiratory Effort Short of Breath Respiratory Depth Normal Respiratory Pattern Tachypnea Blood Pressure 137/85 H Blood Pressure Mean 102 Pulse Ox 93 Oxygen Delivery Method Nasal Cannula Nasal Cannula Nasal Cannula Oxygen Flow Rate (L/min) 3 3 3 05/30/22 17:47 05/30/22 20:05 Temperature Temperature Source Pulse Rate 96 92 Respiratory Rate 24 H 20 H Respiratory Effort Respiratory Depth Respiratory Pattern Blood Pressure 115/61 Blood Pressure Mean 79 Pulse Ox 97 Oxygen Delivery Method Nasal Cannula Oxygen Flow Rate (L/min) 2 Weight Weight: 109.3 kg Body Mass Index (BMI) 34.5 Results Lab / Micro Data Result Diagrams: 05/30/22 18:20 05/30/22 18:20 Labs: Laboratory Results - last 24 hr 05/30/22 18:20: WBC 8.5, RBC 4.24 L, Hgb 12.7 L, Hct 39.9 L, MCV 94.1 H, MCH 30.0, MCHC 31.8 L, RDW Std Deviation 47.5 H, RDW Coeff of Patricia 13.9, Plt Count 288, MPV 10.1, Immature Gran % (Auto) 0.400, Neut % (Auto) 56.4, Lymph % (Auto) 29.5, Spink % (Auto) 9.8, Eos % (Auto) 3.5, Baso % (Auto) 0.4, Absolute Neuts (auto) 4.8, Absolute Lymphs (auto) 2.51, Nucleated RBC % 0 05/30/22 18:20: Sodium 138, Potassium 3.5, Chloride 99, Carbon Dioxide 32.0, Anion Gap 7, BUN 28 H, Creatinine 1.36 H, Estim Creat Clear Calc 54.42, Est GFR (MDRD) Af Amer 67, Est GFR (MDRD) Non-Af 56 L, BUN/Creatinine Ratio 20.6 H, Glucose 197 H, Calcium 8.9, Troponin I High Sens 12 Radiology Impression Chest X-Ray 05/30/22 18:25 IMPRESSION: There are no acute findings. Electronically Signed: Evens Cintron MD at 19:05 EST ,
--- NOTE | 2022-05-30 21:07 | PCM.HP.STD ---
HPI - General General Date of Admission: 05/30/22 Date of Service: 05/30/22 Chief Complaint: Shortness of breath HPI Narrative JORGE APONTE, is a 66 M with a significant history of diabetes mellitus; hypertension; and oxygen dependent COPD of 2 to 4 L who presents emergency department with shortness of breath. Reportedly patient lives at the [facility]. Patient's oxygen regulator broke 2 days before presentation so he has not been able to use his oxygen. Following that he reports shortness of breath. He reports a productive cough of copious thick yellowish thick is worsened from his baseline. He reports audible wheezes. [facility] Medical History Atrial tachycardia Congestive heart failure (CHF) COPD (chronic obstructive pulmonary disease) Diabetes Former smoker Hearing loss, left Hearing loss, right Hypertension Hypoxia Hypoxia Nonadherence to medication On home oxygen therapy Smoker Home Medications albuterol sulfate 90 mcg/actuation aerosol inhaler (Ventolin HFA) 2 puff inhalation Q4H PRN PRN Shortness Of Breath 09/15/20 [History Last Taken 05/30/22] ipratropium bromide 0.02 % solution for inhalation 3 ml inhalation TID PRN Shortness Of Breath 09/15/20 [History Last Taken 12/04/20] losartan 25 mg tablet 25 mg PO DAILY bp 09/15/20 [History Last Taken 05/30/22] metoprolol succinate 50 mg tablet,extended release 24 hr 150 mg PO DAILY #90 tabs 11/07/20 [Rx Last Taken 05/30/22] tiotropium bromide 2.5 mcg/actuation mist for inhalation (Spiriva Respimat) 2 puff inhalation DAILY breathing #4 grams 11/07/20 [Rx Last Taken 05/30/22] fluticasone furoate 200 mcg-vilanterol 25 mcg/dose inhalation powder (Breo Ellipta) 1 ea inhalation DAILY COPD 12/04/20 [History Last Taken 05/30/22] albuterol sulfate 2.5 mg/3 mL (0.083 %) solution for nebulization 2.5 mg (3 mL) inhalation Q4H PRN Shortness Of Breath #3 mL 12/08/20 [Rx Last Taken 05/30/22] furosemide 40 mg tablet 40 mg PO DAILY #1 TAB 12/08/20 [Rx Last Taken 05/30/22] metformin 500 mg tablet 500 mg PO BIDCM #60 tabs 12/08/20 [Rx Last Taken Unknown] glimepiride 4 mg tablet 8 mg PO BREAKFAST 05/30/22 [History Last Taken 05/30/22] spironolactone 25 mg tablet 12.5 mg PO DAILY 05/30/22 [History Last Taken 05/30/22] Allergy/AdvReac Type Severity Reaction Status Date / Time No Known Allergies Allergy Verified 05/30/22 17:27 Family History Mother Rheumatoid arthritis Chronic back pain Father Unknown family medical history Patient is unaware of any paternal family medical history to include diabetes, hypertension, CAD, ACS or CVA due to patient not knowing his father. Surgical History Hx of inguinal hernia surgery Social History household members: family and children Smoking Status: Current every day smoker tobacco type: cigarettes how long ago did patient quit smokin months ago alcohol intake: former substance use type: marijuana ROS ROS Narrative Pertinent positives and pertinent negatives as noted in HPI. All other systems were reviewed and are negative Vital Signs Vital Signs Vital Signs: 05/30/22 17:22 05/30/22 17:39 05/30/22 17:47 Temperature 97.4 F L Temperature Source Temporal Pulse Rate 82 Respiratory Rate 29 H Respiratory Effort Short of Breath Respiratory Depth Normal Respiratory Pattern Tachypnea Blood Pressure 137/85 H Blood Pressure Mean 102 Pulse Ox 93 Oxygen Delivery Method Nasal Cannula Nasal Cannula Nasal Cannula Oxygen Flow Rate (L/min) 3 3 3 05/30/22 17:47 05/30/22 20:05 05/30/22 20:40 Temperature 98.7 F Temperature Source Temporal Pulse Rate 96 92 96 Respiratory Rate 24 H 20 H 14 Respiratory Effort Respiratory Depth Respiratory Pattern Blood Pressure 115/61 107/95 H Blood Pressure Mean 79 99 Pulse Ox 97 98 Oxygen Delivery Method Nasal Cannula Nasal Cannula Oxygen Flow Rate (L/min) 2 2 Weight Weight: 109.3 kg Body Mass Index (BMI) 34.5 Physical Exam Narrative Physical exam: General: Well-nourished, well-developed. Head: Normocephalic, atraumatic, no tenderness Eyes: Injection of bilateral conjunctiva right worse than left. Vision is grossly intact. ENT, no trauma, moist mucous membranes, no rhinorrhea Neck: Nontender, No thyromegaly. CVS: Regular rate and rhythm. S1-S2 present. No murmur, gallop or rub. Respiratory : Diminished, chest wall nontender. Abdomen: Soft, nontender, nondistended, normal bowel sounds, no masses : Deferred Back: Nontender, no CVA tenderness. Extremities: Nontender full range of motion, no trauma Skin: Normal color, no trauma, abrasions Neuro: Alert, oriented, cranial nerves II through XII grossly intact except patient is hard of hearing.. Psychiatry: Normal mood. Normal affect. Not depressed. Not anxious. Results Lab / Micro Data Result Diagrams: 05/30/22 18:20 05/30/22 18:20 Labs: Laboratory Results - last 24 hr 05/30/22 18:20: WBC 8.5, RBC 4.24 L, Hgb 12.7 L, Hct 39.9 L, MCV 94.1 H, MCH 30.0, MCHC 31.8 L, RDW Std Deviation 47.5 H, RDW Coeff of Patricia 13.9, Plt Count 288, MPV 10.1, Immature Gran % (Auto) 0.400, Neut % (Auto) 56.4, Lymph % (Auto) 29.5, White % (Auto) 9.8, Eos % (Auto) 3.5, Baso % (Auto) 0.4, Absolute Neuts (auto) 4.8, Absolute Lymphs (auto) 2.51, Nucleated RBC % 0 05/30/22 18:20: Sodium 138, Potassium 3.5, Chloride 99, Carbon Dioxide 32.0, Anion Gap 7, BUN 28 H, Creatinine 1.36 H, Estim Creat Clear Calc 54.42, Est GFR (MDRD) Af Amer 67, Est GFR (MDRD) Non-Af 56 L, BUN/Creatinine Ratio 20.6 H, Glucose 197 H, Calcium 8.9, Troponin I High Sens 12 Radiology Impression Chest X-Ray 05/30/22 18:25 IMPRESSION: There are no acute findings. Electronically Signed: Evens Cintron MD at 19:05 EST , Assessment & Plan Assessment/Plan (1) Acute exacerbation of chronic obstructive pulmonary disease: (2) Diabetes: (3) Hypertension: PLAN: Plan Acute exacerbation of COPD/worsening respiratory failure Likely secondary to running out of home oxygen CXR independently reviewed confirms no acute cardiopulmonary process. I agree with radiologist interpretation. Scheduled DuoNeb Albuterol as needed Solu-Medrol IV ordered in the ED. Prednisone 40 mg p.o. daily ordered. With increased sputum thickness sputum worse than baseline, azithromycin p.o. ordered. Patient with appropriate oxygen saturation on 2 L. Titrate oxygen as needed. Monitor BMP and CBC Case management consult to help with home oxygen demands. If home oxygen is set up patient likely can be discharged home. Hypertension Blood pressure is stable Home blood pressure medication continued. Trend blood pressure Diabetes mellitus with nephropathy Blood glucose is not within goal. Home glimepiride continued. Correction scale insulin ordered CKD stage IIIa Stable DVT prophylaxis Subcutaneous Lovenox ordered. Charges/Coding Visit Charges Inpatient E&M: 15692 Init Hosp L2
[2022-05-30] MEDS: Acetaminophen 325 MG Tablet 650 MG PO (22:36)
[2022-05-30] MEDS: Insulin Lispro 100 UNIT/ML INSULN.PEN SC (22:37)
[2022-05-30] MEDS: guaiFENesin 1,200 MG Tablet 1200 MG PO (22:38)
[2022-05-30] MEDS: Azithromycin 250 MG Tablet 500 MG PO (22:38)
[2022-05-30 23:00] LABS: Bedside Glucose 210 mg/dL (74-106)
[2022-05-31] VITALS (7 sets, daily range): BP systolic 126–140; BP diastolic 72–89; PULSE 94–107; RESP 16–20; TEMP 36.6–37.1; O2SAT 94–99
[2022-05-31] MEDS: Insulin Lispro 100 UNIT/ML INSULN.PEN SC ×2 (06:21→12:54)
[2022-05-31 06:29] LABS: Absolute Lymphocyte Count 1.22 X10^3/uL (0.83-4.51); Absolute Neutrophil Count 5.5 X10^3/uL (2.0-7.7); Hematocrit 39.5 % (40-54); Hemoglobin 12.8 g/dL (13.0-16.5); Lymphocyte # 1.22 X10^3/ul (0.83-4.51); Lymphocyte % 17.9 % (19-41); Mean Corp Hgb Conc 32.4 g/dL (32-36); Mean Corpuscular Volume 92.5 fL (80-94); Mean Platelet Vol. 10.6 fl (6.2-12.0); Monocyte# 0.09 X10^3/uL; Monocyte% 1.3 % (0-10); NRBC Flagged by Analyzer 0 % (0-5); Neutrophil # 5.46 X10^3/uL (2.7-7.7); Neutrophil % 80.4 % (47-70); Platelet Count 292 K/mm3 (150-450); RBC Distribution Width CV 13.8 % (11.6-14.6); RBC Distribution Width SD 46.7 fl (35.1-43.9); Red Blood Count 4.27 M/mm3 (4.6-6.2); White Blood Count 6.8 K/mm3 (4.4-11.0)
[2022-05-31 06:50] LABS: Bedside Glucose 200 mg/dL (74-106)
[2022-05-31 06:56] LABS: Anion Gap 6 (5-15); BUN 28 mg/dL (7-18); BUN/Creat Ratio 22.4 RATIO (10-20); Calcium,Total 9.3 mg/dL (8.5-10.1); Chloride 101 mmol/L (98-107); Creatinine, Serum 1.25 mg/dL (0.70-1.30); EST Glomerular Filtration Rate 61 mL/min (>60); Est Glom Filt Rate - Afr Amer 74 mL/min (>60); Estimated Creatinine Clearance 61.08 ml/min; Glucose 221 mg/dL (74-106); Potassium 4.4 mmol/L (3.5-5.1); Sodium Level 136 mmol/L (136-145)
[2022-05-31] MEDS: Ipratropium/Albuterol Sulfate 3 ML AMPUL.NEB INHALATION ×2 (07:07→15:46)
[2022-05-31] MEDS: predniSONE 20 MG Tablet 40 MG PO (09:28)
[2022-05-31] MEDS: Losartan Potassium 25 MG Tablet PO (09:28)
[2022-05-31] MEDS: Furosemide 40 MG Tablet PO (09:28)
[2022-05-31] MEDS: Enoxaparin 40 MG/0.4 ML Syringe SC (09:28)
[2022-05-31] MEDS: Glimepiride 4 MG Tablet 8 MG PO (09:28)
[2022-05-31] MEDS: Metoprolol(XL)Succ 50 MG Tablet 150 MG PO (09:29)
[2022-05-31] MEDS: guaiFENesin 1,200 MG Tablet 1200 MG PO (09:29)
--- NOTE | 2022-05-31 10:25 | CASEMGMT ---
MONICA SCHNEIDER Assessment: Face to Face with pt for initial transition planning/care coordination assessment. MONICA SCHNEIDER introduced self and role at [facility], pt voices understanding and consents to assessment. Pt is A/O x4. Pt unable to stay on topic and bounces around as far as time frame when he speaks, making it difficult to follow him in conversation. Care providers, pharmacy, and demographics verified/updated. Admitting Dx: COPD exac PCP:[facility] Specialists:Pt did not answer Preferred Pharmacy: [facility] Retail Insurance: [facility], PHU crossover Prescription Benefit: yes LNOK: Tomer Lu, exwife; Forest Lu, brother Living Arrangements: It is unclear where pt is living. He states he was recently dc'd from [facility]. He states he has not stayed at the [facility] as they do not have beds. He states he wents there and was in diuress and they called the squad. Pt reports he is I in ADL's. Transportation: Pt reports he does not have a car. It is unclear of how he receives transportation. DME/HHC/SNF: Pt has a rollator in the room. He states he has oxygen from [email or web address]. He has 4 large tanks in the room. It is noted in the progress notes that pt oxygen concentrator is broken. Pt states it is not broken but it is at a home that he no longer can stay at. He reports he lost electricity there but now it is turned back on. He states he does have access to get it. He would not provide the address to this home, he just states that is [address]. Pt states the slot floorperson is living in [place] and he was staying there to make sure no one robbed it. Pt does not state if he has a BGM as he changes the subject multiple times. Pt has a nebulizer. Pt does not report ever having HHC but states he recently was dc'd from [facility]. It appears pt concern is that he has no where to go at [employer]. He states the [facility] is full. He reports he cannot stay with his ex or his brother. Pt reports he has money for rent. He speaks of multiple homes he has stayed at with one being across from [facility]. He states he is the male version of Mother Leatha. 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 Updated SW on issue that pt has no housing at discharge. Pt states no further concerns/needs. CM to follow. Advised pt to ask CM if any further question/concerns/needs arise, voices understanding. Pt Goal: Undetermined Plan: GABI c/s, undetermined.
--- NOTE | 2022-05-31 11:18 | PCM.PN.HOSP ---
Reason for Visit Reason for Visit: Diagnoses Type 2 diabetes mellitus without complications (05/30/22) Essential (primary) hypertension (05/30/22) Chronic obstructive pulmonary disease with (acute) exacerbation (05/30/22) Subjective Subjective Follow-up for COPD exacerbation. Patient also has behavioral disturbance. Complain of back pain mainly lumbar paraspinal region. Complains of 7/10 intensity. Objective Data Objective Data Vital Signs: Vital Signs Temp Pulse Resp BP Pulse Ox O2 Del Method O2 Flow Rate 97.9 F 107 H 18 140/89 H 99 Nasal Cannula 3 05/31/22 09:00 05/31/22 09:29 05/31/22 09:00 05/31/22 09:00 05/31/22 09:00 05/31/22 09:00 05/31/22 09:00 Oxygen Flow Rate (L/min) 3 Oxygen Delivery Method Nasal Cannula Weight: 233 lb 11.04 oz Body Mass Index (BMI) 32.5 Intake & Output: Intake and Output for Last 24 Hours 05/29/22 05/30/22 05/31/22 23:59 23:59 23:59 Intake Total 500 / 500 600 / 600 Output Total 500 / 500 400 / 400 Balance 0 / 0 200 / 200 Lab / Micro Data Result Diagrams: 05/31/22 05:46 05/31/22 05:46 Labs: Laboratory Results - last 24 hr 05/30/22 18:20: WBC 8.5, RBC 4.24 L, Hgb 12.7 L, Hct 39.9 L, MCV 94.1 H, MCH 30.0, MCHC 31.8 L, RDW Std Deviation 47.5 H, RDW Coeff of Patricia 13.9, Plt Count 288, MPV 10.1, Immature Gran % (Auto) 0.400, Neut % (Auto) 56.4, Lymph % (Auto) 29.5, Garfield % (Auto) 9.8, Eos % (Auto) 3.5, Baso % (Auto) 0.4, Absolute Neuts (auto) 4.8, Absolute Lymphs (auto) 2.51, Nucleated RBC % 0 05/30/22 18:20: Sodium 138, Potassium 3.5, Chloride 99, Carbon Dioxide 32.0, Anion Gap 7, BUN 28 H, Creatinine 1.36 H, Estim Creat Clear Calc 54.42, Est GFR (MDRD) Af Amer 67, Est GFR (MDRD) Non-Af 56 L, BUN/Creatinine Ratio 20.6 H, Glucose 197 H, Calcium 8.9, Troponin I High Sens 12 05/30/22 21:58: POC Glucose 210 H 05/31/22 05:46: WBC 6.8, RBC 4.27 L, Hgb 12.8 L, Hct 39.5 L, MCV 92.5, MCH 30.0, MCHC 32.4, RDW Std Deviation 46.7 H, RDW Coeff of Patricia 13.8, Plt Count 292, MPV 10.6, Immature Gran % (Auto) 0.400, Neut % (Auto) 80.4 H, Lymph % (Auto) 17.9 L, Garfield % (Auto) 1.3, Eos % (Auto) 0.0, Baso % (Auto) 0.0, Absolute Neuts (auto) 5.5, Absolute Lymphs (auto) 1.22, Nucleated RBC % 0 05/31/22 05:46: Sodium 136, Potassium 4.4, Chloride 101, Carbon Dioxide 29.0, Anion Gap 6, BUN 28 H, Creatinine 1.25, Estim Creat Clear Calc 61.08, Est GFR (MDRD) Af Amer 74, Est GFR (MDRD) Non-Af 61, BUN/Creatinine Ratio 22.4 H, Glucose 221 H, Calcium 9.3 05/31/22 06:19: POC Glucose 200 H Radiography Diagnostic Testing: Radiology Impression Chest X-Ray 05/30/22 18:25 IMPRESSION: There are no acute findings. Electronically Signed: Evens Cintron MD at 19:05 EST Reading Location ID and State: [facility] / MD , Service support , Physical Exam Narrative Patient is coughing up and brings up thick yellow sputum. Physical exam General: Alert, Oriented x3, Cooperative, obesity grade 1, BMI 32.6 kg/m? HEENT: Atraumatic, PERRLA, EOMI, Normocephalic Oral: deep oropharyngeal structures could not be visualized. Neck: Supple, No JVD, Negative Carotid Bruits Lungs: Air entry diminished in bilateral lung bases. No crepitation/rhonchi Cardiovascular: Regular rate, Regular Rhythm, Normal S1, Normal S2, No murmurs Abdomen: Bowel Sounds Present, Soft, Non Tender, Non-Distended : No renal angle tenderness. No suprapubic tenderness. Extremities: No edema, Capillary Refill Less than 3 Seconds Skin: No rashes, No breakdown Musculoskeletal: No Tenderness to Palpation of Joints or Extremities Neurological: Cranial nerves II-XII grossly intact, DTR 2+/4 and Symmetrical, Neuro grossly intact Psych/Mental Status: Flat affect, abnormal behavior. Assessment & Plan Assessment/Plan (1) Acute exacerbation of chronic obstructive pulmonary disease: (2) Diabetes: (3) Hypertension: PLAN: Plan This 66-year-old gentleman was admitted with shortness of breath. Usually wears 2 to 4 L of oxygen at home and patient ran out of oxygen patient is also homeless. 1. Acute exacerbation of COPD with chronic hypoxic respiratory failure: Patient was tachypneic but oxygen requirement was 3 L at time of admission. Chest x-ray does not show acute cardiopulmonary process. On his scheduled DuoNeb, IV Solu-Medrol, incentive spirometry and Pep. Patient has thick sputum production therefore sputum culture is ordered. On azithromycin. 2. Hypertension Blood pressure is stable Home blood pressure medication continued. Monitor blood pressure Diabetes mellitus with nephropathy Blood glucose is 190-200, hyperglycemia. Home glimepiride continued. Correction scale insulin ordered CKD stage IIIa Stable DVT prophylaxis Subcutaneous Lovenox ordered. Laboratory Results 05/30/22 18:20: WBC 8.5, RBC 4.24 L, Hgb 12.7 L, Hct 39.9 L, MCV 94.1 H, MCH 30.0, MCHC 31.8 L, RDW Std Deviation 47.5 H, RDW Coeff of Patricia 13.9, Plt Count 288, MPV 10.1, Immature Gran % (Auto) 0.400, Neut % (Auto) 56.4, Lymph % (Auto) 29.5, Garfield % (Auto) 9.8, Eos % (Auto) 3.5, Baso % (Auto) 0.4, Absolute Neuts (auto) 4.8, Absolute Lymphs (auto) 2.51, Nucleated RBC % 0 05/30/22 18:20: Sodium 138, Potassium 3.5, Chloride 99, Carbon Dioxide 32.0, Anion Gap 7, BUN 28 H, Creatinine 1.36 H, Estim Creat Clear Calc 54.42, Est GFR (MDRD) Af Amer 67, Est GFR (MDRD) Non-Af 56 L, BUN/Creatinine Ratio 20.6 H, Glucose 197 H, Calcium 8.9, Troponin I High Sens 12 05/30/22 21:58: POC Glucose 210 H 05/31/22 05:46: WBC 6.8, RBC 4.27 L, Hgb 12.8 L, Hct 39.5 L, MCV 92.5, MCH 30.0, MCHC 32.4, RDW Std Deviation 46.7 H, RDW Coeff of Patricia 13.8, Plt Count 292, MPV 10.6, Immature Gran % (Auto) 0.400, Neut % (Auto) 80.4 H, Lymph % (Auto) 17.9 L, Garfield % (Auto) 1.3, Eos % (Auto) 0.0, Baso % (Auto) 0.0, Absolute Neuts (auto) 5.5, Absolute Lymphs (auto) 1.22, Nucleated RBC % 0 05/31/22 05:46: Sodium 136, Potassium 4.4, Chloride 101, Carbon Dioxide 29.0, Anion Gap 6, BUN 28 H, Creatinine 1.25, Estim Creat Clear Calc 61.08, Est GFR (MDRD) Af Amer 74, Est GFR (MDRD) Non-Af 61, BUN/Creatinine Ratio 22.4 H, Glucose 221 H, Calcium 9.3 05/31/22 06:19: POC Glucose 200 H 05/31/22 12:51: POC Glucose 190 H Charges/Coding Visit Charges Inpatient E&M: 42998 Subs Hosp L2
--- NOTE | 2022-05-31 11:36 | CASEMGMT ---
Social Work SW received update from MONICA SCHNEIDER that pt is homeless and has no where to go upon discharge. SW called [facility] in [place] and was informed that there are no male beds open. SW called [facility]eless Navigator, Carmen, and was told to have pt call for self and treatment navigator could possibly help arrange transportation to an out of county fci. SW printed list for out of county shelters and went to pt room to provide list. SW was accompanied to pt room by bedside nurse, Grant, and RN WYATT, Jennifer. SW and others attempted to discuss discharge plan with pt. Pt presented keyed up with rapid speech and continued to guide discussion in irrelevant narrative. SW and others continued to redirect pt but pt was not accepting of this. Pt interrupted others when important concerns were trying to be addressed. SW attempted to explain list of printed shelters and about [facility] homeless navigator who would be willing to assist but pt would not listen and continued to cut SW off during explanation. Throughout the discussion pt did state that there is someone by the name of Raffi who is helping pt with housing. Pt informed has money and can afford to pay for housing if it can be found. Rosa Tabor, SHANIQUE
[2022-05-31] MEDS: Senna/Docusate Sodium 1 Tablet 2 TABLET PO ×2 (12:58→22:57)
[2022-05-31 13:15] LABS: Bedside Glucose 190 mg/dL (74-106)
--- NOTE | 2022-05-31 14:07 | CASEMGMT ---
MONICA SCHNEIDER in to discuss AREVALO form with patient along with nurse Grant. MONICA SCHNEIDER explained AREVALO form, patient voiced understanding. Pt signed form and filed in chart. Pt provided with a copy of signed AREVALO form. Pt sitting on couch with all of his belongings strewn out on the floor and bed. Pt has ammunition, pulliam, jewelry, etc. Pt is aware that per [employer] rep, he will need to report to [employer] to get a regulator for his portable tanks. Pt verbalizes understanding. Patient had no further questions or concerns at this time.
[2022-05-31 17:40] LABS: Bedside Glucose 145 mg/dL (74-106)
[2022-05-31] MEDS: Insulin Glargine-YFGN 100 UNIT/ML Pen 10 UNIT SC (18:20)
--- NOTE | 2022-05-31 20:18 | NURSING ---
This RN walked in the Room and the pt was getting a breathing treatment. Respiratory Therapy walked in the room and stated that she did not start the breathing treatment. Pt states he gave himself a breathing treatment with his own medication. Pt's belongings were all over the room. This RN and the Respiratory Therapist collected the medications, cigarettes & equities analyst-items were locked in the med tube drawer the room.
--- NOTE | 2022-05-31 21:55 | NURSING ---
This RN locked pt's knife and boxes of bullets in the pt's med drawer.
[2022-05-31 22:40] LABS: Bedside Glucose 139 mg/dL (74-106)
[2022-05-31] MEDS: 0.9% Saline Lock 10 ML Syringe IV (22:55)
[2022-05-31] MEDS: Acetaminophen 325 MG Tablet 650 MG PO (22:55)
[2022-05-31] MEDS: MELATONIN 3 MG TABLET PO (22:56)
[2022-05-31] MEDS: guaiFENesin/D-Methorphan TAB.SR.12H 2 TABLET PO (22:57)
[2022-05-31] MEDS: Azithromycin 250 MG Tablet 500 MG PO (22:58)
--- NOTE | 2022-05-31 23:53 | CPS ---
Upon entering the patient's room around 1949 it was discovered by RN and RT that the patient was nebulizing his own medication. RN and RT were unaware that the patient had any home medications with him at the bedside. Those medications were taken from the patient's bedside and placed in a locked area for safe keeping until he is discharged when they will be returned. RT made the decision to hold the scheduled aerosol treatment at this time as the patient had just given himself an albuterol from his home medication supply. RN aware.
[2022-06-01] VITALS (8 sets, daily range): BP systolic 112–133; BP diastolic 74–94; PULSE 84–100; RESP 18–20; TEMP 36.4–37.1; O2SAT 93–98
[2022-06-01 02:55] LABS: M R Staph aureus DNA By PCR POSITIVE (Negative); Probe Check PASS
[2022-06-01 06:49] LABS: Absolute Neutrophil Count 6.5 X10^3/uL (2.0-7.7); Basophil# 0.01 X10^3/uL; Basophil% 0.1 % (0-1); Eosinophil# 0.01 X10^3/uL; Eosinophils% 0.1 % (0-5); Hematocrit 38.7 % (40-54); Hemoglobin 12.2 g/dL (13.0-16.5); Mean Corp Hgb Conc 31.5 g/dL (32-36); Mean Corpuscular Volume 95.1 fL (80-94); Mean Platelet Vol. 10.3 fl (6.2-12.0); Monocyte# 0.17 X10^3/uL; Monocyte% 2.2 % (0-10); NRBC Flagged by Analyzer 0 % (0-5); Neutrophil % 83.1 % (47-70); Platelet Count 296 K/mm3 (150-450); RBC Distribution Width CV 13.9 % (11.6-14.6); Red Blood Count 4.07 M/mm3 (4.6-6.2); White Blood Count 7.8 K/mm3 (4.4-11.0)
[2022-06-01] MEDS: Insulin Lispro 100 UNIT/ML INSULN.PEN SC ×4 (06:57→22:41)
[2022-06-01] MEDS: Ipratropium/Albuterol Sulfate 3 ML AMPUL.NEB INHALATION ×3 (07:05→19:43)
[2022-06-01 07:15] LABS: Anion Gap 8 (5-15); BUN 37 mg/dL (7-18); BUN/Creat Ratio 27.2 RATIO (10-20); Calcium,Total 8.7 mg/dL (8.5-10.1); Chloride 100 mmol/L (98-107); Creatinine, Serum 1.36 mg/dL (0.70-1.30); EST Glomerular Filtration Rate 56 mL/min (>60); Est Glom Filt Rate - Afr Amer 67 mL/min (>60); Estimated Creatinine Clearance 56.14 ml/min; Glucose 211 mg/dL (74-106); Potassium 4.1 mmol/L (3.5-5.1); Sodium Level 135 mmol/L (136-145)
[2022-06-01 07:25] LABS: Bedside Glucose 192 mg/dL (74-106)
--- NOTE | 2022-06-01 08:27 | PN.HOSP_ITS ---
Reason for Visit Reason for Visit: Diagnoses Type 2 diabetes mellitus without complications (05/30/22) Essential (primary) hypertension (05/30/22) Chronic obstructive pulmonary disease with (acute) exacerbation (05/30/22) Subjective Subjective Follow-up for COPD exacerbation and lower back pain. Objective Data Objective Data Vital Signs: Vital Signs Temp Pulse Resp BP Pulse Ox O2 Del Method O2 Flow Rate 97.5 F L 84 20 H 112/85 H 94 Nasal Cannula 4 06/01/22 04:04 06/01/22 07:06 06/01/22 07:06 06/01/22 04:04 06/01/22 07:06 06/01/22 07:06 06/01/22 07:06 Oxygen Flow Rate (L/min) 4 Oxygen Delivery Method Nasal Cannula Weight: 233 lb 11.04 oz Body Mass Index (BMI) 32.5 Intake & Output: Intake and Output for Last 24 Hours 05/30/22 05/31/22 06/01/22 23:59 23:59 23:59 Intake Total 500 / 500 600 / 600 300 / 300 Output Total 500 / 500 1400 / 1400 Balance 0 / 0 -800 / -800 300 / 300 Lab / Micro Data Result Diagrams: 06/01/22 06:21 06/01/22 06:21 Labs: Laboratory Results - last 24 hr 05/31/22 12:51: POC Glucose 190 H 05/31/22 17:10: POC Glucose 145 H 05/31/22 20:00: MRSA (PCR) POSITIVE H 05/31/22 22:08: POC Glucose 139 H 06/01/22 06:21: WBC 7.8, RBC 4.07 L, Hgb 12.2 L, Hct 38.7 L, MCV 95.1 H, MCH 30.0, MCHC 31.5 L, RDW Std Deviation 49.0 H, RDW Coeff of Patricia 13.9, Plt Count 296, MPV 10.3, Immature Gran % (Auto) 0.500, Neut % (Auto) 83.1 H, Lymph % (Auto) 14.0 L, [place] % (Auto) 2.2, Eos % (Auto) 0.1, Baso % (Auto) 0.1, Absolute Neuts (auto) 6.5, Absolute Lymphs (auto) 1.10, Nucleated RBC % 0 06/01/22 06:21: Sodium 135 L, Potassium 4.1, Chloride 100, Carbon Dioxide 27.0, Anion Gap 8, BUN 37 H, Creatinine 1.36 H, Estim Creat Clear Calc 56.14, Est GFR (MDRD) Af Amer 67, Est GFR (MDRD) Non-Af 56 L, BUN/Creatinine Ratio 27.2 H, Glucose 211 H, Calcium 8.7 06/01/22 06:56: POC Glucose 192 H Micro: Microbiology 05/31/22 21:00 Urine, Clean Catch Legionella Antigen - Final 05/31/22 21:00 Urine, Clean Catch Streptococcus pneumoniae Antigen (M - Final 05/31/22 07:56 Mucosa - Nasopharyngeal Respiratory Panel (PCR) - Final Physical Exam Narrative Patient is coughing up and brings up thick yellow sputum but it is improving and feels better. Patient complain of lower back pain mainly in lumbar paraspinal area, not radiating to buttock or lower extremities.. Physical exam General: Alert, Oriented x3, Cooperative, obesity grade 1, BMI 32.6 kg/m? HEENT: Atraumatic, PERRLA, EOMI, Normocephalic Oral: deep oropharyngeal structures could not be visualized. Neck: Supple, No JVD, Negative Carotid Bruits Lungs: Air entry diminished in bilateral lung bases. No crepitation/rhonchi Cardiovascular: Regular rate, Regular Rhythm, Normal S1, Normal S2, No murmurs Abdomen: Bowel Sounds Present, Soft, Non Tender, Non-Distended : No renal angle tenderness. No suprapubic tenderness. Extremities: No edema, Capillary Refill Less than 3 Seconds Skin: No rashes, No breakdown Musculoskeletal/spine: No Tenderness to Palpation of Joints or Extremities. Tenderness to paraspinal muscle lumbar region. Muscle strain. Neurological: Cranial nerves II-XII grossly intact, DTR 2+/4 and Symmetrical, Neuro grossly intact Psych/Mental Status: Flat affect, abnormal behavior. Assessment & Plan Assessment/Plan (1) Acute exacerbation of chronic obstructive pulmonary disease: (2) Diabetes: (3) Hypertension: PLAN: Plan This 66-year-old gentleman was admitted with shortness of breath. Usually wears 2 to 4 L of oxygen at home and patient ran out of oxygen patient is also homeless. 1. Acute exacerbation of COPD with chronic hypoxic respiratory failure: Patient was tachypneic but oxygen requirement was 3 L at time of admission. Chest x-ray does not show acute cardiopulmonary process. On his scheduled DuoNeb, IV Solu- Medrol, incentive spirometry and Pep. Patient has thick sputum production therefore sputum culture is ordered. On azithromycin. Patient has behavioral abnormality: He has pressured speech, changes the topic with tangential thinking, speaks fast. Disorganized behavior. Patient is medically stable for crisis evaluation. 2. Acute on chronic lower back pain, localized to lumbar paraspinal area seems muscle strain: Patient is on oxycodone and is started on Robaxin. Lumbar spine x-ray shows degenerative changes and straightening of lumbar lordosis. Hypertension Blood pressure is stable Home blood pressure medication continued. Monitor blood pressure Diabetes mellitus with nephropathy Blood glucose is 190-200, hyperglycemia. Home glimepiride continued. Correction scale insulin ordered Glucose still high in 221. Discontinue Solu-Medrol. CKD stage IIIa Stable DVT prophylaxis Subcutaneous Lovenox ordered. Clinical Impression(s) from Imaging Studies Chest X-Ray 05/30/22 18:25 IMPRESSION: There are no acute findings. Electronically Signed: Evens Cintron MD at 19:05 EST , Lumbar Spine X-Ray 06/01/22 11:30 IMPRESSION: Degenerative changes of the spine, as detailed above. Straightening of the normal lumbar lordosis. Charges/Coding Visit Charges Inpatient E&M: 86782 Subs Hosp L2
[2022-06-01 08:52] LABS: Procalcitonin 0.05 ng/mL (0.00-0.09)
--- NOTE | 2022-06-01 08:55 | CM.UR ---
Addendum entered by Rosa Tabor 06/01/22 14:19: [facility] to confirm referral has david received. Spoke to Adelaida in Crisis who stated referral has not been seen but that it may have went to old fax machine in a different room GABI provided details of need for pt and Adelaida shared intent to come evaluation pt as son as possible. Adelaida informed working on two other cases at the moment but would do best to make it to hospital soon. Addendum entered by Rosa Tabor 06/01/22 09:52: GABI called [facility] to confirm that referral for crisis eval had been received. GABI was sent to medical records and left message for Erasto. GABI left callback number for Erasto to reach out. Will await phone call to confirm fax has been received. Original Note: Social Work GABI and RN WYATT discussed pt case with blueprinting and photocopy supervisor for guidance. It was decided a crisis consult to evaluation pt behaviors was appropriate. MD Dunaway agreeable to this and has medically cleared pt for MH evaluation. GABI faxed clinical information to [facility] to request evaluation. GABI also called [facility] and spoke to the there as pt recently d/c from this facility. Saumya ASHLEY, shared pt was d/c on 05/27 after threatening to leave AMA. Saumya believes pt came to SNF from home after being asked to move from residence as landlord decided to sell the home pt was living in. Saumya discharged pt to pt's son's home in [place]. Saumya stated pt was encouraged to review LTC or AL options but pt was adamant not to stay at SNF and have all money but $50 taken per month. Saumya shared C was set up for pt at pt son's home and a follow up appointment with Dr. Jeronimo (PCP) in [place] a day or two after pt d/c from SNF. SHANIQUE Thomas
[2022-06-01] MEDS: Glimepiride 4 MG Tablet 8 MG PO (09:04)
[2022-06-01] MEDS: Losartan Potassium 25 MG Tablet PO (09:05)
[2022-06-01] MEDS: Metoprolol(XL)Succ 50 MG Tablet 150 MG PO (09:05)
[2022-06-01] MEDS: Furosemide 40 MG Tablet PO (09:06)
[2022-06-01] MEDS: guaiFENesin/D-Methorphan TAB.SR.12H 2 TABLET PO ×2 (09:06→22:39)
[2022-06-01] MEDS: Enoxaparin 40 MG/0.4 ML Syringe SC (09:06)
[2022-06-01] MEDS: Senna/Docusate Sodium 1 Tablet 2 TABLET PO ×2 (09:07→22:39)
--- NOTE | 2022-06-01 09:44 | NURSING ---
This RN met pt this morning approximately at 0915am. Pt was laying on his stomach, with head and feet hanging off the side. Nc from o2 tubing was on top of his head and his complaint to me was about his nose. His Lt nare was bothering him, states he has an ingrown hair in there. Pt had white stuff in his Lt nares. This RN asked pt what the white stuff was and pt grabbed his bottle of hospital lotion that was given to him but [facility]. Pt states his nose was dry so he used the lotion to put up there. This RN educated pt that that was not a good idea and should not do that again and this RN would get him an order for Saline for his nose. This RN educated pt about MRSA in his Nares but pt did not want to listen to what was being said. Instead pt informed this nurse that he has been using a needle from his small sewing kit to use to poke up in his nose. It helps. This RN talked about not putting things up his nose that did not belong.
--- NOTE | 2022-06-01 11:30 | RAD_ITS ---
STUDY: X-RAY - LUMBAR SPINE REASON FOR EXAM: Male, 66 years old. Severe lumbar back pain TECHNIQUE: 3 view(s) of the lumbar spine were obtained. COMPARISON: None FINDINGS: There is straightening of the normal lumbar lordosis. There is no substantial scoliosis. There is a normal alignment of the vertebrae. There is multilevel endplate spondylosis of the lumbar vertebrae. There is multi-level degenerative disc disease with multi-level disc space narrowing. There is atherosclerotic calcification of the abdominal aorta without a demonstrated aneurysm. RAD/Lumbar Spine 2 or 3 Views IMPRESSION: Degenerative changes of the spine, as detailed above. Straightening of the normal lumbar lordosis. Electronically Signed: Dayne Garcia MD at 12:11 EST ,
[2022-06-01] MEDS: Methocarbamol 500 MG Tablet PO ×3 (12:23→22:39)
[2022-06-01 12:55] LABS: Bedside Glucose 221 mg/dL (74-106)
[2022-06-01] MEDS: 0.9% Saline Lock 10 ML Syringe IV (14:59)
--- NOTE | 2022-06-01 15:17 | NURSING ---
Crisis in with pt at this time.
--- NOTE | 2022-06-01 15:51 | CASEMGMT ---
Social Work plant production worker met with SW and explained that after assessment with pt that it was determined that pt does not meet criteria for inpatient psych. Worker explained pt is of sound mind and competent to make own decisions based on assessment. SHANIQUE Thomas
--- NOTE | 2022-06-01 16:21 | CASEMGMT ---
Social Work SW met with pt to discuss discharge plan. Pt was been cleared through crisis and the MD on case. SW asked to call family and assist with plans for staying somewhere safe to ensure pt has place to manage oxygen needs. Pt gave permission for SW to call son but stated does not have son's number and son not listed on demographics. SW attempted to call pt brother and ex to work on discharge plan. Neither call was answered. Pt explained to SW that the plan he has for discharge is to go to a hotel via taxi. Pt stated has money to pay for the taxi and the hotel. Pt has phone and is able to use this to reach family if necessary. SW called Lupe at [facility] to confirm pt has regulator. Lupe stated pt can have a regulator from a tank on [facility] floor as she does not have any on their own available to give to pt at this moment. GABI updated MONICA Benavides of this information and Makayla to ensure pt gets regulator before discharge. PLAN: Discharge to Hotel SHANIQUE Thomas
[2022-06-01 18:25] LABS: Bedside Glucose 204 mg/dL (74-106)
[2022-06-01] MEDS: oxyCODONE 5 MG Tablet PO (22:40)
[2022-06-01] MEDS: Azithromycin 250 MG Tablet 500 MG PO (22:40)
[2022-06-01] MEDS: Acetaminophen 325 MG Tablet 650 MG PO (22:40)
[2022-06-01] MEDS: Insulin Glargine-YFGN 100 UNIT/ML Pen 10 UNIT SC (22:41)
[2022-06-01 23:06] LABS: Bedside Glucose 269 mg/dL (74-106)
[2022-06-02] VITALS (8 sets, daily range): BP systolic 119–139; BP diastolic 77–84; PULSE 77–92; RESP 18–20; TEMP 36.6; O2SAT 93–98
[2022-06-02] MEDS: Methocarbamol 500 MG Tablet PO ×2 (07:01→15:13)
[2022-06-02 07:20] LABS: Bedside Glucose 103 mg/dL (74-106)
[2022-06-02] MEDS: Ipratropium/Albuterol Sulfate 3 ML AMPUL.NEB INHALATION (07:25)
[2022-06-02] MEDS: guaiFENesin/D-Methorphan TAB.SR.12H 2 TABLET PO (08:39)
[2022-06-02] MEDS: predniSONE 20 MG Tablet 40 MG PO (08:41)
[2022-06-02] MEDS: Glimepiride 4 MG Tablet 8 MG PO (08:42)
[2022-06-02] MEDS: Enoxaparin 40 MG/0.4 ML Syringe SC (08:43)
[2022-06-02] MEDS: Metoprolol(XL)Succ 50 MG Tablet 150 MG PO (08:43)
[2022-06-02] MEDS: Losartan Potassium 25 MG Tablet PO (08:44)
[2022-06-02] MEDS: Furosemide 40 MG Tablet PO (08:44)
[2022-06-02] MEDS: Insulin Glargine-YFGN 100 UNIT/ML Pen 10 UNIT SC (08:45)
[2022-06-02] MEDS: oxyCODONE 5 MG Tablet PO (08:52)
[2022-06-02] MEDS: Acetaminophen 325 MG Tablet 650 MG PO (08:53)
--- NOTE | 2022-06-02 10:27 | DCINST_ITS ---
Discharge Instructions Diet Discharge Diet: Low fat / Low cholesterol and 2000 mg Sodium Diet Activity Discharge Activity: Return to Normal Activity Weight Bearing Status: Weight bearing as tolerated Dressing / Incision Call your doctor if you observe: Fever of 101 or Higher, Coldness, Increased Pain, Numbness or Tingling, Change in Color, Inability to urinate, Inability to have a bowel movement, Shortness of breath, Dizziness, Fainting spells, Swelling in the ankles, Chest pain, Prolonged hiccupping, Increased palpitations (irregular heartbeat) and Calf discomfort Follow Up Care When: IN 2 WEEKS Test Results: Test results from this visit will be discussed in further detail at your follow- up appointment, if applicable. Discharge Plan Admission Admit Date/Time: 05/30/22 20:27 Primary Reason for Your Visit: COPD exacerbation Attending Provider: Mac Dunaway Primary Care Provider: Regan Adan Consulting Providers: Dayday Robledo Discharge Orders/Prescriptions Prescriptions: New methocarbamol 500 mg Tablet 500 mg PO TID PRN (Reason: muscle pain) 10 Days Qty: 30 0RF Mucinex DM 30-600 mg Tablet Extended Release 12 Hr 2 tab PO BID 7 Days Qty: 28 0RF prednisone 10 mg tablets,dose pack See Taper PO DAILY Qty: 30 0RF Taper: Prednisone Taper 40 mg WITH BREAKFAST for 3 Days and 0 Hour 30 mg WITH BREAKFAST for 3 Days and 0 Hour 20 mg WITH BREAKFAST for 3 Days and 0 Hour 10 mg WITH BREAKFAST for 3 Days and 0 Hour Rx Instructions: 40 mg with breakfast for 3 Days; 30 mg with breakfast for 3 Days; 20 mg with breakfast for 3 Days; 10 mg with breakfast for 3 Days Continued losartan 25 mg tablet 25 mg PO DAILY albuterol sulfate [Ventolin HFA] 90 mcg/actuation HFA aerosol inhaler 2 puff INHALATION Q4H PRN PRN (Reason: Shortness Of Breath) ipratropium bromide 0.02 % solution 3 ml inhalation TID PRN (Reason: Shortness Of Breath) Label Comments: inhale contents of 1 vial in nebulizer every 4 hours if needed Spiriva Respimat 2.5 mcg/actuation Mist 2 puff INHALATION DAILY Qty: 4 0RF metoprolol succinate 50 mg Tablet Extended Release 24 Hr 150 mg PO DAILY Qty: 90 0RF fluticasone furoate-vilanterol [Breo Ellipta] 200-25 mcg/dose blister with device 1 ea INHALATION DAILY metformin 500 mg Tablet 500 mg PO BIDCM Qty: 60 0RF albuterol sulfate 2.5 mg /3 mL (0.083 %) Solution For Nebulization 2.5 mg inhalation Q4H PRN (Reason: Shortness Of Breath) Qty: 3 0RF furosemide 40 mg Tablet 40 mg PO DAILY Qty: 1 0RF spironolactone 25 mg tablet 12.5 mg PO DAILY Label Comments: take ONE-HALF tablet by mouth every morning glimepiride 4 mg tablet 8 mg PO BREAKFAST Referrals / Follow Up: Zbigniew Romo DO [Med Staff - Active Staff] - Within 1 Month (copd exacerbation ) Regan Adan DO [Primary Care Provider] - Within 2 Weeks Jayant Sanchez DO [Med Staff - Active Staff] - Within 1 Month (for lumbar backpain) Disposition Disposition (needs filled in before D/C Order can be placed): Home, Self Care
--- NOTE | 2022-06-02 10:32 | PCM.DC.SUM ---
Providers Date of Admission: 05/30/22 Date of Discharge: 06/02/22 Primary Care Physician: Dr. Regan Adan DO Reason For Visit: ACUTE COPD EXACERBATION Diagnosis Discharge Diagnosis (1) Acute exacerbation of chronic obstructive pulmonary disease: Status: Chronic Code(s): J44.1 - Chronic obstructive pulmonary disease with (acute) exacerbation (2) Diabetes: Status: Acute Code(s): E11.9 - Type 2 diabetes mellitus without complications (3) Hypertension: Status: Acute Code(s): I10 - Essential (primary) hypertension Plan This 66-year-old gentleman was admitted with shortness of breath. Usually wears 2 to 4 L of oxygen at home and patient ran out of oxygen patient is also homeless. 1. Acute exacerbation of COPD with chronic hypoxic respiratory failure: Patient was tachypneic but oxygen requirement was 3 L at time of admission. Chest x-ray does not show acute cardiopulmonary process. On his scheduled DuoNeb, IV Solu-Medrol, incentive spirometry and Pep. Patient has thick sputum production therefore sputum culture is ordered. On azithromycin. Patient has behavioral abnormality: He has pressured speech, changes the topic with tangential thinking, speaks fast. Disorganized behavior. Patient is medically stable for crisis evaluation. 3: Overall patient shortness of breath and wheezing is much improved. Patient completed azithromycin course. Discharged on tapering dose of prednisone and Mucinex DM. Advised to continue incentive spirometry and Pep for 1 more week. Follow-up in pulmonary clinic within 1 month for PFT and sleep apnea. Patient has albuterol nebulization at home. On baseline home oxygen. 2. Acute on chronic lower back pain, localized to lumbar paraspinal area seems muscle strain: Patient is on oxycodone and is started on Robaxin. Lumbar spine x-ray shows degenerative changes and straightening of lumbar lordosis. 3: Patient advised to follow with Dr. Sanchez. Patient is discharged on Robaxin. Patient has pain medication at home. Follow with PCP. Hypertension Blood pressure is stable Home blood pressure medication continued. Monitor blood pressure Diabetes mellitus with nephropathy Blood glucose is 190-200, hyperglycemia. Home glimepiride continued. Correction scale insulin ordered Glucose still high in 221. Discontinue Solu-Medrol. CKD stage IIIa Stable DVT prophylaxis Subcutaneous Lovenox ordered. Discharge medication reconciliation done. Discharge follow-up instructions completed. Discharge process discussed with the patient and all questions were answered to patient's satisfaction. Total time spent, exact 35 minutes on discharge meds reconciliation, examination, coordination of care with nurses and ancillary staff, review of imaging and blood test and discussion with the patient on follow-up instructions. Clinical Impression(s) from Imaging Studies Chest X-Ray 05/30/22 18:25 IMPRESSION: There are no acute findings. Electronically Signed: Evens Cintron MD at 19:05 EST , Lumbar Spine X-Ray 06/01/22 11:30 IMPRESSION: Degenerative changes of the spine, as detailed above. Straightening of the normal lumbar lordosis. Medications at Discharge Home Medications albuterol sulfate 90 mcg/actuation aerosol inhaler (Ventolin HFA) 2 puff inhalation Q4H PRN PRN Shortness Of Breath 09/15/20 ipratropium bromide 0.02 % solution for inhalation 3 ml inhalation TID PRN Shortness Of Breath 09/15/20 losartan 25 mg tablet 25 mg PO DAILY bp 09/15/20 metoprolol succinate 50 mg tablet,extended release 24 hr 150 mg PO DAILY #90 tabs 11/07/20 tiotropium bromide 2.5 mcg/actuation mist for inhalation (Spiriva Respimat) 2 puff inhalation DAILY breathing #4 grams 11/07/20 fluticasone furoate 200 mcg-vilanterol 25 mcg/dose inhalation powder (Breo Ellipta) 1 ea inhalation DAILY COPD 12/04/20 albuterol sulfate 2.5 mg/3 mL (0.083 %) solution for nebulization 2.5 mg (3 mL) inhalation Q4H PRN Shortness Of Breath #3 mL 12/08/20 furosemide 40 mg tablet 40 mg PO DAILY #1 TAB 12/08/20 metformin 500 mg tablet 500 mg PO BIDCM #60 tabs 12/08/20 glimepiride 4 mg tablet 8 mg PO BREAKFAST 05/30/22 spironolactone 25 mg tablet 12.5 mg PO DAILY 05/30/22 dextromethorphan-guaifenesin 30 mg-600 mg tablet extended [id number] hr (Mucinex DM) 2 tab PO BID 7 days #28 tabs 06/02/22 methocarbamol 500 mg tablet 500 mg PO TID PRN muscle pain 10 days #30 tabs 06/02/22 prednisone 10 mg tablets in a dose pack See Taper PO DAILY #30 tabs 06/02/22 Physical Exam Narrative Cough, shortness of breath is much improved. Lower back pain is also better. Has chronic lower back pain mainly in lumbar paraspinal area, not radiating to buttock or lower extremities. Its not in sciatica in nature. Physical exam General: Alert, Oriented x3, Cooperative, obesity grade 1, BMI 32.6 kg/m? HEENT: Atraumatic, PERRLA, EOMI, Normocephalic Oral: deep oropharyngeal structures could not be visualized. Neck: Supple, No JVD, Negative Carotid Bruits Lungs: Air entry diminished in bilateral lung bases. No crepitation/rhonchi Cardiovascular: Regular rate, Regular Rhythm, Normal S1, Normal S2, No murmurs Abdomen: Bowel Sounds Present, Soft, Non Tender, Non-Distended : No renal angle tenderness. No suprapubic tenderness. Extremities: No edema, Capillary Refill Less than 3 Seconds Skin: No rashes, No breakdown Musculoskeletal/spine: No Tenderness to Palpation of Joints or Extremities. Tenderness to paraspinal muscle lumbar region. Muscle strain. Neurological: Cranial nerves II-XII grossly intact, DTR 2+/4 and Symmetrical, Neuro grossly intact Psych/Mental Status: Flat affect, abnormal behavior. Weight / BMI Weight Weight: 233 lb 11.04 oz Body Mass Index (BMI) 32.5 ABG / Lab / Microbiology Data Result Diagrams: 06/01/22 06:21 06/01/22 06:21 Laboratory: Laboratory Results - last 24 hr 06/01/22 12:16: POC Glucose 221 H 06/01/22 18:00: POC Glucose 204 H 06/01/22 22:38: POC Glucose 269 H 06/02/22 07:00: POC Glucose 103 Microbiology: Microbiology 05/31/22 21:00 Urine, Clean Catch Legionella Antigen - Final 05/31/22 21:00 Urine, Clean Catch Streptococcus pneumoniae Antigen (M - Final 05/31/22 07:56 Mucosa - Nasopharyngeal Respiratory Panel (PCR) - Final Radiography Diagnostic Testing: Radiology Impression Lumbar Spine X-Ray 06/01/22 11:30 IMPRESSION: Degenerative changes of the spine, as detailed above. Straightening of the normal lumbar lordosis. Electronically Signed: Dayne Garcia MD at 12:11 EST , D/C Instructions Discharge Diet: Low fat / Low cholesterol and 2000 mg Sodium Diet Weight Bearing Status: Weight bearing as tolerated Call your doctor if you observe: Fever of 101 or Higher, Coldness, Increased Pain, Numbness or Tingling, Change in Color, Inability to urinate, Inability to have a bowel movement, Shortness of breath, Dizziness, Fainting spells, Swelling in the ankles, Chest pain, Prolonged hiccupping, Increased palpitations (irregular heartbeat) and Calf discomfort When: IN 2 WEEKS Meaningful Use Info Meaningful Use Diagnoses (Choose all that apply): None applicable Discharge Plan Admission Admit Date/Time: 05/30/22 20:27 Primary Reason for Your Visit: COPD exacerbation Attending Provider: Mac Dunaway Primary Care Provider: Regan Adan Consulting Providers: Dayday Robledo Discharge Orders/Prescriptions Prescriptions: New methocarbamol 500 mg Tablet 500 mg PO TID PRN (Reason: muscle pain) 10 Days Qty: 30 0RF Mucinex DM 30-600 mg Tablet Extended Release 12 Hr 2 tab PO BID 7 Days Qty: 28 0RF prednisone 10 mg tablets,dose pack See Taper PO DAILY Qty: 30 0RF Taper: Prednisone Taper 40 mg WITH BREAKFAST for 3 Days and 0 Hour 30 mg WITH BREAKFAST for 3 Days and 0 Hour 20 mg WITH BREAKFAST for 3 Days and 0 Hour 10 mg WITH BREAKFAST for 3 Days and 0 Hour Rx Instructions: 40 mg with breakfast for 3 Days; 30 mg with breakfast for 3 Days; 20 mg with breakfast for 3 Days; 10 mg with breakfast for 3 Days Continued losartan 25 mg tablet 25 mg PO DAILY albuterol sulfate [Ventolin HFA] 90 mcg/actuation HFA aerosol inhaler 2 puff INHALATION Q4H PRN PRN (Reason: Shortness Of Breath) ipratropium bromide 0.02 % solution 3 ml inhalation TID PRN (Reason: Shortness Of Breath) Label Comments: inhale contents of 1 vial in nebulizer every 4 hours if needed Spiriva Respimat 2.5 mcg/actuation Mist 2 puff INHALATION DAILY Qty: 4 0RF metoprolol succinate 50 mg Tablet Extended Release 24 Hr 150 mg PO DAILY Qty: 90 0RF fluticasone furoate-vilanterol [Breo Ellipta] 200-25 mcg/dose blister with device 1 ea INHALATION DAILY metformin 500 mg Tablet 500 mg PO BIDCM Qty: 60 0RF albuterol sulfate 2.5 mg /3 mL (0.083 %) Solution For Nebulization 2.5 mg inhalation Q4H PRN (Reason: Shortness Of Breath) Qty: 3 0RF furosemide 40 mg Tablet 40 mg PO DAILY Qty: 1 0RF spironolactone 25 mg tablet 12.5 mg PO DAILY Label Comments: take ONE-HALF tablet by mouth every morning glimepiride 4 mg tablet 8 mg PO BREAKFAST Referrals / Follow Up: Zbigniew Romo DO [Med Staff - Active Staff] - Within 1 Month (copd exacerbation ) Regan Adan DO [Primary Care Provider] - Within 2 Weeks Jayant Sanchez DO [Med Staff - Active Staff] - Within 1 Month (for lumbar backpain) Disposition Disposition (needs filled in before D/C Order can be placed): Home, Self Care Charges/Coding Visit Charges Inpatient E&M: 21002 Disch Hosp >30min
--- NOTE | 2022-06-02 12:05 | CASEMGMT ---
Social Work SW updated by charge nurse that pt has been smoking in hospital room with oxygen. SW in to check on pt with charge nurse and hospital surveillance dual rate officer, Dmitriy. Charge nurse and Officer Dmitriy discussed smoking with pt. Pt gathering belongings to get ready for d/c. SW inquired about pt ability to get concentrator from house in [place]. Pt stated don't worry about that, I can get it. Rosa Tabor, SHANIQUE
--- NOTE | 2022-06-02 15:03 | PHA.DC.MR ---
Pharmacy Service has performed discharge medication reconciliation for this patient. The patient's discharge medication list was reviewed for discrepancies and discrepancies were resolved. Home Medications albuterol sulfate 90 mcg/actuation aerosol inhaler (Ventolin HFA) 2 puff inhalation Q4H PRN PRN Shortness Of Breath 09/15/20 ipratropium bromide 0.02 % solution for inhalation 3 ml inhalation TID PRN Shortness Of Breath 09/15/20 losartan 25 mg tablet 25 mg PO DAILY bp 09/15/20 metoprolol succinate 50 mg tablet,extended release 24 hr 150 mg PO DAILY #90 tabs 11/07/20 tiotropium bromide 2.5 mcg/actuation mist for inhalation (Spiriva Respimat) 2 puff inhalation DAILY breathing #4 grams 11/07/20 fluticasone furoate 200 mcg-vilanterol 25 mcg/dose inhalation powder (Breo Ellipta) 1 ea inhalation DAILY COPD 12/04/20 albuterol sulfate 2.5 mg/3 mL (0.083 %) solution for nebulization 2.5 mg (3 mL) inhalation Q4H PRN Shortness Of Breath #3 mL 12/08/20 furosemide 40 mg tablet 40 mg PO DAILY #1 TAB 12/08/20 metformin 500 mg tablet 500 mg PO BIDCM #60 tabs 12/08/20 glimepiride 4 mg tablet 8 mg PO BREAKFAST 05/30/22 spironolactone 25 mg tablet 12.5 mg PO DAILY 05/30/22 dextromethorphan-guaifenesin 30 mg-600 mg tablet extended [id number] hr (Mucinex DM) 2 tab PO BID 7 days #28 tabs 06/02/22 methocarbamol 500 mg tablet 500 mg PO TID PRN muscle pain 10 days #30 tabs 06/02/22 prednisone 10 mg tablets in a dose pack See Taper PO DAILY #30 tabs 06/02/22
--- NOTE | 2022-06-02 15:40 | CASEMGMT ---
Addendum entered by Jennifer Andrade 06/02/22 15:46: Pt states that his brother will be here in a half hour to transport to [place]. Pt denies further needs. Original Note: MONICA SCHNEIDER notified by pt nurse that pt does not have transportation home. MONICA SCHNEIDER, nurse and SW into pt room. Pt states he is going to [facility] in [place] to stay in an empty single bedroom apt that his friend will be selling. Pt states he will try to reach his brother for transportation there. Pt gave an address but states that is not the actual house number but it is in the vicinity. Asked pt how he will get his concentrator. He states his best friend's aunt was going to take him yet tonight to get the concentrator. No need for increased oxygen rx at rest. Pt nurse will test on exertion. Pt is aware that his oxygen tanks will last less than 24 hours and how crucial it is to obtain his concentrator. Pt to call brother for transportation otherwise transportation to his new home will be set up for him.
--- NOTE | 2022-06-02 15:41 | CASEMGMT ---
Social Work SW, RN and bedside nurse into pt room to discuss discharge plan. Pt has been telling staff that a ride is coming for several hours but bedside nurse unsure if this is truth. When approached by three staff to discuss discharge pt admitted there was no ride. Pt then shared going to a friend house instead of a hotel. Nurse asked pt if pt has money for taxi. Pt denied having money, yet had several hundred dollar bills in possession yesterday. SW attempted to call [employer] and [employer] [facility] to get ride for pt. [facility] unable. [facility] was agreeable but transporting pt but would not be able to until later this night. SW in middle of setting up the ride when bedside nurse, Columba, and RN WYATT informed SW that pt was on phone with brother and brother confirmed can pick pt up and transport to [facility] in [place], where pt stated a 1 bedroom apartment is available for use for a short time. RN confirmed with pt that oxygen concentrator could be picked up by pt this evening and pt informed he would have friend take him to get the concentrator in [facility]. Pt voiced understanding of the importance of having oxygen concentration with self to maintain oxygen. Dispo: [facility] in [place], pt brother to seed cone picker and transport. SHANIQUE Thomas
--- NOTE | 2022-06-02 15:51 | CPS ---
not started, patient leaving, states he is going to mental health fac
== END 2022-06-02 16:30 | disposition home or self-care (01) ==
LOC: ED 19:01 → MS3 20:44
PROVIDERS: Family Medicine; Physician Assistant; Admitting Provider Hospitalist; Emergency Provider Emergency Medicine; PCP Family Medicine; Visit Provider Internal Medicine
DX: J44.1 Chronic obstructive pulmonary disease with (acute) exacerbation (principal); I50.9 Heart failure, unspecified; E11.22 Type 2 diabetes mellitus with diabetic chronic kidney disease; J96.11 Chronic respiratory failure with hypoxia; N18.31 Chronic kidney disease, stage 3a; I12.9 Hypertensive chronic kidney disease with stage 1 through stage 4 chronic kidney disease, or unspecified chronic kidney disease; D64.9 Anemia, unspecified; Z79.84 Long term (current) use of oral hypoglycemic drugs; Z79.899 Other long term (current) drug therapy; Z99.81 Dependence on supplemental oxygen; F17.210 Nicotine dependence, cigarettes, uncomplicated; H91.93 Unspecified hearing loss, bilateral; Z59.01 Sheltered homelessness
CPT/HCPCS: 36415; 71045; 72100; 80048; 82962; 84145; 84484; 85025; 87449; 87633; 87641; 93005; 94640; 96372; 96374; 96376; 99221; 99285; 99406; A4216; G0378

== ENCOUNTER 2022-06-07 00:55 | Emergency (ER) | payer MEDICARE, MEDICAID, SELFPAY ==
[2022-06-07 00:56] VITALS: BP 142/92; PULSE 100; RESP 17; TEMP 36.8; O2SAT 98; BMI 23.6
[2022-06-07 01:25] VITALS: O2SAT 97
--- NOTE | 2022-06-07 01:29 | EKG12_ITS ---
Test Reason : SOB Blood Pressure : / mmHG Vent. Rate : 093 BPM Atrial Rate : 093 BPM P-R Int : 168 ms QRS Dur : 092 ms QT Int : 388 ms P-R-T Axes : 082 -18 061 degrees QTc Int : 482 ms Normal sinus rhythm Low voltage QRS Septal infarct , age undetermined Abnormal ECG Confirmed by PREMA HAYES, LAWRENCE ([id number]), editorial intern JOEL FUENTES ([id number]) on 06/09/2022 1:30:55 PM Referred By: Confirmed By:LAWRENCE LLOYD MD
--- NOTE | 2022-06-07 01:30 | EDS_ITS ---
HPI History of Present Illness Chief Complaint: Shortness of Breath Informant: patient Narrative Narrative: Patient brought in here for evaluation for social concerns. He was at [facility] overnight, reported was awakened by police and brought here due to him being on chronic oxygenation with a concentrator. He is on chronic 3 L for COPD. He has been on oxygen for last 2 years. He wears 3 L. He states individuals mostly at the [facility] at 8 AM they were concerned that he would not have oxygen therefore he was sent here. He apparently was discharged here a few days ago from the hospital on Tuesday and he stayed at hotel before going to [facility]. He states he has income of $1200 a month. States a couple months ago, his landlord sold his property. He states he was had a long term facility for a month however insurance ran out therefore he left. He has been staying at friend's house in [place]. He states he was hospitalized here for pneumonia before discharge a few days ago. Is currently on steroids. He denies any symptoms of cough fever shortness of breath. There is no issues at the [facility]. He states his appointment tomorrow morning with the landlord to discuss property rentals. He has been having difficulty finding a rental since property being so a couple months ago. PFSH PFSH Medical History Atrial tachycardia Congestive heart failure (CHF) COPD (chronic obstructive pulmonary disease) Diabetes Former smoker Hearing loss, left Hearing loss, right Hypertension Hypoxia Hypoxia Nonadherence to medication On home oxygen therapy Smoker Home Medications albuterol sulfate 90 mcg/actuation aerosol inhaler (Ventolin HFA) 2 puff inhalation Q4H PRN PRN Shortness Of Breath 09/15/20 [History Last Taken 05/30/22] ipratropium bromide 0.02 % solution for inhalation 3 ml inhalation TID PRN Shortness Of Breath 09/15/20 [History Last Taken 12/04/20] losartan 25 mg tablet 25 mg PO DAILY bp 09/15/20 [History Last Taken 05/30/22] metoprolol succinate 50 mg tablet,extended release 24 hr 150 mg PO DAILY #90 tabs 11/07/20 [Rx Last Taken 05/30/22] tiotropium bromide 2.5 mcg/actuation mist for inhalation (Spiriva Respimat) 2 puff inhalation DAILY breathing #4 grams 11/07/20 [Rx Last Taken 05/30/22] fluticasone furoate 200 mcg-vilanterol 25 mcg/dose inhalation powder (Breo Ellipta) 1 ea inhalation DAILY COPD 12/04/20 [History Last Taken 05/30/22] albuterol sulfate 2.5 mg/3 mL (0.083 %) solution for nebulization 2.5 mg (3 mL) inhalation Q4H PRN Shortness Of Breath #3 mL 12/08/20 [Rx Last Taken 05/30/22] furosemide 40 mg tablet 40 mg PO DAILY #1 TAB 12/08/20 [Rx Last Taken 05/30/22] metformin 500 mg tablet 500 mg PO BIDCM #60 tabs 12/08/20 [Rx Last Taken Unknown] glimepiride 4 mg tablet 8 mg PO BREAKFAST 05/30/22 [History Last Taken 05/30/22] spironolactone 25 mg tablet 12.5 mg PO DAILY 05/30/22 [History Last Taken 05/30/22] dextromethorphan-guaifenesin 30 mg-600 mg tablet extended [id number] hr (Mucinex DM) 2 tab PO BID 7 days #28 tabs 06/02/22 [Rx Last Taken Unknown] methocarbamol 500 mg tablet 500 mg PO TID PRN muscle pain 10 days #30 tabs 06/02/22 [Rx Last Taken Unknown] prednisone 10 mg tablets in a dose pack See Taper PO DAILY #30 tabs 06/02/22 [Rx Last Taken Unknown] Allergy/AdvReac Type Severity Reaction Status Date / Time No Known Allergies Allergy Verified 06/07/22 01:00 Family History Mother Rheumatoid arthritis Chronic back pain Father Unknown family medical history Patient is unaware of any paternal family medical history to include diabetes, hypertension, CAD, ACS or CVA due to patient not knowing his father. Surgical History Hx of inguinal hernia surgery Social History household members: family and children Smoking Status: Current every day smoker tobacco type: cigarettes how long ago did patient quit smokin months ago alcohol intake: former substance use type: marijuana ROS ROS ED Constitutional Constitutional ED: Denies chills, fever(s) or sweats Eyes Eyes: Denies change in vision ENT ENT ED: Denies dysphagia or sore throat Cardiovascular Cardiovascular: Denies chest pain, leg edema, palpitations or racing heartbeat Respiratory/Chest Respiratory/Chest: Denies cough, dyspnea or dyspnea on exertion Gastrointestinal Gastrointestinal: Denies abdominal pain, diarrhea, nausea or vomiting Genitourinary Genitourinary ED: Denies dysuria, hematuria or urinary frequency Musculoskeletal Musculoskeletal: Denies back pain, extremity pain or neck pain Integumentary Denies rash or wounds Neurologic Neurologic: Denies headache(s), paresthesias or weakness EXAM Physical Exam Const Vital Signs: 06/07/22 00:56 06/07/22 01:08 06/07/22 01:25 Temperature 98.2 F Temperature Source Temporal Pulse Rate 100 Respiratory Rate 17 Respiratory Effort Normal Respiratory Depth Normal Respiratory Pattern Normal Blood Pressure 142/92 H Blood Pressure Mean 108 Pulse Ox 98 97 Oxygen Delivery Method Nasal Cannula Oxygen Flow Rate (L/min) 3 Positive well nourished and well developed Constitutional Narrative: 3 L nasal cannula no respiratory distress. General Appearance ED: well developed and NAD HEENT Reports moist mucous membranes normocephalic and atraumatic Eyes PERRL, EOMs intact bilaterally and conjunctivae normal General Eye ED: Yes normal appearance of both eyes Neck no lymphadenopathy and supple General: Negative for tenderness Chest Wall Chest: Negative for tenderness Resp normal respiratory effort and normal air movement Effort and Inspection: symmetric chest movement; Negative for respiratory distress Cardio regular rate, regular rhythm and no murmurs Peripheral Pulses: pulses 2+ throughout GI normal to inspection, nondistended, normoactive bowel sounds and non-tender Palpation: Negative for guarding or rebound tenderness present Back/Spine no CVA tenderness and no thoracic nor lumbar tenderness Extremity normal to inspection General Extremety ED: Negative for edema or tenderness General Extremity: Negative for edema Neuro oriented x3 and no sensory deficits noted Sensorium / Orientation: awake and alert Skin no rashes or lesions noted and no wounds MDM MDM MDM Narrative Medical decision making narrative: Interventions / MDM: Differential diagnosis: Diagnosis considered but do not suspect: N/A My EKG interpretation: Sinus rate of 93, no ST changes isolated T wave version lead III. Nonspecific. Imaging independently reviewed and interpreted by myself: N/A External documents reviewed: Case management report from 06/02, noted there is a plan of care with patient going to an unoccupied 1 bedroom apartment for use short-term. He was picked up by his brother for transport. Test considered but not ordered:N/A ED course: Patient no complaints EKG from nursing protocol obtained normal. He is on 3 L oxygen. Currently social issue due to him needing oxygen at 3 L chronically. Case management report noted there was a place for him to stay per discussion with patient however apparently went to the hot and then [facility]. I discussed this with the patient, who states this was not discussed with him having a place to stay. I discussed with him medically we need to make sure he will have oxygen for continued use. He reports he goes to [facility] for medical supplies and they will him for bottles of oxygen. He states they opened at 8 a.m. He states as soon as they open he will go there. We will plan to reevaluate in the morning if he is able to get his oxygen supply to confirm this in the morning. Otherwise plan we will have case management see him to set up oxygen and assist with his needs. Re-evaluation: Disposition discussed with patient/family/significant other: Patient Case discussed with consulting clinician: N/A Discharge Plan Triage Chief Complaint: Shortness of Breath ED Provider: Alex Walters Dx/Rx/DC Orders Clinical Impression: COPD (chronic obstructive pulmonary disease), O2 dependent Instructions: What Is COPD Prescriptions: No Action losartan 25 mg tablet 25 mg PO DAILY albuterol sulfate [Ventolin HFA] 90 mcg/actuation HFA aerosol inhaler 2 puff INHALATION Q4H PRN PRN (Reason: Shortness Of Breath) ipratropium bromide 0.02 % solution 3 ml inhalation TID PRN (Reason: Shortness Of Breath) Label Comments: inhale contents of 1 vial in nebulizer every 4 hours if needed Spiriva Respimat 2.5 mcg/actuation Mist 2 puff INHALATION DAILY Qty: 4 0RF metoprolol succinate 50 mg Tablet Extended Release 24 Hr 150 mg PO DAILY Qty: 90 0RF fluticasone furoate-vilanterol [Breo Ellipta] 200-25 mcg/dose blister with device 1 ea INHALATION DAILY metformin 500 mg Tablet 500 mg PO BIDCM Qty: 60 0RF albuterol sulfate 2.5 mg /3 mL (0.083 %) Solution For Nebulization 2.5 mg inhalation Q4H PRN (Reason: Shortness Of Breath) Qty: 3 0RF furosemide 40 mg Tablet 40 mg PO DAILY Qty: 1 0RF spironolactone 25 mg tablet 12.5 mg PO DAILY Label Comments: take ONE-HALF tablet by mouth every morning glimepiride 4 mg tablet 8 mg PO BREAKFAST methocarbamol 500 mg Tablet 500 mg PO TID PRN (Reason: muscle pain) 10 Days Qty: 30 0RF Mucinex DM 30-600 mg Tablet Extended Release 12 Hr 2 tab PO BID 7 Days Qty: 28 0RF prednisone 10 mg tablets,dose pack See Taper PO DAILY Qty: 30 0RF Taper: Prednisone Taper 40 mg WITH BREAKFAST for 3 Days and 0 Hour 30 mg WITH BREAKFAST for 3 Days and 0 Hour 20 mg WITH BREAKFAST for 3 Days and 0 Hour 10 mg WITH BREAKFAST for 3 Days and 0 Hour Rx Instructions: 40 mg with breakfast for 3 Days; 30 mg with breakfast for 3 Days; 20 mg with breakfast for 3 Days; 10 mg with breakfast for 3 Days Primary Care Provider: Regan Adan Referrals: Regan Adan DO [Primary Care Provider] - 3-5 Days
--- NOTE | 2022-06-07 11:29 | CM.ED ---
Addendum entered by Stephanie Vivar 06/07/22 12:02: Micha with APS returned this SWs call. SW provided demographic information for patient, Micha confirmed she is already aware of patient. SW explained patient is in ED due to SOB and is being transported to [facility] as [facility] is providing a taxi voucher. SAUL report they have available beds and patient would be able to use an outlet for his concentrator. Micha to follow up. Stephanie Vivar COMMUNITY HEALTH NURSE STAFF, [employer] ADMIN Original Note: Social Work Note Referral Source: food and beverage manager Alyssa Referral Reason: resources food and beverage manager Alyssa met with SW and provided review of symptoms and current concerns including housing and transportation. SW to follow up. SW met with patient and introduced herself and role as [facility] Patient Care Director. Patient was laying in hospital bed but agreeable to speak to social work. SW inquired about patient's current living situation, access to transportation or other resources. Patient reports he was living in a home for 15 months but had to move out when the home was sold. Patient explained he was then at [facility] and transferred to a SNF for therapy. Patient has more recently been staying at [facility] in [place], friend's home and the [facility]. Patient reports he was informed to go to an agency by [facility] for housing assistance as they had an apartment available. Patient unable to recall specifics. Patient denies access to transportation, receives SSI and JFS insurance, no other resources identified. SW contacted [facility] and spoke with phlebotomy supervisor Ana María. Ana María reports patient was likely staying at the [facility] as he is not on their list, however, there are beds available for the care home. Patient advised to present at [facility] by 3pm to be reviewed for the care home, first come first serve. Ana María explained residents have to leave at 8am, typically going to [employer] for breakfast and can return to [facility] at 10 but can not be back into their rooms until 3pm. Ana María explained there is access to outlets if needed as many charge their phones. GABI met with patient and reviewed information provided by Ana María with [facility]. Patient was receptive towards going to the [facility] and inquired about transportation as he does not have access to transportation. GABI to follow up. GABI then reviewed resources including [employer] resource list, Senior research quality assurance specialist with [employer] as well as [employer] for an assessment for additional resources. Patient reports he will follow up with agencies for further assistance. No other needs at this time. GABI contacted [facility] electric motor repairing supervisor to inquire about transportation. MONICA Ramsey reports staff can contact a [employer] company to arrange transportation and inform them we will be using a hospital voucher. GABI updated food and beverage manager Alyssa and patrol community service officer. medical secretary coordinated transportation, with ETA within the hour. GABI left a for Micha with APS to discuss concerns for patient,SW requested a return phone call. Plan: patient returning to [facility] [employer] assisting with transportation with [facility] voucher. Stephanie DASH, DEN
--- NOTE | 2022-06-07 12:05 | ED.RN ---
SERGEY ARRIVED FOR THIS PATIENT, DR. KLINE NOTIFIED BY CASE MGMT OF OXYGEN STATUS FOR THIS PATIENT AND HE WILL COMPLETE THE DISCHARGE PAPERWORK IT HAS NOT BEEN COMPLETED.
== END 2022-06-07 12:10 | disposition home or self-care (01) ==
LOC: ED 04:41
PROVIDERS: Emergency Provider Emergency Medicine; PCP Family Medicine; Visit Provider Emergency Medicine
DX: J44.9 Chronic obstructive pulmonary disease, unspecified (principal); I11.0 Hypertensive heart disease with heart failure; I50.9 Heart failure, unspecified; E11.9 Type 2 diabetes mellitus without complications; Z99.81 Dependence on supplemental oxygen; F12.90 Cannabis use, unspecified, uncomplicated; F17.210 Nicotine dependence, cigarettes, uncomplicated; Z79.84 Long term (current) use of oral hypoglycemic drugs; Z79.899 Other long term (current) drug therapy
CPT/HCPCS: 93005; 99282

== ENCOUNTER 2022-06-14 13:18 | Emergency (ER) | payer MEDICARE, MEDICAID, SELFPAY ==
[2022-06-14 13:20] VITALS: BP 142/99; PULSE 124; RESP 22; TEMP 36.1; O2SAT 99; BMI 22.3
--- NOTE | 2022-06-14 14:10 | EKG12_ITS ---
Test Reason : Blood Pressure : / mmHG Vent. Rate : 112 BPM Atrial Rate : 112 BPM P-R Int : 158 ms QRS Dur : 084 ms QT Int : 338 ms P-R-T Axes : 084 -16 077 degrees QTc Int : 461 ms Sinus tachycardia with Fusion complexes Low voltage QRS Borderline ECG Confirmed by PREMA HAYES, LAWRENCE ([id number]), digital editor JOEL FUENTES ([id number]) on 06/15/2022 8:42:08 AM Referred By: SKYE Confirmed By:LAWRENCE LLOYD MD
--- NOTE | 2022-06-14 14:11 | ED.VIS.DYS ---
HPI History of Present Illness Chief Complaint: Shortness of Breath Informant: patient Narrative Narrative: Patient states he is here for shortness of breath but he really thinks he is here because he is anxious over running out of his medicine. It takes extensive discussion with the patient and then reviewing his records and coming back to get what medicines he is out of. He was recently in the hospital for pneumonia. He states he is not wheezing more. He is not coughing more. He is not having fevers. He is not having chest pain. I find out that he is out of my heart pill, my blue pill in my perry pill since Tuesday. This ends up being spironolactone, metoprolol, and glimepiride. He does have his Lasix and has been taking it. He states he takes all his medicines religiously. He thinks he does have a refill at the pharmacy but I cannot get why he has not gotten to the pharmacy. He states he thinks most of this is being very anxious over missing his meds because that is not something he ever does. He has not had hemoptysis. No pleuritic pain. He denies prior DVT or PE or leg swelling. He is also asking to eat lunch because he is very hungry. PFSH PFSH Medical History Atrial tachycardia Congestive heart failure (CHF) COPD (chronic obstructive pulmonary disease) Diabetes Former smoker Hearing loss, left Hearing loss, right Hypertension Hypoxia Hypoxia Nonadherence to medication On home oxygen therapy Smoker Home Medications albuterol sulfate 90 mcg/actuation aerosol inhaler (Ventolin HFA) 2 puff inhalation Q4H PRN PRN Shortness Of Breath 09/15/20 [History Last Taken 05/30/22] ipratropium bromide 0.02 % solution for inhalation 3 ml inhalation TID PRN Shortness Of Breath 09/15/20 [History Last Taken 12/04/20] losartan 25 mg tablet 25 mg PO DAILY bp 09/15/20 [History Last Taken 05/30/22] metoprolol succinate 50 mg tablet,extended release 24 hr 150 mg PO DAILY #90 tabs 11/07/20 [Rx Last Taken 05/30/22] tiotropium bromide 2.5 mcg/actuation mist for inhalation (Spiriva Respimat) 2 puff inhalation DAILY breathing #4 grams 11/07/20 [Rx Last Taken 05/30/22] fluticasone furoate 200 mcg-vilanterol 25 mcg/dose inhalation powder (Breo Ellipta) 1 ea inhalation DAILY COPD 12/04/20 [History Last Taken 05/30/22] albuterol sulfate 2.5 mg/3 mL (0.083 %) solution for nebulization 2.5 mg (3 mL) inhalation Q4H PRN Shortness Of Breath #3 mL 12/08/20 [Rx Last Taken 05/30/22] furosemide 40 mg tablet 40 mg PO DAILY #1 TAB 12/08/20 [Rx Last Taken 05/30/22] metformin 500 mg tablet 500 mg PO BIDCM #60 tabs 12/08/20 [Rx Last Taken Unknown] glimepiride 4 mg tablet 8 mg PO BREAKFAST 05/30/22 [History Last Taken 05/30/22] spironolactone 25 mg tablet 12.5 mg PO DAILY 05/30/22 [History Last Taken 05/30/22] dextromethorphan-guaifenesin 30 mg-600 mg tablet extended vupntea93 hr (Mucinex DM) 2 tab PO BID 7 days #28 tabs 06/02/22 [Rx Last Taken Unknown] methocarbamol 500 mg tablet 500 mg PO TID PRN muscle pain 10 days #30 tabs 06/02/22 [Rx Last Taken Unknown] prednisone 10 mg tablets in a dose pack See Taper PO DAILY #30 tabs 06/02/22 [Rx Last Taken Unknown] glimepiride 4 mg tablet 8 mg PO DAILY #60 tabs 06/14/22 [Rx Last Taken Unknown] metoprolol succinate 50 mg tablet,extended release 24 hr 50 mg PO TID #90 tabs 06/14/22 [Rx Last Taken Unknown] spironolactone 25 mg tablet 12.5 mg PO DAILY #15 tabs 06/14/22 [Rx Last Taken Unknown] Allergy/AdvReac Type Severity Reaction Status Date / Time No Known Allergies Allergy Verified 06/14/22 13:20 Family History Mother Rheumatoid arthritis Chronic back pain Father Unknown family medical history Patient is unaware of any paternal family medical history to include diabetes, hypertension, CAD, ACS or CVA due to patient not knowing his father. Surgical History Hx of inguinal hernia surgery Social History household members: family and children Smoking Status: Current every day smoker tobacco type: cigarettes how long ago did patient quit smokin months ago alcohol intake: former substance use type: marijuana ROS ROS ED Constitutional Constitutional ED: Denies chills, fever(s) or sweats ENT ENT ED: Denies rhinorrhea or sore throat Cardiovascular Cardiovascular: Denies chest pain, palpitations or racing heartbeat Respiratory/Chest Respiratory/Chest: Reports dyspnea; Denies cough or sputum Gastrointestinal Gastrointestinal: Denies abdominal pain, nausea or vomiting Musculoskeletal Musculoskeletal: Denies myalgias Neurologic Neurologic: Denies headache(s) Psychiatric Psychiatric: Reports anxiety Endocrine Endocrinology: Denies polydipsia or polyuria Hematologic/Lymphatic Hematologic/Lymphatic: Denies easy bleeding or easy bruising Allergic/Immunologic Allergic/Immunologic ED: Denies urticaria EXAM Physical Exam Narrative Exam Narrative: Patient is awake and alert. He is laying down flat while getting the EKG. He carries on a normal conversation. He is nontoxic. HEENT shows moist mucous membranes no trauma Neck shows no sign of JVD. Lungs has decreased breath sounds. I can induce a wheezes with forced exhalation. I do not hear rhonchi or rales. Heart is regular but tachycardic. He has a rate about 1 15-1 19 while I am in the room. He has an occasional PVC. But of note he has not had his metoprolol for several days. Abdomen is obese but nontender. Of note the 72 kg weight listed on the computer is not accurate clinically. Back shows no CVA tenderness. Extremities do not show any notable edema. They are not tender. No asymmetry. Neurologically he is awake alert no acute distress. He does speak continually. He admits to feeling very anxious. He seems to feel much better when I state that I can get him something to eat. Const Vital Signs: 06/14/22 13:20 06/14/22 14:19 06/14/22 15:17 Temperature 96.9 F L Temperature Source Temporal Pulse Rate 124 H 96 Respiratory Rate 22 H 20 H Respiratory Effort Short of Breath Respiratory Depth Normal Respiratory Pattern Normal Normal Blood Pressure 142/99 H Blood Pressure Mean 113 Pulse Ox 99 Oxygen Delivery Method Nasal Cannula Room Air Oxygen Flow Rate (L/min) 3 MDM MDM MDM Narrative Medical decision making narrative: We did give the patient the metoprolol that he has missed for the last several days. His heart rates down. He states he feels a lot better. He ate. His saturations are 99% on 3 L which is the oxygen he wears normally. Patient states he is getting better from his pneumonia. Every day seems better. He wants to go home. But he does want to get prescriptions for his medicines. He normally sends them to [facility] in [place] but he would like the meds to be sent to [facility] in [place] because this will be easier for him to obtain. I will write for the 3 meds that he is missing. He states he has his albuterol nebulizer and all the other medicines. We did discussed reasons to return and following up with his primary physician before he runs out. Sounds like he has an appointment coming up later this week or next week. My independent interpretation of the patient's chest x-ray shows 2 images but single AP views. There are some chronic basilar changes but no sign of infiltrate. Final reading was hyperinflation worse in the right upper lobe and stable mild degree of scarring at the lung bases. I do not think his symptoms represent a an acute new pneumonia. He is clinically improving from his recent bout. Lab Data Attestation: I reviewed the patient's lab results. Labs: Laboratory Results - last 24 hr 06/14/22 06/14/22 06/14/22 14:23 14:23 14:23 WBC 7.4 RBC 4.46 L Hgb 13.4 Hct 42.7 MCV 95.7 H MCH 30.0 MCHC 31.4 L RDW Std Deviation 47.8 H RDW Coeff of Patricia 13.5 Plt Count 164 MPV 10.1 Immature Gran % (Auto) 1.600 H Neut % (Auto) 58.0 Lymph % (Auto) 29.9 [place] % (Auto) 8.6 Eos % (Auto) 1.4 Baso % (Auto) 0.5 Absolute Neuts (auto) 4.3 Absolute Lymphs (auto) 2.20 Nucleated RBC % 0 Sodium 138 Potassium 4.4 Chloride 99 Carbon Dioxide 35.0 H Anion Gap 4 L BUN 15 Creatinine 0.86 Estim Creat Clear Calc 85.47 Est GFR (MDRD) Af Amer 115 Est GFR (MDRD) Non-Af 95 BUN/Creatinine Ratio 17.5 Glucose 222 H Calcium 8.8 Troponin I High Sens 15 B-Natriuretic Peptide 128.6 H Radiography Diagnostic Testing: Clinical Impression(s) from Imaging Studies Chest X-Ray 06/14/22 15:25 IMPRESSION: Hyperinflation and emphysematous changes worse in the right upper lobe. Stable mild degree of scarring at the lung bases. Electronically Signed: Dayne Garcia MD at 15:43 EDT , EKG Initial EKG: Comments: My independent interpretation of the EKG done for tachycardia shows sinus rhythm with tachycardic rate at 112. There is a single PVC. No acute ST elevation or depression. SD interval, QRS duration and QTc are normal. Other than a slightly increased rate, the EKG is similar to a prior from 07 June of this year Discharge Plan Triage Chief Complaint: Shortness of Breath Other Complaint: Med Refill ED Provider: Bernard Flores Dx/Rx/DC Orders Clinical Impression: Dyspnea, O2 dependent, Medication discontinued without order Instructions: ED Dyspnea Prescriptions: New glimepiride 4 mg tablet 8 mg PO DAILY Qty: 60 0RF spironolactone 25 mg tablet 12.5 mg PO DAILY Qty: 15 0RF metoprolol succinate 50 mg tablet extended release 24 hr 50 mg PO TID Qty: 90 0RF No Action losartan 25 mg tablet 25 mg PO DAILY albuterol sulfate [Ventolin HFA] 90 mcg/actuation HFA aerosol inhaler 2 puff INHALATION Q4H PRN PRN (Reason: Shortness Of Breath) ipratropium bromide 0.02 % solution 3 ml inhalation TID PRN (Reason: Shortness Of Breath) Label Comments: inhale contents of 1 vial in nebulizer every 4 hours if needed Spiriva Respimat 2.5 mcg/actuation Mist 2 puff INHALATION DAILY Qty: 4 0RF metoprolol succinate 50 mg Tablet Extended Release 24 Hr 150 mg PO DAILY Qty: 90 0RF fluticasone furoate-vilanterol [Breo Ellipta] 200-25 mcg/dose blister with device 1 ea INHALATION DAILY metformin 500 mg Tablet 500 mg PO BIDCM Qty: 60 0RF albuterol sulfate 2.5 mg /3 mL (0.083 %) Solution For Nebulization 2.5 mg inhalation Q4H PRN (Reason: Shortness Of Breath) Qty: 3 0RF furosemide 40 mg Tablet 40 mg PO DAILY Qty: 1 0RF spironolactone 25 mg tablet 12.5 mg PO DAILY Label Comments: take ONE-HALF tablet by mouth every morning glimepiride 4 mg tablet 8 mg PO BREAKFAST methocarbamol 500 mg Tablet 500 mg PO TID PRN (Reason: muscle pain) 10 Days Qty: 30 0RF Mucinex DM 30-600 mg Tablet Extended Release 12 Hr 2 tab PO BID 7 Days Qty: 28 0RF prednisone 10 mg tablets,dose pack See Taper PO DAILY Qty: 30 0RF Taper: Prednisone Taper 40 mg WITH BREAKFAST for 3 Days and 0 Hour 30 mg WITH BREAKFAST for 3 Days and 0 Hour 20 mg WITH BREAKFAST for 3 Days and 0 Hour 10 mg WITH BREAKFAST for 3 Days and 0 Hour Rx Instructions: 40 mg with breakfast for 3 Days; 30 mg with breakfast for 3 Days; 20 mg with breakfast for 3 Days; 10 mg with breakfast for 3 Days Primary Care Provider: Regan Adan Referrals: Regan Adan DO [Primary Care Provider] - As soon as possible Disposition Disposition: Home, Self Care
[2022-06-14] MEDS: Ipratropium/Albuterol Sulfate 3 ML AMPUL.NEB INHALATION (14:17)
[2022-06-14 14:19] VITALS: O2SAT 98
[2022-06-14] MEDS: Metoprolol(XL)Succ 50 MG Tablet PO (14:30)
[2022-06-14] MEDS: Metoprolol Tartrate 5 MG/5 ML Vial IV (14:30)
[2022-06-14 14:32] LABS: Absolute Neutrophil Count 4.3 X10^3/uL (2.0-7.7); Basophil# 0.04 X10^3/uL; Basophil% 0.5 % (0-1); Eosinophils% 1.4 % (0-5); Hematocrit 42.7 % (40-54); Hemoglobin 13.4 g/dL (13.0-16.5); Lymphocyte % 29.9 % (19-41); Mean Corp Hgb Conc 31.4 g/dL (32-36); Mean Corpuscular Volume 95.7 fL (80-94); Mean Platelet Vol. 10.1 fl (6.2-12.0); Monocyte# 0.63 X10^3/uL; Monocyte% 8.6 % (0-10); NRBC Flagged by Analyzer 0 % (0-5); Neutrophil # 4.27 X10^3/uL (2.7-7.7); Platelet Count 164 K/mm3 (150-450); RBC Distribution Width CV 13.5 % (11.6-14.6); RBC Distribution Width SD 47.8 fl (35.1-43.9); Red Blood Count 4.46 M/mm3 (4.6-6.2); White Blood Count 7.4 K/mm3 (4.4-11.0)
[2022-06-14 14:54] LABS: Anion Gap 4 (5-15); BUN 15 mg/dL (7-18); BUN/Creat Ratio 17.5 RATIO (10-20); Calcium,Total 8.8 mg/dL (8.5-10.1); Chloride 99 mmol/L (98-107); Creatinine, Serum 0.86 mg/dL (0.70-1.30); EST Glomerular Filtration Rate 95 mL/min (>60); Est Glom Filt Rate - Afr Amer 115 mL/min (>60); Estimated Creatinine Clearance 85.47 ml/min; Glucose 222 mg/dL (74-106); Potassium 4.4 mmol/L (3.5-5.1); Sodium Level 138 mmol/L (136-145); Troponin-I HS 15 pg/mL (3.0-78.0)
[2022-06-14 15:02] LABS: BNP,B-Type NATRIURETIC PEPTIDE 128.6 pg/mL (0-100)
[2022-06-14 15:17] VITALS: PULSE 96; RESP 20
--- NOTE | 2022-06-14 15:25 | RAD_ITS ---
STUDY: X-RAY CHEST REASON FOR EXAM: Male, 66 years old. SOB TECHNIQUE: Single AP portable view of the chest. COMPARISON: Comparison is made with prior study of May 30, 2022. FINDINGS: EKG electrodes are seen. There is hyperinflation of the lungs consistent with chronic obstructive lung disease (COPD). Decreased bronchovascular markings in the upper lobes worse in the right upper lobe suggestive of bolus formation. Stable mild increased markings at the lung bases suggestive of scarring. There is no demonstrated pleural abnormality. Normal size heart. Normal mediastinum and phyllis. Normal visualized pulmonary arteries. Normal visualized aortic arch and descending thoracic aorta. Normal visualized thoracic spine. Normal visualized ribs, clavicles, and shoulders. There is no demonstrated abnormality of the visualized soft tissue structures of the upper abdomen. RAD/Chest 1 View (Portable) IMPRESSION: Hyperinflation and emphysematous changes worse in the right upper lobe. Stable mild degree of scarring at the lung bases. Electronically Signed: Dayne Garcia MD at 15:43 EDT ,
--- NOTE | 2022-06-14 16:10 | CM.ED ---
Addendum entered by Stephanie Vivar 06/14/22 20:03: GABI informed by china painter patient was refusing to leave as his oxygen tank was low and requesting a new one. GABI met with HRO and RN to review current concerns. SW was informed patient's friend came earlier to being patient up, however, the patient refused to leave until he is given a new tank. Change MONICA Wall was able to speak with [employer] liaison and [facility] staff will be bringing patient tanks to take home once patient's transportation is available. SW met with patient and introduced role, patient already familiar with SW from previous visit. Patient discussed his concerns. SW provided emotional support and explained [employer] employee is 15 minutes away and will provide patient with the tanks once transportation has arrived. SW assisted patient with attempting to contact his friend for a ride, called four times with no answer. medical records secretary requested taxi as patient reports he will [facility]. medical records secretary reports the taxi will be arriving in 1.5 hrs. SW updated patient and encouraged patient to return to triage area rather than waiting outside ED entrance. Patient in agreement to come inside and wait for taxi. SW contacted [facility] to inquire about patient's ability to return. [facility] staff explained patient is able to go to the warming center until 10pm. GABI explained transportation was arranged but could take 1.5 hours before they arrive. [facility] staff reports she will contact warming center staff that the patient might be arriving after 10pm. Plan: patient waiting on taxi to return to [facility] warming center and will be given extra oxygen tanks once his transportation has arrived. Stephanie Vivar CLAIMS ATTORNEY, EXTERMINATOR HELPER Original Note: Social Work Note Referral Source: MONICA English Referral Reason: resources MONICA English met with GABI and explained patient was brought in by squad from [employer] and informed someone was assisting patient with paying for motel. GABI recently met with patient and provided resources, SW to follow up. GABI met with MD Sandra MD reports no social work needs at this time. GABI contacted Micha with [employer]PS as this GABI and Micha have discussed a referral for patient recently. Micha reports she is no longer working with the patient and believes [facility]. MONICA Marsh met with GABI and explained the patient is needing a tank of oxygen to take home. GABI contacted [facility] liaison Barbara to discuss patient's needs. Barbara explained the patient has a script on file already and can be given a tank, nothing else is needed as she will update patient's file to reflect the tank being sent home today. GABI updated RN. Plan: d/c home with oxygen tank Stephanie Vivar MSW, DEN
[2022-06-14 16:26] VITALS: BP 138/76; PULSE 781; RESP 16; TEMP 36.6; O2SAT 99
--- NOTE | 2022-06-14 19:57 | ED.RN ---
193-Pt comes back into department after sitting outside smoking for a couple hours waiting for a ride. Pt yelling and demanding in triage that we give him another tank because the one they gave him a few hours ago is almost empty. Pt was told we dont have any and we have to call Ash[facility]. Pt then started rolling around on the ground yelling, stating we are lying and that we have plenty of oxygen in the hospital. PD was notified. Staff called for taxi hours ago and was told they would be here around 7-7:30 pm, they did not show up. His friends then showed up around the same time and patient refused for them to take him home because he was not leaving the hospital without another oxygen tank [employer] distribution sales representative notified that Angus is back and needing another tank, and that we are out of tanks. They state they will bring him a few tanks. 2004 taiwo arrives with 2 small tanks for patient and leaves them with the nurse in triage. He said patient is not to have possession of them until his ride is here so he does not run them out as well. If the current take he has runs out he will need to come inside and be hooked up to the wall oxygen tank in triage. Pt states understanding of plan. HRO remains with patient outside.
--- NOTE | 2022-06-14 21:23 | ED.RN ---
PATIENT ASKING THIS RN TO GRAB HIS BAGS THAT HE LEFT IN THE DOOR WAY. PATIENT STATES THE FUCKING NURSE LEFT MY SHIT OUT THERE FOR PEOPLE TO STEAL IT. PATIENT INFORMED WE DO NOT USE DISRESPECTFUL LANGUAGE. PT STATES I WILL USE THAT KIND OF LANGUAGE WHEN ITS NECESSARY AND IT IS. RN STATED IT IS TIME FOR YOU TO LEAVE. I WILL NOT TOLERATE THAT TYPE OF LANGUAGE. MALOU AND SECURITY ESCORTED JORGE OUTSIDE THE BUILDING. CHARGE NURSE BYRON NOTIFED.
--- NOTE | 2022-06-15 10:00 | CM.ED ---
Social Work Consult: Resources Referral source: ED Charge Nurse Informant(s): Chart, nursing staff. Nursing reporting that patient is in ED waiting room and is only wanting to get an oxygen tank. This criminal justice social worker reviewed patient chart. Patient with multiple visits to [facility] ED with request for oxygen tank. Patient appears to have oxygen set up through [facility]. Telephone call to Lupe Sotelo. Lupe reports to be familiar with patient. Lupe states that patient is to be calling [employer] when patient is needing tanks refilled and go to [facility] office to have tanks switched out. This criminal justice social worker voiced understanding to this process. PLAN: This criminal justice social worker to speak with patient. Laura DASH, DEN-S
--- NOTE | 2022-06-15 10:27 | CASEMGMT ---
Social Work NOTE: Below interaction occurred on 06/15/2022 Consult: Resources Referral source: ED Charge Nurse Informant: Patient, nursing staff, medical chart. This social sciences professor met with patient in waiting room as per charge nurseLuba patient does not want to be medically assessed and just wants oxygen. This social sciences professor introduced self and social sciences professor role. Patient agreeable to speak with this social sciences professor. Patient confirms to not want to be seen medically and to be trying to oxygen. Patient states to have been brought to [facility] ED via EMS due to being out of oxygen. Patient is currently using a [facility] oxygen tank per nursing staff. Patient reports to have spoken with [employer] just a little bit ago and there are four tanks that patient is able to cone picker from the [employer] office in [place]. Patient inquired if this social sciences professor would be able to call [facility] and see if [facility] would bring patient empty tanks from the [facility] up to [facility] ED and then provide transportation for patient to [facility]. Patient also states that Roxy at [employer] might be able to get transport for patient from the ED to [facility]. This social sciences professor agreed to call [facility] and [employer]. Patient also states to have funds, this social sciences professor exploring option of patient setting up own transportation via taxi to [facility] and then [facility], patient does not directly answer this question and goes on to talk about other forms of transportation. This social sciences professor inquired as to where patient has been staying, patient states to be staying at [facility]. Telephone call to [facility], Ana María. Ana María states that patient has been sleeping in hallway on the floor at [facility] as [facility] does not have any open beds for patient to stay in the retirement currently. Ana María states that multiple community agencies are attempting to work with patient on finding housing. Ana María states that housing was found for patient but patient has a criminal background with multiple drug charges and the landlord was not willing to rent to patient. Ana María stated not sure how to help. Ana María states that patient informed Ana María that patient is Hospital hopping because he was treated like a katie. This social sciences professor inquired if someone at [facility] would be willing to bring patient empty oxygen tanks to [facility] and then transport patient with empty tanks to local [facility] office to get tanks filled. Ana María states we do not provide transportation and unable to assist with transporting patient. Telephone call to Community Roxy [facility]. Roxy is the senior azure principal solution specialist at [facility]. No answer. Voicemail left. This social sciences professor updated patient on above information and recommended for patient to call for a taxi, patient states I don't want to wait for that. Patient states I will call someone else. This social sciences professor encouraged patient to call someone else for transportation, patient states I will work on this. PLAN: To be determined. Laura DASH, JAY
--- NOTE | 2022-06-15 12:22 | CM.ED ---
Social Work This healthcare social worker checking in with patient. Patient continues to be in ED waiting room. This healthcare social worker inquired if patient has been able to establish transportation, patient states not yet. Telephone call to Lupe Sotelo. This healthcare social worker explaining situation further. Lupe states to be able to have a locomotive driver meet patient at [facility] to get patient empty tanks and bring patient full tanks if patient is able to get a ride to [facility] as patient will need to be at [facility] in order to have tanks exchanged. This healthcare social worker met with patient in ED waiting room again and communicated above information. Patient voiced understanding and is agreeable to a taxi being set up. Patient reports to be able to pay for the taxi to [facility]. Charge nurse to set up taxi, taxi to be at [facility] ED in 20min to roll picker patient. Telephone call back to Lupe. This healthcare social worker communicating to Lupe that patient has transportation to [facility]. Lupe to bring a portable oxygen tank to patient for patient to be able to get to [facility]. Lupe then to have Virgil with [facility] meet patient at [facility] to have tanks exchanged. Lupe plans to meet with patient to discuss plan. Lupe met with patient. Per Lupe, patient plans to have concentrator from patient brother later today or tomorrow morning, as patient brother is who currently has patient concentrator. Lupe states to have reminded patient about process for getting tanks refilled and patient voiced understanding to this. PLAN: Patient to have taxi bring patient to [facility] and Ashleigh to meet patient at [facility] to exchange oxygen tanks. Laura DASH, JAY
== END 2022-06-14 16:49 | disposition home or self-care (01) ==
PROVIDERS: Emergency Provider Emergency Medicine; PCP Family Medicine; Visit Provider Emergency Medicine
DX: R06.00 Dyspnea, unspecified (principal); I50.9 Heart failure, unspecified; F12.90 Cannabis use, unspecified, uncomplicated; F17.210 Nicotine dependence, cigarettes, uncomplicated; Z99.81 Dependence on supplemental oxygen
CPT/HCPCS: 71045; 80048; 83880; 84484; 85025; 93005; 94640; 96374; 99285